=== PATIENT | female | born 1935 | race Caucasian/White ===

== ENCOUNTER → 2016-11-11 | Outpatient (CLI) | payer MEDICARE | LOC: OD 17:37 | PROVIDERS: ATTEND Physician Assistant Medical | DX: R06.02 Shortness of breath (principal) ==

== ENCOUNTER 2017-02-03 14:20 | Inpatient (IN) | payer MEDICARE, MEDICAID ==
[2017-02-03] MEDS ORDERED: IPRATROPIUM/ALBUTEROL 0.5-2.5 MG/3 ML AMPUL NEB PRN (22:23)
[2017-02-03] MEDS ORDERED: 1/2 NORMAL SALINE 1,000 ML IV PRN (22:23)
[2017-02-03] MEDS ORDERED: GLUCAGON,HUMAN RECOMB 1 MG INJ IM PRN (22:26)
[2017-02-03] MEDS ORDERED: DEXTROSE 40% GEL 15 GM TUBE PO PRN ×2 (22:26)
[2017-02-03] MEDS ORDERED: DEXTROSE 50%-WATER 25 GM/50 ML DISP.SYRIN IV PRN ×2 (22:26)
--- NOTE | 2017-02-03 22:54 | PDOC H&P ---
History of Present Illness Admission Date/PCP: Reportedly Dr. Suarez Patient complains of: Altered mental status History of Present Illness: DANIEL MCFARLAND is a 81 year old female female, reportedly fairly functional in terms of activities of daily living and interaction with others, and with underlying type 2 diabetes mellitus, hypertension and diastolic congestive heart failure, who presents to the emergency room for evaluation of above complaints. Patient has been discussed with emergency room physician who evaluated the patient. Patient is oriented to the fact that she is in [facility] and the fact that "they found me on the floor," but responses to many questions are somewhat confused and her history should be considered suspect. She is thus able to provide minimal information in terms of acute or chronic events, review of systems, personal habits, family history, etc. No friends or family are present. Old inpatient records are reviewed. Documentation from the emergency room physician is pending, with hospital computer system having been down most of the day, but now functioning. Was found by the local police department, covered in urine and feces. Quite confused, but according to staff, is becoming a bit more alert now with hydration. No further information available this point in time. Laboratory results are listed in [facility] and are reviewed. X-rays reviewed, and discussed with on-call radiologist Dr. Bass, with no acute abnormalities noted. EKG reviewed. Compared to prior tracing from September 30 of last year. Social history/personal habits: No information available this point in time. Allergies/adverse reactions are listed in [facility] and are reviewed. Home medications Home medications initially autopopulated into [facility] may not accurately reflect patient's true medications, dosages, and/or frequencies. fill technician to reconcile medications. Unfortunately, patient cannot provide any information related to medications/ dosages/frequencies. REVIEW OF SYSTEMS: See history and present illness. No further information available this point in time. PHYSICAL EXAMINATION: Neither height nor weight are recorded on the chart. Temperature not recorded on the chart; skin feels normothermic. Blood pressure 105/52. 95% saturation on room air. Respirations are 13 and unlabored. Pulse 85 and regular. Somewhat obese otherwise well-developed elderly female appearing approximately her stated age. Intermittently somewhat anxious, although no gene agitation. Appears not to feel very well. Somewhat disheveled appearance. Cooperative, however. Skin is warm and dry. Extensive red rash upper medial thighs and under her abdominal wall panniculus, with overall appearance consistent with Parris rash. No subcutaneous nodules palpated. ENT: Hearing grossly normal to normal conversation. Tongue midline on protrusion pink and slightly moist. No fuentes sign. Eyes: No scleral icterus. Pupils equal and reactive to light at 4 mm. [place] conjunctivae. No raccoon eyes. Neck is supple and nontender to gentle active range of motion and palpation. Midline trachea. No palpable thyroid nodule mass enlargement or tenderness. Lymphatic: No palpable cervical or clavicular nodes. Neck and lymphatic exams limited by patient body habitus. Psychiatric: Cannot be adequately evaluated due to her current status. See history and present illness. Lungs: Auscultation reveals clear and equal breath sounds bilaterally. No use of accessory respiratory muscles. Cardiovascular: Heart regular rate and rhythm, without gallop murmur or rub. No carotid or abdominal aortic bruits. No ankle or pedal edema. Faintly palpable dorsalis pedis pulses. Abdomen:soft, somewhat obese, nontender with positive bowel sounds. Unable to adequately evaluate abdomen for masses or organomegaly due to body habitus. Extremities: Feet are warm and dry. No calf tenderness to compression. No grossly obvious visual evidence of calf swelling. Gentle manipulation of lower extremities fails to reveal any obvious evidence of injury or instability to knees hips or ankles. Skin changes in the [place] of each lower extremity consistent with probable venous stasis disease. No evidence of ulceration. Slight pink discoloration. No increased warmth. Nontender. Neurologic: Moves upper extremities grossly normally. Patellar reflexes absent. Absent Babinski. Light touch is intact at feet. Dorsiflexion and plantarflexion of feet 5 / 5 and symmetric. Past Medical History Past Medical History: Patient unable to provide any information related to past medical history. See history and present illness. Cardiac Medical History: Reports: Myocardial Infarction - X2, Hyperlipidema, Hypertension Pulmonary Medical History: Denies: Tuberculosis Neurological Medical History: Denies: Seizures Endocrine Medical History: Reports: Diabetes Mellitus Type 2 Psychiatric Medical History: Denies: Depression Past Surgical History Past Surgical History: Reports: Cardiac Catheterization, Section, Hysterectomy Denies: Pacemaker Social History Information Source: Emergency Med Personnel, [facility] Records Lives with: Alone Smoking Status: Unknown if Ever Smoked Frequency of Alcohol Use: None Hx Recreational Drug Use: No Drugs: None Hx Prescription Drug Abuse: No - Advance Directive Resuscitation Status: Full Code Surrogate healthcare decision maker:: Uncertain at this point in time. Family History Parental Family History Reviewed: No - Patient cannot provide any information related to family history. Children Family History Reviewed: No - Patient cannot provide any information related to family history. Sibling(s) Family History Reviewed.: No - Patient cannot provide any information related to family history. Medication/Allergy Home Medications: Atenolol [Tenormin] 25 mg PO DAILY 02/04/17 Glipizide [Glucotrol 10 mg Tablet] 10 mg PO BID 02/04/17 Allergies/Adverse Reactions: Sulfa (Sulfonamide Antibiotics) Allergy (Verified 11/22/11 22:26) Assessment & Plan - Diagnosis (1) ARF (acute renal failure) Qualifiers: Acute renal failure type: unspecified Qualified Code(s): N17.9 - Acute kidney failure, unspecified Is this a current diagnosis for this admission?: YesPlan: Likely primarily due to dehydration. Serial chemistry. IV fluids. (2) Abnormal urinalysis Is this a current diagnosis for this admission?: YesPlan: Urine culture. We will forego antibiotics at this point in time. (3) Acute encephalopathy Is this a current diagnosis for this admission?: YesPlan: Likely secondary in large part to her acute renal failure and dehydration. Should clear with time and treatment. I have strongly encouraged patient not to get out of bed without notifying staff to avoid a fall with injury. Knee high SCDs for DVT prophylaxis, along with subcutaneous heparin. Impression and plans were discussed with patient, who concurs. Time spent in evaluation and management of patient: 62 minutes. (5) Diabetes type 2, uncontrolled Qualifiers: Diabetes mellitus complication status: without complication Diabetes mellitus long term care pharmacist insulin use: unspecified long term care pharmacist insulin use status Qualified Code(s): E11.65 - Type 2 diabetes mellitus with hyperglycemia Is this a current diagnosis for this admission?: YesPlan: Clear liquid diet at the present time. Accu-Cheks with appropriate sliding scale coverage. Resume home medications as appropriate once these have been determined and reviewed. (6) Hypernatremia Is this a current diagnosis for this admission?: YesPlan: Appropriate IV fluid. Serial chemistry. (7) Groin rash Is this a current diagnosis for this admission?: YesPlan: Nystatin cream and powder. (8) Diastolic CHF Qualifiers: Congestive heart failure chronicity: chronic Qualified Code(s): I50.32 - Chronic diastolic (congestive) heart failure Is this a current diagnosis for this admission?: YesPlan: No evidence of acute exacerbation of same. Resume home medications as appropriate once these have been determined and reviewed. - Inpatient Certification Based on my medical assessment, after consideration of the patient's comorbidities, presenting symptoms, or acuity I expect that the services needed warrant INPATIENT care.: Yes I certify that my determination is in accordance with my understanding of Medicare's requirements for reasonable and necessary INPATIENT services [42 CFR 412.3e].: Yes Medical Necessity: Need Close Monitoring Due to Risk of Patient Decompensation, Need For IV Fluids, Need For Continuous Telemetry Monitoring, Risk of Complication if Not Cared For in Hospital, Risk of Diagnosis Which Will Require Inpatient Eval/Care/Monitoring Post Hospital Care: D/C or Transfer Summary
[2017-02-03 23:06] LABS: ADD ON TESTING BLD IN LAB ACKNOWLEDGE
[2017-02-03 23:45] LABS: ANION GAP 15 (5-19); CALCIUM 9.6 mg/dL (8.4-10.2); CARBON DIOXIDE 24 mmol/L (22-30); CHLORIDE 111 mmol/L (98-107); CREATININE RESULT 2.09 mg/dL (0.52-1.25); POTASSIUM 3.8 mmol/L (3.6-5.0); SODIUM 150.1 mmol/L (137-145)
[2017-02-03 23:54] LABS: BLOOD UREA NITROGEN 135 mg/dL (7-20)
[2017-02-03 23:55] LABS: GLUCOSE 476 mg/dL (75-110)
[2017-02-03 23:59] LABS: CALCIUM 10.4 mg/dL (8.4-10.2); GLUCOSE 547 mg/dL (75-110)
[2017-02-04 00:03] LABS: ALBUMIN 3.1 g/dL (3.5-5.0); ANION GAP 17 (5-19); BLOOD UREA NITROGEN 134 mg/dL (7-20); CARBON DIOXIDE 27 mmol/L (22-30); CHLORIDE 111 mmol/L (98-107); CREATININE RESULT 2.18 mg/dL (0.52-1.25); POTASSIUM 4.3 mmol/L (3.6-5.0); SODIUM 154.8 mmol/L (137-145)
[2017-02-04 00:04] LABS: ALANINE AMINOTRANSFERASE 38 U/L (9-52); ALKALINE PHOSPHATASE 120 U/L (38-126); ASPARTATE AMINO TRANSFERASE 51 U/L (14-36); BILIRUBIN,DIRECT 0.7 mg/dL (0.0-0.4); BILIRUBIN,TOTAL 0.9 mg/dL (0.2-1.3); CREATINE KINASE 680 U/L (30-135); TOTAL PROTEIN 7.5 g/dL (6.3-8.2)
[2017-02-04 00:05] LABS: CREATINE KINASE MB 9.5 ng/mL (<4.55); TROPONIN I 0.132 ng/mL
[2017-02-04 00:07] LABS: HEMATOCRIT 49.2 % (36.0-47.0); HEMOGLOBIN 15.3 g/dL (12.0-15.5); HGB HCT DIFFERENCE -3.3; MEAN CORPUSCULAR HEMOGLOBIN 27.8 pg (27.0-33.4); MEAN CORPUSCULAR VOLUME 90 fl (80-97); RED BLOOD COUNT 5.48 10^6/uL (3.72-5.28); SEGMENTED NEUTROPHILS % (AUTO) 77.4 % (42-78); WHITE BLOOD COUNT 11.9 10^3/uL (4.0-10.5)
[2017-02-04 00:08] LABS: ABSOLUTE BASOPHILS # (AUTO) 0.1 10^3/uL (0.0-0.2); ABSOLUTE LYMPHOCYTES (AUTO) 1.5 10^3/uL (0.5-4.7); ABSOLUTE MONOCYTES (AUTO) 1.2 10^3/uL (0.1-1.4); ABSOLUTE NEUT (AUTO) 9.2 10^3/uL (1.7-8.2); BASOPHILS % (AUTO) 0.1 % (0-2); LYMPHOCYTES % (AUTO) 12.7 % (13-45); MONOCYTES % (AUTO) 9.8 % (3-13)
[2017-02-04 00:09] LABS: APPEARANCE,URINE SLIGHTLY-CLOUDY; BILIRUBIN,URINE NEGATIVE (NEGATIVE); GLUCOSE, URINE >=500 mg/dL (NEGATIVE); KETONES,URINE NEGATIVE (NEGATIVE); PROTEIN,URINE 100 mg/dL (NEGATIVE); URINE SPECIFIC GRAVITY 1.016
[2017-02-04 00:10] LABS: LEUKOCYTE ESTERASE,URINE TRACE (NEGATIVE); NITRITE,URINE NEGATIVE (NEGATIVE); UROBILINOGEN,URINE NEGATIVE mg/dL (<2.0)
[2017-02-04] MEDS: INSULIN LISPRO 100 UNIT/ML 3 ML VIAL SUBCUT PRN ×3 (00:30→18:27)
[2017-02-04] MEDS ORDERED: 1/2 NORMAL SALINE 1,000 ML IV PRN ×2 (01:45→14:11)
[2017-02-04 02:27] LABS: ANION GAP 11 (5-19); CALCIUM 9.6 mg/dL (8.4-10.2); CARBON DIOXIDE 26 mmol/L (22-30); CHLORIDE 114 mmol/L (98-107); CREATININE RESULT 2.09 mg/dL (0.52-1.25); POTASSIUM 3.5 mmol/L (3.6-5.0); SODIUM 150.9 mmol/L (137-145)
[2017-02-04 02:39] LABS: BLOOD UREA NITROGEN 131 mg/dL (7-20)
[2017-02-04 02:41] LABS: GLUCOSE 434 mg/dL (75-110)
[2017-02-04 06:38] LABS: ANION GAP 11 (5-19); CALCIUM 9.9 mg/dL (8.4-10.2); CARBON DIOXIDE 28 mmol/L (22-30); CHLORIDE 115 mmol/L (98-107); CREATININE RESULT 1.89 mg/dL (0.52-1.25); GLUCOSE 152 mg/dL (75-110); POTASSIUM 3.5 mmol/L (3.6-5.0); SODIUM 154.2 mmol/L (137-145)
[2017-02-04 06:49] LABS: BLOOD UREA NITROGEN 129 mg/dL (7-20)
[2017-02-04 08:03] LABS: HEMOGLOBIN 13.5 g/dL (12.0-15.5); HGB HCT DIFFERENCE -1.5; MEAN CORPUSCULAR HEMOGLOBIN 27.7 pg (27.0-33.4); MEAN CORPUSCULAR HGB CONC 32.1 g/dL (32.0-36.0); MEAN CORPUSCULAR VOLUME 87 fl (80-97); RED BLOOD COUNT 4.86 10^6/uL (3.72-5.28); WHITE BLOOD COUNT 10.7 10^3/uL (4.0-10.5)
[2017-02-04] MEDS ORDERED: NORMAL SALINE 1000 ML 1,000 ML IV PRN (08:28)
[2017-02-04 08:41] LABS: BAND NEUTROPHILS % (MANUAL) 1 % (3-5); BASOPHILS % (MANUAL) 0 % (0-2); EOSINOPHILS % (MANUAL) 1 % (0-6); LYMPHOCYTES % (MANUAL) 26 % (13-45); TOTAL CELLS COUNTED 100
[2017-02-04 08:42] LABS: ANISOCYTOSIS 1+; POLYCHROMASIA SLIGHT
[2017-02-04] MEDS ORDERED: NYSTATIN CREAM 15 GM TP SCH (10:00)
--- NOTE | 2017-02-04 10:36 | EKG REPORT ---
SEVERITY:- ABNORMAL ECG - ATRIAL FLUTTER/FIBRILLATION, A-RATE 254 VENTRICULAR PREMATURE COMPLEX LVH WITH IVCD, LAD AND SECONDARY REPOL ABNRM INFERIOR INFARCT, AGE INDETERMINATE LATERAL Q WAVES, PROBABLY DUE TO LVH : Confirmed by: Shaylee Turner MD 04-Feb-2017 10:35:22
--- NOTE | 2017-02-04 10:36 | EKG REPORT ---
SEVERITY:- ABNORMAL ECG - SINUS RHYTHM NONSPECIFIC IVCD WITH LAD LVH WITH SECONDARY REPOLARIZATION ABNORMALITY PROBABLE INFERIOR INFARCT, AGE INDETERMINATE ANTEROLATERAL INFARCT, AGE INDETERMINATE : Confirmed by: Shaylee Turner MD 04-Feb-2017 10:35:29
--- NOTE | 2017-02-04 10:36 | EKG REPORT ---
SEVERITY:- ABNORMAL ECG - SINUS RHYTHM VENTRICULAR PREMATURE COMPLEX PROBABLE LEFT ATRIAL ABNORMALITY LVH WITH IVCD, LAD AND SECONDARY REPOL ABNRM INFERIOR INFARCT, AGE INDETERMINATE ANTEROLATERAL INFARCT, AGE INDETERMINATE : Confirmed by: Shaylee Turner MD 04-Feb-2017 10:35:35
[2017-02-04 10:57] LABS: ANION GAP 10 (5-19); BLOOD UREA NITROGEN 117 mg/dL (7-20); CALCIUM 9.7 mg/dL (8.4-10.2); CARBON DIOXIDE 28 mmol/L (22-30); CHLORIDE 115 mmol/L (98-107); CREATININE RESULT 1.77 mg/dL (0.52-1.25); GLUCOSE 276 mg/dL (75-110); POTASSIUM 3.5 mmol/L (3.6-5.0); SODIUM 152.6 mmol/L (137-145)
[2017-02-04] MEDS: HEPARIN SOD (PORCINE) 5,000 UNIT/ML 1 ML SYRINGE SUBCUT SCH (11:51)
[2017-02-04] MEDS: NYSTATIN TOPICAL POWDER 15 GM TP SCH ×2 (11:58→18:29)
[2017-02-04] MEDS: DOCUSATE SODIUM 100 MG CAPSULE PO SCH ×2 (11:58→18:34)
[2017-02-04] MEDS ORDERED: POTASSIUM CHLORIDE 10 MEQ TABLET.SA PO ONE ×2 (14:45→18:23)
[2017-02-04 16:20] LABS: ANION GAP 11 (5-19); BLOOD UREA NITROGEN 111 mg/dL (7-20); CALCIUM 9.2 mg/dL (8.4-10.2); CARBON DIOXIDE 26 mmol/L (22-30); CHLORIDE 111 mmol/L (98-107); CREATININE RESULT 1.79 mg/dL (0.52-1.25); POTASSIUM 3.3 mmol/L (3.6-5.0)
[2017-02-04 16:30] LABS: GLUCOSE 435 mg/dL (75-110); TROPONIN I 0.188 ng/mL
[2017-02-04] MEDS ORDERED: POTASSI CL 20 MEQ/1/2NS 1L 1,000 ML IV PRN (16:51)
--- NOTE | 2017-02-04 21:02 | PROGRESS NOTE E ---
Progress Note NAME: DANIEL MCFARLAND : 1935 AGE: 81Y DATE: 02/04/2017 ROOM: 321 SUBJECTIVE: The patient has been seen twice today on rounds. The patient is much more alert and awake at this time in comparison to earlier. The patient is unable to recall the exact events that brought her to the hospital, although she is aware that Dr. Dupont is her new patient escort. At this time, the patient denies any nausea, vomiting. No diarrhea, shortness of breath, dizziness, chest pain. No fevers, chills. The patient admits to excessive thirst as well as hunger at this time, and the patient does not voice any other concerns at this time. REVIEW OF SYSTEMS: Negative. MEDICATIONS: Reviewed. OBJECTIVE: GENERAL: The patient is an 81-year-old female who is awake and alert, not fully oriented. Does not appear to be in any acute distress. VITAL SIGNS: Temperature 97.7, pulse 93, respirations 16, blood pressure 110/77, oxygen saturation 95%. SKIN: Warm, very dry. She is not diaphoretic. HEENT: Pupils equal, round and reactive to light and accommodation. Conjunctivae pale. There is no JVD. CVS: Heart is regular. There is no murmur or rub. CHEST: Clear, symmetrical. Faint bilateral basal crackles. ABDOMEN: Soft, nontender, nondistended. BACK: No CVA tenderness. EXTREMITIES: No clubbing, cyanosis, or edema. PSYCHIATRIC: Much more awake and alert, pleasant mood. DIAGNOSTICS: Lab values are as follows. Hematology obtained on 02/04/2017: WBC 10.7, hemoglobin 13.5, hematocrit 42.0, platelet count 211,000. Chemistry panel on 02/04/2017: Sodium 152, potassium 4.5, chloride 115, carbon dioxide 28, BUN 117, creatinine 1.77, glucose 276, calcium 9.7. TSH is 0.11. Troponin 0.210. ASSESSMENT AND PLAN: 1. HYPEROSMOLAR NONKETOTIC HYPERGLYCEMIC STATE. The patient's blood glucose is much improved. Will continue to hydrate at this time, and follow. 2. ACUTE RENAL FAILURE. The patient's creatinine has improved with hydration. Will continue to monitor this. 3. LOW TSH. Will obtain T4. 4. ELEVATED TROPONIN. Given findings on the patient's echocardiogram, I do have a high suspicion for non-STEMI. I have consulted Dr. Dupont, who is the patient's new patient escort. The patient is unable to give a full cardiology history at this time. For now, will medically manage with aspirin and statin therapy, and follow. Given that the patient was found on the floor, will also monitor CK to ensure no development of rhabdo with statin. 5. DIABETES MELLITUS TYPE 2. Typically, this is well controlled. This is an acute event for the patient. However, will hold oral hypoglycemics for now and continue sliding scale coverage. Will advance diet to a diabetic diet, given that the patient is quite hungry. 6. DEEP VENOUS THROMBOSIS PROPHYLAXIS. Will continue subcu heparin. DISPOSITION: The patient is a full code. Depending on the patient's symptomatology and diagnostic findings, will reevaluate in the a.m. Time spent on this followup including assessment, plan, physical examination, patient education, collaboration, as well as attempt to discuss with family, is 40 minutes. DICTATING PHYSICIAN: ZEHRA CASSIDY NP [id number] PHY#: [id number] ID: [id number] JOB#: [id number] ACCT: [id number] cc: >
--- NOTE | 2017-02-04 21:19 | PDOC CONSULTATION ---
Consultation Consult Date: 02/04/17 Attending physician:: ZEHRA CASSIDY Consult reason:: abn troponin and ekg History of Present Illness Admission Date/PCP: 02/03/17 22:23 ALONSO SANZ PA-C Patient complains of: Weakness and fatigue and being found on the floor unconscious History of Present Illness: DANIEL MCFARLAND is a 81 year old female female, reportedly fairly functional in terms of activities of daily living and interaction with others, and with underlying type 2 diabetes mellitus, hypertension and diastolic congestive heart failure, who admitted through the emergency room for evaluation of above complaints. Patient was noted to be found on the floor. She was noted to have severe hyperglycemia and initially was confused. She was hydrated and treated. This morning she was much more alert and was able to answer direct questions. Patient however denied any chest pain or shortness of breath. Patient just felt nonspecifically fatigued and tired. She was noted to have positive troponin I elevation and was noted to have nonspecific EKG changes. Patient and granddaughter at bedside. This history was confirmed. On questioning today patient denied any chest pain or significant shortness of breath but claims to be feeling very fatigued and tired. This has been a symptom for last several days prior to admission and on the day of admission was noted to be found in floor with altered mental status. Past Medical History Cardiac Medical History: Reports: Myocardial Infarction - X2, Hyperlipidema, Hypertension Pulmonary Medical History: Denies: Tuberculosis Neurological Medical History: Denies: Seizures Endocrine Medical History: Reports: Diabetes Mellitus Type 2 Psychiatric Medical History: Denies: Depression Past Surgical History Past Surgical History: Reports: Cardiac Catheterization, Section, Hysterectomy Denies: Pacemaker Social History Information Source: Relative Lives with: Alone Smoking Status: Unknown if Ever Smoked Frequency of Alcohol Use: None Hx Recreational Drug Use: No Drugs: None Hx Prescription Drug Abuse: No - Advance Directive Resuscitation Status: Full Code Family History Family History: Reviewed & Not Pertinent Parental Family History Reviewed: Yes Children Family History Reviewed: Yes Sibling(s) Family History Reviewed.: Yes Medication/Allergy Home Medications: Atenolol [Tenormin] 25 mg PO DAILY 02/04/17 Glipizide [Glucotrol 10 mg Tablet] 10 mg PO BID 02/04/17 Allergies/Adverse Reactions: Sulfa (Sulfonamide Antibiotics) Allergy (Verified 11/22/11 22:26) Review of Systems Review of Systems: Please see history of present illness and past medical history as well. This was obtained by direct questioning. Constitutional: No fever or chills reported. Head : No recent chronic headaches, recent head injury. Eyes: No recent eye pain, diplopia, redness, discharge, acute visual changes. Ears: No recent chronic ear pain, acute hearing loss, ear discharge. Oral cavity: No recent ulcerations, bleeding, oral cavity discomfort. Neck: No recent acute neck pain reported. Hematologic: No recent easy bruising or bleeding or hematologic malignancy reported. Lymphatic: No recent lymphatic malignancy, chronic lymphadenopathy reported yet Cardiovascular system review: See history of present illness. Respiratory system review: No recent chronic cough, hemoptysis, blood clots in the lungs reported. Mild Shortness of breath on exertion Gastrointestinal system review: Negative for any recent acute or chronic abdominal pain, hematemesis, melena, recent change in bowel habits. Genitourinary system review: No recent acute or chronic hematuria, flank pain, UTI etc. reported. Skin system review: Negative for any recent abnormal bruising, no rash, no pruritus reported. Neurologic: No prior history of strokes, mini strokes, seizure disorder. Psychologic: No history of major psychosis or major depression reported. Musculoskeletal: Minor aches and pains reported. No acute joint swelling reported. Endocrine: No recent polyuria, polydipsia, recent heat or cold intolerance. Physical Exam Vital Signs: Temp Pulse Resp BP Pulse Ox 98.4 F 85 16 119/65 94 02/04/17 20:25 02/04/17 20:25 02/04/17 20:25 02/04/17 20:25 02/04/17 20:25 Intake & Output 02/03/17 02/04/17 02/05/17 06:59 06:59 06:59 Intake Total 1600 Balance 1600 Weight 93.6 kg Exam: GENERAL: well-nourished and in no acute distress. Alert and oriented x3. Patient noted to be intermittently confused by the nurses. HEAD: Atraumatic, normocephalic. EYES: Pupils equal round and reactive to light, extraocular movements intact, sclera anicteric, conjunctiva are normal. ENT: TMs normal, nares patent, oropharynx clear without exudates. Moist mucous membranes. No oral ulcerations or bleeding gums noted NECK: supple without lymphadenopathy. Trachea is central. No cervical or axillary lymphadenopathy noted. Carotids are 2+, JVD WNL LUNGS: Respiration seems nonlabored, no significant accessory muscle action noted. Breath sounds clear to auscultation bilaterally and equal noted. No wheezes rales or rhonchi noted. No significant dullness noted on percussion. CHEST: Palpation of the chest wall shows no significant chest wall tenderness. No other significant abnormalities noted. HEART: [place] [employer], No PSH, 1/6 DEBBIE aortic area, 1/6 schulz systolic murmur mitral area, no rubs, no gallops. ABDOMEN: Soft, no significant tenderness appreciated, normoactive bowel sounds. No guarding, no rebound. No rigidity noted . No masses appreciated. EXTREMITIES: Pedal pulses are 1-2+, no calf tenderness noted. No clubbing or cyanosis. 1+ pedal edema noted NEUROLOGICAL: Focused neurological exam showed no significant neurologic deficit. Normal speech, no focal weakness appreciated. PSYCH: Normal mood, normal affect. Judgment and insight within normal limits. SKIN: No significant ecchymosis, rash, ulcerations or signs of pruritus noted. MUSCULOSKELETAL EXAM: No significant joint swelling noted. Results Laboratory Results: 02/04/17 07:14 02/04/17 15:29 02/03/17 02/04/17 02/04/17 23:20 02:03 06:10 WBC RBC Hgb Hct MCV MCH MCHC RDW Plt Count Seg Neutrophils % Lymphocytes % Monocytes % Eosinophils % Basophils % Absolute Neutrophils Absolute Lymphocytes Absolute Monocytes Absolute Eosinophils Absolute Basophils Sodium 150.1 H 150.9 H 154.2 H Potassium 3.8 3.5 L 3.5 L Chloride 111 H 114 H 115 H Carbon Dioxide 24 26 28 Anion Gap 15 11 11 BUN 135 H 131 H 129 H Creatinine 2.09 H 2.09 H 1.89 H Est GFR ( Amer) 27 L 27 L 31 L Est GFR (Non-Af Amer) 23 L 23 L 25 L Glucose 476 H* 434 H* 152 H Calcium 9.6 9.6 9.9 TSH Free T4 02/04/17 02/04/17 02/04/17 07:14 10:22 10:22 WBC 10.7 H RBC 4.86 Hgb 13.5 Hct 42.0 MCV 87 MCH 27.7 MCHC 32.1 RDW 16.0 H Plt Count 211 Seg Neutrophils % Not Reportable Lymphocytes % Not Reportable Monocytes % Not Reportable Eosinophils % Not Reportable Basophils % Not Reportable Absolute Neutrophils Not Reportable Absolute Lymphocytes Not Reportable Absolute Monocytes Not Reportable Absolute Eosinophils Not Reportable Absolute Basophils Not Reportable Sodium 152.6 H Potassium 3.5 L Chloride 115 H Carbon Dioxide 28 Anion Gap 10 BUN 117 H Creatinine 1.77 H Est GFR ( Amer) 33 L Est GFR (Non-Af Amer) 27 L Glucose 276 H Calcium 9.7 TSH 0.11 L Free T4 02/04/17 02/04/17 15:29 15:29 WBC RBC Hgb Hct MCV MCH MCHC RDW Plt Count Seg Neutrophils % Lymphocytes % Monocytes % Eosinophils % Basophils % Absolute Neutrophils Absolute Lymphocytes Absolute Monocytes Absolute Eosinophils Absolute Basophils Sodium 148.0 H Potassium 3.3 L Chloride 111 H Carbon Dioxide 26 Anion Gap 11 BUN 111 H Creatinine 1.79 H Est GFR ( Amer) 33 L Est GFR (Non-Af Amer) 27 L Glucose 435 H* Calcium 9.2 TSH Free T4 1.39 02/04/17 02/04/17 02/04/17 06:10 15:29 15:29 Creatine Kinase 244 H Troponin I 0.210 0.188 NT-Pro-B Natriuret Pep 747 H EKG Comments: Showed sinus rhythm, minor nonspecific T-wave changes noted. Impressions: Head CT 02/03/17 00:00 IMPRESSION: No acute findings. Chest X-Ray 02/04/17 00:00 IMPRESSION: Pulmonary vascular congestion. Assessment & Plan - Diagnosis (1) Elevated troponin I level Is this a current diagnosis for this admission?: Yes (2) Abnormal electrocardiogram Is this a current diagnosis for this admission?: Yes (3) Acute encephalopathy Is this a current diagnosis for this admission?: Yes (6) Diabetes type 2, uncontrolled Qualifiers: Diabetes mellitus complication status: without complication Diabetes mellitus alf insulin use: unspecified alf insulin use status Qualified Code(s): E11.65 - Type 2 diabetes mellitus with hyperglycemia Is this a current diagnosis for this admission?: Yes (7) Hypernatremia Is this a current diagnosis for this admission?: Yes - Notes Notes: Elevated troponin I: Most likely related to metabolic problems with hyperglycemia, hyponatremia, severe dehydration. Do not feel it indicates acute coronary syndrome. At this point treat primary abnormalities of metabolic condition. Abnormal electrocardiogram: Patient has nonspecific T-wave inversion but no ST segment changes therefore not sales representative leather goods of ischemia. Acute encephalopathy: Most likely related to diabetic hyperosmolar state and hyponatremia. Chronic kidney disease: Agree with hydration. Dehydration: Continue hydration. Diabetes type 2 uncontrolled: Currently being expectantly managed. Hypernatremia: I believe it is severe than what is being shown as hyperglycemia can usually cause hyponatremia. Agree with cautious hydration. - Time Time Spent: 30 to 50 Minutes - CODE STATUS was discussed, patient remains full code. Surrogate decision-maker patient son and daughter. Multiple medical problems were addressed. More than 50% of the time spent coordinating care, discussing management plans with involved caregivers. Management plans discussed with involved personnels. Medical decision making was of moderate to high complexity, patient's has multiple severe comorbidities. Medications reviewed and adjusted accordingly: Yes
[2017-02-05] MEDS: ATORVASTATIN CALCIUM 40 MG TABLET PO SCH ×2 (01:00→22:04)
[2017-02-05] MEDS: HEPARIN SOD (PORCINE) 5,000 UNIT/ML 1 ML SYRINGE SUBCUT SCH ×3 (01:01→22:04)
[2017-02-05 06:58] LABS: HEMATOCRIT 39.4 % (36.0-47.0); HEMOGLOBIN 12.4 g/dL (12.0-15.5); HGB HCT DIFFERENCE -2.2; MEAN CORPUSCULAR HEMOGLOBIN 27.7 pg (27.0-33.4); MEAN CORPUSCULAR HGB CONC 31.4 g/dL (32.0-36.0); MEAN CORPUSCULAR VOLUME 88 fl (80-97); RED BLOOD COUNT 4.47 10^6/uL (3.72-5.28); RED CELL DISTRIBUTION WIDTH 16.4 % (11.5-14.0); WHITE BLOOD COUNT 11.5 10^3/uL (4.0-10.5)
[2017-02-05 07:15] LABS: ANION GAP 7 (5-19); CALCIUM 9.4 mg/dL (8.4-10.2); CARBON DIOXIDE 26 mmol/L (22-30); CHLORIDE 113 mmol/L (98-107); CREATININE RESULT 1.44 mg/dL (0.52-1.25); GLUCOSE 183 mg/dL (75-110); MAGNESIUM 2.2 mg/dL (1.6-2.3); POTASSIUM 3.9 mmol/L (3.6-5.0); SODIUM 145.7 mmol/L (137-145)
[2017-02-05 07:22] LABS: BLOOD UREA NITROGEN 80 mg/dL (7-20)
[2017-02-05] MEDS ORDERED: CEFTRIAXONE 1 GM/D5W RTU 50 ML IV SCH (10:00)
[2017-02-05] MEDS: DOCUSATE SODIUM 100 MG CAPSULE PO SCH ×2 (10:53→16:58)
[2017-02-05] MEDS: ASPIRIN 81 MG TABLET, CHEWABLE PO SCH (10:53)
[2017-02-05] MEDS: NYSTATIN TOPICAL POWDER 15 GM TP SCH ×2 (10:54→16:59)
--- NOTE | 2017-02-05 11:07 | PROGRESS NOTE E ---
Progress Note NAME: DANIEL ROYAL : 1935 AGE: 81Y DATE: 02/05/2017 ROOM: 321 SUBJECTIVE: Ms. Royal is sitting up in bed. She is much more alert than she was yesterday although she will fall asleep during conversation. The patient is oriented to place but not fully oriented to situation. She has no memory of what brought her to the hospital. The patient's granddaughter who is from [place] is present at the bedside and active in the patient's care. The patient has had no reported episodes of vomiting nor diarrhea. The patient has been afebrile. Her blood pressure has been in a good range. Overall the patient has improved substantially in comparison to presentation. The patient denies chest pain. No other concerns are voiced at this time. REVIEW OF SYSTEMS: Rest of the review of systems negative. MEDICATIONS: Have been reviewed. PHYSICAL EXAMINATION: GENERAL: The patient is an 81-year-old female who is awake, alert. She is not oriented to time and situation but is oriented to person and place. She does not appear to be in any acute distress. VITAL SIGNS: Temperature is 100.2, pulse 99, respirations 16, blood pressure is 118/54, oxygen saturation is 95% on 2 L nasal cannula. SKIN: Warm and dry. No rash. Not diaphoretic. HEENT: Pupils are equal, round, reactive to light and accommodation. The patient has right conjunctival irritation. There is no JVP. Palpable lump noted adjacent to thyroid. CARDIOVASCULAR: Heart is regular with no murmur or rub. CHEST: Clear, symmetrical, unlabored. ABDOMEN: Soft, nontender, nondistended. BACK: No CVA tenderness or sacral edema. EXTREMITIES: No clubbing, cyanosis, or edema. PSYCHIATRIC: Appropriate affect, pleasant mood. DIAGNOSTICS: Lab values are follows: Hematology obtained on 02/05/2017: WBCs are 11.5, hemoglobin is 12.4, hematocrit is 39.4, platelet count is 180,000. Chemistry obtained on 02/05/2017: Sodium is 145, potassium 3.9, chloride is 113, carbon dioxide 26, BUN 80, creatinine is 1.4, glucose 183, calcium is 9.4, magnesium is 2.2, troponin is 0.193. Urine culture is pending. IMPRESSION AND PLAN: 1. HYPEROSMOLAR NONKETOTIC HYPERGLYCEMIC STATE. The patient's blood glucose overall is much improved with only hydration. Will continue sliding scale coverage. 2. ACUTE RENAL FAILURE. The patient's creatinine is much improved with hydration. Will continue to monitor this. Will hold hydration today. 3. ELEVATED TROPONIN. Do have a high suspicion for non-STEMI secondary to the hyperglycemia and the patient's acute issue. Do appreciate Dr. Dupont's input with this who feels that medical management is appropriate. Will continue with aspirin and statin therapy. The patient's CK is improved. 4. URINARY TRACT INFECTION. Currently awaiting urine culture. Will give Rocephin. 5. SIRS SECONDARY TO THE ABOVE. Will continue to monitor. 6. NECK MASS. Uncertain if this is goiter versus thyromegaly. T4 was normal. Will obtain neck ultrasound now that the patient is more stable. 7. DIABETES MELLITUS TYPE 2. Will hold oral hypoglycemics for now and continue sliding scale coverage. 8. GENERAL DEBILITY. Will have PT to evaluate. Discussed rehab with the granddaughter who is on board with this. 9. DVT PROPHYLAXIS. Will continue subcu heparin. DISPOSITION: The patient is a DO NOT RESUSCITATE/DO NOT INTUBATE. Pending patient's symptomatology and diagnostic findings, will reevaluate in the a.m. Time spent on this followup including assessment, plan, physical examination, patient education, family meeting, and specialty collaboration is 40 minutes. DICTATING PHYSICIAN: ZEHRA CASSIDY NP [id number] PHY#: [id number] ID: [id number] JOB#: [id number] ACCT: [id number] cc: >
[2017-02-05] MEDS: ACETAMINOPHEN 325 MG TABLET PO PRN ×2 (12:05→20:15)
[2017-02-05] MEDS: POLYMYXIN B SULFATE/TMP OPH SOLN 10 ML OD SCH ×4 (12:05→20:16)
[2017-02-05] MEDS: INSULIN LISPRO 100 UNIT/ML 3 ML VIAL SUBCUT PRN ×2 (12:05→22:04)
--- NOTE | 2017-02-05 18:02 | XCELERA REPORT ---
[address] [address] Transthoracic Echocardiogram Report Name: DANIEL MCFARLAND Age: 81 yrs Gender: Female : 1935 Patient Status: Inpatient Patient Location: 3W\S\321\S\A Study Date: 02/05/2017 10:18 AM Height: 63 in Weight: 200 lb BSA: 1.9 m2 Procedure: A complete two-dimensional transthoracic echocardiogram was performed (2D, M-mode, spectral and color flow Doppler). The study was technically adequate with some images being suboptimal in quality. Reason For Study: Elevated trop Ordering Physician: ZEHRA CASSIDY Performed By: Nicolas Hardy Interpretation Summary The left ventricular ejection fraction is normal. There is mild concentric left ventricular hypertrophy. Wall motion cannot be accurately commented on, but no definite regional wall motion abnormalities noted. The left ventricle is grossly normal size. The right ventricle is mild to moderately dilated. The right ventricular systolic function is normal. The right atrium is moderately dilated. Interarterial septum not well visualized and not well dopplered. Cannot comment on ASD/PFO presence. The left atrium is mildly dilated. There is a mild amount of mitral regurgitation There is no mitral valve stenosis. No aortic regurgitation is present. There is no aortic valve stenosis There is a mild to moderate amount of tricuspid regurgitation There is moderate pulmonary hypertension by echo Best estimated right ventricular systolic pressure is elevated at 50- 60mmHg. The aortic root is not well visualized but is probably normal size. The inferior vena cava appeared dilated and decreased < 50% with respiration (RAP 15-20 mmHg) There is no pericardial effusion. MMode/2D Measurements \T\ Calculations RVDd: 2.6 cm LVIDd: 4.9 cm FS: 40.7 % Ao root diam: 3.2 cm IVSd: 1.3 cm LVIDs: 2.9 cm EDV(Teich): 110.3 ml LVPWd: 1.2 cm ESV(Teich): 31.6 ml Ao root area: 8.0 cm2 EF(Teich): 71.4 % LA dimension: 3.9 cm Doppler Measurements \T\ Calculations MV E max katelynn: MV P1/2t max katelynn: Ao V2 max: LV V1 max P.6 cm/sec 98.1 cm/sec 177.0 cm/sec 7.4 mmHg MV A max katelynn: MV P1/2t: 48.0 msec Ao max PG: LV V1 max: 137.0 cm/sec 12.5 mmHg 135.7 cm/sec MV E/A: 0.70 MVA(P1/2t): 4.6 cm2 MV dec slope: 598.1 cm/sec2 PA V2 max: PI end-d katelynn: TR max katelynn: RAP systole: 113.5 cm/sec 138.5 cm/sec 335.2 cm/sec 10.0 mmHg PA max PG: TR max P.2 mmHg 44.9 mmHg RVSP(TR): 54.9 mmHg Left Ventricle The left ventricle is grossly normal size. There is mild concentric left ventricular hypertrophy. The left ventricular ejection fraction is normal. Doppler measurements suggest pseudonormalized left ventricular relaxation, which is associated with grade II/IV or mild to moderate diastolic dysfunction. Wall motion cannot be accurately commented on, but no definite regional wall motion abnormalities noted. Right Ventricle The right ventricle is mild to moderately dilated. There is normal right ventricular wall thickness. The right ventricular systolic function is normal. Atria The right atrium is moderately dilated. The left atrium is mildly dilated. Interarterial septum not well visualized and not well dopplered. Cannot comment on ASD/PFO presence. Mitral Valve The mitral valve leaflets are sclerotic, but show no functional abnormalities. There is no mitral valve stenosis. There is a mild amount of mitral regurgitation. Aortic Valve The aortic valve is sclerotic, but shows no functional abnormality. There is no aortic valve stenosis. No aortic regurgitation is present. Tricuspid Valve The tricuspid valve is not well visualized secondary to technical limitations. There is no tricuspid stenosis. There is a mild to moderate amount of tricuspid regurgitation. There is moderate pulmonary hypertension by echo. Best estimated right ventricular systolic pressure is elevated at 50-60mmHg. Pulmonic Valve The pulmonic valve is not well visualized. Great Vessels The aortic root is not well visualized but is probably normal size. The inferior vena cava appeared dilated and decreased < 50% with respiration (RAP 15-20 mmHg). Effusions There is no pericardial effusion. : ZEHRA CASSIDY > Asa Dupont
[2017-02-06] MEDS: POLYMYXIN B SULFATE/TMP OPH SOLN 10 ML OD SCH ×3 (00:20→05:01)
[2017-02-06 04:49] LABS: HEMATOCRIT 41.1 % (36.0-47.0); HEMOGLOBIN 12.8 g/dL (12.0-15.5); HGB HCT DIFFERENCE -2.7; MEAN CORPUSCULAR HGB CONC 31.2 g/dL (32.0-36.0); MEAN CORPUSCULAR VOLUME 87 fl (80-97); RED BLOOD COUNT 4.74 10^6/uL (3.72-5.28); RED CELL DISTRIBUTION WIDTH 16.1 % (11.5-14.0); WHITE BLOOD COUNT 14.8 10^3/uL (4.0-10.5)
[2017-02-06] MEDS: ACETAMINOPHEN 325 MG TABLET PO PRN ×2 (05:01→18:44)
[2017-02-06] MEDS ORDERED: IMIPENEM/CILASTATIN SODIUM 1,000 MG in NORMAL SALINE 250 ML IV SCH (08:00)
[2017-02-06] MEDS: INSULIN LISPRO 100 UNIT/ML 3 ML VIAL SUBCUT PRN ×4 (08:04→22:13)
[2017-02-06 09:39] LABS: ANION GAP 9 (5-19); BLOOD UREA NITROGEN 49 mg/dL (7-20); CARBON DIOXIDE 29 mmol/L (22-30); CHLORIDE 106 mmol/L (98-107); CREATININE RESULT 1.29 mg/dL (0.52-1.25); GLUCOSE 317 mg/dL (75-110); POTASSIUM 3.8 mmol/L (3.6-5.0); SODIUM 143.5 mmol/L (137-145)
[2017-02-06] MEDS ORDERED: IMIPENEM/CILASTATIN SODIUM 500 MG in NORMAL SALINE 100 ML IV SCH (10:00)
[2017-02-06] MEDS: HEPARIN SOD (PORCINE) 5,000 UNIT/ML 1 ML SYRINGE SUBCUT SCH ×2 (10:17→22:09)
[2017-02-06] MEDS: POLYMYXIN B SULFATE/TMP OPH SOLN 10 ML OU SCH ×6 (10:17→23:16)
[2017-02-06] MEDS: IMIPENEM/CILASTATIN SODIUM 500 MG in NORMAL SALINE 100 ML IV SCH ×2 (10:17→22:21)
[2017-02-06] MEDS: GUAIFENESIN 600 MG TABLET.SA PO SCH ×2 (10:18→22:20)
[2017-02-06] MEDS: NYSTATIN TOPICAL POWDER 15 GM TP SCH ×2 (10:18→18:04)
[2017-02-06] MEDS: ASPIRIN 81 MG TABLET, CHEWABLE PO SCH (10:18)
[2017-02-06] MEDS: DOCUSATE SODIUM 100 MG CAPSULE PO SCH ×2 (10:19→18:06)
--- NOTE | 2017-02-06 13:20 | PROGRESS NOTE E ---
Progress Note NAME: DANIEL MCFARLAND : 1935 AGE: 81Y DATE: 02/06/2017 ROOM: 321 SUBJECTIVE: The patient is lying in bed. She is awake and alert. She is more oriented than yesterday and the day before but still a little confused to details. The patient denies any nausea, vomiting or diarrhea, any shortness of breath, dizziness or chest pain. No fevers or chills. The patient still continues to have fevers. Blood pressures have been in a good range. The patient does not voice any other concerns at this time. In discussion with nursing staff, it appears that the patient can possibly have symptoms of aspiration; therefore, will continue with strict aspiration precautions for now. REVIEW OF SYSTEMS: The rest of the review of systems is negative. MEDICATIONS: Medications have been reviewed. OBJECTIVE: GENERAL: The patient is an 81-year-old female who is awake and alert. She is oriented to person and place but not fully oriented to situation. She does not appear to be in any acute distress. VITAL SIGNS: Temperature is 98.7, pulse 80, respirations 16, blood pressure 127/55, and oxygen saturation is 93% on 3 L nasal cannula. SKIN: Warm and dry. There is no rash and not diaphoretic. HEENT: Pupils are equal, round and reactive to light and accommodation. The patient does have bilateral conjunctivitis now. The patient does have a palpable goiter and nodular palpation to the left of the thyroid. CARDIOVASCULAR: Heart is regular, is no murmur or rub. CHEST: The patient has rhonchorous breath sounds in upper lung minor, symmetrical, unlabored. ABDOMEN: Soft, nontender, nondistended. BACK: No CVA tenderness or sacral edema. EXTREMITIES: No clubbing, cyanosis, edema. PSYCHIATRIC: Appropriate affect. Pleasant mood. DIAGNOSTICS: Lab values are as follows. Hematology on 02/06/2017: WBCs are 14.8, hemoglobin 12.8, hematocrit 41.1, platelet count 137,000. Current chemistries are pending. Thyroid ultrasound obtained on 02/05/2017 reveals heterogeneous atrophic thyroid gland presumably related to chronic hypothyroidism. No dominant nodule identified. Sonographic finding concerning for cervical lymphadenopathy superior to the left lobe of the thyroid. Recommend a contrast-enhanced neck CT for further evaluation. IMPRESSION AND PLAN: 1. POSSIBLE ASPIRATION PNEUMONIA. Will obtain chest x-ray. Will change the patient's antibiotic coverage to a carbapenem and continue with strict aspiration precautions. If the patient shows any further evidence of distress will convert to n.p.o. status. 2. HYPEROSMOLAR, NONKETOTIC HYPERGLYCEMIC STATE. This has much improved with just hydration. Continue current measures. 3. ACUTE RENAL FAILURE. The patient's creatinine is much improved. Still awaiting today's chemistries. 4. ELEVATED TROPONIN. Do have a suspicion for non-STEMI secondary to the patient's hyperglycemia as well as underlying infectious process. Do appreciate Dr. Dupont's input with this. 5. SIRS SECONDARY TO #1. Will follow. 6. NECK MASS. Will await the patient's creatinine for today. The patient does need a contrasted study to further evaluate this. 7. DIABETES MELLITUS, TYPE 2. Currently holding oral hypoglycemics. Will continue sliding-scale coverage. 8. GENERAL DEBILITY. The patient can go to rehab Wednesday when a bed is available. 9. DVT PROPHYLAXIS. Will continue subcu heparin. DISPOSITION: THE PATIENT IS A DO NOT RESUSCITATE/DO NOT INTUBATE. Pending the patient's symptomatology and diagnostic findings, will re-evaluate in the a.m. Time spent on this followup, including assessment/plan, physical examination, and patient education, is 25 minutes. DICTATING PHYSICIAN: ZEHRA CASSIDY NP [id number] KIMBERLYY#: [id number] ID: [id number] JOB#: [id number] ACCT: [id number] cc: >
[2017-02-06] MEDS: IPRATROPIUM/ALBUTEROL 0.5-2.5 MG/3 ML AMPUL NEB SCH ×2 (13:57→20:50)
--- NOTE | 2017-02-06 17:29 | PDOC PROGRESS REPORT ---
Subjective Progress Note for:: 02/05/17 Subjective:: Patient seems to be doing better with significant improvement. Pt is denying any chest arm or neck discomfort. Patient denying any PND, orthopnea. Patient denied any sustained palpitations, dizziness, syncope, near syncope. Patient denying any fever chills. Patient denying any other significant discomfort. Patient is maintaining sinus rhythm. Review of systems: Rest review of systems negative. Medications: Medications have been reviewed.. Echo reviewed Physical Exam Vital Signs: Temp Pulse Resp BP Pulse Ox 101.4 F H 110 H 16 149/80 H 96 02/05/17 20:01 02/05/17 20:01 02/05/17 20:01 02/05/17 20:01 02/05/17 20:01 Intake & Output 02/04/17 02/05/17 02/06/17 06:59 06:59 06:59 Intake Total 3316 945 Balance 3316 945 Weight 93.6 kg 90.8 kg Exam: GENERAL: well-nourished and in no acute distress. Alert and oriented x3 HEAD: Atraumatic, normocephalic. EYES: Pupils equal round and reactive to light, extraocular movements intact, sclera anicteric, conjunctiva are normal. ENT: TMs normal, nares patent, oropharynx clear without exudates. Moist mucous membranes. No oral ulcerations or bleeding gums noted NECK: supple without lymphadenopathy. Trachea is central. No cervical or axillary lymphadenopathy noted. Carotids are 2+, JVD WNL LUNGS: Respiration seems nonlabored, no significant accessory muscle action noted. Mild bibasilar coarse crackles are noted. No wheezes rales or rhonchi noted. No significant dullness noted on percussion. CHEST: Palpation of the chest wall shows no significant chest wall tenderness. No other significant abnormalities noted. 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 ABDOMEN: Soft, no significant tenderness appreciated, normoactive bowel sounds. No guarding, no rebound. No rigidity noted . No masses appreciated. EXTREMITIES: Pedal pulses are 1-2+, no calf tenderness noted. No clubbing or cyanosis.trace to 1+ pedal edema noted NEUROLOGICAL: Focused neurological exam showed no significant neurologic deficit. Normal speech, no focal weakness appreciated. PSYCH: Normal mood, normal affect. Judgment and insight within normal limits. SKIN: No significant ecchymosis, rash, ulcerations or signs of pruritus noted. MUSCULOSKELETAL EXAM: No significant joint swelling noted. Results Laboratory Results: 02/05/17 06:30 02/05/17 06:30 02/05/17 02/05/17 06:30 06:30 WBC 11.5 H RBC 4.47 Hgb 12.4 Hct 39.4 MCV 88 MCH 27.7 MCHC 31.4 L RDW 16.4 H Plt Count 180 Sodium 145.7 H Potassium 3.9 Chloride 113 H Carbon Dioxide 26 Anion Gap 7 BUN 80 H D Creatinine 1.44 H Est GFR ( Amer) 42 L Est GFR (Non-Af Amer) 35 L Glucose 183 H Calcium 9.4 Magnesium 2.2 02/04/17 02/04/17 02/04/17 06:10 15:29 15:29 Creatine Kinase 244 H Troponin I 0.210 0.188 NT-Pro-B Natriuret Pep 747 H 02/05/17 06:30 Creatine Kinase Troponin I 0.193 NT-Pro-B Natriuret Pep Impressions: Head CT 02/03/17 00:00 IMPRESSION: No acute findings. Chest X-Ray 02/04/17 00:00 IMPRESSION: Pulmonary vascular congestion. Assessment & Plan - Diagnosis (1) Elevated troponin I level Is this a current diagnosis for this admission?: Yes (2) Abnormal electrocardiogram Is this a current diagnosis for this admission?: Yes (3) Acute encephalopathy Is this a current diagnosis for this admission?: Yes (6) Diabetes type 2, uncontrolled Qualifiers: Diabetes mellitus complication status: without complication Diabetes mellitus care home insulin use: unspecified care home insulin use status Qualified Code(s): E11.65 - Type 2 diabetes mellitus with hyperglycemia Is this a current diagnosis for this admission?: Yes (7) Hypernatremia Is this a current diagnosis for this admission?: Yes - Notes Notes: Elevated troponin I: Most likely related to metabolic problems with hyperglycemia, hyponatremia, severe dehydration. Do not feel it indicates acute coronary syndrome. At this point treat primary abnormalities of metabolic condition. This assessment remains same. Continue to follow troponin I to normalization. Abnormal electrocardiogram: This is stable. Patient without any chest pain. Acute encephalopathy: Significantly improved. Most likely related to diabetic hyperosmolar state and hypernatremia Chronic kidney disease: Renal function is improving.. Dehydration: Improved.. Diabetes type 2 uncontrolled: Currently being expectantly managed. Blood sugars are improving. Hypernatremia: These are improving. Agree with cautious hydration. Patient CODE STATUS now DNR. - Time Time with patient: 15-25 minutes - CODE STATUS : was discussed, patient remains DO NOT RESUSCITATE. Surrogate decision-maker unchanged. Multiple medical problems were addressed. More than 50% of the time spent coordinating care, discussing management plans with involved caregivers. Management plans discussed with involved personnels. Medical decision making was of moderate to high complexity, patient's has multiple comorbidities. Medications reviewed and adjusted accordingly: Yes
--- NOTE | 2017-02-06 17:32 | PDOC PROGRESS REPORT ---
Subjective Progress Note for:: 02/06/17 Subjective:: Patient seems to be doing better with significant improvement. Pt is denying any chest arm or neck discomfort. Patient denying any PND, orthopnea. Patient denied any sustained palpitations, dizziness, syncope, near syncope. Patient denying any fever chills. Patient denying any other significant discomfort. Patient is maintaining sinus rhythm. Review of systems: Rest review of systems negative. Medications: Medications have been reviewed. Physical Exam Vital Signs: Temp Pulse Resp BP Pulse Ox 100.1 F 91 16 112/44 L 90 L 02/06/17 16:06 02/06/17 16:06 02/06/17 16:06 02/06/17 16:06 02/06/17 16:06 Intake & Output 02/05/17 02/06/17 02/07/17 06:59 06:59 06:59 Intake Total 3316 2132 Balance 3316 2132 Weight 90.8 kg 90 kg Exam: GENERAL: well-nourished and in no acute distress. Alert and oriented x3 HEAD: Atraumatic, normocephalic. EYES: Pupils equal round and reactive to light, extraocular movements intact, sclera anicteric, conjunctiva are normal. ENT: TMs normal, nares patent, oropharynx clear without exudates. Moist mucous membranes. No oral ulcerations or bleeding gums noted NECK: supple without lymphadenopathy. Trachea is central. No cervical or axillary lymphadenopathy noted. Carotids are 2+, JVD WNL LUNGS: Respiration seems nonlabored, no significant accessory muscle action noted. Breath sounds clear to auscultation bilaterally and equal noted. No wheezes rales or rhonchi noted. No significant dullness noted on percussion. CHEST: Palpation of the chest wall shows no significant chest wall tenderness. No other significant abnormalities noted. HEART: [place] CONVEYOR MONITOR, No PSH, 1/6 DEBBIE aortic area, 1/6 schulz systolic murmur mitral area, no rubs, no gallops. ABDOMEN: Soft, no significant tenderness appreciated, normoactive bowel sounds. No guarding, no rebound. No rigidity noted . No masses appreciated. EXTREMITIES: Pedal pulses are 1-2+, no calf tenderness noted. No clubbing or cyanosis.trace to 1+ pedal edema noted NEUROLOGICAL: Focused neurological exam showed no significant neurologic deficit. Normal speech, no focal weakness appreciated. PSYCH: Normal mood, normal affect. Judgment and insight within normal limits. SKIN: No significant ecchymosis, rash, ulcerations or signs of pruritus noted. MUSCULOSKELETAL EXAM: No significant joint swelling noted. Results Laboratory Results: 02/06/17 04:04 02/06/17 09:07 02/06/17 02/06/17 02/06/17 04:04 04:04 09:07 WBC 14.8 H RBC 4.74 Hgb 12.8 Hct 41.1 MCV 87 MCH 27.0 MCHC 31.2 L RDW 16.1 H Plt Count 137 L Sodium 143.5 Potassium 3.8 Chloride 106 Carbon Dioxide 29 Anion Gap 9 BUN 49 H Creatinine 1.29 H Est GFR ( Amer) 48 L Est GFR (Non-Af Amer) 39 L Glucose 317 H Calcium 9.0 Magnesium 2.0 02/04/17 02/04/17 02/04/17 06:10 15:29 15:29 Creatine Kinase 244 H Troponin I 0.210 0.188 NT-Pro-B Natriuret Pep 747 H 02/05/17 06:30 Creatine Kinase Troponin I 0.193 NT-Pro-B Natriuret Pep Impressions: Head CT 02/03/17 00:00 IMPRESSION: No acute findings. Thyroid Ultrasound 02/05/17 00:00 IMPRESSION: HETEROGENEOUS ATROPHIC THYROID GLAND PRESUMABLY RELATED TO CHRONIC HYPOTHYROIDISM. NO DOMINANT NODULE IDENTIFIED. SONOGRAPHIC FINDINGS CONCERNING FOR CERVICAL LYMPHADENOPATHY SUPERIOR TO THE LEFT LOBE OF THE THYROID. RECOMMEND CONTRAST-ENHANCED CT NECK FOR FURTHER EVALUATION. Chest X-Ray 02/06/17 00:00 IMPRESSION: CARDIAC ENLARGEMENT. VASCULAR CONGESTION. Assessment & Plan - Diagnosis (1) Elevated troponin I level Is this a current diagnosis for this admission?: Yes (2) Abnormal electrocardiogram Is this a current diagnosis for this admission?: Yes (3) Acute encephalopathy Is this a current diagnosis for this admission?: Yes (6) Diabetes type 2, uncontrolled Qualifiers: Diabetes mellitus complication status: without complication Diabetes mellitus buttermaker helper insulin use: unspecified residential insulin use status Qualified Code(s): E11.65 - Type 2 diabetes mellitus with hyperglycemia Is this a current diagnosis for this admission?: Yes (7) Hypernatremia Is this a current diagnosis for this admission?: Yes - Notes Notes: 2D echo results reviewed. It showed normal LVEF, right ventricle seems enlarged. No significant stenotic or regurgitant lesions are noted. Elevated troponin I: Most likely related to metabolic problems with hyperglycemia, hyponatremia, severe dehydration. Will repeat a troponin I level for the morning. Abnormal electrocardiogram: Currently stable. No plans for ischemia evaluation. Acute encephalopathy: Much improved and patient mental status back to normal. Chronic kidney disease: Stable. Dehydration: Resolved. Diabetes type 2 uncontrolled: Currently being expectantly managed. Hypernatremia: This has resolved and serum sodium now within normal limits - Time Time with patient: 15-25 minutes - CODE STATUS : was discussed, patient remains DO NOT RESUSCITATE. Surrogate decision-maker unchanged. Multiple medical problems were addressed. Medications reviewed and adjusted accordingly: Yes
[2017-02-06] MEDS ORDERED: FUROSEMIDE INJ/PF 20 MG/2 ML SDV IV ONE (18:04)
[2017-02-06] MEDS: ATORVASTATIN CALCIUM 40 MG TABLET PO SCH (22:20)
[2017-02-07] MEDS: ACETAMINOPHEN 325 MG TABLET PO PRN ×2 (00:16→15:26)
[2017-02-07] MEDS: POLYMYXIN B SULFATE/TMP OPH SOLN 10 ML OU SCH ×8 (03:02→23:53)
[2017-02-07 06:26] LABS: HEMATOCRIT 36.7 % (36.0-47.0); HEMOGLOBIN 11.8 g/dL (12.0-15.5); HGB HCT DIFFERENCE -1.3; MEAN CORPUSCULAR HEMOGLOBIN 27.9 pg (27.0-33.4); MEAN CORPUSCULAR HGB CONC 32.2 g/dL (32.0-36.0); MEAN CORPUSCULAR VOLUME 87 fl (80-97); RED BLOOD COUNT 4.24 10^6/uL (3.72-5.28); WHITE BLOOD COUNT 17.6 10^3/uL (4.0-10.5)
[2017-02-07 06:59] LABS: ANION GAP 10 (5-19); BLOOD UREA NITROGEN 37 mg/dL (7-20); CALCIUM 9.1 mg/dL (8.4-10.2); CARBON DIOXIDE 28 mmol/L (22-30); CHLORIDE 104 mmol/L (98-107); CREATININE RESULT 1.26 mg/dL (0.52-1.25); GLUCOSE 208 mg/dL (75-110); MAGNESIUM 1.8 mg/dL (1.6-2.3); POTASSIUM 3.9 mmol/L (3.6-5.0); SODIUM 141.7 mmol/L (137-145)
[2017-02-07] MEDS: IPRATROPIUM/ALBUTEROL 0.5-2.5 MG/3 ML AMPUL NEB SCH ×3 (08:18→20:28)
[2017-02-07] MEDS: NYSTATIN TOPICAL POWDER 15 GM TP SCH ×2 (09:16→18:01)
[2017-02-07] MEDS: DOCUSATE SODIUM 100 MG CAPSULE PO SCH ×2 (09:16→18:00)
[2017-02-07] MEDS: IMIPENEM/CILASTATIN SODIUM 500 MG in NORMAL SALINE 100 ML IV SCH (09:16)
[2017-02-07] MEDS: GUAIFENESIN 600 MG TABLET.SA PO SCH ×2 (09:16→22:01)
[2017-02-07] MEDS: HEPARIN SOD (PORCINE) 5,000 UNIT/ML 1 ML SYRINGE SUBCUT SCH ×2 (09:16→22:08)
[2017-02-07] MEDS: INSULIN LISPRO 100 UNIT/ML 3 ML VIAL SUBCUT PRN ×4 (09:16→22:00)
[2017-02-07] MEDS: ASPIRIN 81 MG TABLET, CHEWABLE PO SCH (09:16)
[2017-02-07] MEDS ORDERED: VANCOMYCIN HCL 0 MG in DEXTROSE 5%-WATER 250 ML IV NR (09:30)
[2017-02-07] MEDS: VANCOMYCIN HCL 1,000 MG in DEXTROSE 5%-WATER 250 ML IV SCH (12:29)
[2017-02-07] MEDS: PIPERACILLIN SODIUM/TAZOBACTAM 3.375 GM in NORMAL SALINE 100 ML IV SCH ×3 (12:30→23:53)
--- NOTE | 2017-02-07 20:36 | PROGRESS NOTE E ---
Progress Note NAME: DANIEL MCFARLAND : 1935 AGE: 81Y DATE: 02/07/2017 ROOM: 321 SUBJECTIVE: The patient is lying in bed. She is much more awake and alert as the days progress. The patient denies any nausea or vomiting, no diarrhea, dizziness or chest pain. The patient does admit to a strong cough but has not been able to produce any sputum. I asked the patient if she was having any difficulty with swallowing, and she denied this. The patient has had some low-grade temperatures but blood pressures have been in a good range. She denies any chest pain, and the patient does not voice any other concerns at this time. REVIEW OF SYSTEMS: Rest of review of systems is negative. MEDICATIONS: Medications have been reviewed. OBJECTIVE: GENERAL: The patient is an 81-year-old female who is awake and alert to person, place, time and situation. She is verbal and conversational. She is a little delayed, not really oriented to situation. She does to appear to be in any acute distress. VITAL SIGNS: Temperature is 99.1, pulse 95, respirations 16, blood pressure 126/60, oxygen saturation is 97% on 2 L nasal cannula. SKIN: Warm and dry. No rash, not diaphoretic. HEENT: Pupils are equal, round, reactive to light and accommodation. Conjunctivae are still quite red, evidence of conjunctivitis; however, it does appear to have improved overnight. NECK: Mass still palpable in the patient's neck. CARDIOVASCULAR: Heart is regular. There is no murmur or rub. CHEST: The patient does have rhonchorous breath sounds in upper lung minor. ABDOMEN: Soft, nontender, nondistended. BACK: No CVA tenderness or sacral edema. EXTREMITIES: No clubbing, cyanosis or edema. PSYCHIATRIC: Appropriate affect, pleasant mood. DIAGNOSTIC DATA: Lab values are as follows: Hematology obtained on 02/07/2017: WBC is 17.6, hemoglobin 12.8, hematocrit 36.7, and platelet count is 161,000. Coagulation obtained on 02/04/2017: PTT is 25.1. Chemistries obtained on 02/07/2017: Sodium is 141, potassium 3.9, chloride 104, carbon dioxide 28, BUN 37, creatinine , glucose 208, calcium 9.1, magnesium is 1.8. IMPRESSION AND PLAN: 1. POSSIBLE ASPIRATION PNEUMONIA. Will repeat the patient's swallow screen to evaluate for possible aspiration. Will continue broad-spectrum coverage for now and follow. 2. HYPEROSMOLAR, NONKETOTIC HYPERGLYCEMIC STATE. This resolved with just hydration. Continue current medications. 3. ACUTE RENAL FAILURE. The patient's creatinine appears to be at its baseline. 4. SIRS SECONDARY TO THE ABOVE. The patient still is having intermittent temps. The patient's antibiotics have been maximized. 5. NECK MASS. The patient will need a contrasted image but defer it for now given her acute illness and her creatinine. 6. DIABETES MELLITUS TYPE 2. Continue sliding scale coverage. 7. GENERAL DEBILITY. The patient can go to rehab at discharge if she does have a bed offer. 8. DVT PROPHYLAXIS. Will continue subcutaneous heparin. 9. CONJUNCTIVITIS. Will continue antibiotic drops. 10. ELEVATED TROPONINS. I do have a suspicion for non-STEMI given the patient's hyperglycemia and underlying infectious process. Do appreciate Dr. Dupont's input with this. DISPOSITION: The patient is a DO NOT RESUSCITATE/DO NOT INTUBATE. Pending the patient's symptomatology and diagnostic findings, will re-evaluate in the a.m. TIME: Time spent on this followup including assessment, plan, physical examination, patient education, and specialty collaboration is 25 minutes. DICTATING PHYSICIAN: ZEHRA CASSIDY NP [id number] PHY#: [id number] ID: [id number] JOB#: [id number] ACCT: [id number] cc: > [facility]
[2017-02-07] MEDS: ATORVASTATIN CALCIUM 40 MG TABLET PO SCH (22:01)
[2017-02-08] MEDS: ACETAMINOPHEN 325 MG TABLET PO PRN ×3 (00:06→20:46)
[2017-02-08] MEDS: POLYMYXIN B SULFATE/TMP OPH SOLN 10 ML OU SCH ×7 (03:57→20:46)
[2017-02-08 05:40] LABS: HEMATOCRIT 35.6 % (36.0-47.0); HEMOGLOBIN 11.2 g/dL (12.0-15.5); MEAN CORPUSCULAR HEMOGLOBIN 27.2 pg (27.0-33.4); MEAN CORPUSCULAR HGB CONC 31.5 g/dL (32.0-36.0); MEAN CORPUSCULAR VOLUME 86 fl (80-97); RED BLOOD COUNT 4.13 10^6/uL (3.72-5.28); RED CELL DISTRIBUTION WIDTH 16.1 % (11.5-14.0); WHITE BLOOD COUNT 16.5 10^3/uL (4.0-10.5)
[2017-02-08] MEDS: PIPERACILLIN SODIUM/TAZOBACTAM 3.375 GM in NORMAL SALINE 100 ML IV SCH ×3 (05:51→17:06)
[2017-02-08 06:08] LABS: ANION GAP 9 (5-19); BLOOD UREA NITROGEN 28 mg/dL (7-20); CALCIUM 8.5 mg/dL (8.4-10.2); CARBON DIOXIDE 27 mmol/L (22-30); CHLORIDE 102 mmol/L (98-107); CREATININE RESULT 1.23 mg/dL (0.52-1.25); GLUCOSE 162 mg/dL (75-110); MAGNESIUM 1.8 mg/dL (1.6-2.3); POTASSIUM 3.6 mmol/L (3.6-5.0); SODIUM 137.7 mmol/L (137-145)
[2017-02-08] MEDS: INSULIN LISPRO 100 UNIT/ML 3 ML VIAL SUBCUT PRN ×4 (08:16→21:50)
[2017-02-08] MEDS: IPRATROPIUM/ALBUTEROL 0.5-2.5 MG/3 ML AMPUL NEB SCH ×3 (08:51→20:01)
[2017-02-08] MEDS: DOCUSATE SODIUM 100 MG CAPSULE PO SCH ×2 (09:19→17:05)
[2017-02-08] MEDS: NYSTATIN TOPICAL POWDER 15 GM TP SCH ×2 (09:19→17:05)
[2017-02-08] MEDS: ASPIRIN 81 MG TABLET, CHEWABLE PO SCH (09:19)
[2017-02-08] MEDS: HEPARIN SOD (PORCINE) 5,000 UNIT/ML 1 ML SYRINGE SUBCUT SCH ×2 (09:19→21:50)
[2017-02-08] MEDS: GUAIFENESIN 600 MG TABLET.SA PO SCH ×2 (09:19→21:50)
[2017-02-08] MEDS: VANCOMYCIN HCL 1,000 MG in DEXTROSE 5%-WATER 250 ML IV SCH (13:01)
--- NOTE | 2017-02-08 19:28 | PDOC PROGRESS REPORT ---
Subjective Progress Note for:: 02/07/17 Subjective:: Patient seems to be doing better with significant improvement. Pt is denying any chest arm or neck discomfort. Patient denying any PND, orthopnea. Patient denied any sustained palpitations, dizziness, syncope, near syncope. Patient denying any fever chills. Patient denying any other significant discomfort. Patient is maintaining sinus rhythm. Patient noted to be intermittently confused. Patient however can carry out a good conversation. Review of systems: Rest review of systems negative. Medications: Medications have been reviewed.. Echo reviewed with patient and granddaughter. Physical Exam Vital Signs: Temp Pulse Resp BP Pulse Ox 99.2 F 80 18 108/50 L 93 02/07/17 19:57 02/07/17 20:28 02/07/17 20:28 02/07/17 19:57 02/07/17 19:57 Intake & Output 02/06/17 02/07/17 02/08/17 06:59 06:59 06:59 Intake Total 2132 1746 1200 Balance 2132 1746 1200 Weight 90 kg 92.8 kg Exam: GENERAL: well-nourished and in no acute distress. Alert and oriented 2 HEAD: Atraumatic, normocephalic. EYES: Pupils equal round and reactive to light, extraocular movements intact, sclera anicteric, conjunctiva are normal. ENT: TMs normal, nares patent, oropharynx clear without exudates. Moist mucous membranes. No oral ulcerations or bleeding gums noted NECK: supple without lymphadenopathy. Trachea is central. No cervical or axillary lymphadenopathy noted. Carotids are 2+, JVD WNL LUNGS: Respiration seems nonlabored, no significant accessory muscle action noted. Breath sounds clear to auscultation bilaterally and equal noted. No wheezes rales or rhonchi noted. No significant dullness noted on percussion. CHEST: Palpation of the chest wall shows no significant chest wall tenderness. No other significant abnormalities noted. 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 ABDOMEN: Soft, no significant tenderness appreciated, normoactive bowel sounds. No guarding, no rebound. No rigidity noted . No masses appreciated. EXTREMITIES: Pedal pulses are 1-2+, no calf tenderness noted. No clubbing or cyanosis.trace to 1+ pedal edema noted NEUROLOGICAL: Focused neurological exam showed no significant neurologic deficit. Normal speech, no focal weakness appreciated. PSYCH: Normal mood, normal affect. Judgment and insight within normal limits. SKIN: No significant ecchymosis, rash, ulcerations or signs of pruritus noted. MUSCULOSKELETAL EXAM: No significant joint swelling noted. Results Laboratory Results: 02/07/17 05:46 02/07/17 05:46 02/07/17 02/07/17 05:46 05:46 WBC 17.6 H RBC 4.24 Hgb 11.8 L Hct 36.7 MCV 87 MCH 27.9 MCHC 32.2 RDW 16.0 H Plt Count 161 Sodium 141.7 Potassium 3.9 Chloride 104 Carbon Dioxide 28 Anion Gap 10 BUN 37 H Creatinine 1.26 H Est GFR ( Amer) 49 L Est GFR (Non-Af Amer) 41 L Glucose 208 H Calcium 9.1 Magnesium 1.8 02/04/17 02/04/17 02/04/17 06:10 15:29 15:29 Creatine Kinase 244 H Troponin I 0.210 0.188 NT-Pro-B Natriuret Pep 747 H 02/05/17 06:30 Creatine Kinase Troponin I 0.193 NT-Pro-B Natriuret Pep Impressions: Head CT 02/03/17 00:00 IMPRESSION: No acute findings. Thyroid Ultrasound 02/05/17 00:00 IMPRESSION: HETEROGENEOUS ATROPHIC THYROID GLAND PRESUMABLY RELATED TO CHRONIC HYPOTHYROIDISM. NO DOMINANT NODULE IDENTIFIED. SONOGRAPHIC FINDINGS CONCERNING FOR CERVICAL LYMPHADENOPATHY SUPERIOR TO THE LEFT LOBE OF THE THYROID. RECOMMEND CONTRAST-ENHANCED CT NECK FOR FURTHER EVALUATION. Chest X-Ray 02/06/17 00:00 IMPRESSION: CARDIAC ENLARGEMENT. VASCULAR CONGESTION. Assessment & Plan - Diagnosis (1) Non-STEMI (non-ST elevated myocardial infarction) Is this a current diagnosis for this admission?: Yes (2) Elevated troponin I level Is this a current diagnosis for this admission?: Yes (3) Abnormal electrocardiogram Is this a current diagnosis for this admission?: Yes (4) Acute encephalopathy Is this a current diagnosis for this admission?: Yes (7) Diabetes type 2, uncontrolled Qualifiers: Diabetes mellitus complication status: without complication Diabetes mellitus nutrition associate insulin use: unspecified nutrition associate insulin use status Qualified Code(s): E11.65 - Type 2 diabetes mellitus with hyperglycemia Is this a current diagnosis for this admission?: Yes (8) Hypernatremia Is this a current diagnosis for this admission?: Yes - Notes Notes: Non-STEMI: Patient EKGs reviewed, cardiac enzymes reviewed. Agree with hospitalist assessment that patient does qualify for diagnosis of non-STEMI in view of T-wave inversion and positive enzymes. This could have been brought on by severe hyperglycemia and also dehydration. Based on patient's other comorbid diagnosis, do not feel patient will be a candidate for heart catheterization but aggressive medical management. This was discussed with hospitalist and patient's relatives. They are agreeable for this approach. Recommend statin, beta-galindo, BETSY/ARB and antiplatelet therapy. Toprol-XL 0205 acute encephalopathy: This has improved but patient has underlying dementia. Chronic kidney disease: Currently stable. Dehydration: Improved Hyponatremia: Resolved.
--- NOTE | 2017-02-08 19:31 | PDOC PROGRESS REPORT ---
Subjective Progress Note for:: 02/08/17 Subjective:: Patient seems to be doing better. Patient has been moved to another room. Pt is denying any chest arm or neck discomfort. Patient denying any PND, orthopnea. Patient denied any sustained palpitations, dizziness, syncope, near syncope. Patient denying any fever chills. Patient denying any other significant discomfort. Patient is maintaining sinus rhythm. Review of systems: Rest review of systems negative. Medications: Medications have been reviewed. Physical Exam Vital Signs: Temp Pulse Resp BP Pulse Ox 98.5 F 91 18 125/58 L 97 02/08/17 15:28 02/08/17 15:28 02/08/17 15:28 02/08/17 15:28 02/08/17 15:28 Intake & Output 02/07/17 02/08/17 02/09/17 06:59 06:59 06:59 Intake Total 1746 2765 1420 Balance 1746 2765 1420 Weight 92.8 kg 89.1 kg Exam: GENERAL: well-nourished and in no acute distress. Alert and oriented x3 HEAD: Atraumatic, normocephalic. EYES: Pupils equal round and reactive to light, extraocular movements intact, sclera anicteric, conjunctiva are normal. ENT: TMs normal, nares patent, oropharynx clear without exudates. Moist mucous membranes. No oral ulcerations or bleeding gums noted NECK: supple without lymphadenopathy. Trachea is central. No cervical or axillary lymphadenopathy noted. Carotids are 2+, JVD WNL LUNGS: Respiration seems nonlabored, no significant accessory muscle action noted. Breath sounds clear to auscultation bilaterally and equal noted. No wheezes rales or rhonchi noted. No significant dullness noted on percussion. CHEST: Palpation of the chest wall shows no significant chest wall tenderness. No other significant abnormalities noted. 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 ABDOMEN: Soft, no significant tenderness appreciated, normoactive bowel sounds. No guarding, no rebound. No rigidity noted . No masses appreciated. EXTREMITIES: Pedal pulses are 1-2+, no calf tenderness noted. No clubbing or cyanosis.trace to 1+ pedal edema noted NEUROLOGICAL: Focused neurological exam showed no significant neurologic deficit. Normal speech, no focal weakness appreciated. PSYCH: Normal mood, normal affect. SKIN: No significant ecchymosis, rash, ulcerations or signs of pruritus noted. MUSCULOSKELETAL EXAM: No significant joint swelling noted. Results Laboratory Results: 02/08/17 04:35 02/08/17 04:35 02/08/17 02/08/17 04:35 04:35 WBC 16.5 H RBC 4.13 Hgb 11.2 L Hct 35.6 L MCV 86 MCH 27.2 MCHC 31.5 L RDW 16.1 H Plt Count 166 Sodium 137.7 Potassium 3.6 Chloride 102 Carbon Dioxide 27 Anion Gap 9 BUN 28 H Creatinine 1.23 Est GFR ( Amer) 50 L Est GFR (Non-Af Amer) 42 L Glucose 162 H Calcium 8.5 Magnesium 1.8 02/04/17 02/04/17 02/04/17 06:10 15:29 15:29 Creatine Kinase 244 H Troponin I 0.210 0.188 NT-Pro-B Natriuret Pep 747 H 02/05/17 06:30 Creatine Kinase Troponin I 0.193 NT-Pro-B Natriuret Pep Impressions: Head CT 02/03/17 00:00 IMPRESSION: No acute findings. Thyroid Ultrasound 02/05/17 00:00 IMPRESSION: HETEROGENEOUS ATROPHIC THYROID GLAND PRESUMABLY RELATED TO CHRONIC HYPOTHYROIDISM. NO DOMINANT NODULE IDENTIFIED. SONOGRAPHIC FINDINGS CONCERNING FOR CERVICAL LYMPHADENOPATHY SUPERIOR TO THE LEFT LOBE OF THE THYROID. RECOMMEND CONTRAST-ENHANCED CT NECK FOR FURTHER EVALUATION. Chest X-Ray 02/06/17 00:00 IMPRESSION: CARDIAC ENLARGEMENT. VASCULAR CONGESTION. 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 Agree with hospitalist assessment that patient does qualify for diagnosis of non-STEMI in view of T-wave inversion and positive enzymes. This could have been brought on by severe hyperglycemia and also dehydration. Based on patient's other comorbid diagnosis, do not feel patient will be a candidate for heart catheterization but aggressive medical management. This was discussed with hospitalist and patient's relatives. They are agreeable for this approach. Recommend statin, beta-galindo, BETSY/ARB and antiplatelet therapy. Patient medications was reviewed. Today I did order Toprol-XL 25 mg to be started from tomorrow. Acute encephalopathy: This has improved but patient has underlying dementia. Chronic kidney disease: Currently stable. Dehydration: Improved Hyponatremia: Resolved. Patient has been stable for last several days. Will therefore sign off. Discussed with patient's granddaughter, that medical management is being recommended. - Time Time with patient: 15-25 minutes - CODE STATUS : was discussed, patient remains DO NOT RESUSCITATE. Surrogate decision-maker unchanged. Multiple medical problems were addressed. More than 50% of the time spent coordinating care, discussing management plans with involved caregivers. Management plans discussed with involved personnels. Medical decision making was of moderate to high complexity, patient's has multiple comorbidities. Medications reviewed and adjusted accordingly: Yes
[2017-02-08] MEDS: ATORVASTATIN CALCIUM 40 MG TABLET PO SCH (21:50)
[2017-02-09] MEDS: PIPERACILLIN SODIUM/TAZOBACTAM 3.375 GM in NORMAL SALINE 100 ML IV SCH ×4 (00:17→17:03)
[2017-02-09] MEDS: POLYMYXIN B SULFATE/TMP OPH SOLN 10 ML OU SCH ×8 (00:20→22:13)
[2017-02-09] MEDS: ACETAMINOPHEN 325 MG TABLET PO PRN (01:10)
[2017-02-09 05:09] LABS: HEMATOCRIT 35.3 % (36.0-47.0); HEMOGLOBIN 11.2 g/dL (12.0-15.5); HGB HCT DIFFERENCE -1.7; MEAN CORPUSCULAR HEMOGLOBIN 27.5 pg (27.0-33.4); MEAN CORPUSCULAR HGB CONC 31.7 g/dL (32.0-36.0); MEAN CORPUSCULAR VOLUME 87 fl (80-97); RED BLOOD COUNT 4.07 10^6/uL (3.72-5.28); WHITE BLOOD COUNT 12.6 10^3/uL (4.0-10.5)
--- NOTE | 2017-02-09 07:24 | PROGRESS NOTE E ---
Progress Note NAME: DANIEL MCFARLAND : 1935 AGE: 81Y DATE: 02/08/2017 ROOM: 322 SUBJECTIVE: The patient is sitting up in bed. Her family is present at the bedside and active in the patient's care. The patient is more alert everyday, although the patient cannot recall multiple things from short term memory. She is much more alert. The patient states that she feels better. She denies any nausea or vomiting. No diarrhea. Denies any shortness of breath or dizziness. No chest pain. No fever or chills. The patient has been afebrile. Blood pressure has been in a good range. The patient does not voice any other concerns at this time. REVIEW OF SYSTEMS: Rest of the review of systems is negative. MEDICATIONS: Have been reviewed. OBJECTIVE: GENERAL: The patient is an 81-year-old female who is awake, alert. She is oriented to person, place, and time. Not fully oriented to situation. She does not appear to be in any acute distress. VITAL SIGNS: Temperature is 97.7, pulse 65, respirations 18, blood pressure 142/65, oxygen saturation is 95% on room air. SKIN: Warm and dry. No rash. She is not diaphoretic. HEENT: Pupils are equal, round, reactive to light and accommodation. Conjunctivae are much improved. No JVP. The patient's area of the neck that has been swollen, has much improved. Still with evidence of thyromegaly. CARDIOVASCULAR: Heart is regular. There is no murmur or rub. CHEST: Patient has rhonchus breath sounds in upper lung minor but symmetric and unlabored. ABDOMEN: Soft, nontender, nondistended. BACK: No CVA tenderness or sacral edema. EXTREMITIES: No clubbing, cyanosis, or edema. PSYCHIATRIC: Appropriate affect, pleasant mood. DIAGNOSTICS: Lab values are as follows: Hematology obtained on 02/08/2017: WBCs are 15.5, hemoglobin is 11.2, hematocrit is 35.6, platelet count is 162,000. Chemistry obtained on 02/08/2017: Sodium is 137, potassium 3.6, chloride is 102, carbon dioxide 27, BUN 28, creatinine is 1.23, glucose 162, calcium is 8.5, magnesium is 1.8. Blood cultures obtained on 02/07/2017 reveal no growth. Urine culture obtained on 02/03/2017 reveals no growth. IMPRESSION AND PLAN: 1. POSSIBLE ASPIRATION PNEUMONIA. The patient will be followed up yet again by speech therapy tomorrow. Recommendations have been diet for changes. Will continue current antibiotic coverage for now. The patient has been afebrile for 24 hours. Continue pulmonary toilet. 2. HYPEROSMOLAR, NONKETOTIC HYPERGLYCEMIC STATE. Resolved with only hydration. Continue to cover. 3. ACUTE RENAL FAILURE. The patient's creatinine has returned to baseline. 4. SIRS SECONDARY TO THE ABOVE. 5. CHRONIC KIDNEY DISEASE STAGE II-III. The patient is back at baseline. 6. NECK MASS. The patient had a very large edematous area in the neck that has appeared to resolve. The patient still has thyromegaly with palpable area to the left of the lobe of the thyroid. Ultrasound imaging does recommend contrasted study, however, given the patient's creatinine, will defer this for now. Discussed this with the family and will follow up ultrasound in a couple of weeks now that the larger area has decreased in size. 7. DIABETES MELLITUS TYPE 2. Continue sliding scale coverage. 8. GENERAL DEBILITY. The patient does have a rehab bed offer. 9. CONJUNCTIVITIS. This has improved with antibiotic drops. 10. DVT PROPHYLAXIS. Will continue subcutaneous heparin. 11. ELEVATED TROPONINS. Do have a suspicion for possible non-STEMI given the patient's hyperglycemia and underlying infectious process. Appreciated Dr. Dupont's input with this. This patient is not a candidate for further cardiac intervention at this time. DISPOSITION: The patient is a DO NOT RESUSCITATE/DO NOT INTUBATE. Pending patient's symptomatology and diagnostic findings, the patient will be reevaluated in the a.m. The patient most likely will go to rehab tomorrow after followup evaluation by speech therapy. Will follow. Time spent on this followup including assessment, plan, physical examination, patient education, specialty collaboration, and family meeting is 25 minutes. DICTATING PHYSICIAN: ZEHRA CASSIDY NP [id number] PHY#: [id number] ID: [id number] JOB#: [id number] ACCT: [id number] cc: >
[2017-02-09] MEDS: IPRATROPIUM/ALBUTEROL 0.5-2.5 MG/3 ML AMPUL NEB SCH ×3 (08:46→20:37)
[2017-02-09] MEDS: METOPROLOL SUCCINATE 25 MG TAB.SR.24H PO SCH (09:32)
[2017-02-09] MEDS: ASPIRIN 81 MG TABLET, CHEWABLE PO SCH (09:33)
[2017-02-09] MEDS: GUAIFENESIN 600 MG TABLET.SA PO SCH ×2 (09:33→22:13)
[2017-02-09] MEDS: DOCUSATE SODIUM 100 MG CAPSULE PO SCH ×2 (09:34→17:03)
[2017-02-09] MEDS: HEPARIN SOD (PORCINE) 5,000 UNIT/ML 1 ML SYRINGE SUBCUT SCH ×2 (09:34→22:13)
[2017-02-09] MEDS: NYSTATIN TOPICAL POWDER 15 GM TP SCH ×2 (09:40→17:03)
[2017-02-09] MEDS: INSULIN LISPRO 100 UNIT/ML 3 ML VIAL SUBCUT PRN ×2 (12:34→22:13)
--- NOTE | 2017-02-09 17:27 | PDOC PROGRESS REPORT ---
Subjective Progress Note for:: 02/09/17 Subjective:: Patient reports that she is breathing better. Patient denies chest pain, shortness of breath, nausea, vomiting, fever, chills , diarrhea, constipation, new onset weakness. Patient reports that she uses oxygen at home. Physical Exam Vital Signs: Temp Pulse Resp BP Pulse Ox 98.7 F 94 16 115/89 H 100 02/08/17 23:34 02/08/17 23:34 02/08/17 23:34 02/08/17 23:34 02/08/17 23:34 Intake & Output 02/08/17 02/09/17 02/10/17 06:59 06:59 06:59 Intake Total 2765 2340 Balance 2765 2340 Weight 89.1 kg 91.7 kg Exam: General: Awake alert and oriented x3, no acute respiratory distress HEENT: AT/NC, PERRL, EOMI, oropharynx is moist, pink, no scleral icterus, no conjunctival injection Neck: No JVD, trachea midline Chest: Bilateral scattered rhonchi CV: Regular rate and rhythm, normal S1 and S2, no rub, or gallop Abdomen: Soft, nontender to palpation, nondistended, active bowel sounds; no rebound, rigidity, or guarding Extremities: No cyanosis, clubbing or edema Neuro: Cranial nerves II through XII are grossly intact without focal deficits Psych: Normal mood and affect Results Laboratory Results: 02/09/17 04:55 02/08/17 04:35 02/09/17 04:55 WBC 12.6 H RBC 4.07 Hgb 11.2 L Hct 35.3 L MCV 87 MCH 27.5 MCHC 31.7 L RDW 16.0 H Plt Count 223 02/04/17 02/04/17 02/04/17 06:10 15:29 15:29 Creatine Kinase 244 H Troponin I 0.210 0.188 NT-Pro-B Natriuret Pep 747 H 02/05/17 06:30 Creatine Kinase Troponin I 0.193 NT-Pro-B Natriuret Pep Impressions: Head CT 02/03/17 00:00 IMPRESSION: No acute findings. Thyroid Ultrasound 02/05/17 00:00 IMPRESSION: HETEROGENEOUS ATROPHIC THYROID GLAND PRESUMABLY RELATED TO CHRONIC HYPOTHYROIDISM. NO DOMINANT NODULE IDENTIFIED. SONOGRAPHIC FINDINGS CONCERNING FOR CERVICAL LYMPHADENOPATHY SUPERIOR TO THE LEFT LOBE OF THE THYROID. RECOMMEND CONTRAST-ENHANCED CT NECK FOR FURTHER EVALUATION. Chest X-Ray 02/06/17 00:00 IMPRESSION: CARDIAC ENLARGEMENT. VASCULAR CONGESTION. Assessment & Plan - Diagnosis (1) Acute encephalopathy Is this a current diagnosis for this admission?: YesPlan: Improved. Likely secondary to infection and subsequent non-STEMI. (2) Acute worsening of stage 3 chronic kidney disease Is this a current diagnosis for this admission?: YesPlan: Improved. 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 Will check a hemoglobin A1c. Patient was only on glipizide as an outpatient. (4) Hypernatremia Is this a current diagnosis for this admission?: YesPlan: Improved secondary to intravascular volume depletion (5) Non-STEMI (non-ST elevated myocardial infarction) Is this a current diagnosis for this admission?: YesPlan: Appreciate cardiology input. Patient currently on metoprolol, aspirin, And statin. Add BETSY/ARB as tolerated. (6) COPD with exacerbation Is this a current diagnosis for this admission?: Yes (7) Parris infection of genital region Is this a current diagnosis for this admission?: YesPlan: On nystatin (8) Hyperthyroidism Is this a current diagnosis for this admission?: NoPlan: Patient appears to have sick euthyroid plus an atrophied thyroid current free T4 is within normal limits.. (9) Pulmonary hypertension Is this a current diagnosis for this admission?: YesPlan: Likely the reason for patient to home O2 need. Likely secondary to underlying lung disease. (10) Diastolic CHF Qualifiers: Congestive heart failure chronicity: chronic Qualified Code(s): I50.32 - Chronic diastolic (congestive) heart failure Is this a current diagnosis for this admission?: Yes - Time Time Spent with patient: 25-34 minutes Medications reviewed and adjusted accordingly: Yes Anticipated discharge: Acute Rehab Within: when bed available
[2017-02-09] MEDS: ATORVASTATIN CALCIUM 40 MG TABLET PO SCH (22:13)
[2017-02-10] MEDS: PIPERACILLIN SODIUM/TAZOBACTAM 3.375 GM in NORMAL SALINE 100 ML IV SCH ×3 (00:47→11:46)
[2017-02-10] MEDS: POLYMYXIN B SULFATE/TMP OPH SOLN 10 ML OU SCH ×6 (00:48→14:22)
[2017-02-10 08:51] LABS: ANION GAP 8 (5-19); BLOOD UREA NITROGEN 15 mg/dL (7-20); CALCIUM 8.8 mg/dL (8.4-10.2); CARBON DIOXIDE 30 mmol/L (22-30); CHLORIDE 102 mmol/L (98-107); GLUCOSE 147 mg/dL (75-110); SODIUM 140.3 mmol/L (137-145)
--- NOTE | 2017-02-10 08:56 | ST Inp Modified Barium Swallow ---
Medical Diagnosis - Medical Diagnoses Medical Diagnosis Description & ICD-10 Code(s): s/sx of aspiration at bedside - ICD-10 Tx Diagnosis Coding (1) Dysphagia, oropharyngeal phase ICD-10 Code(s): R13.12 - DYSPHAGIA, OROPHARYNGEAL PHASE [place] [facility] [place]: 02/10/17 Date of Onset: 02/03/17 - History History Obtained From: Patient - per emr -: Medical - per EMR; ARF, dehydration, uncontrolled diabetes, acute encephalopathy, hypernatremia. Chest xray shows cardiac enlargement and vascular congestion. Head CT shows no acute findings. PMHx: diabetes, HTN, CHF, [place], HLD. S/sx of aspiration at bedside across 2 days. Pt now reports cough has reduced. Medications: Medications Reviewed Allergies: Refer to medical record - Subjective Current Nutritional Means: PO Current PO Diet: Mechanical - cut Current Symptoms: Coughing Pain: 0/5 - Objective Assessment: Upright, Left Lateral - Food Trials Food Trials Used: Thin liquids, Pureed, Regular The Patient: Was Able to Self Feed - Assessment Labial Function: Within Normal Limits Lingual Function: Within Normal Limits Mandibular Function: Within Normal Limits - prolonged chew on regular solid, pt reports stays away from "hard" foods Dentition: Edentulous Velo-Pharyngeal Function: Unremarkable Laryngeal Function: Volitional Cough, Volitional Swallow - Pharyngeal Stage Initiation of Pharyngeal Stage: Normal Decreased Laryngeal Elevation: Yes - mild Reduced Velo-Pharyngeal Closure: no Reduced Pressure Generation: No Reduced Tongue Base Retraction: Yes - mild Pre-Swallowing Pooling in Valleculae: None Pre-Swallowing Pooling in Pyriforms: None Reduced Thyro-Hyiod Approximation: No Reduced Epiglottic Excursion: No Reduced Pharyngeal Peristalsis: No Post Swallow Residuals in Valleculae: Mild - on regular solids Post Swallow Residuals in Pyriforms: Mild - on regular solids - Impression/Summary Laryngeal Penetration: No Tracheal Aspiration: no Patient Presents With: Oral-Pharyngeal dysph. - mild Risk of Aspiration: Mild - Recommendations NPO: no Solid Diet Recommendations: Mechanical Soft, Chopped Meat Liquid Diet Recommendations: Thin Recommended Techniques: Fully Upright During Meal, Alternate Bites/Sips Supervision: Independent Other Recommendations: 1) DIET: Recommend continued mechanical soft cut meats and thin liquids. 2) STRATEGIES- alternating bites and sips. SUMMARY: Pt presents with a mild oropharyngeal dysphagia characterized by mildly reduced base of tongue, mildly reduced laryngeal elevation resulting in mild residuals of regular solids observed to clear with alternating bites and sips. Continue [facility] soft diet. ST to sign off at this time, please reconsult PRN. - Time Total Time: 25 Total Timed Minutes: 0 ST F.L. Impairment Category - Rationale Based On Rationale Based On: Clin Find., Obj Measures - Swallowing Current G8996: CI 1-19% Impaired Goal G8997: CI 1-19% Impaired Discharge G8998: CI 1-19% Impaired
[2017-02-10] MEDS: ASPIRIN 81 MG TABLET, CHEWABLE PO SCH (09:00)
[2017-02-10] MEDS: GUAIFENESIN 600 MG TABLET.SA PO SCH (09:00)
[2017-02-10] MEDS: DOCUSATE SODIUM 100 MG CAPSULE PO SCH (09:00)
[2017-02-10] MEDS: METOPROLOL SUCCINATE 25 MG TAB.SR.24H PO SCH (09:00)
[2017-02-10] MEDS: HEPARIN SOD (PORCINE) 5,000 UNIT/ML 1 ML SYRINGE SUBCUT SCH (09:01)
[2017-02-10] MEDS: NYSTATIN TOPICAL POWDER 15 GM TP SCH (09:01)
[2017-02-10] MEDS: IPRATROPIUM/ALBUTEROL 0.5-2.5 MG/3 ML AMPUL NEB SCH ×2 (09:25→14:23)
--- NOTE | 2017-02-10 09:44 | RADIOLOGY REPORT (SQ) ---
EXAM DESCRIPTION: BRIAN SWALLOW COMPLETED DATE/TIME: 02/10/2017 8:49 am REASON FOR STUDY: s/sx of aspiration at bedside COMPARISON: None. TECHNIQUE: Videofluoroscopic swallowing examination was performed in conjunction with speech patholo gy. Videofluoroscopic imaging was obtained and reviewed and these are the findings: RADIATION DOSE: Fluoro time 2.11 minutes 1 images saved to PACS. LIMITATIONS: None FINDINGS: The patient was brought into the fluoro room and placed upright on a modified barium swall ow chair. The patient was then given multiple consistencies mixed with barium to swallow under live fluoroscopic video guidance. According to the Speech Pathologist there was no penetration or aspirat ion. IMPRESSION: NO EVIDENCE OF PENETRATION OR ASPIRATION.PLEASE SEE SPEECH PATHOLOGIST REPORT FOR OTHER FINDINGS AND RECOMMENDATIONS. COMMENT: None Quality ID [id number]: Final reports for procedures using fluoroscopy that document radiation exposure geoff dana, or exposure time and number of fluorographic images (if radiation exposure indices are not avail able) TECHNICAL DOCUMENTATION: JOB ID: [id number] [employer]- All Rights Reserved
[2017-02-10] MEDS: INSULIN LISPRO 100 UNIT/ML 3 ML VIAL SUBCUT PRN (12:18)
[2017-02-10 12:21] VITALS: BP 148/67
[2017-02-10] MEDS ORDERED: LEVOFLOXACIN 750 MG TABLET PO ONE (13:15)
--- NOTE | 2017-02-10 13:47 | PDOC TRANSFER SUMMARY ---
General - Admit/Disc Date/PCP Admission Date/Primary Care Provider: 02/03/17 22:23 ALONSO SANZ PA-C Discharge Date: 02/10/17 - Discharge Diagnosis (1) Non-STEMI (non-ST elevated myocardial infarction) Is this a current diagnosis for this admission?: Yes (2) COPD with exacerbation Is this a current diagnosis for this admission?: Yes (3) Acute worsening of stage 3 chronic kidney disease Is this a current diagnosis for this admission?: Yes (4) Acute encephalopathy Is this a current diagnosis for this admission?: Yes (5) Diabetes type 2, uncontrolled Is this a current diagnosis for this admission?: Yes (6) Parris infection of genital region Is this a current diagnosis for this admission?: Yes (7) Pulmonary hypertension Is this a current diagnosis for this admission?: Yes (8) Diastolic CHF Is this a current diagnosis for this admission?: Yes (9) Hypernatremia Is this a current diagnosis for this admission?: Yes (10) Aspiration pneumonia Is this a current diagnosis for this admission?: Yes (11) Dysphagia, oropharyngeal phase Is this a current diagnosis for this admission?: Yes (12) Chronic respiratory failure with hypoxia Is this a current diagnosis for this admission?: Yes (13) Severe obesity (BMI 35.0-35.9 with comorbidity) Is this a current diagnosis for this admission?: Yes (14) Neck mass Is this a current diagnosis for this admission?: Yes (15) Conjunctivitis Is this a current diagnosis for this admission?: Yes (16) SIRS (systemic inflammatory response syndrome) Is this a current diagnosis for this admission?: Yes - Additional Information Resuscitation Status: Full Code Discharge Diet: Cardiac, Diabetic, Other (Comments) - mechanical soft, cut meats Discharge Activity: Activity As Tolerated, Supervised Activity, Walk Frequently Home Medications: Glipizide [Glucotrol 10 mg Tablet] 10 mg PO BID 02/04/17 Aspirin [Aspirin 81 mg Chewable Tablet] 81 mg PO DAILY tab.chew 02/10/17 Benzonatate [Tessalon Perle 100 mg Capsule] 100 mg PO Q8HP PRN #40 cap 02/10/17 Docusate Sodium [Colace 100 mg Capsule] 100 mg PO BID capsule 02/10/17 Ipratropium/Albuterol Sulfate [Duoneb 3 ml Ampul] 3 ml NEB [id number] vial.neb Levofloxacin [Levaquin 750 mg Tablet] 750 mg PO DAILY #3 tablet 02/10/17 Metoprolol Succinate [Toprol Xl 25 mg Tab.sr] 25 mg PO DAILY tab.sr.24h Nystatin [Mycostatin Topical Powder 15 gm] 1 applic TP BID bottle 02/10/17 Polymyxin B Sulfate/Tmp [Polytrim Oph Soln 10 ml] 2 drop OU Q3 bottle 02/10/17 History of Present Illness Admission Date/PCP: 02/03/17 22:23 ALONSO SANZ PA-C History of Present Illness: DANIEL MCFARLAND is a 81 year old female female, reportedly fairly functional in terms of activities of daily living and interaction with others, and with underlying type 2 diabetes mellitus, hypertension and diastolic congestive heart failure, who admitted through the emergency room for evaluation of above complaints. Patient was noted to be found on the floor. She was noted to have severe hyperglycemia and initially was confused. She was hydrated and treated. This morning she was much more alert and was able to answer direct questions. Patient however denied any chest pain or shortness of breath. Patient just felt nonspecifically fatigued and tired. She was noted to have positive troponin I elevation and was noted to have nonspecific EKG changes. Hospital Course Hospital Course: Upon presentation, patient was found to be profoundly hyperglycemic and treated for HHNS. After rehydration, patient was found to have a left lower lobe pneumonia, which was initially treated with Zosyn. Patient underwent swallow as there was some concern of a chronic cough which revealed mild oropharyngeal dysphasia with recommendations for mechanical soft and alternating bites and sips. Patient was transitioned to Levaquin for 3 additional days of therapy. Following improvement of HHNS, patient's mental status improved and she noted generalized fatigue. Patient was found to have an elevation of her troponin as well as some nonspecific ST segment changes. Cardiology was consulted and patient was diagnosed with a non-STEMI. Patient's sales analytics manager was consulted and he did not feel that patient was a good candidate for cardiac catheterization and recommended aggressive medical management. Patient was started on statin, metoprolol, Aspirin, and initially lisinopril was held until her renal function improved. Patient suffered from some hyponatremia as well as acute worsening of her chronic kidney disease due to dehydration which improved after rehydration. Incidentally, patient was found to have a neck mass which underwent ultrasound and revealed an enlarged lobe of the left thyroid. Contrasted study was recommended, but was deferred due to patient's kidney function. Patient's family has been advised that this will need to be followed as an outpatient. Patient is currently stable for transfer to nursing facility For rehabilitation. Physical Exam Vital Signs: Temp Pulse Resp BP Pulse Ox 97.3 F 71 16 148/67 H 100 02/10/17 12:00 02/10/17 12:00 02/10/17 12:00 02/10/17 12:00 02/10/17 12:00 Intake & Output 02/09/17 02/10/17 02/11/17 06:59 06:59 06:59 Intake Total 2340 1938 355 Output Total 1 Balance 2340 1938 354 Weight 91.7 kg 91.7 kg Exam: General: Awake alert and oriented x3, no acute respiratory distress HEENT: AT/NC, PERRL, EOMI, oropharynx is moist, pink, no scleral icterus, no conjunctival injection Neck: No JVD, trachea midline Chest: Occasional scattered rhonchi CV: Regular rate and rhythm, normal S1 and S2, no rub, or gallop Abdomen: Soft, nontender to palpation, nondistended, active bowel sounds; no rebound, rigidity, or guarding Extremities: No cyanosis, clubbing or edema Neuro: Cranial nerves II through XII are grossly intact without focal deficits Psych: Normal mood and affect Results Laboratory Results: 02/09/17 04:55 02/10/17 04:46 02/10/17 04:46 Sodium 140.3 Potassium 4.0 Chloride 102 Carbon Dioxide 30 Anion Gap 8 BUN 15 Creatinine 1.20 Est GFR ( Amer) 52 L Est GFR (Non-Af Amer) 43 L Glucose 147 H Calcium 8.8 02/04/17 02/04/17 02/04/17 06:10 15:29 15:29 Creatine Kinase 244 H Troponin I 0.210 0.188 NT-Pro-B Natriuret Pep 747 H 02/05/17 06:30 Creatine Kinase Troponin I 0.193 NT-Pro-B Natriuret Pep Impressions: Head CT 02/03/17 00:00 IMPRESSION: No acute findings. Thyroid Ultrasound 02/05/17 00:00 IMPRESSION: HETEROGENEOUS ATROPHIC THYROID GLAND PRESUMABLY RELATED TO CHRONIC HYPOTHYROIDISM. NO DOMINANT NODULE IDENTIFIED. SONOGRAPHIC FINDINGS CONCERNING FOR CERVICAL LYMPHADENOPATHY SUPERIOR TO THE LEFT LOBE OF THE THYROID. RECOMMEND CONTRAST-ENHANCED CT NECK FOR FURTHER EVALUATION. Chest X-Ray 02/06/17 00:00 IMPRESSION: CARDIAC ENLARGEMENT. VASCULAR CONGESTION. Modified Barium Swallow 02/10/17 00:00 IMPRESSION: NO EVIDENCE OF PENETRATION OR ASPIRATION.PLEASE SEE SPEECH PATHOLOGIST REPORT FOR OTHER FINDINGS AND RECOMMENDATIONS. Status: Imported from PACS Transfer Plan - Time Spent with Patient Time spent with patient: Greater than 30 Minutes Qualifiers PATEINT BEING DISCHARGED WITH ANY OF THE FOLLOWING DIAGNOSIS?: Heart Failure, OH OH Pt being discharged on Aspirin therapy?: Yes OH Pt being discharged on Statins?: Yes OH Pt discharged ACEI/ARBS?: Yes Plan Time Spent: Greater than 30 Minutes
[2017-02-11] MEDS ORDERED: LISINOPRIL 5 MG TABLET PO SCH (10:00)
[2017-02-12] MEDS ORDERED: LEVOFLOXACIN 750 MG TABLET PO SCH (10:00)
== END 2017-02-10 16:43 | DRG 280 ==
LOC: ER 14:20 → UNDOADMIN 22:09 → EH 22:09 → 3W 02-04 08:09
PROVIDERS: ADMIT Family Medicine; ATTEND Family Medicine
PROC: 3E0F73Z Introduction of Anti-inflammatory into Respiratory Tract, Via Natural or Artificial Opening (ICD-10-PCS; principal; 2017-02-06)
DX: I21.4 Non-ST elevation (NSTEMI) myocardial infarction (principal); J69.0 Pneumonitis due to inhalation of food and vomit; G93.41 Metabolic encephalopathy; E11.00 Type 2 diabetes mellitus with hyperosmolarity without nonketotic hyperglycemic-hyperosmolar coma (NKHHC); N17.9 Acute kidney failure, unspecified; I13.0 Hypertensive heart and chronic kidney disease with heart failure and stage 1 through stage 4 chronic kidney disease, or unspecified chronic kidney disease; N39.0 Urinary tract infection, site not specified; E87.1 Hypo-osmolality and hyponatremia; I50.32 Chronic diastolic (congestive) heart failure; J44.1 Chronic obstructive pulmonary disease with (acute) exacerbation; J96.11 Chronic respiratory failure with hypoxia; B37.49 Other urogenital candidiasis; Z66 Do not resuscitate; E86.0 Dehydration; E11.65 Type 2 diabetes mellitus with hyperglycemia; B37.2 Candidiasis of skin and nail; F03.90 Unspecified dementia, unspecified severity, without behavioral disturbance, psychotic disturbance, mood disturbance, and anxiety; N18.3 Chronic kidney disease, stage 3 (moderate); E11.22 Type 2 diabetes mellitus with diabetic chronic kidney disease; I27.2 Other secondary pulmonary hypertension; E05.90 Thyrotoxicosis, unspecified without thyrotoxic crisis or storm; R13.12 Dysphagia, oropharyngeal phase; E78.5 Hyperlipidemia, unspecified; E66.01 Morbid (severe) obesity due to excess calories; Z68.35 Body mass index [BMI] 35.0-35.9, adult; H10.9 Unspecified conjunctivitis; E04.9 Nontoxic goiter, unspecified; Z90.710 Acquired absence of both cervix and uterus; I25.2 Old myocardial infarction; Z79.4 Long term (current) use of insulin; Z88.2 Allergy status to sulfonamides
CPT/HCPCS: 36415; 70450; 71020; 74230; 76536; 80048; 80053; 81001; 82550; 82553; 82962; 83036; 83735; 83880; 84439; 84443; 84484; 85025; 85027; 85730; 87040; 87070; 87086; 87205; 93005; 93010; 93306; 94640; 94667; 94668; 94799; 96360; 96361; 99285; G8978-GP; G8979-GP; G8996-GN; G8997-GN; G8998-GN; J0696; J0743; J1644; J1815; J1940; J2543; J3370; J3480; J3490; J7030; J7060; J7620

== ENCOUNTER → 2017-02-18 | Outpatient (CLI) | payer MEDICARE ==
--- NOTE | 2017-02-18 15:17 | RADIOLOGY REPORT (SQ) ---
EXAM DESCRIPTION: CT CHEST WITHOUT COMPLETED DATE/TIME: 02/18/2017 1:43 pm REASON FOR STUDY: PNEUMONIA (J18.9), OTHER NONSPECIFIC ABNORMAL FINDING OF LUNG FIELD (R91.8) J18.9 PNEUMONIA, UNSPECIFIED ORGANISM R91.8 OTHER NONSPECIFIC ABNORMAL FINDING OF LUNG FIELD COMPARISON: Two-view chest 02/06/2017, 02/03/2017 CT angio chest 11/23/2011 TECHNIQUE: CT scan performed of the chest without intravenous contrast. Images reviewed with lung, soft tissue and bone windows. Reconstructed coronal and sagittal MPR images reviewed. All images st ored on PACS. All CT scanners at this facility use dose modulation, iterative reconstruction, and/or weight based d osing when appropriate to reduce radiation dose to as low as reasonably achievable (ALARA). [facility]: Dose Right [facility]: CareDose [facility]: Dose Right [facility]: Teradose 4D [facility]: GlassUp RADIATION DOSE: 13.83 mGy. LIMITATIONS: No technical limitations. FINDINGS: LUNGS AND PLEURA: There is dense right lower lobe volume loss and consolidation worrisome for pneumonia. There is opacification of the bronchus intermedius on axial images 51-59 from debris or fluid, mucous plugging or soft tissue. There is patchy consolidation in the left lower lobe. Left lower lobe airways are opacified with amandeep ris or fluid, mucous plugging or soft tissue on axial images 49-65. No pleural effusions. No pneumothorax. There is benign nodular pleural thickening along the right minor fissure on axial image 62/coronal im age 36 with a 10 mm pleural nodule. A 2nd, smaller benign pleural nodule is seen more anteriorly mahogany ng the minor fissure, 4 mm in size on axial image 68 and coronal image 29. HILAR AND MEDIASTINAL STRUCTURES: There is mediastinal adenopathy, index lesions are as follows: 1.5 x 1.4 cm pretracheal lymph node axial image 18 1.6 x 2.2 cm precarinal lymph node axial image 21 1.7 x 0.7 cm lymph node aortopulmonary window axial image 19 Subcarinal 2.9 x 1.8 cm lymph node axial image 29 Multiple 5 mm short axis prevascular lymph nodes. HEART AND VASCULAR STRUCTURES: No aneurysm. No pericardial effusion. Borderline cardiomegaly. Heav y coronary artery calcification. UPPER ABDOMEN: No significant findings. Limited exam. THYROID AND OTHER SOFT TISSUES: No masses. No adenopathy. BONES: No significant finding. HARDWARE: None in the chest. OTHER: No other significant findings. IMPRESSION: Bilateral lower lobe airspace disease right greater than left with debris in the lower l obe airways Mediastinal adenopathy TECHNICAL DOCUMENTATION: JOB ID: [id number] Quality ID # [id number]: Final reports with documentation of one or more dose reduction techniques (e.g., Au tomated exposure control, adjustment of the mA and/or kV according to patient size, use of iterative reconstruction technique) 2010 [employer]- All Rights Reserved
== END ==
LOC: RAD 13:13
PROVIDERS: ATTEND Family Medicine Geriatric Medicine
DX: J18.9 Pneumonia, unspecified organism (principal); R91.8 Other nonspecific abnormal finding of lung field
CPT/HCPCS: 71250

== ENCOUNTER 2017-10-18 08:55 | Emergency (ER) | payer MEDICARE, MEDICAID ==
[2017-10-18] MEDS ORDERED: IPRATROPIUM/ALBUTEROL 0.5-2.5 MG/3 ML AMPUL NEB ONE (09:11)
--- NOTE | 2017-10-18 09:23 | ER Document Report ---
ED General - General Stated Complaint: BLOODY STOOL Time Seen by Provider: 10/18/17 09:05 Notes: 82-year-old female resents with bloody stool 3 times in the last 12 hours associated with soft stool but not dark stool or diarrhea. No vomiting or abdominal pain. She has had a wet cough for the past few days and has a long history of COPD. Denies fever or body aches. She denies being on anticoagulation or history of GI bleeds. TRAVEL OUTSIDE OF THE [place] IN LAST 30 DAYS: No - Related Data Allergies/Adverse Reactions: Sulfa (Sulfonamide Antibiotics) Allergy (Verified 11/22/11 22:26) Past Medical History - Social History Smoking Status: Former Smoker Family History: Reviewed & Not Pertinent - Past Medical History Cardiac Medical History: Reports: Hx Heart Attack - X2, Hx Hypercholesterolemia , Hx Hypertension Pulmonary Medical History: Denies: Hx Tuberculosis Neurological Medical History: Reports: Hx Cerebrovascular Accident. Denies: Hx Seizures Endocrine Medical History: Reports: Hx Diabetes Mellitus Type 2 Psychiatric Medical History: Denies: Hx Depression Past Surgical History: Reports: Hx Cardiac Catheterization, Hx Section , Hx Hysterectomy. Denies: Hx Pacemaker - Immunizations Hx Diphtheria, Pertussis, Tetanus Vaccination: - unknown Review of Systems - Review of Systems Notes: REVIEW OF SYSTEMS GEN: Denies fever, chills, weight loss ENT: Denies sore throat, nasal discharge, ear pain EYES: Denies blurry vision, eye pain, discharge CV: Denies chest pain, palpitations, edema RESP: Cough, denies shortness of breath, wheezing GI: A stool MSK: Denies joint pain/swelling, edema, SKIN: Denies rash, skin lesions LYMPH: Denies swollen glands/lymph nodes NEURO: Denies headache, focal weakness or numbness, dizziness PSYCH: Denies depression, suicidal or homicidal ideation PHYSICAL EXAMINATION General: No acute distress, well-nourished Head: Atraumatic, normocephalic ENT: Mouth normal, oropharynx moist, no exudates or tonsillar enlargement Eyes: Conjunctiva normal, pupils equal, lids normal Neck: No JVD, supple, no guarding CVS: Normal rate, regular rhythm, no murmurs Resp: Equal breath sounds with scant right-sided expiratory wheezes no respiratory distress. GI: Nondistended, soft, no tenderness to palpation, no rebound or guarding. Rectal exam: Clotted maroon blood mixed with stool, copious, emanating from anal area. Ext: No deformities, no edema, normal range of motion in upper and lower ext Back: No CVA or midline TTP Skin: No rash, warm Lymphatic: No lymphadeopathy noted Neuro: Awake, alert. Face symmetric. GCS 15. Physical Exam - Vital signs Vitals: Resp 15 10/18/17 09:03 Course - Re-evaluation Re-evalutation: 10/18/17 09:22 This is an 82-year-old lady with an obvious GI bleed. Her vital signs are compensated for now. I will ask for 2 large-bore IVs, type and screen and check CBC and labs. No evidence of ongoing anti-correlation. Just was wet cough so rule out pneumonia in addition to COPD exacerbation. 10/18/17 10:08 Delay in labs. They are not pending. Patient's heart rate remains in 80s but her pressure is 109 systolic. Records show that she is normally on the hypertensive side. I will give her 1 L of fluid. Concern for ongoing GI bleed. Pending results will transfer to [facility] there is no gastrointestinal available here today. 10/18/17 14:46 Repeat hemoglobin normal. Spoke with Dr. Diaz and patient is accepted for transfer. - Vital Signs Vital signs: Temp Pulse Resp BP Pulse Ox 98.7 F 12 131/65 H 99 10/18/17 09:49 10/18/17 13:01 10/18/17 13:00 10/18/17 13:01 - Laboratory Result Diagrams: 10/18/17 13:21 10/18/17 09:38 Laboratory results interpreted by me: 10/18/17 10/18/17 10/18/17 09:38 09:38 13:21 WBC 12.1 H 12.5 H Hgb 11.6 L 11.9 L MCH 26.8 L 26.4 L MCHC 31.6 L RDW 14.8 H 14.7 H Abs Lymphs (Manual) 5.4 H Est GFR ( Amer) 51 L Est GFR (Non-Af Amer) 42 L Glucose 183 H Critical Care Note - Critical Care Note Total time excluding time spent on procedures (mins): 35 Comments: The above patient is critically ill. Not including procedures, but including direct re-evaluations, speaking with patient and/or consultants, interpreting results, and documenting, I spent the total amount of minute listed listed above on critical care time Discharge - Discharge Clinical Impression: Lower GI bleed Condition: Fair Disposition: [facility] Referrals: ANALI STREET MD [Primary Care Provider] - Follow up as needed
--- NOTE | 2017-10-18 09:40 | RADIOLOGY REPORT (SQ) ---
EXAM DESCRIPTION: CHEST SINGLE VIEW COMPLETED DATE/TIME: 10/18/2017 9:27 am REASON FOR STUDY: SOB COMPARISON: 02/18/2017 CT, 02/06/2017 chest radiograph EXAM PARAMETERS: NUMBER OF VIEWS: One view. TECHNIQUE: Single frontal radiographic view of the chest acquired. RADIATION DOSE: NA LIMITATIONS: None. FINDINGS: LUNGS AND PLEURA: No opacities, masses or pneumothorax. No pleural effusion. MEDIASTINUM AND HILAR STRUCTURES: Increasing hilar mediastinal adenopathy. HEART AND VASCULAR STRUCTURES: Heart normal in size. Normal vasculature. BONES: No acute findings. HARDWARE: None in the chest. OTHER: No other significant finding. IMPRESSION: No acute parenchymal disease. Increasing hilar mediastinal adenopathy. COMMENT: Consider chest CT with contrast. TECHNICAL DOCUMENTATION: JOB ID: [id number] [employer]- All Rights Reserved
[2017-10-18 10:04] LABS: HEMATOCRIT 36.1 % (36.0-47.0); HEMOGLOBIN 11.6 g/dL (12.0-15.5); MEAN CORPUSCULAR HEMOGLOBIN 26.8 pg (27.0-33.4); MEAN CORPUSCULAR HGB CONC 32.2 g/dL (32.0-36.0); MEAN CORPUSCULAR VOLUME 83 fl (80-97); PLATELET COUNT 309 10^3/uL (150-450); RED BLOOD COUNT 4.34 10^6/uL (3.72-5.28); RED CELL DISTRIBUTION WIDTH 14.8 % (11.5-14.0); WHITE BLOOD COUNT 12.1 10^3/uL (4.0-10.5)
[2017-10-18] MEDS ORDERED: NORMAL SALINE 500 ML IV ONE (10:07)
[2017-10-18 10:15] LABS: ANION GAP 7 (5-19); BLOOD UREA NITROGEN 19 mg/dL (7-20); CALCIUM 9.6 mg/dL (8.4-10.2); CARBON DIOXIDE 30 mmol/L (22-30); CHLORIDE 105 mmol/L (98-107); GLUCOSE 183 mg/dL (75-110); POTASSIUM 4.3 mmol/L (3.6-5.0); SODIUM 141.6 mmol/L (137-145)
[2017-10-18 10:24] LABS: ABSOLUTE LYMPHOCYTES# (MANUAL) 3.9 10^3/uL (0.5-4.7); ABSOLUTE MONOCYTES # (MANUAL) 1.3 10^3/uL (0.1-1.4); ABSOLUTE NEUTROPHILS# (MANUAL) 6.3 10^3/uL (1.7-8.2); BASOPHILS % (MANUAL) 0 % (0-2); EOSINOPHILS % (MANUAL) 5 % (0-6); LYMPHOCYTES % (MANUAL) 26 % (13-45); MONOCYTES % (MANUAL) 11 % (3-13); SEGMENTED NEUTROPHILS % (MAN) 52 % (42-78); TOTAL CELLS COUNTED 100
[2017-10-18 10:25] LABS: ANISOCYTOSIS SLIGHT; PLATELET COMMENT ADEQUATE; TOXIC GRANULATION SLIGHT
--- NOTE | 2017-10-18 12:52 | EKG REPORT ---
SEVERITY:- ABNORMAL ECG - SINUS RHYTHM NONSPECIFIC IVCD WITH LAD LEFT VENTRICULAR HYPERTROPHY INFERIOR INFARCT, AGE INDETERMINATE CONSIDER ANTERIOR INFARCT : Confirmed by: Link Garcia MD 18-Oct-2017 12:51:02
[2017-10-18 13:48] LABS: HEMATOCRIT 37.5 % (36.0-47.0); HEMOGLOBIN 11.9 g/dL (12.0-15.5); MEAN CORPUSCULAR HEMOGLOBIN 26.4 pg (27.0-33.4); MEAN CORPUSCULAR HGB CONC 31.6 g/dL (32.0-36.0); MEAN CORPUSCULAR VOLUME 84 fl (80-97); PLATELET COUNT 314 10^3/uL (150-450); RED BLOOD COUNT 4.49 10^6/uL (3.72-5.28); RED CELL DISTRIBUTION WIDTH 14.7 % (11.5-14.0); WHITE BLOOD COUNT 12.5 10^3/uL (4.0-10.5)
[2017-10-18 14:18] LABS: ABSOLUTE LYMPHOCYTES# (MANUAL) 5.4 10^3/uL (0.5-4.7); ABSOLUTE MONOCYTES # (MANUAL) 0.9 10^3/uL (0.1-1.4); ABSOLUTE NEUTROPHILS# (MANUAL) 6.3 10^3/uL (1.7-8.2); BASOPHILS % (MANUAL) 0 % (0-2); EOSINOPHILS % (MANUAL) 0 % (0-6); LYMPHOCYTES % (MANUAL) 25 % (13-45); MONOCYTES % (MANUAL) 7 % (3-13); SEGMENTED NEUTROPHILS % (MAN) 50 % (42-78); TOTAL CELLS COUNTED 100
[2017-10-18 14:19] LABS: ANISOCYTOSIS SLIGHT; PLATELET COMMENT ADEQUATE; TOXIC GRANULATION SLIGHT
[2017-10-18 16:53] VITALS: BP 118/59
== END 2017-10-18 18:11 | disposition short-term general hospital (02) ==
LOC: ER 08:55
DX: K92.2 Gastrointestinal hemorrhage, unspecified (principal); J44.9 Chronic obstructive pulmonary disease, unspecified; R05 Cough; I10 Essential (primary) hypertension; I25.2 Old myocardial infarction; E11.9 Type 2 diabetes mellitus without complications; Z88.2 Allergy status to sulfonamides; Z87.891 Personal history of nicotine dependence
CPT/HCPCS: 93005; 94640; 99291; 96360; 96361; 86900; 86901; 36415; 87040; 86850; 82962; 85025; 80048; 83605; 71045; 93010; J7040; A9270; J7620

== ENCOUNTER 2017-10-28 17:51 | Inpatient (IN) | payer MEDICARE, MEDICAID ==
[2017-10-28] MEDS ORDERED: ACETAMINOPHEN 325 MG TABLET PO ONE (18:52)
--- NOTE | 2017-10-28 19:36 | RADIOLOGY REPORT (SQ) ---
EXAM DESCRIPTION: CT HEAD WITHOUT COMPLETED DATE/TIME: 10/28/2017 7:27 pm REASON FOR STUDY: fall COMPARISON: 2017 TECHNIQUE: Axial images acquired through the brain without intravenous contrast. Images reviewed wi th bone, brain and subdural windows. Images stored on PACS. All CT scanners at this facility use dose modulation, iterative reconstruction, and/or weight based d osing when appropriate to reduce radiation dose to as low as reasonably achievable (ALARA). [facility]: Dose Right [facility]: CareDose [facility]: Dose Right [facility]: Teradose 4D [facility]: [employer] RADIATION DOSE: CT Rad equipment meets quality standard of care and radiation dose reduction techniq ues were employed. CTDIvol: 67.0 mGy. DLP: 1316 mGy-cm. mGy. LIMITATIONS: None. FINDINGS: VENTRICLES: Normal size and contour. CEREBRUM: No masses. No hemorrhage. No midline shift. No evidence for acute infarction. Normal gra y/white matter differentiation. No areas of low density in the white matter. Old lacunar infarcts. CEREBELLUM: No masses. No hemorrhage. No alteration of density. No evidence for acute infarction. EXTRAAXIAL SPACES: No fluid collections. No masses. ORBITS AND GLOBE: No intra- or extraconal masses. Normal contour of globe without masses. CALVARIUM: No fracture. PARANASAL SINUSES: Ethmoid and sphenoid sinus disease. SOFT TISSUES: No mass or hematoma. OTHER: No other significant finding. IMPRESSION: NO ACUTE INTRACRANIAL IMAGING FINDINGS. EVIDENCE OF ACUTE STROKE: NO. COMMENT: Quality ID # [id number]: Final reports with documentation of one or more dose reduction techniques (e.g., Automated exposure control, adjustment of the mA and/or kV according to patient size, use of iterative reconstruction technique) TECHNICAL DOCUMENTATION: JOB ID: [id number] [employer]- All Rights Reserved
--- NOTE | 2017-10-28 19:37 | RADIOLOGY REPORT (SQ) ---
EXAM DESCRIPTION: CT CERVICAL SPINE WITHOUT COMPLETED DATE/TIME: 10/28/2017 7:27 pm REASON FOR STUDY: fall COMPARISON: None. TECHNIQUE: Axial images acquired through the cervical spine without intravenous contrast. Images re viewed with lung, soft tissue and bone windows. Reconstructed coronal and sagittal MPR images review ed. Images stored on PACS. All CT scanners at this facility use dose modulation, iterative reconstruction, and/or weight based d osing when appropriate to reduce radiation dose to as low as reasonably achievable (ALARA). [facility]: Dose Right [facility]: CareDose [facility]: Dose Right [facility]: Teradose 4D [facility]: [employer] RADIATION DOSE: CT Rad equipment meets quality standard of care and radiation dose reduction techniq ues were employed. CTDIvol: 13.5 mGy. DLP: 272 mGy-cm. mGy. LIMITATIONS: None. FINDINGS: ALIGNMENT: Reversal normal cervical lordotic curve. MINERALIZATION: Normal. VERTEBRAL BODIES: No fractures or dislocation. DISCS: Multilevel disc space narrowing with osteophytes. FACETS, LATERAL MASSES, POSTERIOR ELEMENTS: Facet arthropathy. No fractures. No dislocation. No ac king salmon findings. HARDWARE: None in the spine. VISUALIZED RIBS: No fractures. LUNG APICES AND SOFT TISSUES: Right thyroid cysts. OTHER: No other significant finding. IMPRESSION: CHRONIC DEGENERATIVE CHANGES. NO ACUTE FINDINGS. TECHNICAL DOCUMENTATION: JOB ID: [id number] Quality ID # [id number]: Final reports with documentation of one or more dose reduction techniques (e.g., Au tomated exposure control, adjustment of the mA and/or kV according to patient size, use of iterative reconstruction technique) 2010 [employer]- All Rights Reserved
[2017-10-28] MEDS ORDERED: DIPH/PERTUSS(ACELL)/TETANUS VAC/PF 0.5 ML SYR (>=10YO) IM ONE (19:57)
--- NOTE | 2017-10-28 19:58 | ER Document Report ---
ED General - General Chief Complaint: Fall Stated Complaint: FALL NECK PAIN Notes: Patient is an 82-year-old female with a past medical history of dementia, congestive heart failure, hypertension, recently discharged from an inpatient stay at [facility] for an acute diverticular bleed who presents after a fall. Patient apparently stated that she tried to stand up from her bed, became lightheaded and fell striking her head on a dresser drawer. At time of presentation she notes a dull, constant throbbing pain to her left forehead as well as her neck. Nothing improves or worsens that pain. She denies any use of anticoagulation. In route to the hospital patient was noted to be hypoxic and required nasal cannula during transport. She states when she was discharged from [facility] she did not need oxygen or at least was not informed of the requirement of oxygen. She states she was discharged home on antibiotics but is uncertain of what the diagnosis was requiring antibiotics. TRAVEL OUTSIDE OF THE [place] IN LAST 30 DAYS: No - Related Data Allergies/Adverse Reactions: Sulfa (Sulfonamide Antibiotics) Allergy (Verified 10/29/17 03:44) Past Medical History - General Information source: Patient, Relative - Social History Smoking Status: Former Smoker Frequency of alcohol use: None Drug Abuse: None Lives with: [facility] Family History: Reviewed & Not Pertinent - Past Medical History Cardiac Medical History: Reports: Hx Heart Attack - X2, Hx Hypercholesterolemia , Hx Hypertension Pulmonary Medical History: Reports: Hx COPD Denies: Hx Tuberculosis Neurological Medical History: Reports: Hx Cerebrovascular Accident. Denies: Hx Seizures Endocrine Medical History: Reports: Hx Diabetes Mellitus Type 2 Renal/ Medical History: Denies: Hx Peritoneal Dialysis Psychiatric Medical History: Denies: Hx Depression Past Surgical History: Reports: Hx Cardiac Catheterization, Hx Section , Hx Cholecystectomy, Hx Hysterectomy. Denies: Hx Pacemaker - Immunizations Hx Diphtheria, Pertussis, Tetanus Vaccination: - unknown Review of Systems - Review of Systems Notes: Constitutional: Negative for fever. HENT: Negative for sore throat. Eyes: Negative for visual changes. Cardiovascular: Negative for chest pain. Respiratory: Positive for shortness of breath. Gastrointestinal: Negative for abdominal pain, vomiting or diarrhea. Genitourinary: Negative for dysuria. Musculoskeletal: Negative for back pain. Skin: Negative for rash. Neurological: Positive for headache 10 point ROS negative except as marked above and in HPI. Physical Exam - Vital signs Vitals: Temp Pulse Resp BP Pulse Ox 98.6 F 100 20 107/50 L 86 L 10/28/17 18:57 10/28/17 18:57 10/28/17 18:57 10/28/17 18:57 10/28/17 18:57 Interpretation: Hypoxic Notes: PHYSICAL EXAMINATION: GENERAL: Appears elderly but in no acute distress HEAD: There is a hematoma to left forehead, no other areas of trauma EYES: Pupils equal round and reactive to light, extraocular movements intact, sclera anicteric, conjunctiva are normal. ENT: nares patent, oropharynx clear without exudates. Moderately dry mucous membranes. There is a superficial laceration to the external left ear NECK: Normal range of motion, supple without lymphadenopathy LUNGS: Coarse breath sounds in all lung minor with scattered rhonchi HEART: Regular rate and rhythm without murmurs ABDOMEN: Soft, nontender, normoactive bowel sounds. No guarding, no rebound. No masses appreciated. EXTREMITIES: Normal range of motion, 2+ pitting edema in the bilateral lower extremities that is equal and symmetric. no cyanosis. NEUROLOGICAL: No focal neurological deficits. Moves all extremities spontaneously and on command. PSYCH: Normal mood, normal affect. SKIN: Warm, Dry, normal turgor, no rashes or lesions noted. Course - Re-evaluation Re-evalutation: 10/28/17 19:55 Presentation of a well appearing elderly patient in no acute distress, vitals within normal limits after a mechanical fall. Patient denies a syncopal episode as the cause for today's fall. No focal neurologic deficits on exam, no evidence of basilar skull fracture on exam without evidence of hemotympanum, raccoon eyes, or periauricular hematoma. No papilledema. Patient is not on anticoagulation. GCS is 15. No loss of consciousness. No episodes of vomiting. However, based on patient's age a CT of the head has been obtained which is negative for any acute intracranial bleed. Likewise, patient was unable to be clinically cleared due to age by Erwin cervical spine criteria. A CT of the cervical spine was also obtained and likewise is negative for any acute fracture. No indication for further imaging of the cervical spine. Patient has no focal deformities or limited range of motion in any joint space. Chest and abdominal exam are benign without any focal tenderness, shortness of breath, or bruising over the chest or abdominal wall. Patient has no flank tenderness. Patient has a small conjunctival hemorrhage on the left eye which is not circumferential. She does have bruising over the left forehead which is overall mild in nature. Patient does have a rattling, vigorous coughing was just discharged from [facility] today with a diagnosis of influenza. She is currently on antibiotics and is using 2 L of supplemental nasal cannula oxygen to maintain saturations at 92% was apparently consistent with what her vitals were at time of discharge from the hospital. However, per the patient's report she does not normally use of mental oxygen and does not have this available to her at the nursing facility. Will therefore obtain a chest x-ray, labs, provide nebulizer treatments, and reassess 10/28/17 23:44 Chest x-ray shows cardiomegaly, pulmonary edema and vascular congestion, proBNP is markedly elevated and labs also does demonstrate a mild acute kidney injury likely in setting of volume overload. Patient has received 40 mg of IV furosemide. She maintains saturations in the 90s on 4 L by nasal cannula without any evidence of respiratory distress. This is been discussed with the inpatient physician who has accepted the patient for admission at this time. - Vital Signs Vital signs: Temp Pulse Resp BP Pulse Ox 98.7 F 100 12 122/58 L 96 10/29/17 00:00 10/28/17 18:57 10/29/17 03:00 10/29/17 03:01 10/29/17 03:01 - Laboratory Result Diagrams: 10/28/17 21:50 10/28/17 21:50 Laboratory results interpreted by me: 10/28/17 10/28/17 10/28/17 21:50 21:50 21:50 WBC 15.2 H Hgb 10.8 L Hct 34.0 L MCH 26.7 L MCHC 31.8 L RDW 15.2 H Abs Lymphs (Manual) 7.3 H Sodium 135.4 L Potassium 5.5 H Chloride 96 L Carbon Dioxide 33 H BUN 27 H Creatinine 1.55 H Est GFR ( Amer) 39 L Est GFR (Non-Af Amer) 32 L Glucose 203 H NT-Pro-B Natriuret Pep 6340 H - Diagnostic Test Radiology reviewed: Image reviewed, Reports reviewed Radiology results interpreted by me: 10/28/17 19:57 CT head: No acute intracranial bleed 10/28/17 23:48 Chest x-ray: Vascular congestion, cardiomegaly and trace pulmonary edema Discharge - Discharge Clinical Impression: Hypoxia Fall Qualifiers: Encounter type: initial encounter Qualified Code(s): W19.XXXA - Unspecified fall, initial encounter Head trauma Qualifiers: Encounter type: initial encounter Qualified Code(s): S09.90XA - Unspecified injury of head, initial encounter CHF exacerbation Qualifiers: Qualified Code(s): I50.9 - Heart failure, unspecified Acute renal failure Qualifiers: Acute renal failure type: unspecified Qualified Code(s): N17.9 - Acute kidney failure, unspecified Condition: Fair Disposition: ADMITTED INPATIENT Admitting Provider: Hospitalist - [facility] Admitted: Telemetry
[2017-10-28] MEDS ORDERED: IPRATROPIUM/ALBUTEROL 0.5-2.5 MG/3 ML AMPUL NEB ONE (20:09)
[2017-10-28] MEDS ORDERED: PREDNISONE 20 MG TABLET PO ONE (20:10)
--- NOTE | 2017-10-28 21:02 | RADIOLOGY REPORT (SQ) ---
EXAM DESCRIPTION: CHEST SINGLE VIEW COMPLETED DATE/TIME: 10/28/2017 8:52 pm REASON FOR STUDY: sob COMPARISON: 02/06/2017 NUMBER OF VIEWS: One view. TECHNIQUE: Single frontal radiographic view of the chest acquired. LIMITATIONS: None. FINDINGS: LUNGS AND PLEURA: No opacities, masses or pneumothorax. No pleural effusion. MEDIASTINUM AND HILAR STRUCTURES: No masses or contour abnormality. HEART AND VASCULATURE: Cardiac enlargement. Vascular congestion. BONES: No acute findings. HARDWARE: None in the chest. OTHER: No other significant finding. IMPRESSION: CARDIAC ENLARGEMENT. VASCULAR CONGESTION. TECHNICAL DOCUMENTATION: JOB ID: [id number] [employer]- All Rights Reserved
[2017-10-28 22:12] LABS: ANION GAP 6 (5-19); BLOOD UREA NITROGEN 27 mg/dL (7-20); CALCIUM 9.7 mg/dL (8.4-10.2); CARBON DIOXIDE 33 mmol/L (22-30); CHLORIDE 96 mmol/L (98-107); GLUCOSE 203 mg/dL (75-110); POTASSIUM 5.5 mmol/L (3.6-5.0); SODIUM 135.4 mmol/L (137-145)
[2017-10-28] MEDS ORDERED: FUROSEMIDE INJ/PF 40 MG/4 ML SDV IV ONE (22:14)
[2017-10-28 22:19] LABS: HEMOGLOBIN 10.8 g/dL (12.0-15.5); MEAN CORPUSCULAR HEMOGLOBIN 26.7 pg (27.0-33.4); MEAN CORPUSCULAR HGB CONC 31.8 g/dL (32.0-36.0); MEAN CORPUSCULAR VOLUME 84 fl (80-97); PLATELET COUNT 386 10^3/uL (150-450); RED BLOOD COUNT 4.05 10^6/uL (3.72-5.28); RED CELL DISTRIBUTION WIDTH 15.2 % (11.5-14.0); WHITE BLOOD COUNT 15.2 10^3/uL (4.0-10.5)
[2017-10-28 22:34] LABS: TROPONIN I 0.11 ng/mL
[2017-10-28 22:41] LABS: ABSOLUTE LYMPHOCYTES# (MANUAL) 7.3 10^3/uL (0.5-4.7); ABSOLUTE MONOCYTES # (MANUAL) 1.2 10^3/uL (0.1-1.4); ABSOLUTE NEUTROPHILS# (MANUAL) 6.7 10^3/uL (1.7-8.2); BASOPHILS % (MANUAL) 0 % (0-2); EOSINOPHILS % (MANUAL) 0 % (0-6); LYMPHOCYTES % (MANUAL) 33 % (13-45); MONOCYTES % (MANUAL) 8 % (3-13); SEGMENTED NEUTROPHILS % (MAN) 44 % (42-78); TOTAL CELLS COUNTED 100
[2017-10-28 22:42] LABS: ANISOCYTOSIS SLIGHT; PLATELET COMMENT ADEQUATE; POIKILOCYTOSIS SLIGHT; TOXIC GRANULATION SLIGHT
[2017-10-29] MEDS ORDERED: BENZONATATE 100 MG CAPSULE PO PRN (00:17)
[2017-10-29] MEDS ORDERED: METOLAZONE 2.5 MG TABLET PO ONE (00:28)
[2017-10-29] MEDS ORDERED: DEXTROSE 50%-WATER 25 GM/50 ML DISP.SYRIN IV PRN ×2 (00:40)
[2017-10-29] MEDS ORDERED: GLUCAGON,HUMAN RECOMB 1 MG INJ IM PRN (00:40)
[2017-10-29] MEDS ORDERED: DEXTROSE 40% GEL 15 GM TUBE PO PRN ×2 (00:40)
[2017-10-29] MEDS: ACETAMINOPHEN 325 MG TABLET PO PRN ×2 (01:16→23:26)
[2017-10-29] MEDS ORDERED: ACETYLCYSTEINE 20% SOLN 800 MG/4 ML VIAL.NEB NEB SCH (05:45)
[2017-10-29] MEDS: LANSOPRAZOLE 30 MG TAB.RAP.DR PO SCH (06:00)
[2017-10-29] MEDS: FUROSEMIDE INJ/PF 20 MG/2 ML SDV IV SCH ×3 (06:02→22:42)
[2017-10-29 07:28] LABS: ANION GAP 11 (5-19); BLOOD UREA NITROGEN 30 mg/dL (7-20); CALCIUM 9.7 mg/dL (8.4-10.2); CARBON DIOXIDE 31 mmol/L (22-30); CHLORIDE 95 mmol/L (98-107); GLUCOSE 317 mg/dL (75-110); HEMATOCRIT 33.2 % (36.0-47.0); HEMOGLOBIN 10.5 g/dL (12.0-15.5); MEAN CORPUSCULAR HEMOGLOBIN 26.6 pg (27.0-33.4); MEAN CORPUSCULAR HGB CONC 31.5 g/dL (32.0-36.0); MEAN CORPUSCULAR VOLUME 84 fl (80-97); PLATELET COUNT 372 10^3/uL (150-450); POTASSIUM 5.2 mmol/L (3.6-5.0); RED BLOOD COUNT 3.93 10^6/uL (3.72-5.28); RED CELL DISTRIBUTION WIDTH 15.4 % (11.5-14.0); SODIUM 137.1 mmol/L (137-145); WHITE BLOOD COUNT 12.1 10^3/uL (4.0-10.5)
[2017-10-29] MEDS: LEVALBUTEROL HCL NEB 1.25 MG/3 ML AMPUL NEB SCH ×3 (08:22→20:59)
[2017-10-29 08:23] LABS: ABSOLUTE LYMPHOCYTES# (MANUAL) 1.3 10^3/uL (0.5-4.7); ABSOLUTE MONOCYTES # (MANUAL) 0.5 10^3/uL (0.1-1.4); ABSOLUTE NEUTROPHILS# (MANUAL) 10.3 10^3/uL (1.7-8.2); ANISOCYTOSIS SLIGHT; BASOPHILS % (MANUAL) 0 % (0-2); EOSINOPHILS % (MANUAL) 0 % (0-6); HYPOCHROMASIA SLIGHT; LYMPHOCYTES % (MANUAL) 8 % (13-45); METAMYELOCYTES % (MANUAL) 2 % (0); MONOCYTES % (MANUAL) 4 % (3-13); PLATELET COMMENT ADEQUATE; POLYCHROMASIA SLIGHT; ROULEAUX SLIGHT; SEGMENTED NEUTROPHILS % (MAN) 83 % (42-78); TOTAL CELLS COUNTED 100
[2017-10-29] MEDS ORDERED: ACETYLCYSTEINE 20% SOLN 800 MG/4 ML VIAL.NEB NEB ONE (09:00)
[2017-10-29] MEDS: DOCUSATE SODIUM 100 MG CAPSULE PO SCH (09:34)
[2017-10-29] MEDS: METOPROLOL SUCCINATE 25 MG TAB.SR.24H PO SCH (09:34)
[2017-10-29] MEDS: GUAIFENESIN 600 MG TABLET.SA PO SCH ×2 (09:36→22:42)
[2017-10-29] MEDS: ASPIRIN 81 MG TABLET, CHEWABLE PO SCH (09:36)
[2017-10-29] MEDS: METOLAZONE 2.5 MG TABLET PO SCH (09:37)
[2017-10-29] MEDS: NYSTATIN TOPICAL POWDER 15 GM TP SCH ×2 (09:38→19:02)
[2017-10-29] MEDS ORDERED: SODIUM POLYSTYRENE SULFONATE 15 GM/60 ML PO ONE ×2 (09:42→18:30)
[2017-10-29] MEDS ORDERED: POTASSIUM CHLORIDE 10 MEQ TABLET.SA PO SCH (10:00)
--- NOTE | 2017-10-29 10:13 | PDOC H&P ---
History of Present Illness Patient complains of: Fall History of Present Illness: DANIEL MCFARLAND is a 82 year old female who resides at [facility]. Patient has a history of type 2 diabetes, grade 2 diastolic heart failure, hypertension and cognitive impairment. Patient was apparently just discharged from [facility] where she was being evaluated for lower GI bleed. Patient went home to [facility] and while in her bedroom she fell hitting the left side of her face. Patient was brought to the ED for evaluation. CT head was negative except. Patient however was found to be hypoxic satting in the 80s. Patient is normally not on oxygen at home. Patient also noted to be congested. Patient chest x-ray shows vascular congestion. She states she started having cough about 2 days ago. Patient denies any shortness of breath. Patient denies any chest pain. Patient was found to have a BNP of 6340. Patient's previous BMP was 747. Hospitalist called to admit patient for acute hypoxic respiratory failure and CHF exacerbation. Past Medical History Cardiac Medical History: Reports: Myocardial Infarction - X2, Hyperlipidema, Hypertension Pulmonary Medical History: Reports: Chronic Obstructive Pulmonary Disease (COPD) Denies: Tuberculosis Neurological Medical History: Denies: Seizures Endocrine Medical History: Reports: Diabetes Mellitus Type 2 Psychiatric Medical History: Denies: Depression Past Surgical History Past Surgical History: Reports: Cardiac Catheterization, Section, Cholecystectomy, Hysterectomy Denies: Pacemaker Social History Smoking Status: Unknown if Ever Smoked Frequency of Alcohol Use: None Hx Recreational Drug Use: No Drugs: None Hx Prescription Drug Abuse: No - Advance Directive Resuscitation Status: Full Code Family History Family History: Other - Patient unable to provide family history Parental Family History Reviewed: No Children Family History Reviewed: No Sibling(s) Family History Reviewed.: No Medication/Allergy Home Medications: Acetaminophen [Tylenol 325 mg Tablet] 650 mg PO Q6HP PRN 10/29/17 Aspirin [Aspirin EC] 81 mg PO DAILY 10/29/17 Atorvastatin Calcium [Lipitor 10 mg Tablet] 10 mg PO QHS 10/29/17 Docusate Sodium [Colace 100 mg Capsule] 100 mg PO BID 10/29/17 Glipizide [Glucotrol 5 mg Tablet] 5 mg PO BID 10/29/17 Ipratropium/Albuterol Sulfate [Duoneb 3 ml Ampul] 1 vial NEB TID 10/29/17 Metoprolol Succinate [Toprol Xl 25 mg Tab.sr] 25 mg PO DAILY 10/29/17 Polyethylene Glycol 3350 [Miralax Powder 17 gm/Packet] 1 packet PO BID 10/29/17 Prednisone [Sterapred] 5 mg PO DAILY 10/29/17 Allergies/Adverse Reactions: Sulfa (Sulfonamide Antibiotics) Allergy (Verified 10/29/17 03:44) Review of Systems Constitutional: ABSENT: chills, fever(s), headache(s), weight gain, weight loss Eyes: ABSENT: visual disturbances Ears: ABSENT: hearing changes Cardiovascular: ABSENT: chest pain, dyspnea on exertion, edema, orthropnea, palpitations Respiratory: PRESENT: cough. ABSENT: hemoptysis Gastrointestinal: ABSENT: abdominal pain, constipation, diarrhea, hematemesis, hematochezia, nausea, vomiting Genitourinary: ABSENT: dysuria, hematuria Musculoskeletal: ABSENT: joint swelling Integumentary: ABSENT: rash, wounds Neurological: PRESENT: other - fall. ABSENT: abnormal gait, abnormal speech, confusion, dizziness, focal weakness, syncope Psychiatric: ABSENT: anxiety, depression, homidical ideation, suicidal ideation Endocrine: ABSENT: cold intolerance, heat intolerance, polydipsia, polyuria Hematologic/Lymphatic: ABSENT: easy bleeding, easy bruising Physical Exam Vital Signs: Temp Pulse Resp BP Pulse Ox 98.6 F 100 20 107/50 L 86 L 10/28/17 18:57 10/28/17 18:57 10/28/17 18:57 10/28/17 18:57 10/28/17 18:57 General appearance: PRESENT: no acute distress, obese Head exam: PRESENT: normocephalic Eye exam: PRESENT: conjunctiva pink, EOMI, PERRLA, other - Conjunctival hemorrhage. ABSENT: scleral icterus Ear exam: PRESENT: normal external ear exam, other - Left ear laceration with dry blood Mouth exam: PRESENT: moist, tongue midline Neck exam: ABSENT: carotid bruit, JVD, lymphadenopathy, thyromegaly Respiratory exam: PRESENT: rhonchi, unlabored. ABSENT: rales, wheezes Cardiovascular exam: PRESENT: RRR. ABSENT: diastolic murmur, rubs, systolic murmur Pulses: PRESENT: normal dorsalis pedis pul Vascular exam: PRESENT: normal capillary refill GI/Abdominal exam: PRESENT: normal bowel sounds, soft. ABSENT: distended, guarding, mass, organolmegaly, rebound, tenderness Rectal exam: PRESENT: deferred Extremities exam: PRESENT: full ROM. ABSENT: calf tenderness, clubbing, pedal edema Neurological exam: PRESENT: alert, awake, oriented to person, oriented to place , oriented to time, CN II-XII grossly intact. ABSENT: motor sensory deficit Psychiatric exam: PRESENT: appropriate affect, normal mood. ABSENT: homicidal ideation, suicidal ideation Skin exam: PRESENT: dry, intact, warm. ABSENT: cyanosis, rash Results Laboratory Results: 10/28/17 21:50 10/28/17 21:50 10/28/17 10/28/17 21:50 21:50 WBC 15.2 H RBC 4.05 Hgb 10.8 L Hct 34.0 L MCV 84 MCH 26.7 L MCHC 31.8 L RDW 15.2 H Plt Count 386 Seg Neutrophils % Not Reportable Lymphocytes % Not Reportable Monocytes % Not Reportable Eosinophils % Not Reportable Basophils % Not Reportable Absolute Neutrophils Not Reportable Absolute Lymphocytes Not Reportable Absolute Monocytes Not Reportable Absolute Eosinophils Not Reportable Absolute Basophils Not Reportable Sodium 135.4 L Potassium 5.5 H Chloride 96 L Carbon Dioxide 33 H Anion Gap 6 BUN 27 H Creatinine 1.55 H Est GFR ( Amer) 39 L Est GFR (Non-Af Amer) 32 L Glucose 203 H Calcium 9.7 10/28/17 21:50 Troponin I 0.110 NT-Pro-B Natriuret Pep 6340 H Impressions: Cervical Spine CT 10/28/17 18:52 IMPRESSION: CHRONIC DEGENERATIVE CHANGES. NO ACUTE FINDINGS. Head CT 10/28/17 18:52 IMPRESSION: NO ACUTE INTRACRANIAL IMAGING FINDINGS. EVIDENCE OF ACUTE STROKE: NO. Chest X-Ray 10/28/17 20:10 IMPRESSION: CARDIAC ENLARGEMENT. VASCULAR CONGESTION. Assessment & Plan - Diagnosis (1) Acute respiratory failure with hypoxia Is this a current diagnosis for this admission?: Yes Plan: Patient with acute hypoxic respiratory failure due to vascular congestion. Patient currently on supplemental oxygen and satting well. Patient was satting 86%. Apparently patient does not use home oxygen. Patient may need oxygen on discharge. (2) Acute bronchitis Is this a current diagnosis for this admission?: Yes Plan: Patient with acute bronchitis. Patient is extremely congested. Will order nebs , Mucomyst, CPT and a course of antibiotics. Will hold off on systemic steroids but will use inhaled steroids. Patient is not wheezing only congested. (3) CKD (chronic kidney disease) stage 3, GFR 30-59 ml/min Is this a current diagnosis for this admission?: Yes Plan: Patient with acute on chronic CKD stage III. Patient creatinine was 1.22 on . Now creatinine is 1.55. Unfortunately patient may be intravascularly depleted however is congested on imaging and on examination. Patient is currently being diuresed however monitor for worsening renal function. (4) CHF exacerbation Qualifiers: Qualified Code(s): I50.9 - Heart failure, unspecified Plan: Patient with a history of grade 2 diastolic heart failure. Patient last echo was 02/05/2017. Patient BNP is elevated. Patient with vascular congestion on chest x-ray. Patient on gentle diuresis that patient already has acute on chronic renal failure. She has negative a [address] patient on a fluid restriction. Monitor strict ins and outs. Weigh patient daily. (5) Fall Qualifiers: Encounter type: initial encounter Qualified Code(s): W19.XXXA - Unspecified fall, initial encounter Is this a current diagnosis for this admission?: Yes Plan: Patient has a fall and hit her head. CT head was negative. Will have patient work with PT and OT. Subconjunctival hemorrhage will clear on its own. (6) Head trauma Qualifiers: Encounter type: initial encounter Qualified Code(s): S09.90XA - Unspecified injury of head, initial encounter (7) Elevated troponin I level Is this a current diagnosis for this admission?: Yes Plan: Patient with elevated troponin however patient does not have any chest pain. This troponin leak may be due to her CHF exacerbation along with her acute on chronic renal failure. Will monitor closely for any change in patient's condition. Will order repeat echo. (8) Hyperkalemia Is this a current diagnosis for this admission?: Yes Plan: Due to acute on chronic renal failure stage 3. Will give a dose of kayexelate. Follow up. - Time Time Spent: 30 to 50 Minutes Anticipated discharge: SNF - Inpatient Certification Medical Necessity: Significant Comorbidiites Make Outpatient Treatment Too Risky , Need Close Monitoring Due to Risk of Patient Decompensation, Need For Continuous Telemetry Monitoring, Need for Nebulizer Therapy and Monitoring of Response
[2017-10-29] MEDS: INSULIN LISPRO 100 UNIT/ML 3 ML VIAL SUBCUT PRN (17:51)
[2017-10-29] MEDS: AZITHROMYCIN 250 MG TABLET PO SCH (17:55)
[2017-10-29] MEDS: BUDESONIDE NEB 0.5 MG/2 ML AMPUL NEB SCH (20:59)
[2017-10-29] MEDS: ACETYLCYSTEINE 20% SOLN 800 MG/4 ML VIAL.NEB NEB SCH (21:00)
--- NOTE | 2017-10-29 22:04 | PDOC PROGRESS REPORT ---
Subjective Progress Note for:: 10/29/17 Subjective:: Pt states that her breathing has improved. Reason For Visit: HEART FAILURE, ACUTE HYPOXIC RESPIRATORY FAILURE Physical Exam Vital Signs: Temp Pulse Resp BP Pulse Ox 98.6 F 93 18 114/57 L 94 10/29/17 16:28 10/29/17 16:28 10/29/17 16:28 10/29/17 16:28 10/29/17 16:28 Intake & Output 10/28/17 10/29/17 10/30/17 06:59 06:59 06:59 Intake Total 266 Output Total 850 700 Balance -850 -434 Weight 95.7 kg General appearance: PRESENT: no acute distress, morbidly obese, well-developed, well-nourished Head exam: PRESENT: atraumatic, normocephalic Eye exam: PRESENT: conjunctiva pink, EOMI. ABSENT: scleral icterus Ear exam: PRESENT: normal external ear exam Mouth exam: PRESENT: dry mucosa Neck exam: ABSENT: carotid bruit, JVD, lymphadenopathy, thyromegaly Respiratory exam: PRESENT: crackles, other Cardiovascular exam: PRESENT: RRR. ABSENT: diastolic murmur, rubs, systolic murmur Pulses: PRESENT: normal dorsalis pedis pul Vascular exam: PRESENT: normal capillary refill GI/Abdominal exam: PRESENT: normal bowel sounds, soft. ABSENT: distended, guarding, mass, organolmegaly, rebound, tenderness Rectal exam: PRESENT: deferred Extremities exam: PRESENT: full ROM. ABSENT: calf tenderness, clubbing, pedal edema Neurological exam: PRESENT: alert, awake, oriented to person, oriented to place , oriented to time, oriented to situation, CN II-XII grossly intact. ABSENT: motor sensory deficit Psychiatric exam: PRESENT: appropriate affect, normal mood. ABSENT: homicidal ideation, suicidal ideation Skin exam: PRESENT: dry, intact, warm. ABSENT: cyanosis, rash Results Laboratory Results: 10/29/17 06:52 10/29/17 06:52 10/29/17 10/29/17 06:52 06:52 WBC 12.1 H RBC 3.93 Hgb 10.5 L Hct 33.2 L MCV 84 MCH 26.6 L MCHC 31.5 L RDW 15.4 H Plt Count 372 Seg Neutrophils % Not Reportable Lymphocytes % Not Reportable Monocytes % Not Reportable Eosinophils % Not Reportable Basophils % Not Reportable Absolute Neutrophils Not Reportable Absolute Lymphocytes Not Reportable Absolute Monocytes Not Reportable Absolute Eosinophils Not Reportable Absolute Basophils Not Reportable Sodium 137.1 Potassium 5.2 H Chloride 95 L Carbon Dioxide 31 H Anion Gap 11 BUN 30 H Creatinine 1.56 H Est GFR ( Amer) 38 L Est GFR (Non-Af Amer) 32 L Glucose 317 H Calcium 9.7 Magnesium 2.1 10/29/17 06:52 Troponin I 0.230 Impressions: Cervical Spine CT 10/28/17 18:52 IMPRESSION: CHRONIC DEGENERATIVE CHANGES. NO ACUTE FINDINGS. Head CT 10/28/17 18:52 IMPRESSION: NO ACUTE INTRACRANIAL IMAGING FINDINGS. EVIDENCE OF ACUTE STROKE: NO. Chest X-Ray 10/28/17 20:10 IMPRESSION: CARDIAC ENLARGEMENT. VASCULAR CONGESTION. Assessment & Plan - Diagnosis (1) Acute bronchitis Is this a current diagnosis for this admission?: Yes Plan: Will continue current treatment. (2) Acute respiratory failure with hypoxia Is this a current diagnosis for this admission?: Yes Plan: Secondary to congestive heart failure exacerbation and acute bronchitis: We will continue diuresing patient and will continue treating patient's acute bronchitis. (3) CHF exacerbation Qualifiers: Qualified Code(s): I50.9 - Heart failure, unspecified Is this a current diagnosis for this admission?: Yes Plan: Acute on chronic diastolic congestive heart failure: We will continue diuretics (4) CKD (chronic kidney disease) stage 3, GFR 30-59 ml/min Is this a current diagnosis for this admission?: Yes Plan: Continue to monitor patient's renal function. (5) Fall Qualifiers: Encounter type: initial encounter Qualified Code(s): W19.XXXA - Unspecified fall, initial encounter Is this a current diagnosis for this admission?: Yes Plan: PT OT work with patient. (6) Head trauma Qualifiers: Encounter type: initial encounter Qualified Code(s): S09.90XA - Unspecified injury of head, initial encounter Plan: CT of head negative for intracranial process. (7) Elevated troponin I level Is this a current diagnosis for this admission?: Yes Plan: Setting of chronic kidney disease supportive care. Echo pending (8) Hyperkalemia Is this a current diagnosis for this admission?: Yes Plan: We will continue to monitor patient's potassium. Patient is just now receiving Kayexalate that was ordered last night. - Time Time Spent with patient: 15-24 minutes
[2017-10-30] MEDS: ACETAMINOPHEN 325 MG TABLET PO PRN ×4 (03:47→23:37)
[2017-10-30] MEDS: LANSOPRAZOLE 30 MG TAB.RAP.DR PO SCH (05:44)
[2017-10-30] MEDS: FUROSEMIDE INJ/PF 20 MG/2 ML SDV IV SCH ×2 (05:44→13:45)
[2017-10-30] MEDS: INSULIN LISPRO 100 UNIT/ML 3 ML VIAL SUBCUT PRN ×4 (07:35→23:38)
[2017-10-30] MEDS: LEVALBUTEROL HCL NEB 1.25 MG/3 ML AMPUL NEB SCH (07:49)
[2017-10-30] MEDS: ACETYLCYSTEINE 20% SOLN 800 MG/4 ML VIAL.NEB NEB SCH ×2 (07:50→21:19)
[2017-10-30] MEDS: BUDESONIDE NEB 0.5 MG/2 ML AMPUL NEB SCH ×2 (07:50→21:19)
[2017-10-30] MEDS: AZITHROMYCIN 250 MG TABLET PO SCH (09:18)
[2017-10-30] MEDS: DOCUSATE SODIUM 100 MG CAPSULE PO SCH (09:18)
[2017-10-30] MEDS: ASPIRIN 81 MG TABLET, CHEWABLE PO SCH (09:18)
[2017-10-30] MEDS: NYSTATIN TOPICAL POWDER 15 GM TP SCH ×2 (09:19→16:54)
[2017-10-30] MEDS: METOLAZONE 2.5 MG TABLET PO SCH (09:19)
[2017-10-30] MEDS: GUAIFENESIN 600 MG TABLET.SA PO SCH ×2 (09:19→23:37)
[2017-10-30] MEDS: METOPROLOL SUCCINATE 25 MG TAB.SR.24H PO SCH (09:19)
[2017-10-30 09:40] LABS: EOSINOPHILS % (AUTO) 0.1 % (0-6); HEMATOCRIT 32.4 % (36.0-47.0); HEMOGLOBIN 10.3 g/dL (12.0-15.5); TOTAL CELLS COUNTED % (AUTO) 100 %
[2017-10-30 09:41] LABS: ANION GAP 7 (5-19); BLOOD UREA NITROGEN 40 mg/dL (7-20); CALCIUM 9.6 mg/dL (8.4-10.2); CARBON DIOXIDE 36 mmol/L (22-30); CHLORIDE 94 mmol/L (98-107); GLUCOSE 238 mg/dL (75-110); POTASSIUM 4.2 mmol/L (3.6-5.0); SODIUM 137.1 mmol/L (137-145)
[2017-10-30 09:52] LABS: ABSOLUTE BASOPHILS # (AUTO) 0.1 10^3/uL (0.0-0.2); ABSOLUTE LYMPHOCYTES (AUTO) 5.3 10^3/uL (0.5-4.7); ABSOLUTE MONOCYTES (AUTO) 1.6 10^3/uL (0.1-1.4); BASOPHILS % (AUTO) 0.4 % (0-2); MEAN CORPUSCULAR HEMOGLOBIN 26.7 pg (27.0-33.4); MEAN CORPUSCULAR HGB CONC 31.7 g/dL (32.0-36.0); MEAN CORPUSCULAR VOLUME 84 fl (80-97); MONOCYTES % (AUTO) 9.4 % (3-13); PLATELET COUNT 363 10^3/uL (150-450); RED BLOOD COUNT 3.84 10^6/uL (3.72-5.28); RED CELL DISTRIBUTION WIDTH 15.3 % (11.5-14.0); SEGMENTED NEUTROPHILS % (AUTO) 59.1 % (42-78); WHITE BLOOD COUNT 16.9 10^3/uL (4.0-10.5)
[2017-10-30] MEDS: IPRATROPIUM/ALBUTEROL 0.5-2.5 MG/3 ML AMPUL NEB SCH ×2 (14:11→21:19)
--- NOTE | 2017-10-30 17:36 | PDOC PROGRESS REPORT ---
Subjective Progress Note for:: 10/30/17 Subjective:: Patient states that her breathing has improved. Nurse states that patient has had good urine output. Reason For Visit: HEART FAILURE, ACUTE HYPOXIC RESPIRATORY FAILURE Physical Exam Vital Signs: Temp Pulse Resp BP Pulse Ox 98.7 F 89 18 96/46 L 92 10/30/17 16:20 10/30/17 16:20 10/30/17 16:20 10/30/17 16:20 10/30/17 16:20 Intake & Output 10/29/17 10/30/17 10/31/17 06:59 06:59 06:59 Intake Total 912 840 Output Total 850 1650 700 Balance -850 -738 140 Weight 99.1 kg General appearance: PRESENT: no acute distress, well-developed, well-nourished Head exam: PRESENT: atraumatic, normocephalic Eye exam: PRESENT: conjunctiva pink, EOMI. ABSENT: scleral icterus Ear exam: PRESENT: normal external ear exam Mouth exam: PRESENT: moist, tongue midline Neck exam: ABSENT: carotid bruit, JVD, lymphadenopathy, thyromegaly Respiratory exam: PRESENT: decreased breath sounds - at bases/. ABSENT: rales, rhonchi, wheezes Cardiovascular exam: PRESENT: RRR. ABSENT: diastolic murmur, rubs, systolic murmur Pulses: PRESENT: normal dorsalis pedis pul Vascular exam: PRESENT: normal capillary refill GI/Abdominal exam: PRESENT: normal bowel sounds, soft. ABSENT: distended, guarding, mass, organolmegaly, rebound, tenderness Rectal exam: PRESENT: deferred Extremities exam: ABSENT: calf tenderness, clubbing, pedal edema Neurological exam: PRESENT: alert, awake, oriented to person, oriented to place , oriented to time, oriented to situation, CN II-XII grossly intact. ABSENT: motor sensory deficit Psychiatric exam: PRESENT: appropriate affect, normal mood. ABSENT: homicidal ideation, suicidal ideation Skin exam: PRESENT: dry, intact, warm. ABSENT: cyanosis, rash Results Laboratory Results: 10/30/17 09:12 10/30/17 09:12 10/30/17 10/30/17 09:12 09:12 WBC 16.9 H RBC 3.84 Hgb 10.3 L Hct 32.4 L MCV 84 MCH 26.7 L MCHC 31.7 L RDW 15.3 H Plt Count 363 Seg Neutrophils % 59.1 Lymphocytes % 31.0 Monocytes % 9.4 Eosinophils % 0.1 Basophils % 0.4 Absolute Neutrophils 10.0 H Absolute Lymphocytes 5.3 H Absolute Monocytes 1.6 H Absolute Eosinophils 0.0 Absolute Basophils 0.1 Sodium 137.1 Potassium 4.2 Chloride 94 L Carbon Dioxide 36 H Anion Gap 7 BUN 40 H Creatinine 1.53 H Est GFR ( Amer) 39 L Est GFR (Non-Af Amer) 32 L Glucose 238 H Calcium 9.6 10/29/17 06:52 Troponin I 0.230 Impressions: Cervical Spine CT 10/28/17 18:52 IMPRESSION: CHRONIC DEGENERATIVE CHANGES. NO ACUTE FINDINGS. Head CT 10/28/17 18:52 IMPRESSION: NO ACUTE INTRACRANIAL IMAGING FINDINGS. EVIDENCE OF ACUTE STROKE: NO. Chest X-Ray 10/28/17 20:10 IMPRESSION: CARDIAC ENLARGEMENT. VASCULAR CONGESTION. Assessment & Plan - Diagnosis (1) Acute bronchitis Is this a current diagnosis for this admission?: Yes Plan: Will continue current treatment. (2) Acute respiratory failure with hypoxia Is this a current diagnosis for this admission?: Yes Plan: Secondary to congestive heart failure exacerbation and acute bronchitis: discontinue Lasix. Will continue with breathing treatments and antibiotics. (3) CHF exacerbation Qualifiers: Qualified Code(s): I50.9 - Heart failure, unspecified Is this a current diagnosis for this admission?: Yes Plan: Acute on chronic diastolic congestive heart failure: Resolving. (4) CKD (chronic kidney disease) stage 3, GFR 30-59 ml/min Is this a current diagnosis for this admission?: Yes Plan: Continue to monitor patient's renal function. (5) Fall Qualifiers: Encounter type: initial encounter Qualified Code(s): W19.XXXA - Unspecified fall, initial encounter Is this a current diagnosis for this admission?: Yes Plan: PT OT work with patient. (6) Head trauma Qualifiers: Encounter type: initial encounter Qualified Code(s): S09.90XA - Unspecified injury of head, initial encounter Plan: CT of head negative for intracranial process. (7) Elevated troponin I level Is this a current diagnosis for this admission?: Yes Plan: Setting of chronic kidney disease supportive care. Echo pending (8) Hyperkalemia Is this a current diagnosis for this admission?: Yes Plan: Resolved. (9) Intravascular volume depletion Is this a current diagnosis for this admission?: Yes Plan: We will discontinue Lasix for now. Patient's BUN is increasing indicating that patients become intravascularly dry. Will monitor pt closely. Want to make sure renal function dose not worsen. (10) Hyperglycemia due to type 2 diabetes mellitus Is this a current diagnosis for this admission?: Yes Plan: Will place on SSI and Lantus 30 units SQ QHS. - Time Time Spent with patient: 15-24 minutes
[2017-10-30] MEDS ORDERED: INSULIN GLARGINE,HUM.REC.ANLOG 1,000 UNIT/10 ML UNIT SUBCUT SCH (22:00)
[2017-10-31] MEDS: ACETAMINOPHEN 325 MG TABLET PO PRN ×4 (02:35→22:41)
[2017-10-31] MEDS: LANSOPRAZOLE 30 MG TAB.RAP.DR PO SCH (06:54)
[2017-10-31 07:32] LABS: ALANINE AMINOTRANSFERASE 16 U/L (9-52); ALBUMIN 3.1 g/dL (3.5-5.0); ALKALINE PHOSPHATASE 93 U/L (38-126); ANION GAP 9 (5-19); ASPARTATE AMINO TRANSFERASE 14 U/L (14-36); BILIRUBIN,DIRECT 0.4 mg/dL (0.0-0.4); BILIRUBIN,TOTAL 0.5 mg/dL (0.2-1.3); BLOOD UREA NITROGEN 48 mg/dL (7-20); CALCIUM 9.4 mg/dL (8.4-10.2); CARBON DIOXIDE 34 mmol/L (22-30); CHLORIDE 90 mmol/L (98-107); GLUCOSE 118 mg/dL (75-110); POTASSIUM 3.8 mmol/L (3.6-5.0); TOTAL PROTEIN 6.7 g/dL (6.3-8.2)
[2017-10-31 07:36] LABS: HEMATOCRIT 32.4 % (36.0-47.0); HEMOGLOBIN 10.5 g/dL (12.0-15.5); MEAN CORPUSCULAR HGB CONC 32.4 g/dL (32.0-36.0); MEAN CORPUSCULAR VOLUME 83 fl (80-97); PLATELET COUNT 355 10^3/uL (150-450); RED BLOOD COUNT 3.89 10^6/uL (3.72-5.28); RED CELL DISTRIBUTION WIDTH 15.3 % (11.5-14.0); WHITE BLOOD COUNT 19.3 10^3/uL (4.0-10.5)
[2017-10-31 07:48] LABS: ABSOLUTE LYMPHOCYTES# (MANUAL) 6.4 10^3/uL (0.5-4.7); ABSOLUTE MONOCYTES # (MANUAL) 2.1 10^3/uL (0.1-1.4); ABSOLUTE NEUTROPHILS# (MANUAL) 10.4 10^3/uL (1.7-8.2); BASOPHILS % (MANUAL) 0 % (0-2); EOSINOPHILS % (MANUAL) 2 % (0-6); LYMPHOCYTES % (MANUAL) 31 % (13-45); MONOCYTES % (MANUAL) 11 % (3-13); SEGMENTED NEUTROPHILS % (MAN) 54 % (42-78); TOTAL CELLS COUNTED 100
[2017-10-31 07:49] LABS: ANISOCYTOSIS 1+; HYPOCHROMASIA SLIGHT; PLATELET COMMENT ADEQUATE; POLYCHROMASIA SLIGHT
[2017-10-31] MEDS: BUDESONIDE NEB 0.5 MG/2 ML AMPUL NEB SCH ×2 (08:06→20:42)
[2017-10-31] MEDS: ACETYLCYSTEINE 20% SOLN 800 MG/4 ML VIAL.NEB NEB SCH ×2 (08:06→20:41)
[2017-10-31] MEDS: IPRATROPIUM/ALBUTEROL 0.5-2.5 MG/3 ML AMPUL NEB SCH ×3 (08:06→20:41)
[2017-10-31] MEDS: AZITHROMYCIN 250 MG TABLET PO SCH (09:53)
[2017-10-31] MEDS: DOCUSATE SODIUM 100 MG CAPSULE PO SCH (09:53)
[2017-10-31] MEDS: ASPIRIN 81 MG TABLET, CHEWABLE PO SCH (09:53)
[2017-10-31] MEDS: GUAIFENESIN 600 MG TABLET.SA PO SCH ×2 (09:53→22:41)
[2017-10-31] MEDS: METOPROLOL SUCCINATE 25 MG TAB.SR.24H PO SCH (09:53)
[2017-10-31] MEDS: METOLAZONE 2.5 MG TABLET PO SCH (09:53)
[2017-10-31] MEDS: NYSTATIN TOPICAL POWDER 15 GM TP SCH ×2 (09:53→16:55)
[2017-10-31] MEDS: INSULIN LISPRO 100 UNIT/ML 3 ML VIAL SUBCUT PRN ×2 (11:54→16:55)
--- NOTE | 2017-10-31 12:36 | RADIOLOGY REPORT (SQ) ---
EXAM DESCRIPTION: CHEST SINGLE VIEW COMPLETED DATE/TIME: 10/31/2017 12:23 pm REASON FOR STUDY: CHF COMPARISON: Chest x-ray dated 10/28/2017. Chest CT dated 02/18/2017. EXAM PARAMETERS: NUMBER OF VIEWS: One view. TECHNIQUE: Single frontal radiographic view of the chest acquired. RADIATION DOSE: NA LIMITATIONS: None. FINDINGS: LUNGS AND PLEURA: Improved aeration. No opacities, masses or pneumothorax. No pleural eff usion. MEDIASTINUM AND HILAR STRUCTURES: Hilar adenopathy unchanged. HEART AND VASCULAR STRUCTURES: Heart normal in size. Normal vasculature. BONES: No acute findings. HARDWARE: None in the chest. OTHER: No other significant finding. IMPRESSION: IMPROVED AERATION. NO ACUTE FINDINGS. HILAR ADENOPATHY UNCHANGED. TECHNICAL DOCUMENTATION: JOB ID: [id number] [employer]- All Rights Reserved
--- NOTE | 2017-10-31 15:06 | PDOC PROGRESS REPORT ---
Subjective Progress Note for:: 10/31/17 Subjective:: Pt states that her breathing is better. Nursing states that pt is not as congested. Reason For Visit: HEART FAILURE, ACUTE HYPOXIC RESPIRATORY FAILURE Physical Exam Vital Signs: Temp Pulse Resp BP Pulse Ox 98.9 F 61 18 108/51 L 97 10/31/17 11:43 10/31/17 11:43 10/31/17 11:43 10/31/17 11:43 10/31/17 11:43 Intake & Output 10/30/17 10/31/17 11/01/17 06:59 06:59 06:59 Intake Total 912 855 860 Output Total 1650 700 600 Balance -738 155 260 Weight 99.1 kg 99.1 kg General appearance: PRESENT: no acute distress, morbidly obese, well-developed, well-nourished Head exam: PRESENT: atraumatic, normocephalic Eye exam: PRESENT: conjunctiva pink, EOMI. ABSENT: scleral icterus Ear exam: PRESENT: normal external ear exam Mouth exam: PRESENT: moist, tongue midline Neck exam: ABSENT: carotid bruit, JVD, lymphadenopathy, thyromegaly Respiratory exam: PRESENT: rhonchi - coarse breath sounds, +fair air movement, diminished at bases. Cardiovascular exam: PRESENT: RRR. ABSENT: diastolic murmur, rubs, systolic murmur Pulses: PRESENT: normal dorsalis pedis pul Vascular exam: PRESENT: normal capillary refill GI/Abdominal exam: PRESENT: normal bowel sounds, soft. ABSENT: distended, guarding, mass, organolmegaly, rebound, tenderness Rectal exam: PRESENT: deferred Extremities exam: PRESENT: full ROM. ABSENT: calf tenderness, clubbing, pedal edema Neurological exam: PRESENT: alert, awake, oriented to person, oriented to place , oriented to time, oriented to situation, CN II-XII grossly intact. ABSENT: motor sensory deficit Psychiatric exam: PRESENT: appropriate affect, normal mood. ABSENT: homicidal ideation, suicidal ideation Skin exam: PRESENT: dry, intact, warm. ABSENT: cyanosis, rash Results Laboratory Results: 10/31/17 06:41 10/31/17 06:41 10/31/17 10/31/17 06:41 06:41 WBC 19.3 H RBC 3.89 Hgb 10.5 L Hct 32.4 L MCV 83 MCH 27.0 MCHC 32.4 RDW 15.3 H Plt Count 355 Seg Neutrophils % Not Reportable Lymphocytes % Not Reportable Monocytes % Not Reportable Eosinophils % Not Reportable Basophils % Not Reportable Absolute Neutrophils Not Reportable Absolute Lymphocytes Not Reportable Absolute Monocytes Not Reportable Absolute Eosinophils Not Reportable Absolute Basophils Not Reportable Sodium 133.0 L Potassium 3.8 Chloride 90 L Carbon Dioxide 34 H Anion Gap 9 BUN 48 H Creatinine 1.36 H Est GFR ( Amer) 45 L Est GFR (Non-Af Amer) 37 L Glucose 118 H Calcium 9.4 Magnesium 1.7 Total Bilirubin 0.5 AST 14 ALT 16 Alkaline Phosphatase 93 Total Protein 6.7 Albumin 3.1 L 10/29/17 06:52 Troponin I 0.230 Impressions: Cervical Spine CT 10/28/17 18:52 IMPRESSION: CHRONIC DEGENERATIVE CHANGES. NO ACUTE FINDINGS. Head CT 10/28/17 18:52 IMPRESSION: NO ACUTE INTRACRANIAL IMAGING FINDINGS. EVIDENCE OF ACUTE STROKE: NO. Chest X-Ray 10/31/17 00:00 IMPRESSION: IMPROVED AERATION. NO ACUTE FINDINGS. HILAR ADENOPATHY UNCHANGED. Assessment & Plan - Diagnosis (1) Acute bronchitis Is this a current diagnosis for this admission?: Yes Plan: Will discontinue Azithromycin. Pt with coarse breath sounds on the left side which is different from right side. Will check CT of chest. (2) Acute respiratory failure with hypoxia Is this a current diagnosis for this admission?: Yes (3) CHF exacerbation Qualifiers: Qualified Code(s): I50.9 - Heart failure, unspecified Is this a current diagnosis for this admission?: Yes (4) Leukocytosis Is this a current diagnosis for this admission?: Yes Plan: Pt received steroids in the ER. This could be contributing to elevated WBC. Will check Blood culture, Urine Culture, and CT of chest. (5) CKD (chronic kidney disease) stage 3, GFR 30-59 ml/min Is this a current diagnosis for this admission?: Yes Plan: Continue to monitor patient's renal function. (6) Fall Qualifiers: Encounter type: initial encounter Qualified Code(s): W19.XXXA - Unspecified fall, initial encounter Is this a current diagnosis for this admission?: Yes Plan: PT OT work with patient. (7) Head trauma Qualifiers: Encounter type: initial encounter Qualified Code(s): S09.90XA - Unspecified injury of head, initial encounter Plan: CT of head negative for intracranial process. (8) Elevated troponin I level Is this a current diagnosis for this admission?: Yes Plan: Setting of chronic kidney disease supportive care. Echo pending (9) Hyperkalemia Is this a current diagnosis for this admission?: Yes Plan: Resolved. (10) Intravascular volume depletion Is this a current diagnosis for this admission?: Yes Plan: Will place on PO Lasix. (11) Hyperglycemia due to type 2 diabetes mellitus Is this a current diagnosis for this admission?: Yes Plan: Will continue SSI and Lantus 30 units SQ QHS. (12) Hyponatremia Is this a current diagnosis for this admission?: Yes Plan: Will continue to monitor. (13) DVT prophylaxis Is this a current diagnosis for this admission?: Yes Plan: SCDs - Time Time Spent with patient: 25-34 minutes
--- NOTE | 2017-10-31 15:50 | RADIOLOGY REPORT (SQ) ---
EXAM DESCRIPTION: CT CHEST WITHOUT COMPLETED DATE/TIME: 10/31/2017 3:36 pm REASON FOR STUDY: Concern for Pneumonia COMPARISON: 02/18/2017 in 11/23/2011. TECHNIQUE: CT scan performed of the chest without intravenous contrast. Images reviewed with lung, soft tissue and bone windows. Reconstructed coronal and sagittal MPR images reviewed. All images st ored on PACS. All CT scanners at this facility use dose modulation, iterative reconstruction, and/or weight based d osing when appropriate to reduce radiation dose to as low as reasonably achievable (ALARA). [facility]: Dose Right [facility]: CareDose [facility]: Dose Right [facility]: Teradose 4D [facility]: Smart [facility] RADIATION DOSE: CT Rad equipment meets quality standard of care and radiation dose reduction techniq ues were employed. CTDIvol: 10.5 mGy. DLP: 371 mGy-cm. mGy. LIMITATIONS: No technical limitations. FINDINGS: LUNGS AND PLEURA: There is bilateral lower lobe airspace disease which is left severe comp ared to prior CT from 02/18/2017 however with new airspace opacities in the superior segments presumabl y representing recurrent disease. There is new nodular airspace opacities within the right upper lob e. Stable nodules noted within the lingula, right middle lobe, and right upper lobe compatible with scarring. No new or enlarging pulmonary nodules. HILAR AND MEDIASTINAL STRUCTURES: Stable to slightly increased mediastinal and hilar lymphadenopathy with lymph nodes measuring up to 2 cm in short access. HEART AND VASCULAR STRUCTURES: Heart stable in size. No aneurysm. No pericardial effusion. UPPER ABDOMEN: No significant findings. Limited exam. THYROID AND OTHER SOFT TISSUES: No masses. No adenopathy. BONES: No significant finding. HARDWARE: None in the chest. OTHER: No other significant findings. IMPRESSION: MULTIFOCAL AIRSPACE DISEASE DETAILED ABOVE. CONSOLIDATION IN THE LOWER LOBES THROMBU S SEVERE COMPARED THE PRIOR STUDY HOWEVER THERE ARE NEW OPACITIES WITHIN THE SUPERIOR SEGMENTS OF THE LOWER LOBES AND WITHIN THE RIGHT UPPER LOBE PRESUMABLY REPRESENTING RECURRENT MULTIFOCAL PNEUMONIA. CONSIDER FOLLOW-UP CT IN 3 MONTHS TO ENSURE RESOLUTION. STABLE TO SLIGHTLY INCREASED MEDIASTINAL AND HILAR LYMPHADENOPATHY PRESUMABLY REACTIVE PNEUMONIA NICE NAY MALIGNANCY IS NOT EXCLUDED. RECOMMEND ATTENTION ON FOLLOW-UP STUDIES. TECHNICAL DOCUMENTATION: JOB ID: [id number] Quality ID # [id number]: Final reports with documentation of one or more dose reduction techniques (e.g., Au tomated exposure control, adjustment of the mA and/or kV according to patient size, use of iterative reconstruction technique) 2010 [employer]- All Rights Reserved
--- NOTE | 2017-10-31 19:46 | XCELERA REPORT ---
[address] [address] Transthoracic Echocardiogram Report Name: DANIEL MCFARLAND Age: 82 yrs Gender: Female : 1935 Patient Status: Inpatient Patient Location: [address] [place] [address] Study Date: 10/31/2017 06:33 PM Height: 63 in Weight: 218 lb BSA: 2.0 m2 Procedure: A complete two-dimensional transthoracic echocardiogram was performed (2D, M-mode, spectral and color flow Doppler). The study was technically difficult with many images being suboptimal in quality. Reason For Study: CHF Ordering Physician: BOSTON MONIQUE Interpretation Summary The left ventricular ejection fraction is normal. There is mild to moderate concentric left ventricular hypertrophy. The left ventricle is grossly normal size. Doppler measurements suggest pseudonormalized left ventricular relaxation, which is associated with grade II/IV or mild to moderate diastolic dysfunction Wall motion cannot be accurately commented on, but no definite regional wall motion abnormalities noted. Right ventricular function cannot be assessed due to poor image quality. The right ventricle is mildly dilated. Right atrium not well visualized secondary to technical limitations The left atrial size is normal. There is no mitral valve stenosis. There is a trace amount of mitral regurgitation No aortic regurgitation is present. There is no aortic valve stenosis There is a mild amount of tricuspid regurgitation There is moderate pulmonary hypertension by echo Best estimated right ventricular systolic pressure is elevated at 50- 60mmHg. The aortic root is not well visualized. The inferior vena cava appeared normal and decreased < 50% with respiration (RAP 10-15 mmHg) There is no pericardial effusion. MMode/2D Measurements & Calculations RVDd: 3.1 cm LVIDd: 3.5 cm FS: 33.3 % Ao root diam: 3.2 cm IVSd: 1.3 cm LVIDs: 2.3 cm EDV(Teich): 49.8 ml LVPWd: 1.3 cm ESV(Teich): 18.4 ml Ao root area: 8.1 cm2 EF(Teich): 63.0 % LA dimension: 3.5 cm LVOT diam: 1.9 cm LVOT area: 2.7 cm2 Doppler Measurements & Calculations MV E max katelynn: MV P1/2t max katelynn: Ao V2 max: LV V1 max P.7 cm/sec 59.7 cm/sec 147.4 cm/sec 6.8 mmHg MV A max katelynn: MV P1/2t: 60.8 msec Ao max PG: LV V1 max: 104.1 cm/sec MVA(P1/2t): 3.6 cm2 8.7 mmHg 130.3 cm/sec MV E/A: 0.57 MV dec slope: CHIDI(V,D): 2.4 cm2 287.5 cm/sec2 PA V2 max: TR max katelynn: 96.3 cm/sec 361.1 cm/sec PA max P.7 mmHgTR max P.1 mmHg Left Ventricle The left ventricle is grossly normal size. There is mild to moderate concentric left ventricular hypertrophy. The left ventricular ejection fraction is normal. Doppler measurements suggest pseudonormalized left ventricular relaxation, which is associated with grade II/IV or mild to moderate diastolic dysfunction. Wall motion cannot be accurately commented on, but no definite regional wall motion abnormalities noted. Right Ventricle The right ventricle is mildly dilated. There is normal right ventricular wall thickness. Right ventricular function cannot be assessed due to poor image quality. Atria Right atrium not well visualized secondary to technical limitations. The left atrial size is normal. Interarterial septum not well visualized and not well dopplered. Cannot comment on ASD/PFO presence. Mitral Valve The mitral valve is grossly normal. There is no mitral valve stenosis. There is a trace amount of mitral regurgitation. Aortic Valve The aortic valve is not well visualized secondary to technical limitations. There is no aortic valve stenosis. No aortic regurgitation is present. Tricuspid Valve The tricuspid valve is not well visualized secondary to technical limitations. There is no tricuspid stenosis. There is a mild amount of tricuspid regurgitation. There is moderate pulmonary hypertension by echo. Best estimated right ventricular systolic pressure is elevated at 50- 60mmHg. Pulmonic Valve The pulmonic valve is not well visualized. Great Vessels The aortic root is not well visualized. The inferior vena cava appeared normal and decreased < 50% with respiration (RAP 10-15 mmHg). Effusions There is no pericardial effusion. : BOSTON MONIQUE Shyamal
[2017-10-31] MEDS: INSULIN GLARGINE,HUM.REC.ANLOG 300 UNIT/3 ML INSULN.PEN SUBCUT SCH (22:41)
[2017-11-01 04:51] LABS: ABSOLUTE BASOPHILS # (AUTO) 0.2 10^3/uL (0.0-0.2); ABSOLUTE EOSINOPHILS # (AUTO) 0.1 10^3/uL (0.0-0.6); ABSOLUTE LYMPHOCYTES (AUTO) 6.4 10^3/uL (0.5-4.7); ABSOLUTE MONOCYTES (AUTO) 1.7 10^3/uL (0.1-1.4); ABSOLUTE NEUT (AUTO) 9.2 10^3/uL (1.7-8.2); BASOPHILS % (AUTO) 1.3 % (0-2); EOSINOPHILS % (AUTO) 0.6 % (0-6); HEMATOCRIT 33.4 % (36.0-47.0); HEMOGLOBIN 10.7 g/dL (12.0-15.5); LYMPHOCYTES % (AUTO) 36.2 % (13-45); MEAN CORPUSCULAR HGB CONC 32.1 g/dL (32.0-36.0); MEAN CORPUSCULAR VOLUME 84 fl (80-97); MONOCYTES % (AUTO) 9.5 % (3-13); PLATELET COUNT 368 10^3/uL (150-450); RED BLOOD COUNT 3.96 10^6/uL (3.72-5.28); RED CELL DISTRIBUTION WIDTH 15.1 % (11.5-14.0); SEGMENTED NEUTROPHILS % (AUTO) 52.4 % (42-78); TOTAL CELLS COUNTED % (AUTO) 100 %; WHITE BLOOD COUNT 17.6 10^3/uL (4.0-10.5)
[2017-11-01 05:21] LABS: ALANINE AMINOTRANSFERASE 17 U/L (9-52); ALBUMIN 3.3 g/dL (3.5-5.0); ALKALINE PHOSPHATASE 102 U/L (38-126); ANION GAP 11 (5-19); ASPARTATE AMINO TRANSFERASE 12 U/L (14-36); BILIRUBIN,DIRECT 0.2 mg/dL (0.0-0.4); BILIRUBIN,TOTAL 0.5 mg/dL (0.2-1.3); BLOOD UREA NITROGEN 48 mg/dL (7-20); CALCIUM 9.3 mg/dL (8.4-10.2); CARBON DIOXIDE 38 mmol/L (22-30); CHLORIDE 89 mmol/L (98-107); GLUCOSE 146 mg/dL (75-110); POTASSIUM 4.2 mmol/L (3.6-5.0); SODIUM 137.6 mmol/L (137-145); TOTAL PROTEIN 6.5 g/dL (6.3-8.2)
[2017-11-01] MEDS: LANSOPRAZOLE 30 MG TAB.RAP.DR PO SCH (06:05)
[2017-11-01] MEDS: ACETAMINOPHEN 325 MG TABLET PO PRN ×3 (06:05→23:36)
[2017-11-01] MEDS: IPRATROPIUM/ALBUTEROL 0.5-2.5 MG/3 ML AMPUL NEB SCH ×3 (07:44→20:23)
[2017-11-01] MEDS: BUDESONIDE NEB 0.5 MG/2 ML AMPUL NEB SCH ×2 (07:44→20:22)
[2017-11-01] MEDS: ACETYLCYSTEINE 20% SOLN 800 MG/4 ML VIAL.NEB NEB SCH ×2 (07:44→20:23)
[2017-11-01] MEDS: NYSTATIN TOPICAL POWDER 15 GM TP SCH ×2 (10:14→17:30)
[2017-11-01] MEDS: FUROSEMIDE 40 MG TABLET PO SCH (10:14)
[2017-11-01] MEDS: ASPIRIN 81 MG TABLET, CHEWABLE PO SCH (10:14)
[2017-11-01] MEDS: METOLAZONE 2.5 MG TABLET PO SCH (10:14)
[2017-11-01] MEDS: METOPROLOL SUCCINATE 25 MG TAB.SR.24H PO SCH (10:14)
[2017-11-01] MEDS: GUAIFENESIN 600 MG TABLET.SA PO SCH ×2 (10:14→21:50)
[2017-11-01] MEDS: DOCUSATE SODIUM 100 MG CAPSULE PO SCH (10:14)
--- NOTE | 2017-11-01 10:51 | PDOC PROGRESS REPORT ---
Subjective Reason For Visit: HEART FAILURE, ACUTE HYPOXIC RESPIRATORY FAILURE Physical Exam Vital Signs: Temp Pulse Resp BP Pulse Ox 98.8 F 89 21 H 97/44 L 94 10/31/17 20:04 11/01/17 07:44 11/01/17 07:44 10/31/17 20:04 11/01/17 07:44 Intake & Output 10/31/17 11/01/17 11/02/17 06:59 06:59 06:59 Intake Total 855 925 Output Total 700 1500 Balance 155 -575 Weight 99.1 kg 99.1 kg Results Laboratory Results: 11/01/17 04:38 11/01/17 04:38 11/01/17 11/01/17 04:38 04:38 WBC 17.6 H RBC 3.96 Hgb 10.7 L Hct 33.4 L MCV 84 MCH 27.0 MCHC 32.1 RDW 15.1 H Plt Count 368 Seg Neutrophils % 52.4 Lymphocytes % 36.2 Monocytes % 9.5 Eosinophils % 0.6 Basophils % 1.3 Absolute Neutrophils 9.2 H Absolute Lymphocytes 6.4 H Absolute Monocytes 1.7 H Absolute Eosinophils 0.1 Absolute Basophils 0.2 Sodium 137.6 Potassium 4.2 Chloride 89 L Carbon Dioxide 38 H Anion Gap 11 BUN 48 H Creatinine 1.51 H Est GFR ( Amer) 40 L Est GFR (Non-Af Amer) 33 L Glucose 146 H Calcium 9.3 Magnesium 1.9 Total Bilirubin 0.5 AST 12 L ALT 17 Alkaline Phosphatase 102 Total Protein 6.5 Albumin 3.3 L 10/29/17 06:52 Troponin I 0.230 Impressions: Cervical Spine CT 10/28/17 18:52 IMPRESSION: CHRONIC DEGENERATIVE CHANGES. NO ACUTE FINDINGS. Head CT 10/28/17 18:52 IMPRESSION: NO ACUTE INTRACRANIAL IMAGING FINDINGS. EVIDENCE OF ACUTE STROKE: NO. Chest CT 10/31/17 00:00 IMPRESSION: MULTIFOCAL AIRSPACE DISEASE DETAILED ABOVE. CONSOLIDATION IN THE LOWER LOBES THROMBUS SEVERE COMPARED THE PRIOR STUDY HOWEVER THERE ARE NEW OPACITIES WITHIN THE SUPERIOR SEGMENTS OF THE LOWER LOBES AND WITHIN THE RIGHT UPPER LOBE PRESUMABLY REPRESENTING RECURRENT MULTIFOCAL PNEUMONIA. CONSIDER FOLLOW-UP CT IN 3 MONTHS TO ENSURE RESOLUTION. STABLE TO SLIGHTLY INCREASED MEDIASTINAL AND HILAR LYMPHADENOPATHY PRESUMABLY REACTIVE PNEUMONIA HOWEVER MALIGNANCY IS NOT EXCLUDED. RECOMMEND ATTENTION ON FOLLOW-UP STUDIES. Chest X-Ray 10/31/17 00:00 IMPRESSION: IMPROVED AERATION. NO ACUTE FINDINGS. HILAR ADENOPATHY UNCHANGED. Assessment & Plan - Diagnosis (1) Acute cystitis Is this a current diagnosis for this admission?: Yes Plan: Gram Negative Organism: Will place on Zosyn. (2) Pneumonia Is this a current diagnosis for this admission?: Yes Plan: Multilobar Pneumonia: Concern that pt may be aspirating. Will place on Zosyn. Will order modified barium study. CT of chest demonstrated multiple lobe involvement. (3) Acute respiratory failure with hypoxia Is this a current diagnosis for this admission?: Yes Plan: Secondary to congestive heart failure exacerbation and Multilobar Pneumonia: Will continue with breathing treatments and antibiotics. (4) Acute bronchitis Is this a current diagnosis for this admission?: Yes Plan: Ruled Out. (5) CHF exacerbation Qualifiers: Qualified Code(s): I50.9 - Heart failure, unspecified Is this a current diagnosis for this admission?: Yes Plan: Acute on chronic diastolic congestive heart failure: Resolving. Will continue Lasix. (6) Leukocytosis Is this a current diagnosis for this admission?: Yes Plan: Pt received steroids in the ER. Pt found to have UTI and Multilobar Pneumonia. Will continue to monitor. (7) CKD (chronic kidney disease) stage 3, GFR 30-59 ml/min Is this a current diagnosis for this admission?: Yes Plan: Continue to monitor patient's renal function. (8) Fall Qualifiers: Encounter type: initial encounter Qualified Code(s): W19.XXXA - Unspecified fall, initial encounter Is this a current diagnosis for this admission?: Yes Plan: PT OT work with patient. (9) Head trauma Qualifiers: Encounter type: initial encounter Qualified Code(s): S09.90XA - Unspecified injury of head, initial encounter Plan: CT of head negative for intracranial process. (10) Elevated troponin I level Is this a current diagnosis for this admission?: Yes Plan: Setting of chronic kidney disease supportive care: Pt found to have moderate Diastolic CHF. (11) Hyperkalemia Is this a current diagnosis for this admission?: Yes Plan: Resolved. (12) Intravascular volume depletion Is this a current diagnosis for this admission?: Yes Plan: Resolved. (13) Hyperglycemia due to type 2 diabetes mellitus Is this a current diagnosis for this admission?: Yes Plan: Will continue SSI and Lantus 30 units SQ QHS. (14) Hyponatremia Is this a current diagnosis for this admission?: Yes Plan: Will continue to monitor. (15) DVT prophylaxis Is this a current diagnosis for this admission?: Yes Plan: SCDs
[2017-11-01] MEDS ORDERED: PIPERACILLIN SODIUM/TAZOBACTAM 3.375 GM in NORMAL SALINE 100 ML IV SCH (12:00)
[2017-11-01] MEDS: PIPERACILLIN SODIUM/TAZOBACTAM 2.25 GM in NORMAL SALINE 100 ML IV SCH ×3 (13:43→23:36)
[2017-11-01] MEDS: INSULIN LISPRO 100 UNIT/ML 3 ML VIAL SUBCUT PRN ×2 (17:30→21:50)
[2017-11-01] MEDS: INSULIN GLARGINE,HUM.REC.ANLOG 300 UNIT/3 ML INSULN.PEN SUBCUT SCH (21:50)
[2017-11-02] MEDS: LANSOPRAZOLE 30 MG TAB.RAP.DR PO SCH (05:14)
[2017-11-02] MEDS: PIPERACILLIN SODIUM/TAZOBACTAM 2.25 GM in NORMAL SALINE 100 ML IV SCH ×3 (05:14→17:17)
[2017-11-02] MEDS: ACETAMINOPHEN 325 MG TABLET PO PRN (05:14)
[2017-11-02] MEDS: IPRATROPIUM/ALBUTEROL 0.5-2.5 MG/3 ML AMPUL NEB SCH ×3 (08:11→20:56)
[2017-11-02] MEDS: BUDESONIDE NEB 0.5 MG/2 ML AMPUL NEB SCH ×2 (08:11→20:56)
[2017-11-02] MEDS: ACETYLCYSTEINE 20% SOLN 800 MG/4 ML VIAL.NEB NEB SCH ×2 (08:12→20:56)
[2017-11-02] MEDS: FUROSEMIDE 40 MG TABLET PO SCH (09:32)
[2017-11-02] MEDS: ASPIRIN 81 MG TABLET, CHEWABLE PO SCH (09:32)
[2017-11-02] MEDS: GUAIFENESIN 600 MG TABLET.SA PO SCH ×2 (09:32→22:08)
[2017-11-02] MEDS: METOPROLOL SUCCINATE 25 MG TAB.SR.24H PO SCH (09:32)
[2017-11-02] MEDS: INSULIN LISPRO 100 UNIT/ML 3 ML VIAL SUBCUT PRN ×3 (09:32→17:17)
[2017-11-02] MEDS: DOCUSATE SODIUM 100 MG CAPSULE PO SCH (09:32)
[2017-11-02] MEDS: METOLAZONE 2.5 MG TABLET PO SCH (09:33)
[2017-11-02] MEDS: NYSTATIN TOPICAL POWDER 15 GM TP SCH ×2 (09:33→17:17)
--- NOTE | 2017-11-02 12:28 | ST Inp Modified Barium Swallow ---
Medical Diagnosis - Medical Diagnoses Medical Diagnosis Description & ICD-10 Code(s): heart failure, acute hypoxic respiratory failure [place] [facility] [place] Date: 11/02/17 - History History Obtained From: Other - EMR -: Medical - per EMR: type 2 diabetes, grade 2 2 diastolic heart failure, HTN, cognitive impairment Patient is a resident at [facility], reportedly fell and hit her head recently. Medications: Medications Reviewed Allergies: Refer to medical record - Subjective Current Nutritional Means: PO Current PO Diet: Regular Pain: Patient reports, 0/5 - Objective Assessment: Upright, Left Lateral - Food Trials Food Trials Used: Thin liquids, Pureed, Regular The Patient: Was Able to Self Feed - Assessment Labial Function: Within Normal Limits Lingual Function: Within Normal Limits Mandibular Function: Within Normal Limits Dentition: Edentulous Laryngeal Function: Volitional Cough - wfl, Volitional Swallow - wfl - Pharyngeal Stage Initiation of Pharyngeal Stage: Normal Decreased Laryngeal Elevation: No Reduced Velo-Pharyngeal Closure: no Reduced Pressure Generation: No Reduced Tongue Base Retraction: No Pre-Swallowing Pooling in Valleculae: None Pre-Swallowing Pooling in Pyriforms: None Reduced Thyro-Hyiod Approximation: No Reduced Epiglottic Excursion: No Reduced Pharyngeal Peristalsis: No Multiple Swallows With: Cleared w/ Dry Swallow Post Swallow Residuals in Valleculae: Mild - Esophageal Stage Cricophageal Function: Normal - Impression/Summary Tracheal Aspiration: no Compensatory Strategies: reduced rate for liquids Risk of Aspiration: Minimal - Recommendations NPO: no Solid Diet Recommendations: Regular - diet may be limited based on dentition Liquid Diet Recommendations: Thin Dysphagia Therapy with CLINICAL INFORMATICS DIRECTOR: No Recommended Techniques: Fully Upright During Meal, Small Bites and Sips - Time Total Time: 20 Total Timed Minutes: 20
--- NOTE | 2017-11-02 14:43 | PDOC PROGRESS REPORT ---
Subjective Progress Note for:: 11/02/17 Subjective:: The patient is resting in her bed. She walked 25 feet with physical therapy and did fairly well. She has been weaned off of her oxygen. She denies fever chills. No chest pain, shortness of breath or cough. No nausea, vomiting or diarrhea. No dysuria, frequency or hematuria Reason For Visit: HEART FAILURE, ACUTE HYPOXIC RESPIRATORY FAILURE Physical Exam Vital Signs: Temp Pulse Resp BP Pulse Ox 98.7 F 85 18 116/55 L 93 11/02/17 11:13 11/02/17 11:13 11/02/17 11:13 11/02/17 11:13 11/02/17 11:13 Intake & Output 11/01/17 11/02/17 11/03/17 06:59 06:59 06:59 Intake Total 925 1044 Output Total 1500 3000 Balance -575 -4356 Weight 99.1 kg 99.9 kg General appearance: PRESENT: no acute distress, well-developed, well-nourished, other - Quite elderly Head exam: PRESENT: atraumatic, normocephalic Mouth exam: PRESENT: moist, tongue midline Respiratory exam: PRESENT: clear to auscultation gee. ABSENT: rales, rhonchi, wheezes Cardiovascular exam: PRESENT: RRR. ABSENT: diastolic murmur, rubs, systolic murmur GI/Abdominal exam: PRESENT: normal bowel sounds, soft. ABSENT: distended, guarding, mass, organolmegaly, rebound, tenderness Rectal exam: PRESENT: deferred Extremities exam: PRESENT: full ROM. ABSENT: calf tenderness, clubbing, pedal edema Neurological exam: PRESENT: alert, awake, oriented to person, oriented to place , oriented to time, oriented to situation, CN II-XII grossly intact. ABSENT: motor sensory deficit Psychiatric exam: PRESENT: appropriate affect, normal mood. ABSENT: homicidal ideation, suicidal ideation Skin exam: PRESENT: dry, intact, warm. ABSENT: cyanosis, rash Results Laboratory Results: 11/01/17 04:38 11/01/17 04:38 10/31/17 15:55 Catheterized Urine Urine Culture - Final Klebsiella Pneumoniae 10/29/17 06:52 Troponin I 0.230 Impressions: Cervical Spine CT 10/28/17 18:52 IMPRESSION: CHRONIC DEGENERATIVE CHANGES. NO ACUTE FINDINGS. Head CT 10/28/17 18:52 IMPRESSION: NO ACUTE INTRACRANIAL IMAGING FINDINGS. EVIDENCE OF ACUTE STROKE: NO. Chest CT 10/31/17 00:00 IMPRESSION: MULTIFOCAL AIRSPACE DISEASE DETAILED ABOVE. CONSOLIDATION IN THE LOWER LOBES THROMBUS SEVERE COMPARED THE PRIOR STUDY HOWEVER THERE ARE NEW OPACITIES WITHIN THE SUPERIOR SEGMENTS OF THE LOWER LOBES AND WITHIN THE RIGHT UPPER LOBE PRESUMABLY REPRESENTING RECURRENT MULTIFOCAL PNEUMONIA. CONSIDER FOLLOW-UP CT IN 3 MONTHS TO ENSURE RESOLUTION. STABLE TO SLIGHTLY INCREASED MEDIASTINAL AND HILAR LYMPHADENOPATHY PRESUMABLY REACTIVE PNEUMONIA HOWEVER MALIGNANCY IS NOT EXCLUDED. RECOMMEND ATTENTION ON FOLLOW-UP STUDIES. Chest X-Ray 10/31/17 00:00 IMPRESSION: IMPROVED AERATION. NO ACUTE FINDINGS. HILAR ADENOPATHY UNCHANGED. Assessment & Plan - Diagnosis (1) Hypertensive emergency Is this a current diagnosis for this admission?: Yes Plan: Likely due to congestive heart failure exacerbation and renal failure. Resolved (2) Acute on chronic diastolic (congestive) heart failure Is this a current diagnosis for this admission?: Yes Plan: Much improved. Continue current regimen. (3) Acute respiratory failure with hypoxia Is this a current diagnosis for this admission?: Yes Plan: The patient has been weaned off of her oxygen. Her respiratory failure is due to congestive heart failure exacerbation as well as a COPD exacerbation. (4) COPD exacerbation Is this a current diagnosis for this admission?: Yes Plan: Resolved (5) Acute bronchitis Is this a current diagnosis for this admission?: Yes Plan: She has improved after starting IV Zosyn. We will continue this today and likely change her to p.o. Augmentin tomorrow. She was evaluated by speech therapy. She may have had a little bit of aspiration. They did not recommend any changes to her diet at this point. (6) Chronic kidney disease, stage IV (severe) Is this a current diagnosis for this admission?: Yes Plan: She is being followed closely by nephrology. We certainly appreciate their input. (7) Hypokalemia Is this a current diagnosis for this admission?: Yes Plan: Repleted (8) Anemia Is this a current diagnosis for this admission?: Yes Plan: Stable. This is likely related to her underlying renal failure. (9) Abdominal pain Is this a current diagnosis for this admission?: Yes Plan: Yesterday there were some concerns for urinary retention. At this point she has not had any further issues and is voiding without difficulty. She has no complaints of abdominal pain today. - Time Time Spent with patient: 25-34 minutes - Inpatient Certification Medical Necessity: Significant Comorbidiites Make Outpatient Treatment Too Risky , Need Close Monitoring Due to Risk of Patient Decompensation - Inpatient hospitalization remains necessary. Overall the patient is still requiring parenteral antibiotics. She is being followed closely by the nephrology service. She has been weaned off of her oxygen today. If she remains stable I anticipate she possibly could be discharged home in the next 24-48 hours. I did discuss with the patient possible subacute rehabilitation and her and her family are declining., Need for IV Antibiotics, Other
--- NOTE | 2017-11-02 14:53 | RADIOLOGY REPORT (SQ) ---
EXAM DESCRIPTION: COOKIE SWALLOW COMPLETED DATE/TIME: 11/02/2017 9:15 am REASON FOR STUDY: Concern for aspiration COMPARISON: Modified barium swallow 02/10/2017 TECHNIQUE: Videofluoroscopic swallowing examination was performed in conjunction with speech patholo gy. Videofluoroscopic imaging was obtained and reviewed and these are the findings: RADIATION DOSE: 1 minutes 10 seconds of fluoroscopy was used. 1 images saved to PACS. LIMITATIONS: None FINDINGS: The patient was brought into the fluoro room and placed upright on a modified barium swall ow chair. The patient was then given multiple consistencies mixed with barium to swallow under live fluoroscopic video guidance. According to the Speech Pathologist there was trace laryngeal penetrati on without aspiration with thin liquids. IMPRESSION: TRACE LARYNGEAL PENETRATION WITH THIN LIQUIDS. NO ASPIRATION SEEN.PLEASE SEE SPEECH PAT HOLOGIST REPORT FOR OTHER FINDINGS AND RECOMMENDATIONS. COMMENT: Quality ID [id number]: Final reports for procedures using fluoroscopy that document radiation exp osure indices, or exposure time and number of fluorographic images (if radiation exposure indices are not available) TECHNICAL DOCUMENTATION: JOB ID: [id number] [employer]- All Rights Reserved
[2017-11-02] MEDS: INSULIN GLARGINE,HUM.REC.ANLOG 300 UNIT/3 ML INSULN.PEN SUBCUT SCH (22:08)
[2017-11-03] MEDS: PIPERACILLIN SODIUM/TAZOBACTAM 2.25 GM in NORMAL SALINE 100 ML IV SCH ×5 (00:45→23:07)
[2017-11-03] MEDS: LANSOPRAZOLE 30 MG TAB.RAP.DR PO SCH (06:20)
[2017-11-03] MEDS: BUDESONIDE NEB 0.5 MG/2 ML AMPUL NEB SCH ×2 (09:14→20:23)
[2017-11-03] MEDS: ACETYLCYSTEINE 20% SOLN 800 MG/4 ML VIAL.NEB NEB SCH ×2 (09:14→20:23)
[2017-11-03] MEDS: IPRATROPIUM/ALBUTEROL 0.5-2.5 MG/3 ML AMPUL NEB SCH ×3 (09:14→20:23)
[2017-11-03] MEDS: NYSTATIN TOPICAL POWDER 15 GM TP SCH ×2 (09:46→17:19)
[2017-11-03] MEDS: METOPROLOL SUCCINATE 25 MG TAB.SR.24H PO SCH (09:46)
[2017-11-03] MEDS: FUROSEMIDE 40 MG TABLET PO SCH (09:46)
[2017-11-03] MEDS: METOLAZONE 2.5 MG TABLET PO SCH (09:46)
[2017-11-03] MEDS: ACETAMINOPHEN 325 MG TABLET PO PRN ×2 (09:46→14:49)
[2017-11-03] MEDS: ASPIRIN 81 MG TABLET, CHEWABLE PO SCH (09:46)
[2017-11-03] MEDS: GUAIFENESIN 600 MG TABLET.SA PO SCH ×2 (09:46→23:05)
[2017-11-03] MEDS: DOCUSATE SODIUM 100 MG CAPSULE PO SCH (09:46)
[2017-11-03] MEDS: INSULIN LISPRO 100 UNIT/ML 3 ML VIAL SUBCUT PRN ×2 (12:37→23:10)
--- NOTE | 2017-11-03 15:32 | PDOC PROGRESS REPORT ---
Subjective Progress Note for:: 11/03/17 Subjective:: Patient seen on rounds. She is resting in bed. Son is at the bedside. She continues to have a congested, and loose cough. She is unable to get secretions up at the present time. She denies shortness of breath, dyspnea or chest pain. She is requiring oxygen at 2 L/min. She denies any fever chills overnight. Denies any nausea, vomiting or abdominal pain. She denies diarrhea. She denies any significant arthralgias or myalgias. She has resolving ecchymosis around the left eye. She has a small left eye subconjunctival hemorrhage is resolving. Remaining review of systems are negative. Reason For Visit: HEART FAILURE, ACUTE HYPOXIC RESPIRATORY FAILURE Physical Exam Vital Signs: Temp Pulse Resp BP Pulse Ox 97.9 F 75 20 104/47 L 94 11/03/17 11:43 11/03/17 14:45 11/03/17 14:45 11/03/17 11:43 11/03/17 14:45 Intake & Output 11/02/17 11/03/17 11/04/17 06:59 06:59 06:59 Intake Total 1044 965 Output Total 3000 1350 Balance -1956 -385 Weight 99.9 kg 99.9 kg General appearance: PRESENT: no acute distress, obese, well-developed, well- nourished Head exam: PRESENT: atraumatic, normocephalic Eye exam: PRESENT: conjunctiva pink, EOMI, PERRLA. ABSENT: scleral icterus Ear exam: PRESENT: normal external ear exam Mouth exam: PRESENT: moist, tongue midline Neck exam: ABSENT: carotid bruit, JVD, lymphadenopathy, thyromegaly Respiratory exam: PRESENT: rhonchi - Bilaterally upper lobes, symmetrical, unlabored Cardiovascular exam: PRESENT: RRR. ABSENT: diastolic murmur, rubs, systolic murmur Pulses: PRESENT: normal dorsalis pedis pul Vascular exam: PRESENT: normal capillary refill GI/Abdominal exam: PRESENT: normal bowel sounds, soft. ABSENT: distended, guarding, mass, organolmegaly, rebound, tenderness Rectal exam: PRESENT: deferred Extremities exam: PRESENT: full ROM, +1 edema - Bilateral pedal Musculoskeletal exam: PRESENT: ambulatory, full ROM, normal inspection Neurological exam: PRESENT: alert, awake, oriented to person, oriented to place , oriented to time, oriented to situation, CN II-XII grossly intact. ABSENT: motor sensory deficit Skin exam: PRESENT: dry, intact, warm. ABSENT: cyanosis, rash Results Laboratory Results: 11/01/17 04:38 11/01/17 04:38 10/29/17 06:52 Troponin I 0.230 Impressions: Cervical Spine CT 10/28/17 18:52 IMPRESSION: CHRONIC DEGENERATIVE CHANGES. NO ACUTE FINDINGS. Head CT 10/28/17 18:52 IMPRESSION: NO ACUTE INTRACRANIAL IMAGING FINDINGS. EVIDENCE OF ACUTE STROKE: NO. Chest CT 10/31/17 00:00 IMPRESSION: MULTIFOCAL AIRSPACE DISEASE DETAILED ABOVE. CONSOLIDATION IN THE LOWER LOBES THROMBUS SEVERE COMPARED THE PRIOR STUDY HOWEVER THERE ARE NEW OPACITIES WITHIN THE SUPERIOR SEGMENTS OF THE LOWER LOBES AND WITHIN THE RIGHT UPPER LOBE PRESUMABLY REPRESENTING RECURRENT MULTIFOCAL PNEUMONIA. CONSIDER FOLLOW-UP CT IN 3 MONTHS TO ENSURE RESOLUTION. STABLE TO SLIGHTLY INCREASED MEDIASTINAL AND HILAR LYMPHADENOPATHY PRESUMABLY REACTIVE PNEUMONIA HOWEVER MALIGNANCY IS NOT EXCLUDED. RECOMMEND ATTENTION ON FOLLOW-UP STUDIES. Chest X-Ray 10/31/17 00:00 IMPRESSION: IMPROVED AERATION. NO ACUTE FINDINGS. HILAR ADENOPATHY UNCHANGED. Modified Barium Swallow 11/02/17 00:00 IMPRESSION: TRACE LARYNGEAL PENETRATION WITH THIN LIQUIDS. NO ASPIRATION SEEN.PLEASE SEE SPEECH PATHOLOGIST REPORT FOR OTHER FINDINGS AND RECOMMENDATIONS. Assessment & Plan - Diagnosis (1) Acute on chronic diastolic (congestive) heart failure Is this a current diagnosis for this admission?: Yes Plan: She appears euvolemic (2) Acute respiratory failure with hypoxia Is this a current diagnosis for this admission?: Yes Plan: She continues to have congested cough. Continue Mucinex and nebulizer treatments. (3) COPD exacerbation Is this a current diagnosis for this admission?: Yes Plan: As above (4) Head trauma Qualifiers: Encounter type: initial encounter Qualified Code(s): S09.90XA - Unspecified injury of head, initial encounter Plan: Left eye ecchymosis is resolving. (5) Hyperglycemia due to type 2 diabetes mellitus Is this a current diagnosis for this admission?: Yes Plan: Continue home medications and sliding scale coverage (6) Hypertensive emergency Is this a current diagnosis for this admission?: Yes (7) Hypokalemia Is this a current diagnosis for this admission?: Yes (8) Hyponatremia Is this a current diagnosis for this admission?: Yes Plan: REsolved (9) Intravascular volume depletion Is this a current diagnosis for this admission?: Yes Plan: Appears to be resolved (10) Pneumonia Is this a current diagnosis for this admission?: Yes Plan: Continue Levaquin - Time Time Spent with patient: 25-34 minutes Medications reviewed and adjusted accordingly: Yes Anticipated discharge: SNF
[2017-11-03] MEDS ORDERED: ONDANSETRON HCL INJ/PF 4 MG/2 ML SDV IV PRN (18:01)
[2017-11-03] MEDS: INSULIN GLARGINE,HUM.REC.ANLOG 300 UNIT/3 ML INSULN.PEN SUBCUT SCH (23:05)
[2017-11-04 05:29] LABS: ABSOLUTE BASOPHILS # (AUTO) 0.1 10^3/uL (0.0-0.2); ABSOLUTE EOSINOPHILS # (AUTO) 0.2 10^3/uL (0.0-0.6); ABSOLUTE LYMPHOCYTES (AUTO) 4.1 10^3/uL (0.5-4.7); ABSOLUTE MONOCYTES (AUTO) 1.9 10^3/uL (0.1-1.4); ABSOLUTE NEUT (AUTO) 9.4 10^3/uL (1.7-8.2); BASOPHILS % (AUTO) 0.3 % (0-2); EOSINOPHILS % (AUTO) 1.1 % (0-6); HEMATOCRIT 33.7 % (36.0-47.0); HEMOGLOBIN 10.9 g/dL (12.0-15.5); LYMPHOCYTES % (AUTO) 26.5 % (13-45); MEAN CORPUSCULAR HEMOGLOBIN 27.1 pg (27.0-33.4); MEAN CORPUSCULAR HGB CONC 32.4 g/dL (32.0-36.0); MEAN CORPUSCULAR VOLUME 84 fl (80-97); MONOCYTES % (AUTO) 11.9 % (3-13); PLATELET COUNT 402 10^3/uL (150-450); RED BLOOD COUNT 4.02 10^6/uL (3.72-5.28); SEGMENTED NEUTROPHILS % (AUTO) 60.2 % (42-78); TOTAL CELLS COUNTED % (AUTO) 100 %; WHITE BLOOD COUNT 15.6 10^3/uL (4.0-10.5)
[2017-11-04 05:44] LABS: ANION GAP 12 (5-19); BLOOD UREA NITROGEN 38 mg/dL (7-20); CALCIUM 9.7 mg/dL (8.4-10.2); CARBON DIOXIDE 39 mmol/L (22-30); CHLORIDE 86 mmol/L (98-107); GLUCOSE 42 mg/dL (75-110); POTASSIUM 3.5 mmol/L (3.6-5.0); SODIUM 136.5 mmol/L (137-145)
[2017-11-04] MEDS: LANSOPRAZOLE 30 MG TAB.RAP.DR PO SCH (06:01)
[2017-11-04] MEDS: PIPERACILLIN SODIUM/TAZOBACTAM 2.25 GM in NORMAL SALINE 100 ML IV SCH ×4 (06:01→23:22)
[2017-11-04] MEDS: BUDESONIDE NEB 0.5 MG/2 ML AMPUL NEB SCH ×2 (08:44→20:16)
[2017-11-04] MEDS: IPRATROPIUM/ALBUTEROL 0.5-2.5 MG/3 ML AMPUL NEB SCH ×3 (08:45→20:16)
[2017-11-04] MEDS: ACETYLCYSTEINE 20% SOLN 800 MG/4 ML VIAL.NEB NEB SCH ×2 (08:45→20:16)
[2017-11-04] MEDS: FUROSEMIDE 40 MG TABLET PO SCH (09:58)
[2017-11-04] MEDS: ASPIRIN 81 MG TABLET, CHEWABLE PO SCH (09:58)
[2017-11-04] MEDS: DOCUSATE SODIUM 100 MG CAPSULE PO SCH (09:58)
[2017-11-04] MEDS: GUAIFENESIN 600 MG TABLET.SA PO SCH ×2 (10:00→22:09)
[2017-11-04] MEDS: METOPROLOL SUCCINATE 25 MG TAB.SR.24H PO SCH (10:01)
[2017-11-04] MEDS: NYSTATIN TOPICAL POWDER 15 GM TP SCH ×2 (10:01→17:42)
[2017-11-04] MEDS: METOLAZONE 2.5 MG TABLET PO SCH (10:01)
[2017-11-04] MEDS: INSULIN LISPRO 100 UNIT/ML 3 ML VIAL SUBCUT PRN ×2 (16:18→22:09)
[2017-11-04] MEDS: ACETAMINOPHEN 325 MG TABLET PO PRN (16:37)
[2017-11-04] MEDS ORDERED: FUROSEMIDE INJ/PF 20 MG/2 ML SDV IV ONE (18:00)
[2017-11-04] MEDS ORDERED: POTASSIUM CHLORIDE 10 MEQ TABLET.SA PO ONE (18:02)
--- NOTE | 2017-11-04 18:03 | PDOC PROGRESS REPORT ---
Subjective Progress Note for:: 11/04/17 Subjective:: The patient is lying on her bed. She actually is back on her oxygen today. She was sleeping but arousable. She did not want to answer questions when she woke up. She states she is feeling fine. A review of systems could not be obtained Reason For Visit: HEART FAILURE, ACUTE HYPOXIC RESPIRATORY FAILURE Physical Exam Vital Signs: Temp Pulse Resp BP Pulse Ox 98.8 F 86 18 94/53 L 94 11/04/17 16:02 11/04/17 16:02 11/04/17 16:02 11/04/17 16:02 11/04/17 16:02 Intake & Output 11/03/17 11/04/17 11/05/17 06:59 06:59 06:59 Intake Total 965 960 556 Output Total 1350 1100 300 Balance -385 -140 256 Weight 99.9 kg 99.9 kg General appearance: PRESENT: no acute distress, obese, well-nourished Head exam: PRESENT: atraumatic, normocephalic Mouth exam: PRESENT: moist, tongue midline Respiratory exam: PRESENT: decreased breath sounds, rhonchi. ABSENT: rales, wheezes Cardiovascular exam: PRESENT: RRR. ABSENT: diastolic murmur, rubs, systolic murmur GI/Abdominal exam: PRESENT: normal bowel sounds, soft. ABSENT: distended, guarding, mass, organolmegaly, rebound, tenderness Rectal exam: PRESENT: deferred Extremities exam: PRESENT: full ROM. ABSENT: calf tenderness, clubbing, pedal edema Neurological exam: PRESENT: alert, awake, oriented to person, oriented to place , oriented to time, oriented to situation, CN II-XII grossly intact. ABSENT: motor sensory deficit Psychiatric exam: PRESENT: appropriate affect, normal mood. ABSENT: homicidal ideation, suicidal ideation Skin exam: PRESENT: dry, intact, warm. ABSENT: cyanosis, rash Results Laboratory Results: 11/04/17 04:25 11/04/17 04:25 11/04/17 11/04/17 04:25 04:25 WBC 15.6 H RBC 4.02 Hgb 10.9 L Hct 33.7 L MCV 84 MCH 27.1 MCHC 32.4 RDW 15.0 H Plt Count 402 Seg Neutrophils % 60.2 Lymphocytes % 26.5 Monocytes % 11.9 Eosinophils % 1.1 Basophils % 0.3 Absolute Neutrophils 9.4 H Absolute Lymphocytes 4.1 Absolute Monocytes 1.9 H Absolute Eosinophils 0.2 Absolute Basophils 0.1 Sodium 136.5 L Potassium 3.5 L Chloride 86 L Carbon Dioxide 39 H Anion Gap 12 BUN 38 H Creatinine 1.21 Est GFR ( Amer) 51 L Est GFR (Non-Af Amer) 42 L Glucose 42 L Calcium 9.7 10/29/17 06:52 Troponin I 0.230 Impressions: Cervical Spine CT 10/28/17 18:52 IMPRESSION: CHRONIC DEGENERATIVE CHANGES. NO ACUTE FINDINGS. Head CT 10/28/17 18:52 IMPRESSION: NO ACUTE INTRACRANIAL IMAGING FINDINGS. EVIDENCE OF ACUTE STROKE: NO. Chest CT 10/31/17 00:00 IMPRESSION: MULTIFOCAL AIRSPACE DISEASE DETAILED ABOVE. CONSOLIDATION IN THE LOWER LOBES THROMBUS SEVERE COMPARED THE PRIOR STUDY HOWEVER THERE ARE NEW OPACITIES WITHIN THE SUPERIOR SEGMENTS OF THE LOWER LOBES AND WITHIN THE RIGHT UPPER LOBE PRESUMABLY REPRESENTING RECURRENT MULTIFOCAL PNEUMONIA. CONSIDER FOLLOW-UP CT IN 3 MONTHS TO ENSURE RESOLUTION. STABLE TO SLIGHTLY INCREASED MEDIASTINAL AND HILAR LYMPHADENOPATHY PRESUMABLY REACTIVE PNEUMONIA HOWEVER MALIGNANCY IS NOT EXCLUDED. RECOMMEND ATTENTION ON FOLLOW-UP STUDIES. Chest X-Ray 10/31/17 00:00 IMPRESSION: IMPROVED AERATION. NO ACUTE FINDINGS. HILAR ADENOPATHY UNCHANGED. Modified Barium Swallow 11/02/17 00:00 IMPRESSION: TRACE LARYNGEAL PENETRATION WITH THIN LIQUIDS. NO ASPIRATION SEEN.PLEASE SEE SPEECH PATHOLOGIST REPORT FOR OTHER FINDINGS AND RECOMMENDATIONS. Assessment & Plan - Diagnosis (1) Hypertensive emergency Is this a current diagnosis for this admission?: Yes Plan: Likely due to congestive heart failure exacerbation and renal failure. Resolved (2) Acute on chronic diastolic (congestive) heart failure Is this a current diagnosis for this admission?: Yes Plan: When I saw her 2 days ago she had been weaned off of oxygen. Currently requiring oxygen again. I am going to get a chest x-ray and we will add a BNP onto today's labs. We will follow-up with those results. Currently she is on 40 mg of p.o. Lasix daily.. (3) Acute respiratory failure with hypoxia Is this a current diagnosis for this admission?: Yes Plan: She is back on oxygen. Again we will repeat a chest x-ray and add a BNP onto this morning's blood work. (4) COPD exacerbation Is this a current diagnosis for this admission?: Yes Plan: Resolved. She does not appear to be wheezing (5) Acute bronchitis Is this a current diagnosis for this admission?: Yes Plan: She will continue IV Zosyn. (6) Chronic kidney disease, stage IV (severe) Is this a current diagnosis for this admission?: Yes Plan: She is being followed closely by nephrology. We certainly appreciate their input. Her kidney function is greatly improved. (7) Hypokalemia Is this a current diagnosis for this admission?: Yes Plan: Repleted (8) Anemia Is this a current diagnosis for this admission?: Yes Plan: Stable. This is likely related to her underlying renal failure. (9) Abdominal pain Is this a current diagnosis for this admission?: Yes Plan: Initially there were some concerns for urinary retention. This did not insole and outsole preparer to be the case. She is not complaining of abdominal pain today. - Time Time Spent with patient: 25-34 minutes - Inpatient Certification Medical Necessity: Other - Inpatient hospitalization remains necessary. The patient is back on oxygen and I would like to wean her off. She needs a chest x -ray and may require further parenteral diuresis.
--- NOTE | 2017-11-04 18:35 | RADIOLOGY REPORT (SQ) ---
EXAM DESCRIPTION: CHEST SINGLE VIEW COMPLETED DATE/TIME: 11/04/2017 6:24 pm REASON FOR STUDY: hypoxia, chf COMPARISON: 10/31/2017 EXAM PARAMETERS: NUMBER OF VIEWS: One view. TECHNIQUE: Single frontal radiographic view of the chest acquired. RADIATION DOSE: NA LIMITATIONS: None. FINDINGS: LUNGS AND PLEURA: No opacities, masses or pneumothorax. No pleural effusion. MEDIASTINUM AND HILAR STRUCTURES: The previously described hilar adenopathy is again identified. HEART AND VASCULAR STRUCTURES: The configuration of the heart and mediastinal structures is unchanged . BONES: No acute findings. HARDWARE: None in the chest. OTHER: No other significant finding. IMPRESSION: No significant interval change. No acute findings. Other findings as noted above TECHNICAL DOCUMENTATION: JOB ID: [id number] [employer]- All Rights Reserved
[2017-11-04] MEDS ORDERED: FUROSEMIDE INJ/PF 40 MG/4 ML SDV IV ONE (18:45)
[2017-11-04] MEDS ORDERED: FUROSEMIDE 40 MG TABLET PO ONE (19:00)
[2017-11-04] MEDS: INSULIN GLARGINE,HUM.REC.ANLOG 300 UNIT/3 ML INSULN.PEN SUBCUT SCH (22:09)
[2017-11-05] MEDS: ACETAMINOPHEN 325 MG TABLET PO PRN ×2 (01:01→11:29)
[2017-11-05] MEDS: LANSOPRAZOLE 30 MG TAB.RAP.DR PO SCH (05:49)
[2017-11-05] MEDS: PIPERACILLIN SODIUM/TAZOBACTAM 2.25 GM in NORMAL SALINE 100 ML IV SCH ×2 (05:49→13:19)
[2017-11-05 07:51] LABS: ABSOLUTE EOSINOPHILS # (AUTO) 0.2 10^3/uL (0.0-0.6); ABSOLUTE LYMPHOCYTES (AUTO) 7.5 10^3/uL (0.5-4.7); ABSOLUTE MONOCYTES (AUTO) 1.5 10^3/uL (0.1-1.4); ABSOLUTE NEUT (AUTO) 7.1 10^3/uL (1.7-8.2); BASOPHILS % (AUTO) 0.2 % (0-2); EOSINOPHILS % (AUTO) 1.3 % (0-6); HEMATOCRIT 29.5 % (36.0-47.0); HEMOGLOBIN 9.5 g/dL (12.0-15.5); LYMPHOCYTES % (AUTO) 46.2 % (13-45); MEAN CORPUSCULAR HEMOGLOBIN 27.1 pg (27.0-33.4); MEAN CORPUSCULAR HGB CONC 32.3 g/dL (32.0-36.0); MEAN CORPUSCULAR VOLUME 84 fl (80-97); PLATELET COUNT 389 10^3/uL (150-450); RED BLOOD COUNT 3.51 10^6/uL (3.72-5.28); RED CELL DISTRIBUTION WIDTH 14.8 % (11.5-14.0); SEGMENTED NEUTROPHILS % (AUTO) 43.3 % (42-78); TOTAL CELLS COUNTED % (AUTO) 100 %; WHITE BLOOD COUNT 16.3 10^3/uL (4.0-10.5)
[2017-11-05 08:10] LABS: ANION GAP 10 (5-19); BLOOD UREA NITROGEN 41 mg/dL (7-20); CALCIUM 9.2 mg/dL (8.4-10.2); CARBON DIOXIDE 39 mmol/L (22-30); CHLORIDE 87 mmol/L (98-107); GLUCOSE 73 mg/dL (75-110); POTASSIUM 3.6 mmol/L (3.6-5.0); SODIUM 135.5 mmol/L (137-145)
[2017-11-05] MEDS: ACETYLCYSTEINE 20% SOLN 800 MG/4 ML VIAL.NEB NEB SCH ×2 (08:50→19:57)
[2017-11-05] MEDS: IPRATROPIUM/ALBUTEROL 0.5-2.5 MG/3 ML AMPUL NEB SCH ×3 (08:50→19:58)
[2017-11-05] MEDS: BUDESONIDE NEB 0.5 MG/2 ML AMPUL NEB SCH ×2 (08:50→19:58)
[2017-11-05] MEDS: FUROSEMIDE 40 MG TABLET PO SCH ×2 (11:01→17:40)
[2017-11-05] MEDS: ASPIRIN 81 MG TABLET, CHEWABLE PO SCH (11:01)
[2017-11-05] MEDS: DOCUSATE SODIUM 100 MG CAPSULE PO SCH (11:01)
[2017-11-05] MEDS: METOPROLOL SUCCINATE 25 MG TAB.SR.24H PO SCH (11:02)
[2017-11-05] MEDS: GUAIFENESIN 600 MG TABLET.SA PO SCH ×2 (11:02→23:21)
[2017-11-05] MEDS: METOLAZONE 2.5 MG TABLET PO SCH (11:03)
[2017-11-05] MEDS: INSULIN LISPRO 100 UNIT/ML 3 ML VIAL SUBCUT PRN ×2 (11:53→23:21)
--- NOTE | 2017-11-05 15:44 | PDOC PROGRESS REPORT ---
Subjective Progress Note for:: 11/05/17 Subjective:: The patient is resting in her bed. She is sleeping but arousable. She states she still feels quite short of breath. She denies fever chills. She states she still has a little bit of a cough. No nausea vomiting or diarrhea. No abdominal pain. No urinary complaints. Reason For Visit: HEART FAILURE, ACUTE HYPOXIC RESPIRATORY FAILURE Physical Exam Vital Signs: Temp Pulse Resp BP Pulse Ox 98.9 F 79 18 103/57 L 96 11/05/17 11:37 11/05/17 14:09 11/05/17 14:09 11/05/17 11:37 11/05/17 14:09 Intake & Output 11/04/17 11/05/17 11/06/17 06:59 06:59 06:59 Intake Total 960 996 340 Output Total 1100 700 400 Balance -140 296 -60 Weight 99.9 kg 99.9 kg General appearance: PRESENT: no acute distress, obese, other - She appears quite depressed Head exam: PRESENT: atraumatic, normocephalic Mouth exam: PRESENT: moist, tongue midline Respiratory exam: PRESENT: other - She has some coarse breath sounds anteriorly. ABSENT: accessory muscle use, tachypnea Cardiovascular exam: PRESENT: RRR. ABSENT: diastolic murmur, rubs, systolic murmur GI/Abdominal exam: PRESENT: normal bowel sounds, soft, other - Her abdomen is obese. ABSENT: distended, guarding, mass, organolmegaly, rebound, tenderness Rectal exam: PRESENT: deferred Extremities exam: ABSENT: calf tenderness, clubbing, pedal edema Neurological exam: PRESENT: alert, altered, awake, oriented to person, oriented to place, oriented to time Psychiatric exam: PRESENT: appropriate affect, normal mood. ABSENT: homicidal ideation, suicidal ideation Skin exam: PRESENT: dry, intact, warm. ABSENT: cyanosis, rash Results Laboratory Results: 11/05/17 06:27 11/05/17 06:27 11/05/17 11/05/17 06:27 06:27 WBC 16.3 H RBC 3.51 L Hgb 9.5 L Hct 29.5 L MCV 84 MCH 27.1 MCHC 32.3 RDW 14.8 H Plt Count 389 Seg Neutrophils % 43.3 Lymphocytes % 46.2 H Monocytes % 9.0 Eosinophils % 1.3 Basophils % 0.2 Absolute Neutrophils 7.1 Absolute Lymphocytes 7.5 H Absolute Monocytes 1.5 H Absolute Eosinophils 0.2 Absolute Basophils 0.0 Sodium 135.5 L Potassium 3.6 Chloride 87 L Carbon Dioxide 39 H Anion Gap 10 BUN 41 H Creatinine 1.46 H Est GFR ( Amer) 41 L Est GFR (Non-Af Amer) 34 L Glucose 73 L Calcium 9.2 Magnesium 2.2 10/29/17 11/05/17 06:52 06:27 Troponin I 0.230 NT-Pro-B Natriuret Pep 2280 H Impressions: Cervical Spine CT 10/28/17 18:52 IMPRESSION: CHRONIC DEGENERATIVE CHANGES. NO ACUTE FINDINGS. Head CT 10/28/17 18:52 IMPRESSION: NO ACUTE INTRACRANIAL IMAGING FINDINGS. EVIDENCE OF ACUTE STROKE: NO. Chest CT 10/31/17 00:00 IMPRESSION: MULTIFOCAL AIRSPACE DISEASE DETAILED ABOVE. CONSOLIDATION IN THE LOWER LOBES THROMBUS SEVERE COMPARED THE PRIOR STUDY HOWEVER THERE ARE NEW OPACITIES WITHIN THE SUPERIOR SEGMENTS OF THE LOWER LOBES AND WITHIN THE RIGHT UPPER LOBE PRESUMABLY REPRESENTING RECURRENT MULTIFOCAL PNEUMONIA. CONSIDER FOLLOW-UP CT IN 3 MONTHS TO ENSURE RESOLUTION. STABLE TO SLIGHTLY INCREASED MEDIASTINAL AND HILAR LYMPHADENOPATHY PRESUMABLY REACTIVE PNEUMONIA HOWEVER MALIGNANCY IS NOT EXCLUDED. RECOMMEND ATTENTION ON FOLLOW-UP STUDIES. Modified Barium Swallow 11/02/17 00:00 IMPRESSION: TRACE LARYNGEAL PENETRATION WITH THIN LIQUIDS. NO ASPIRATION SEEN.PLEASE SEE SPEECH PATHOLOGIST REPORT FOR OTHER FINDINGS AND RECOMMENDATIONS. Chest X-Ray 11/04/17 00:00 IMPRESSION: No significant interval change. No acute findings. Other findings as noted above Assessment & Plan - Diagnosis (1) Hypertensive emergency Is this a current diagnosis for this admission?: Yes Plan: Secondary to congestive heart failure exacerbation. Resolved (2) Acute on chronic diastolic (congestive) heart failure Is this a current diagnosis for this admission?: Yes Plan: She sounds a little wet. I am going to give her a one-time dose of 40 mg of IV Lasix. I am going to change her p.o. Lasix to twice daily. Hopefully we can get her weaned off the oxygen. (3) Acute respiratory failure with hypoxia Is this a current diagnosis for this admission?: Yes Plan: She is back on oxygen when she had initially been weaned off. Chest x-ray reveals vascular congestion and she had an elevated BNP. She received 40 mg of IV Lasix this morning with some improvement. I am going to increase her p.o. Lasix to twice daily. Hopefully we can get her weaned off of oxygen. She was not on oxygen prior to this hospitalization (4) COPD exacerbation Is this a current diagnosis for this admission?: Yes Plan: Resolved. She does not appear to be wheezing (5) Acute bronchitis Is this a current diagnosis for this admission?: Yes Plan: She has been receiving IV Zosyn. She is completed 5 days. I am going to transition her to p.o. Augmentin for 2 more days to complete a 7 day course of therapy. There are some concerns the patient may have some aspiration issues. (6) Chronic kidney disease, stage IV (severe) Is this a current diagnosis for this admission?: Yes Plan: She is being followed closely by nephrology. We certainly appreciate their input. Her kidney function is greatly improved. (7) Hypokalemia Is this a current diagnosis for this admission?: Yes Plan: Repleted (8) Anemia Is this a current diagnosis for this admission?: Yes Plan: Stable. This is likely related to her underlying renal failure. (9) Abdominal pain Is this a current diagnosis for this admission?: Yes Plan: Initially there were some concerns for urinary retention. This did not turnstile collector to be the case. She is not complaining of abdominal pain today. - Time Time Spent with patient: 15-24 minutes - Inpatient Certification Medical Necessity: Other - Inpatient hospitalization remains necessary. I would like to get the patient off of oxygen prior to discharge. She did require IV diuresis today. Hopefully she can be discharged back to her facility on Wednesday. She is a resident of [facility]
[2017-11-05] MEDS: AMOXICILLIN TR/POT CLAVULANATE 500-125 MG TAB PO SCH (23:20)
[2017-11-05] MEDS: INSULIN GLARGINE,HUM.REC.ANLOG 300 UNIT/3 ML INSULN.PEN SUBCUT SCH (23:21)
[2017-11-06] MEDS: ACETAMINOPHEN 325 MG TABLET PO PRN ×2 (01:35→05:58)
[2017-11-06] MEDS: LANSOPRAZOLE 30 MG TAB.RAP.DR PO SCH (05:57)
[2017-11-06] MEDS: AMOXICILLIN TR/POT CLAVULANATE 500-125 MG TAB PO SCH ×3 (05:57→22:49)
[2017-11-06 07:23] LABS: ALANINE AMINOTRANSFERASE 19 U/L (9-52); ALKALINE PHOSPHATASE 81 U/L (38-126); ASPARTATE AMINO TRANSFERASE 15 U/L (14-36); BILIRUBIN,DIRECT 0.4 mg/dL (0.0-0.4); BILIRUBIN,TOTAL 0.4 mg/dL (0.2-1.3); BLOOD UREA NITROGEN 43 mg/dL (7-20); CALCIUM 9.8 mg/dL (8.4-10.2); CHLORIDE 86 mmol/L (98-107); GLUCOSE 89 mg/dL (75-110); POTASSIUM 3.1 mmol/L (3.6-5.0); SODIUM 134.2 mmol/L (137-145); TOTAL PROTEIN 6.6 g/dL (6.3-8.2)
[2017-11-06 07:36] LABS: ANION GAP 10 (5-19)
[2017-11-06 07:37] LABS: CARBON DIOXIDE 38 mmol/L (22-30)
[2017-11-06] MEDS: IPRATROPIUM/ALBUTEROL 0.5-2.5 MG/3 ML AMPUL NEB SCH ×3 (09:36→19:39)
[2017-11-06] MEDS: BUDESONIDE NEB 0.5 MG/2 ML AMPUL NEB SCH ×2 (09:36→19:39)
[2017-11-06] MEDS: ACETYLCYSTEINE 20% SOLN 800 MG/4 ML VIAL.NEB NEB SCH ×2 (09:37→19:40)
[2017-11-06] MEDS: METOLAZONE 2.5 MG TABLET PO SCH (10:11)
[2017-11-06] MEDS: ASPIRIN 81 MG TABLET, CHEWABLE PO SCH (10:11)
[2017-11-06] MEDS: FUROSEMIDE 40 MG TABLET PO SCH (10:11)
[2017-11-06] MEDS: DOCUSATE SODIUM 100 MG CAPSULE PO SCH (10:11)
[2017-11-06] MEDS: GUAIFENESIN 600 MG TABLET.SA PO SCH ×2 (10:11→22:49)
[2017-11-06] MEDS: METOPROLOL SUCCINATE 25 MG TAB.SR.24H PO SCH (10:11)
[2017-11-06] MEDS ORDERED: POTASSIUM CHLORIDE 20 MEQ/15 ML UDCUP PO ONE (14:30)
--- NOTE | 2017-11-06 14:53 | PDOC PROGRESS REPORT ---
Subjective Progress Note for:: 11/06/17 Subjective:: Patient seen on rounds. She is resting in bed. Son is at the bedside. She continues to have a congested, and loose cough. She is unable to get secretions up at the present time. She denies shortness of breath, dyspnea or chest pain at rest.She continues to have a congested cough She is requiring oxygen at 2 L/min. She denies any fever chills overnight. Denies any nausea, vomiting or abdominal pain. She denies diarrhea. She denies any significant arthralgias or myalgias. She has resolving ecchymosis around the left eye. She has a small left eye subconjunctival hemorrhage is resolving. Remaining review of systems are negative. Reason For Visit: HEART FAILURE, ACUTE HYPOXIC RESPIRATORY FAILURE Physical Exam Vital Signs: Temp Pulse Resp BP Pulse Ox 98.5 F 83 16 111/52 L 93 11/06/17 10:50 11/06/17 10:50 11/06/17 10:50 11/06/17 10:50 11/06/17 10:50 Intake & Output 11/05/17 11/06/17 11/07/17 06:59 06:59 06:59 Intake Total 996 1690 Output Total 700 400 Balance 296 1290 Weight 99.9 kg 99.9 kg General appearance: PRESENT: no acute distress, obese, well-developed, well- nourished Head exam: PRESENT: atraumatic, normocephalic Eye exam: PRESENT: conjunctiva pink, EOMI, PERRLA. ABSENT: scleral icterus Ear exam: PRESENT: normal external ear exam Mouth exam: PRESENT: moist, tongue midline Neck exam: PRESENT: carotid bruit, full ROM Respiratory exam: PRESENT: rhonchi - Bilaterally, symmetrical, unlabored. ABSENT: rales, wheezes Cardiovascular exam: PRESENT: RRR. ABSENT: diastolic murmur, rubs, systolic murmur Pulses: PRESENT: normal dorsalis pedis pul Vascular exam: PRESENT: normal capillary refill GI/Abdominal exam: PRESENT: normal bowel sounds, soft. ABSENT: distended, guarding, mass, organolmegaly, rebound, tenderness Rectal exam: PRESENT: deferred Extremities exam: PRESENT: full ROM. ABSENT: calf tenderness, clubbing, pedal edema Neurological exam: PRESENT: alert, awake, oriented to person, oriented to place , CN II-XII grossly intact. ABSENT: motor sensory deficit Psychiatric exam: PRESENT: appropriate affect, normal mood. ABSENT: homicidal ideation, suicidal ideation Skin exam: PRESENT: dry, intact, warm. ABSENT: cyanosis, rash Results Laboratory Results: 11/05/17 06:27 11/06/17 06:56 11/06/17 06:56 Sodium 134.2 L Potassium 3.1 L Chloride 86 L Carbon Dioxide 38 H Anion Gap 10 BUN 43 H Creatinine 1.28 H Est GFR ( Amer) 48 L Est GFR (Non-Af Amer) 40 L Glucose 89 Calcium 9.8 Magnesium 2.1 Total Bilirubin 0.4 AST 15 ALT 19 Alkaline Phosphatase 81 Total Protein 6.6 Albumin 3.0 L 10/31/17 17:17 Blood Blood Culture - Final NO GROWTH IN 5 DAYS 10/31/17 16:35 Blood Blood Culture - Final NO GROWTH IN 5 DAYS 10/29/17 11/05/17 06:52 06:27 Troponin I 0.230 NT-Pro-B Natriuret Pep 2280 H Impressions: Cervical Spine CT 10/28/17 18:52 IMPRESSION: CHRONIC DEGENERATIVE CHANGES. NO ACUTE FINDINGS. Head CT 10/28/17 18:52 IMPRESSION: NO ACUTE INTRACRANIAL IMAGING FINDINGS. EVIDENCE OF ACUTE STROKE: NO. Chest CT 10/31/17 00:00 IMPRESSION: MULTIFOCAL AIRSPACE DISEASE DETAILED ABOVE. CONSOLIDATION IN THE LOWER LOBES THROMBUS SEVERE COMPARED THE PRIOR STUDY HOWEVER THERE ARE NEW OPACITIES WITHIN THE SUPERIOR SEGMENTS OF THE LOWER LOBES AND WITHIN THE RIGHT UPPER LOBE PRESUMABLY REPRESENTING RECURRENT MULTIFOCAL PNEUMONIA. CONSIDER FOLLOW-UP CT IN 3 MONTHS TO ENSURE RESOLUTION. STABLE TO SLIGHTLY INCREASED MEDIASTINAL AND HILAR LYMPHADENOPATHY PRESUMABLY REACTIVE PNEUMONIA HOWEVER MALIGNANCY IS NOT EXCLUDED. RECOMMEND ATTENTION ON FOLLOW-UP STUDIES. Modified Barium Swallow 11/02/17 00:00 IMPRESSION: TRACE LARYNGEAL PENETRATION WITH THIN LIQUIDS. NO ASPIRATION SEEN.PLEASE SEE SPEECH PATHOLOGIST REPORT FOR OTHER FINDINGS AND RECOMMENDATIONS. Chest X-Ray 11/04/17 00:00 IMPRESSION: No significant interval change. No acute findings. Other findings as noted above Assessment & Plan - Diagnosis (1) Acute on chronic diastolic (congestive) heart failure Is this a current diagnosis for this admission?: Yes Plan: She appears euvolemic (2) Acute respiratory failure with hypoxia Is this a current diagnosis for this admission?: Yes Plan: She continues to have congested cough. Continue Mucinex and nebulizer treatments. (3) COPD exacerbation Is this a current diagnosis for this admission?: Yes Plan: As above (4) Head trauma Qualifiers: Encounter type: initial encounter Qualified Code(s): S09.90XA - Unspecified injury of head, initial encounter Plan: Left eye ecchymosis is resolving. (5) Hyperglycemia due to type 2 diabetes mellitus Is this a current diagnosis for this admission?: Yes Plan: Continue home medications and sliding scale coverage (6) Hypertensive emergency Is this a current diagnosis for this admission?: Yes (7) Hypokalemia Is this a current diagnosis for this admission?: Yes Plan: Replete and monitor (8) Hyponatremia Is this a current diagnosis for this admission?: Yes Plan: REsolved (9) Intravascular volume depletion Is this a current diagnosis for this admission?: Yes Plan: Appears to be resolved (10) Pneumonia Is this a current diagnosis for this admission?: Yes Plan: Continue Levaquin - Time Time Spent with patient: 25-34 minutes Medications reviewed and adjusted accordingly: Yes Anticipated discharge: SNF
[2017-11-06] MEDS: INSULIN LISPRO 100 UNIT/ML 3 ML VIAL SUBCUT PRN (22:50)
[2017-11-06] MEDS: INSULIN GLARGINE,HUM.REC.ANLOG 300 UNIT/3 ML INSULN.PEN SUBCUT SCH (22:50)
[2017-11-07] MEDS: AMOXICILLIN TR/POT CLAVULANATE 500-125 MG TAB PO SCH ×3 (05:11→21:20)
[2017-11-07] MEDS: ONDANSETRON HCL INJ/PF 4 MG/2 ML SDV IV PRN (05:11)
[2017-11-07] MEDS: LANSOPRAZOLE 30 MG TAB.RAP.DR PO SCH (05:11)
[2017-11-07 07:22] LABS: BLOOD UREA NITROGEN 41 mg/dL (7-20); CALCIUM 9.6 mg/dL (8.4-10.2); CHLORIDE 83 mmol/L (98-107); GLUCOSE 108 mg/dL (75-110); POTASSIUM 3.3 mmol/L (3.6-5.0); SODIUM 134.4 mmol/L (137-145)
[2017-11-07 07:37] LABS: ANION GAP 13 (5-19)
[2017-11-07 07:41] LABS: CARBON DIOXIDE 38 mmol/L (22-30)
[2017-11-07] MEDS: IPRATROPIUM/ALBUTEROL 0.5-2.5 MG/3 ML AMPUL NEB SCH ×3 (08:13→21:02)
[2017-11-07] MEDS: ACETYLCYSTEINE 20% SOLN 800 MG/4 ML VIAL.NEB NEB SCH ×2 (08:13→21:02)
[2017-11-07] MEDS: BUDESONIDE NEB 0.5 MG/2 ML AMPUL NEB SCH ×2 (08:13→21:02)
[2017-11-07] MEDS: GUAIFENESIN 600 MG TABLET.SA PO SCH ×2 (10:31→21:29)
[2017-11-07] MEDS: FUROSEMIDE 40 MG TABLET PO SCH (10:31)
[2017-11-07] MEDS: METOLAZONE 2.5 MG TABLET PO SCH (10:32)
[2017-11-07] MEDS: ASPIRIN 81 MG TABLET, CHEWABLE PO SCH (10:32)
[2017-11-07] MEDS: METOPROLOL SUCCINATE 25 MG TAB.SR.24H PO SCH (10:32)
[2017-11-07] MEDS: DOCUSATE SODIUM 100 MG CAPSULE PO SCH (10:32)
--- NOTE | 2017-11-07 16:20 | PDOC PROGRESS REPORT ---
Subjective Progress Note for:: 11/07/17 Subjective:: Patient appears very comfortable she is laying flat in no respiratory distress alert and awake She has no chest pain no fever no chills Reason For Visit: HEART FAILURE, ACUTE HYPOXIC RESPIRATORY FAILURE Physical Exam Vital Signs: Temp Pulse Resp BP Pulse Ox 98.3 F 80 16 110/54 L 94 11/07/17 15:37 11/07/17 15:37 11/07/17 15:37 11/07/17 15:37 11/07/17 15:37 Intake & Output 11/06/17 11/07/17 11/08/17 00:59 00:59 00:59 Intake Total 640 1727 305 Output Total 400 600 900 Balance 240 1127 -595 Weight 99.9 kg 99.9 kg 100 kg General appearance: PRESENT: no acute distress, obese, well-developed, well- nourished Head exam: PRESENT: atraumatic, normocephalic Eye exam: PRESENT: conjunctiva pink, EOMI, PERRLA. ABSENT: scleral icterus Ear exam: PRESENT: normal external ear exam Mouth exam: PRESENT: moist, tongue midline Neck exam: PRESENT: carotid bruit, full ROM Respiratory exam: PRESENT: rhonchi - Bilaterally, symmetrical, unlabored. ABSENT: rales, wheezes Cardiovascular exam: PRESENT: RRR. ABSENT: diastolic murmur, rubs, systolic murmur Pulses: PRESENT: normal dorsalis pedis pul Vascular exam: PRESENT: normal capillary refill GI/Abdominal exam: PRESENT: normal bowel sounds, soft. ABSENT: distended, guarding, mass, organolmegaly, rebound, tenderness Rectal exam: PRESENT: deferred Extremities exam: PRESENT: full ROM. ABSENT: calf tenderness, clubbing, pedal edema Neurological exam: PRESENT: alert, awake, oriented to person, oriented to place , CN II-XII grossly intact. ABSENT: motor sensory deficit Psychiatric exam: PRESENT: appropriate affect, normal mood. ABSENT: homicidal ideation, suicidal ideation Skin exam: PRESENT: dry, intact, warm. ABSENT: cyanosis, rash Results Laboratory Results: 11/05/17 06:27 11/07/17 05:56 11/07/17 05:56 Sodium 134.4 L Potassium 3.3 L Chloride 83 L Carbon Dioxide 38 H Anion Gap 13 BUN 41 H Creatinine 1.20 Est GFR ( Amer) 52 L Est GFR (Non-Af Amer) 43 L Glucose 108 Calcium 9.6 Magnesium 2.2 10/29/1718 06:52 06:27 Troponin I 0.230 NT-Pro-B Natriuret Pep 2280 H Impressions: Cervical Spine CT 10/28/17 18:52 IMPRESSION: CHRONIC DEGENERATIVE CHANGES. NO ACUTE FINDINGS. Head CT 10/28/17 18:52 IMPRESSION: NO ACUTE INTRACRANIAL IMAGING FINDINGS. EVIDENCE OF ACUTE STROKE: NO. Chest CT 10/31/17 00:00 IMPRESSION: MULTIFOCAL AIRSPACE DISEASE DETAILED ABOVE. CONSOLIDATION IN THE LOWER LOBES THROMBUS SEVERE COMPARED THE PRIOR STUDY HOWEVER THERE ARE NEW OPACITIES WITHIN THE SUPERIOR SEGMENTS OF THE LOWER LOBES AND WITHIN THE RIGHT UPPER LOBE PRESUMABLY REPRESENTING RECURRENT MULTIFOCAL PNEUMONIA. CONSIDER FOLLOW-UP CT IN 3 MONTHS TO ENSURE RESOLUTION. STABLE TO SLIGHTLY INCREASED MEDIASTINAL AND HILAR LYMPHADENOPATHY PRESUMABLY REACTIVE PNEUMONIA HOWEVER MALIGNANCY IS NOT EXCLUDED. RECOMMEND ATTENTION ON FOLLOW-UP STUDIES. Modified Barium Swallow 11/02/17 00:00 IMPRESSION: TRACE LARYNGEAL PENETRATION WITH THIN LIQUIDS. NO ASPIRATION SEEN.PLEASE SEE SPEECH PATHOLOGIST REPORT FOR OTHER FINDINGS AND RECOMMENDATIONS. Chest X-Ray 11/04/17 00:00 IMPRESSION: No significant interval change. No acute findings. Other findings as noted above Assessment & Plan - Time Time Spent with patient: (1) Acute on chronic diastolic (congestive) heart failure Is this a current diagnosis for this admission?: Yes Plan: She appears euvolemic (2) Acute respiratory failure with hypoxia Is this a current diagnosis for this admission?: Yes Plan: Hypoxemia is improving ; he is continue O2 supplementation (3) COPD exacerbation Is this a current diagnosis for this admission?: Yes Plan: As above (4) Head trauma Qualifiers: Encounter type: initial encounter Qualified Code(s): S09.90XA - Unspecified injury of head, initial encounter Plan: Left eye ecchymosis is resolving. (5) Hyperglycemia due to type 2 diabetes mellitus Is this a current diagnosis for this admission?: Yes Plan: Continue home medications and sliding scale coverage (6) Hypertensive emergency Is this a current diagnosis for this admission?: Yes (7) Pneumonia Is this a current diagnosis for this admission?: Yes Plan: Continue Levaquin (8) Persistent Leukocytosis reevaluate antibiotic coverage - add Cefepime Time Spent with patient: 25-34 minutes
[2017-11-07] MEDS: INSULIN GLARGINE,HUM.REC.ANLOG 300 UNIT/3 ML INSULN.PEN SUBCUT SCH (21:23)
[2017-11-07] MEDS: INSULIN LISPRO 100 UNIT/ML 3 ML VIAL SUBCUT PRN (21:27)
[2017-11-08] MEDS: AMOXICILLIN TR/POT CLAVULANATE 500-125 MG TAB PO SCH ×3 (06:53→22:09)
[2017-11-08] MEDS: LANSOPRAZOLE 30 MG TAB.RAP.DR PO SCH (06:53)
[2017-11-08] MEDS: IPRATROPIUM/ALBUTEROL 0.5-2.5 MG/3 ML AMPUL NEB SCH ×3 (08:08→21:24)
[2017-11-08] MEDS: ACETYLCYSTEINE 20% SOLN 800 MG/4 ML VIAL.NEB NEB SCH ×2 (08:08→21:27)
[2017-11-08] MEDS: BUDESONIDE NEB 0.5 MG/2 ML AMPUL NEB SCH ×2 (08:08→21:24)
--- NOTE | 2017-11-08 08:51 | RADIOLOGY REPORT (SQ) ---
EXAM DESCRIPTION: CT CHEST WITHOUT COMPLETED DATE/TIME: 11/08/2017 7:56 am REASON FOR STUDY: SOB COMPARISON: 10/31/2017 TECHNIQUE: CT scan performed of the chest without intravenous contrast. Images reviewed with lung, soft tissue and bone windows. Reconstructed coronal and sagittal MPR images reviewed. All images st ored on PACS. All CT scanners at this facility use dose modulation, iterative reconstruction, and/or weight based d osing when appropriate to reduce radiation dose to as low as reasonably achievable (ALARA). [facility]: Dose Right [facility]: CareDose [facility]: Dose Right [facility]: Teradose 4D [facility]: Smart Prime Advantage RADIATION DOSE: CT Rad equipment meets quality standard of care and radiation dose reduction techniq ues were employed. CTDIvol: 6.8 mGy. DLP: 239 mGy-cm. mGy. LIMITATIONS: No technical limitations. FINDINGS: LUNGS AND PLEURA: Worsening abnormal air space density is present posteriorly and inferior ly consistent with pneumonia, most prominently involving the lower lobes although there is some invol vement of the middle lobe and upper lobes. There are 2 nodules along the minor fissure on the right which have enlarged since the prior study. These probably represent an large intrapulmonary lymph no cierra likely reactive. Largest measures 1.4 cm. Stable 6 mm nodule in the left upper lobe. Calcified granulomas are seen bilaterally. Active granulomatous disease cannot excluded. HILAR AND MEDIASTINAL STRUCTURES: Bilateral hilar and mediastinal adenopathy which appears to have wo rsened. HEART AND VASCULAR STRUCTURES: No aneurysm. No pericardial effusion. UPPER ABDOMEN: Small calcified granulomas in the spleen. THYROID AND OTHER SOFT TISSUES: No masses. No adenopathy. BONES: No significant finding. HARDWARE: None in the chest. OTHER: Mild bilateral axillary adenopathy. IMPRESSION: 1. Worsening bilateral pneumonia and worsening adenopathy. There is evidence of previo us granulomatous disease and the possibility of active granulomatous disease should be considered. TECHNICAL DOCUMENTATION: JOB ID: [id number] Quality ID # [id number]: Final reports with documentation of one or more dose reduction techniques (e.g., Au tomated exposure control, adjustment of the mA and/or kV according to patient size, use of iterative reconstruction technique) 2010 [employer]- All Rights Reserved
[2017-11-08] MEDS: ASPIRIN 81 MG TABLET, CHEWABLE PO SCH (10:02)
[2017-11-08] MEDS: FUROSEMIDE 40 MG TABLET PO SCH (10:03)
[2017-11-08] MEDS: GUAIFENESIN 600 MG TABLET.SA PO SCH ×2 (10:03→22:09)
[2017-11-08] MEDS: METOPROLOL SUCCINATE 25 MG TAB.SR.24H PO SCH (10:03)
[2017-11-08] MEDS: DOCUSATE SODIUM 100 MG CAPSULE PO SCH (10:03)
[2017-11-08] MEDS: METOLAZONE 2.5 MG TABLET PO SCH (10:04)
--- NOTE | 2017-11-08 18:45 | PDOC PROGRESS REPORT ---
Subjective Progress Note for:: 11/08/17 Subjective:: Patient seen on rounds. She is resting in bed. Son is at the bedside. Her cough sounds less congested today. She is unable to get secretions up at the present time. She denies shortness of breath, dyspnea or chest pain at rest.She continues to have a congested cough She is requiring oxygen at 2 L/ min. She denies any fever chills overnight. Denies any nausea, vomiting or abdominal pain. She denies diarrhea. She denies any significant arthralgias or myalgias. She has resolving ecchymosis around the left eye. She has a small left eye subconjunctival hemorrhage is resolving. Remaining review of systems are negative. Reason For Visit: HEART FAILURE, ACUTE HYPOXIC RESPIRATORY FAILURE Physical Exam Vital Signs: Temp Pulse Resp BP Pulse Ox 99.1 F 77 18 111/45 L 96 11/08/17 15:51 11/08/17 15:51 11/08/17 15:51 11/08/17 15:51 11/08/17 15:51 Intake & Output 11/07/17 11/08/17 11/09/17 06:59 06:59 06:59 Intake Total 782 484 923 Output Total 1500 1200 600 Balance -718 -716 323 Weight 100 kg 99.9 kg General appearance: PRESENT: no acute distress, obese, well-developed, well- nourished Head exam: PRESENT: atraumatic, normocephalic Eye exam: PRESENT: conjunctiva pink, EOMI, PERRLA, other - left eye subconjunctival hemmorhage resolving. ABSENT: scleral icterus Ear exam: PRESENT: normal external ear exam Mouth exam: PRESENT: moist, tongue midline Neck exam: ABSENT: carotid bruit, JVD, lymphadenopathy, thyromegaly Respiratory exam: PRESENT: rhonchi, symmetrical, unlabored Cardiovascular exam: PRESENT: RRR. ABSENT: diastolic murmur, rubs, systolic murmur Pulses: PRESENT: normal dorsalis pedis pul Vascular exam: PRESENT: normal capillary refill GI/Abdominal exam: PRESENT: normal bowel sounds, soft. ABSENT: distended, guarding, mass, organolmegaly, rebound, tenderness Rectal exam: PRESENT: deferred Extremities exam: PRESENT: full ROM. ABSENT: calf tenderness, clubbing, pedal edema Neurological exam: PRESENT: alert, awake, oriented to person, oriented to place , oriented to time, oriented to situation, CN II-XII grossly intact. ABSENT: motor sensory deficit Psychiatric exam: PRESENT: appropriate affect, normal mood. ABSENT: homicidal ideation, suicidal ideation Skin exam: PRESENT: dry, intact, warm. ABSENT: cyanosis, rash Results Laboratory Results: 11/05/17 06:27 11/07/17 05:56 10/29/17 11/05/17 06:52 06:27 Troponin I 0.230 NT-Pro-B Natriuret Pep 2280 H Impressions: Cervical Spine CT 10/28/17 18:52 IMPRESSION: CHRONIC DEGENERATIVE CHANGES. NO ACUTE FINDINGS. Head CT 10/28/17 18:52 IMPRESSION: NO ACUTE INTRACRANIAL IMAGING FINDINGS. EVIDENCE OF ACUTE STROKE: NO. Modified Barium Swallow 11/02/17 00:00 IMPRESSION: TRACE LARYNGEAL PENETRATION WITH THIN LIQUIDS. NO ASPIRATION SEEN.PLEASE SEE SPEECH PATHOLOGIST REPORT FOR OTHER FINDINGS AND RECOMMENDATIONS. Chest X-Ray 11/04/17 00:00 IMPRESSION: No significant interval change. No acute findings. Other findings as noted above Chest CT 11/08/17 08:00 IMPRESSION: 1. Worsening bilateral pneumonia and worsening adenopathy. There is evidence of previous granulomatous disease and the possibility of active granulomatous disease should be considered. Assessment & Plan - Diagnosis (1) Acute on chronic diastolic (congestive) heart failure Is this a current diagnosis for this admission?: Yes Plan: She appears euvolemic (2) Acute respiratory failure with hypoxia Is this a current diagnosis for this admission?: Yes Plan: She continues to have congested cough. Continue Mucinex and nebulizer treatments. (3) COPD exacerbation Is this a current diagnosis for this admission?: Yes Plan: As above (4) Head trauma Qualifiers: Encounter type: initial encounter Qualified Code(s): S09.90XA - Unspecified injury of head, initial encounter Plan: Left eye ecchymosis is resolving. (5) Hyperglycemia due to type 2 diabetes mellitus Is this a current diagnosis for this admission?: Yes Plan: Continue home medications and sliding scale coverage (6) Hypertensive emergency Is this a current diagnosis for this admission?: Yes Plan: Resolved (7) Hypokalemia Is this a current diagnosis for this admission?: Yes Plan: Replete and monitor (8) Hyponatremia Is this a current diagnosis for this admission?: Yes Plan: REsolved (9) Intravascular volume depletion Is this a current diagnosis for this admission?: Yes Plan: Appears to be resolved (10) Pneumonia Qualifiers: Laterality: bilateral Lung location: lower lobe of lung Is this a current diagnosis for this admission?: Yes Plan: Continue levaquin - Time Time Spent with patient: 25-34 minutes Total Critical Time (Minutes): 20 Medications reviewed and adjusted accordingly: Yes Anticipated discharge: SNF
[2017-11-08] MEDS: INSULIN LISPRO 100 UNIT/ML 3 ML VIAL SUBCUT PRN (22:09)
[2017-11-08] MEDS: INSULIN GLARGINE,HUM.REC.ANLOG 300 UNIT/3 ML INSULN.PEN SUBCUT SCH (22:09)
[2017-11-09] MEDS: ACETAMINOPHEN 325 MG TABLET PO PRN ×3 (02:30→18:18)
[2017-11-09] MEDS: AMOXICILLIN TR/POT CLAVULANATE 500-125 MG TAB PO SCH ×3 (05:24→23:51)
[2017-11-09] MEDS: LANSOPRAZOLE 30 MG TAB.RAP.DR PO SCH (05:24)
[2017-11-09 06:46] LABS: ABSOLUTE EOSINOPHILS # (AUTO) 0.3 10^3/uL (0.0-0.6); ABSOLUTE LYMPHOCYTES (AUTO) 2.5 10^3/uL (0.5-4.7); ABSOLUTE MONOCYTES (AUTO) 1.2 10^3/uL (0.1-1.4); ABSOLUTE NEUT (AUTO) 8.1 10^3/uL (1.7-8.2); BASOPHILS % (AUTO) 0.4 % (0-2); EOSINOPHILS % (AUTO) 2.2 % (0-6); HEMATOCRIT 30.4 % (36.0-47.0); LYMPHOCYTES % (AUTO) 20.8 % (13-45); MEAN CORPUSCULAR HEMOGLOBIN 27.2 pg (27.0-33.4); MEAN CORPUSCULAR HGB CONC 32.8 g/dL (32.0-36.0); MEAN CORPUSCULAR VOLUME 83 fl (80-97); MONOCYTES % (AUTO) 10.1 % (3-13); PLATELET COUNT 415 10^3/uL (150-450); RED BLOOD COUNT 3.66 10^6/uL (3.72-5.28); RED CELL DISTRIBUTION WIDTH 14.5 % (11.5-14.0); SEGMENTED NEUTROPHILS % (AUTO) 66.5 % (42-78); TOTAL CELLS COUNTED % (AUTO) 100 %; WHITE BLOOD COUNT 12.2 10^3/uL (4.0-10.5)
[2017-11-09 06:56] LABS: BLOOD UREA NITROGEN 43 mg/dL (7-20); CALCIUM 9.2 mg/dL (8.4-10.2); CHLORIDE 82 mmol/L (98-107); GLUCOSE 74 mg/dL (75-110); POTASSIUM 3.4 mmol/L (3.6-5.0); SODIUM 133.9 mmol/L (137-145)
[2017-11-09 07:03] LABS: ANION GAP 13 (5-19)
[2017-11-09 07:06] LABS: CARBON DIOXIDE 39 mmol/L (22-30)
[2017-11-09] MEDS: ACETYLCYSTEINE 20% SOLN 800 MG/4 ML VIAL.NEB NEB SCH (09:45)
[2017-11-09] MEDS: IPRATROPIUM/ALBUTEROL 0.5-2.5 MG/3 ML AMPUL NEB SCH ×3 (09:45→19:32)
[2017-11-09] MEDS: BUDESONIDE NEB 0.5 MG/2 ML AMPUL NEB SCH ×2 (09:46→19:32)
[2017-11-09] MEDS: METOPROLOL SUCCINATE 25 MG TAB.SR.24H PO SCH (10:35)
[2017-11-09] MEDS: DOCUSATE SODIUM 100 MG CAPSULE PO SCH (10:35)
[2017-11-09] MEDS: ASPIRIN 81 MG TABLET, CHEWABLE PO SCH (10:35)
[2017-11-09] MEDS: LEVOFLOXACIN 500 MG TABLET PO SCH (10:36)
[2017-11-09] MEDS: GUAIFENESIN 600 MG TABLET.SA PO SCH ×2 (10:37→23:51)
[2017-11-09] MEDS: FUROSEMIDE 40 MG TABLET PO SCH (10:37)
[2017-11-09] MEDS: METOLAZONE 2.5 MG TABLET PO SCH (10:37)
[2017-11-09] MEDS ORDERED: POTASSI CL 20 MEQ/NS 1L 1,000 ML IV PRN (15:22)
--- NOTE | 2017-11-09 15:43 | PDOC PROGRESS REPORT ---
Subjective Progress Note for:: 11/09/17 Subjective:: Patient states she is doing well. However patient has not been working with physical therapy. Patient does get up and go to the bedside. Patient is mildly congested however this clears up with coughing. Patient sound significantly better than she did on admission. Patient states she does not feel weak and is looking forward to going home if possible. Reason For Visit: HEART FAILURE, ACUTE HYPOXIC RESPIRATORY FAILURE Physical Exam Vital Signs: Temp Pulse Resp BP Pulse Ox 99.1 F 90 18 96/44 L 95 11/09/17 12:00 11/09/17 14:03 11/09/17 14:03 11/09/17 12:00 11/09/17 14:03 Intake & Output 11/08/17 11/09/17 11/10/17 06:59 06:59 06:59 Intake Total 484 1243 Output Total 1200 1000 Balance -716 243 Weight 99.9 kg 99.4 kg General appearance: PRESENT: no acute distress, obese Head exam: PRESENT: normocephalic Eye exam: PRESENT: EOMI. ABSENT: scleral icterus Ear exam: PRESENT: normal external ear exam Mouth exam: PRESENT: moist Neck exam: ABSENT: carotid bruit, JVD, lymphadenopathy, thyromegaly Respiratory exam: PRESENT: clear to auscultation gee. ABSENT: rales, rhonchi, wheezes Cardiovascular exam: PRESENT: RRR. ABSENT: diastolic murmur, rubs, systolic murmur Pulses: PRESENT: normal dorsalis pedis pul Vascular exam: PRESENT: normal capillary refill GI/Abdominal exam: PRESENT: normal bowel sounds, soft. ABSENT: distended, guarding, mass, organolmegaly, rebound, tenderness Rectal exam: PRESENT: deferred Extremities exam: PRESENT: full ROM. ABSENT: calf tenderness, clubbing, pedal edema Neurological exam: PRESENT: alert, awake, oriented to person, oriented to place , oriented to time, oriented to situation, CN II-XII grossly intact. ABSENT: motor sensory deficit Psychiatric exam: PRESENT: appropriate affect, normal mood. ABSENT: homicidal ideation, suicidal ideation Skin exam: PRESENT: dry, intact, warm. ABSENT: cyanosis, rash Results Laboratory Results: 11/09/17 05:50 11/09/17 05:50 11/09/17 11/09/17 05:50 05:50 WBC 12.2 H RBC 3.66 L Hgb 10.0 L Hct 30.4 L MCV 83 MCH 27.2 MCHC 32.8 RDW 14.5 H Plt Count 415 Seg Neutrophils % 66.5 Lymphocytes % 20.8 Monocytes % 10.1 Eosinophils % 2.2 Basophils % 0.4 Absolute Neutrophils 8.1 Absolute Lymphocytes 2.5 Absolute Monocytes 1.2 Absolute Eosinophils 0.3 Absolute Basophils 0.0 Sodium 133.9 L Potassium 3.4 L Chloride 82 L Carbon Dioxide 39 H Anion Gap 13 BUN 43 H Creatinine 1.32 H Est GFR ( Amer) 46 L Est GFR (Non-Af Amer) 38 L Glucose 74 L Calcium 9.2 10/29/17 11/05/17 06:52 06:27 Troponin I 0.230 NT-Pro-B Natriuret Pep 2280 H Impressions: Cervical Spine CT 10/28/17 18:52 IMPRESSION: CHRONIC DEGENERATIVE CHANGES. NO ACUTE FINDINGS. Head CT 10/28/17 18:52 IMPRESSION: NO ACUTE INTRACRANIAL IMAGING FINDINGS. EVIDENCE OF ACUTE STROKE: NO. Modified Barium Swallow 11/02/17 00:00 IMPRESSION: TRACE LARYNGEAL PENETRATION WITH THIN LIQUIDS. NO ASPIRATION SEEN.PLEASE SEE SPEECH PATHOLOGIST REPORT FOR OTHER FINDINGS AND RECOMMENDATIONS. Chest X-Ray 11/04/17 00:00 IMPRESSION: No significant interval change. No acute findings. Other findings as noted above Chest CT 11/08/17 08:00 IMPRESSION: 1. Worsening bilateral pneumonia and worsening adenopathy. There is evidence of previous granulomatous disease and the possibility of active granulomatous disease should be considered. Assessment & Plan - Diagnosis (1) Acute respiratory failure with hypoxia Is this a current diagnosis for this admission?: Yes Plan: Patient still wearing supplemental oxygen. It is 11 days into her admission. Will start to wean patient's oxygen to see if she can be placed on room air. If patient cannot be weaned patient may need to be discharged back to [facility] with supplemental oxygen. (2) CKD (chronic kidney disease) stage 3, GFR 30-59 ml/min Is this a current diagnosis for this admission?: Yes Plan: She with acute on chronic renal failure. Patient creatinine is trending upwards. Will DC patient's diuretics and give patient gentle hydration. We will follow-up creatinine in the morning. (3) CHF exacerbation Qualifiers: Qualified Code(s): I50.9 - Heart failure, unspecified Is this a current diagnosis for this admission?: Yes Plan: Patient appears euvolemic at this time. Patient actually may be over diuresed. Patient had a repeat cardiac echo completed on 10/31/2017 which showed grade 2 diastolic dysfunction. Continue patient on beta-galindo for now. No ACEI or ARB given given to patient labile renal function. (4) Fall Qualifiers: Encounter type: initial encounter Qualified Code(s): W19.XXXA - Unspecified fall, initial encounter Is this a current diagnosis for this admission?: Yes Plan: Patient has a fall and hit her head. CT head was negative. Subconjunctival hemorrhage will clear on its own. She does get up and to the bedside commode. Patient has been refusing to work with PT and OT. Will reconsult them. Plain to patient that is important that she works with them prior to being discharged back to [facility]. (5) Head trauma Qualifiers: Encounter type: initial encounter Qualified Code(s): S09.90XA - Unspecified injury of head, initial encounter Plan: Patient has CT scan done of the head which was negative. Patient did have a laceration of the left earlobe. Patient did have a sub-conjunctival hemorrhage which is improving. (6) Elevated troponin I level Is this a current diagnosis for this admission?: Yes Plan: Elevated troponin. This is most likely a end STEMI. Patient currently on aspirin and beta-galindo. (7) Hypokalemia Is this a current diagnosis for this admission?: Yes Plan: Most likely due to diuretics. Patient has mild hypokalemia. Will give patient replacement and monitor. (8) Hyponatremia Is this a current diagnosis for this admission?: Yes Plan: Most likely due to the use of diuretics. Will hold diuretics and give patient gentle hydration. - Time Time Spent with patient: Less than 15 minutes Anticipated discharge: SNF Within: within 24 hours - Inpatient Certification Medical Necessity: Need For IV Fluids - After being given gentle hydration and creatinine improvement of renal function in addition to other electrolyte abnormalities patient may be able to be discharged back to [facility].
[2017-11-09] MEDS: INSULIN LISPRO 100 UNIT/ML 3 ML VIAL SUBCUT PRN (18:28)
[2017-11-09] MEDS: INSULIN GLARGINE,HUM.REC.ANLOG 300 UNIT/3 ML INSULN.PEN SUBCUT SCH (23:51)
[2017-11-10] MEDS: ONDANSETRON HCL INJ/PF 4 MG/2 ML SDV IV PRN ×3 (02:15→23:21)
[2017-11-10] MEDS: AMOXICILLIN TR/POT CLAVULANATE 500-125 MG TAB PO SCH (05:40)
[2017-11-10] MEDS: LANSOPRAZOLE 30 MG TAB.RAP.DR PO SCH (05:40)
[2017-11-10 06:52] LABS: ANION GAP 9 (5-19); BLOOD UREA NITROGEN 41 mg/dL (7-20); CALCIUM 9.2 mg/dL (8.4-10.2); CARBON DIOXIDE 39 mmol/L (22-30); CHLORIDE 86 mmol/L (98-107); GLUCOSE 56 mg/dL (75-110); POTASSIUM 3.5 mmol/L (3.6-5.0); SODIUM 133.6 mmol/L (137-145)
[2017-11-10 07:20] LABS: ABSOLUTE BASOPHILS # (AUTO) 0.1 10^3/uL (0.0-0.2); ABSOLUTE EOSINOPHILS # (AUTO) 0.3 10^3/uL (0.0-0.6); ABSOLUTE LYMPHOCYTES (AUTO) 3.1 10^3/uL (0.5-4.7); ABSOLUTE MONOCYTES (AUTO) 0.8 10^3/uL (0.1-1.4); ABSOLUTE NEUT (AUTO) 7.1 10^3/uL (1.7-8.2); BASOPHILS % (AUTO) 0.5 % (0-2); HEMATOCRIT 30.5 % (36.0-47.0); HEMOGLOBIN 9.8 g/dL (12.0-15.5); MEAN CORPUSCULAR HEMOGLOBIN 26.8 pg (27.0-33.4); MEAN CORPUSCULAR HGB CONC 32.3 g/dL (32.0-36.0); MEAN CORPUSCULAR VOLUME 83 fl (80-97); MONOCYTES % (AUTO) 7.4 % (3-13); PLATELET COUNT 429 10^3/uL (150-450); RED BLOOD COUNT 3.67 10^6/uL (3.72-5.28); RED CELL DISTRIBUTION WIDTH 14.6 % (11.5-14.0); SEGMENTED NEUTROPHILS % (AUTO) 62.1 % (42-78); TOTAL CELLS COUNTED % (AUTO) 100 %; WHITE BLOOD COUNT 11.5 10^3/uL (4.0-10.5)
[2017-11-10] MEDS: BUDESONIDE NEB 0.5 MG/2 ML AMPUL NEB SCH ×2 (08:19→20:34)
[2017-11-10] MEDS: IPRATROPIUM/ALBUTEROL 0.5-2.5 MG/3 ML AMPUL NEB SCH ×3 (08:19→20:35)
[2017-11-10] MEDS: ASPIRIN 81 MG TABLET, CHEWABLE PO SCH (09:27)
[2017-11-10] MEDS: GUAIFENESIN 600 MG TABLET.SA PO SCH ×2 (09:27→21:28)
[2017-11-10] MEDS: DOCUSATE SODIUM 100 MG CAPSULE PO SCH (09:28)
[2017-11-10] MEDS: LEVOFLOXACIN 500 MG TABLET PO SCH (09:28)
[2017-11-10] MEDS ORDERED: POTASSIUM CHLORIDE 20 MEQ/15 ML UDCUP PO ONE (09:45)
[2017-11-10] MEDS: METOPROLOL SUCCINATE 25 MG TAB.SR.24H PO SCH (10:22)
[2017-11-10] MEDS ORDERED: NORMAL SALINE 1000 ML 1,000 ML IV PRN (11:17)
[2017-11-10] MEDS ORDERED: POTASSI CL 20 MEQ/NS 1L 1,000 ML IV PRN (11:19)
[2017-11-10] MEDS: INSULIN GLARGINE,HUM.REC.ANLOG 300 UNIT/3 ML INSULN.PEN SUBCUT SCH (21:25)
--- NOTE | 2017-11-10 23:12 | PDOC PROGRESS REPORT ---
Subjective Progress Note for:: 11/10/17 Subjective:: Patient states she is doing well. However patient has not been working with physical therapy. Patient does get up and go to the bedside. She congestion significantly improved. Patient sound significantly better than she did on admission. Patient became hypotensive and hypoglycemic this morning. Patient also vomited after receiving oral potassium. Patient was supposed be discharged back to [facility] however discharge was held. Reason For Visit: HEART FAILURE, ACUTE HYPOXIC RESPIRATORY FAILURE Physical Exam Vital Signs: Temp Pulse Resp BP Pulse Ox 99.9 F 77 19 99/45 L 93 11/10/17 21:38 11/10/17 21:38 11/10/17 21:38 11/10/17 21:38 11/10/17 21:38 Intake & Output 11/09/17 11/10/17 11/11/17 06:59 06:59 06:59 Intake Total 1243 1395 1400 Output Total 1000 1950 550 Balance 243 -555 850 Weight 99.4 kg 98.7 kg General appearance: PRESENT: no acute distress, obese Head exam: PRESENT: normocephalic Eye exam: PRESENT: EOMI. ABSENT: scleral icterus Ear exam: PRESENT: normal external ear exam Mouth exam: PRESENT: moist Neck exam: ABSENT: carotid bruit, JVD, lymphadenopathy, thyromegaly Respiratory exam: PRESENT: clear to auscultation gee. ABSENT: rales, rhonchi, wheezes Cardiovascular exam: PRESENT: RRR. ABSENT: diastolic murmur, rubs, systolic murmur Pulses: PRESENT: normal dorsalis pedis pul Vascular exam: PRESENT: normal capillary refill GI/Abdominal exam: PRESENT: normal bowel sounds, soft. ABSENT: distended, guarding, mass, organolmegaly, rebound, tenderness Rectal exam: PRESENT: deferred Extremities exam: PRESENT: full ROM. ABSENT: calf tenderness, clubbing, pedal edema Neurological exam: PRESENT: alert, awake, oriented to person, oriented to situation, CN II-XII grossly intact. ABSENT: motor sensory deficit Psychiatric exam: PRESENT: appropriate affect, normal mood. ABSENT: homicidal ideation, suicidal ideation Skin exam: PRESENT: dry, intact, warm. ABSENT: cyanosis, rash Results Laboratory Results: 11/10/17 05:38 11/10/17 05:38 11/10/17 11/10/17 05:38 05:38 WBC 11.5 H RBC 3.67 L Hgb 9.8 L Hct 30.5 L MCV 83 MCH 26.8 L MCHC 32.3 RDW 14.6 H Plt Count 429 Seg Neutrophils % 62.1 Lymphocytes % 27.0 Monocytes % 7.4 Eosinophils % 3.0 Basophils % 0.5 Absolute Neutrophils 7.1 Absolute Lymphocytes 3.1 Absolute Monocytes 0.8 Absolute Eosinophils 0.3 Absolute Basophils 0.1 Sodium 133.6 L Potassium 3.5 L Chloride 86 L Carbon Dioxide 39 H Anion Gap 9 BUN 41 H Creatinine 1.19 Est GFR ( Amer) 52 L Est GFR (Non-Af Amer) 43 L Glucose 56 L Calcium 9.2 Magnesium 2.4 H 10/29/17 11/05/17 06:52 06:27 Troponin I 0.230 NT-Pro-B Natriuret Pep 2280 H Impressions: Cervical Spine CT 10/28/17 18:52 IMPRESSION: CHRONIC DEGENERATIVE CHANGES. NO ACUTE FINDINGS. Head CT 10/28/17 18:52 IMPRESSION: NO ACUTE INTRACRANIAL IMAGING FINDINGS. EVIDENCE OF ACUTE STROKE: NO. Modified Barium Swallow 11/02/17 00:00 IMPRESSION: TRACE LARYNGEAL PENETRATION WITH THIN LIQUIDS. NO ASPIRATION SEEN.PLEASE SEE SPEECH PATHOLOGIST REPORT FOR OTHER FINDINGS AND RECOMMENDATIONS. Chest X-Ray 11/04/17 00:00 IMPRESSION: No significant interval change. No acute findings. Other findings as noted above Chest CT 11/08/17 08:00 IMPRESSION: 1. Worsening bilateral pneumonia and worsening adenopathy. There is evidence of previous granulomatous disease and the possibility of active granulomatous disease should be considered. Assessment & Plan - Diagnosis (1) Acute respiratory failure with hypoxia Is this a current diagnosis for this admission?: Yes Plan: Patient still wearing supplemental oxygen. It is 12 days into her admission. Will start to wean patient's oxygen to see if she can be placed on room air. If patient cannot be weaned patient may need to be discharged back to [facility] with supplemental oxygen. (2) CKD (chronic kidney disease) stage 3, GFR 30-59 ml/min Is this a current diagnosis for this admission?: Yes Plan: She with acute on chronic renal failure. Creatinine improved after receiving IV hydration. Patient creatinine is now 1.12 down from 1.32. Continue gentle hydration and monitor. (3) CHF exacerbation Qualifiers: Qualified Code(s): I50.9 - Heart failure, unspecified Is this a current diagnosis for this admission?: Yes Plan: Patient appears euvolemic at this time. Patient actually may be over diuresed. Patient had a repeat cardiac echo completed on 10/31/2017 which showed grade 2 diastolic dysfunction. Patient beta-galindo is being held due to hypotension. Consider restarting at a lower dose of blood pressure tolerates. No ACEI or ARB given given to patient labile renal function. (4) Fall Qualifiers: Encounter type: initial encounter Qualified Code(s): W19.XXXA - Unspecified fall, initial encounter Is this a current diagnosis for this admission?: Yes Plan: Patient has a fall and hit her head. CT head was negative. Subconjunctival hemorrhage will clear on its own. She does get up and to the bedside commode. Patient has been refusing to work with PT and OT. She will need rehab on discharge back to [facility]. (5) Head trauma Qualifiers: Encounter type: initial encounter Qualified Code(s): S09.90XA - Unspecified injury of head, initial encounter Plan: Patient has CT scan done of the head which was negative. Patient did have a laceration of the left earlobe. Patient did have a sub-conjunctival hemorrhage which resolved. Periorbital bruising also resolved. (6) Elevated troponin I level Is this a current diagnosis for this admission?: Yes Plan: Elevated troponin. This is most likely a end STEMI. Patient currently on aspirin. Beta galindo at a lower dose of blood pressure tolerates. Patient was hypotensive therefore this medication was held. (7) Hypokalemia Is this a current diagnosis for this admission?: Yes Plan: Most likely due to diuretics. Patient has mild hypokalemia. She vomited oral replacement. Will give IV replacement and monitor. (8) Hyponatremia Is this a current diagnosis for this admission?: Yes Plan: Most likely due to the use of diuretics. Continue gentle hydration. (9) Pneumonia Qualifiers: Laterality: bilateral Lung location: lower lobe of lung Is this a current diagnosis for this admission?: Yes Plan: Patient started on Augmentin initially then transition to Levaquin. Patient seems to be stable and improving after being started on Levaquin on 11/09/2017. Will continue Levaquin and discontinue Augmentin. - Time Time Spent with patient: Less than 15 minutes Anticipated discharge: SNF Within: within 24 hours - Inpatient Certification Medical Necessity: Need For IV Fluids
[2017-11-11] MEDS: ACETAMINOPHEN 325 MG TABLET PO PRN (01:48)
[2017-11-11] MEDS: LANSOPRAZOLE 30 MG TAB.RAP.DR PO SCH (05:25)
[2017-11-11 06:48] VITALS: BP 119/47
[2017-11-11] MEDS: BUDESONIDE NEB 0.5 MG/2 ML AMPUL NEB SCH (08:18)
[2017-11-11] MEDS: IPRATROPIUM/ALBUTEROL 0.5-2.5 MG/3 ML AMPUL NEB SCH ×2 (08:18→14:30)
[2017-11-11 08:45] LABS: HEMATOCRIT 29.1 % (36.0-47.0); HEMOGLOBIN 9.4 g/dL (12.0-15.5); MEAN CORPUSCULAR HEMOGLOBIN 26.7 pg (27.0-33.4); MEAN CORPUSCULAR HGB CONC 32.4 g/dL (32.0-36.0); MEAN CORPUSCULAR VOLUME 82 fl (80-97); PLATELET COUNT 457 10^3/uL (150-450); RED BLOOD COUNT 3.53 10^6/uL (3.72-5.28); RED CELL DISTRIBUTION WIDTH 14.9 % (11.5-14.0)
[2017-11-11] MEDS: GUAIFENESIN 600 MG TABLET.SA PO SCH (09:02)
[2017-11-11] MEDS: LEVOFLOXACIN 500 MG TABLET PO SCH (09:02)
[2017-11-11] MEDS: ASPIRIN 81 MG TABLET, CHEWABLE PO SCH (09:02)
[2017-11-11] MEDS: DOCUSATE SODIUM 100 MG CAPSULE PO SCH (09:02)
[2017-11-11 09:12] LABS: ANION GAP 10 (5-19); BLOOD UREA NITROGEN 37 mg/dL (7-20); CALCIUM 9.4 mg/dL (8.4-10.2); CARBON DIOXIDE 33 mmol/L (22-30); CHLORIDE 90 mmol/L (98-107); GLUCOSE 78 mg/dL (75-110); POTASSIUM 4.5 mmol/L (3.6-5.0); SODIUM 132.8 mmol/L (137-145)
[2017-11-11 09:16] LABS: ABSOLUTE LYMPHOCYTES# (MANUAL) 3.7 10^3/uL (0.5-4.7); ABSOLUTE MONOCYTES # (MANUAL) 1.4 10^3/uL (0.1-1.4); ABSOLUTE NEUTROPHILS# (MANUAL) 10.7 10^3/uL (1.7-8.2); BASOPHILS % (MANUAL) 0 % (0-2); EOSINOPHILS % (MANUAL) 1 % (0-6); LYMPHOCYTES % (MANUAL) 17 % (13-45); MONOCYTES % (MANUAL) 9 % (3-13); SEGMENTED NEUTROPHILS % (MAN) 67 % (42-78); TOTAL CELLS COUNTED 100
[2017-11-11 09:17] LABS: ANISOCYTOSIS SLIGHT; OVALOCYTES SLIGHT; PLATELET COMMENT INCREASED; POIKILOCYTOSIS SLIGHT; TARGET CELLS SLIGHT; TOXIC VACUOLATION PRESENT
--- NOTE | 2017-11-11 12:23 | TRANSFER SUMMARY E ---
Transfer Summary NAME: DANIEL MCFARLAND : 1935 AGE: 82Y ADMITTED: 10/29/2017 TRANSFERRED: 11/11/2017 CODE STATUS: Full code. PRIMARY CARE PROVIDER: Angel Neal MD FINAL DIAGNOSES: 1. Pneumonia. 2. Acute on chronic hypoxemic respiratory failure. 3. Chronic obstructive pulmonary disease. 4. Chronic kidney disease stage 3. 5. Acute on chronic diastolic congestive heart failure, now optivolemic. 6. Fall with subsequent subconjunctival hemorrhage. 7. Closed head injury. 8. Non-ST elevation myocardial infarction. 9. Hypokalemia, resolved. 10. Hyponatremia, resolved. 11. Klebsiella pneumoniae urinary tract infection. DISCHARGE MEDICATIONS: 1. Levaquin 500 mg p.o. daily, 5 tablets, 0 refill. 2. DuoNebs 1 neb every 6 hours p.r.n. 3. Mucinex 600 mg p.o. every 12 hours x14 doses. 4. Tylenol 650 mg p.o. every 4 hours p.r.n. 5. Prednisone taper 30 mg p.o. daily x3 days, then 20 mg p.o. daily x3 days, then 10 mg p.o. daily x3, then 5 mg p.o. daily x3 days. 6. MiraLax one packet p.o. b.i.d. 7. Toprol XL 25 mg p.o. daily. 8. Glucotrol 5 mg p.o. b.i.d. 9. Colace 100 mg p.o. b.i.d. 10. Lipitor 10 mg p.o. at bedtime. 11. Aspirin 81 mg p.o. daily. DIET: Low sodium, diabetic diet. CONDITION: Fair. DIAGNOTICS: Hematology obtained on 11/11/2017 demonstrates 11.5 hemoglobin,8.9, platelet count 457,000. Chemistry obtained on 11/11/2017: Sodium 132, potassium 4.5, chloride 90, carbon dioxide 33, BUN 37, creatinine 2.14, glucose 78. A1c is 7.3. Calcium 9.4, magnesium 2.5, bilirubin 0.4, AST 15, ALT 19, alk phos 81, total protein 6.6, albumin 3.0. Troponin 0.320. BNP obtained on 11/05/2017 is 2280. Microbiology urine culture obtained on 10/31/2017 reveals Klebsiella pneumoniae. Blood cultures obtained on 10/31/2017 reveal no growth. Echocardiogram obtained on 10/31/2017 revealed a normal EF with grade 2/4 mild to moderate diastolic dysfunction. Cervical spine CT obtained on 10/28/2017 reveals chronic degenerative changes without acute findings. Head CT obtained on 10/28/2017 reveals no acute intracranial imaging. Chest x-ray obtained 10/28/2017 reveals cardiac enlargement with vascular congestion. Chest CT obtained on 10/31/2017 reveals stable to slight increase mediastinal and hilar adenopathy. Chest x-ray obtained on 10/31/2017 reveals improved aeration, no acute findings, hilar adenopathy is unchanged. Modified barium obtained on 10/31/2017 reveals trace laryngeal penetration with thin liquids. No aspiration seen. Chest x-ray obtained on 11/04/2017 reveals no significant interval findings of the chest. PHYSICAL EXAMINATION: GENERAL: On examination, the patient is a frail, chronically ill-appearing 82-year-old female who is awake, alert and oriented to person, place, time, and situation. She is verbal, conversational. Does not appear to be in any acute distress. VITAL SIGNS: Temperature 98.4, pulse 82, respirations 18, blood pressure 119/47, oxygen saturation 94% on 3 L nasal cannula. SKIN: Pale, dry, no rashes. Not diaphoretic. HEENT: Pupils equal, round and reactive to light and accommodation. Conjunctivae pink. no evidence of JVP. CARDIOVASCULAR: Heart is regular. There is no murmur or rub. CHEST: The patient does have coarse lung sounds throughout, symmetrical and labored. ABDOMEN: Soft, nontender, nondistended. BACK: No CVA tenderness, sacral edema. EXTREMITIES: No clubbing, cyanosis, or edema. PSYCHIATRIC: Appropriate affect, pleasant mood. HISTORY OF PRESENT ILLNESS: The patient is an 82-year-old female with a past medical history of chronic debility and resides in a detention facility. The patient presented to the Emergency Department with the chief complaint of a fall. The patient had apparently just been discharged from [facility] where she was being evaluated for a lower GI bleed. The patient went back to [facility] and while in her bedroom, she fell hitting her head and face. The patient was brought into the ED for evaluation. CT of the head was negative except for soft tissue. The patient was found to be hypoxic, saturating the 80s. The patient is normally on oxygen at home. The patient was noted to be congested. Chest x-ray showed vascular congestion. The patient started having a cough about 48 hours prior to presentation. The patient denied any shortness of breath. The patient was found to have a BNP of 4000 and the patient was referred to the hospital for admission and management. HOSPITAL COURSE: The patient was admitted to the continuous telemetry unit. The patient was diuresed and symptoms of vascular congestion did improve. The patient was also started on broad-spectrum antibiotic coverage with significant improvement of her symptoms. It appears the patient does have significant pneumonia. The patient was treated aggressively for 10 days and then have been transitioned to oral Levaquin with continued improvement of her symptoms. The patient still is requiring O2 and is at this time been weaned down to 2 L. The patient does have a strong cough, but has been unable to produce any sputum. The patient at this time denies any nausea, vomiting, diarrhea. No shortness of breath, dizziness, or chest pain. The patient has had no evidence of bleeding and only continues to improve with symptoms. The patient is adamant that she be discharged back today which overall she appears quite stable. DISCHARGE PLAN: The patient is advised to follow up with the primary care provider within 1-2 weeks for hospital followup. Do recommend repeat imaging within 3 months to follow up findings on chest CT. Time spent on this discharge including assessment, plan, physical examination, patient education, review of records, and resource alignment is 35 minutes. DICTATING PHYSICIAN: ZEHRA CASSIDY NP [id number] Y#: [id number] ID: [id number] JOB#: [id number] ACCT: [id number] cc:ZEHRA CASSIDY NP > [facility]
== END 2017-11-11 18:55 | DRG 291 ==
LOC: ER 17:51 → EH 10-29 00:04 → 4N 10-29 13:03 → 4S 11-05 19:47
PROVIDERS: ADMIT Pediatrics; ATTEND Pediatrics
PROC: 3E0234Z Introduction of Serum, Toxoid and Vaccine into Muscle, Percutaneous Approach (ICD-10-PCS; 2017-10-28)
PROC: 3E0F73Z Introduction of Anti-inflammatory into Respiratory Tract, Via Natural or Artificial Opening (ICD-10-PCS; principal; 2017-10-29)
DX: I13.0 Hypertensive heart and chronic kidney disease with heart failure and stage 1 through stage 4 chronic kidney disease, or unspecified chronic kidney disease (principal); J96.01 Acute respiratory failure with hypoxia; J18.1 Lobar pneumonia, unspecified organism; I50.33 Acute on chronic diastolic (congestive) heart failure; N17.9 Acute kidney failure, unspecified; J44.0 Chronic obstructive pulmonary disease with (acute) lower respiratory infection; J44.1 Chronic obstructive pulmonary disease with (acute) exacerbation; E87.1 Hypo-osmolality and hyponatremia; N30.00 Acute cystitis without hematuria; I16.1 Hypertensive emergency; N18.4 Chronic kidney disease, stage 4 (severe); F03.90 Unspecified dementia, unspecified severity, without behavioral disturbance, psychotic disturbance, mood disturbance, and anxiety; W01.190A Fall on same level from slipping, tripping and stumbling with subsequent striking against furniture, initial encounter; Y92.122 Bedroom in nursing home as the place of occurrence of the external cause; E78.00 Pure hypercholesterolemia, unspecified; J44.9 Chronic obstructive pulmonary disease, unspecified; E11.22 Type 2 diabetes mellitus with diabetic chronic kidney disease; S00.83XA Contusion of other part of head, initial encounter; S01.312A Laceration without foreign body of left ear, initial encounter; H11.32 Conjunctival hemorrhage, left eye; J20.9 Acute bronchitis, unspecified; E87.5 Hyperkalemia; E11.65 Type 2 diabetes mellitus with hyperglycemia; B96.1 Klebsiella pneumoniae [K. pneumoniae] as the cause of diseases classified elsewhere; D63.1 Anemia in chronic kidney disease; I25.2 Old myocardial infarction; Z88.2 Allergy status to sulfonamides; Z87.891 Personal history of nicotine dependence; Z86.73 Personal history of transient ischemic attack (TIA), and cerebral infarction without residual deficits; Z90.49 Acquired absence of other specified parts of digestive tract; Z90.710 Acquired absence of both cervix and uterus; Z79.82 Long term (current) use of aspirin; Z79.899 Other long term (current) drug therapy; Z23 Encounter for immunization
CPT/HCPCS: 36415; 70450; 71045; 71250; 72125; 74230; 80048; 80053; 82962; 83036; 83735; 83880; 84484; 85025; 87040; 87086; 87088; 87186; 90471; 90715; 93306; 94640; 94667; 94668; 99285; G8978-GP; G8979-GP; G8987-GO; G8988-GO; J1815; J1940; J2405; J2543; J3480; J3490; J7512; J7620

== ENCOUNTER 2017-12-30 13:13 | Inpatient (IN) | payer MEDICARE, MEDICAID ==
[2017-12-30 13:50] LABS: VENOUS BLOOD BASE EXCESS 8.4 mmol/L; VENOUS BLOOD HCO3 36.3 mmol/L (20-32); VENOUS BLOOD PH 7.33 (7.30-7.42)
[2017-12-30 13:52] LABS: HEMATOCRIT 30.9 % (36.0-47.0); HEMOGLOBIN 9.7 g/dL (12.0-15.5); MEAN CORPUSCULAR HEMOGLOBIN 26.1 pg (27.0-33.4); MEAN CORPUSCULAR HGB CONC 31.3 g/dL (32.0-36.0); MEAN CORPUSCULAR VOLUME 84 fl (80-97); PLATELET COUNT 692 10^3/uL (150-450); RED CELL DISTRIBUTION WIDTH 16.5 % (11.5-14.0); WHITE BLOOD COUNT 16.6 10^3/uL (4.0-10.5)
[2017-12-30 14:00] LABS: INTERNATIONAL RATION (INR) 1.01; PROTHROMBIN TIME 13.8 SEC (11.4-15.4)
--- NOTE | 2017-12-30 14:02 | EKG REPORT ---
SEVERITY:- ABNORMAL ECG - SINUS RHYTHM LAD, CONSIDER LEFT ANTERIOR FASCICULAR BLOCK LEFT VENTRICULAR HYPERTROPHY : Confirmed by: Link Garcia MD 30-Dec-2017 14:02:04
[2017-12-30 14:07] LABS: VENOUS BLOOD PCO2 70.5 mmHg (35-63)
[2017-12-30 14:08] LABS: ABSOLUTE LYMPHOCYTES# (MANUAL) 6.3 10^3/uL (0.5-4.7); ABSOLUTE MONOCYTES # (MANUAL) 1.2 10^3/uL (0.1-1.4); ABSOLUTE NEUTROPHILS# (MANUAL) 9.1 10^3/uL (1.7-8.2); BASOPHILS % (MANUAL) 0 % (0-2); EOSINOPHILS % (MANUAL) 0 % (0-6); LYMPHOCYTES % (MANUAL) 38 % (13-45); MONOCYTES % (MANUAL) 7 % (3-13); SEGMENTED NEUTROPHILS % (MAN) 55 % (42-78); TOTAL CELLS COUNTED 100
[2017-12-30 14:10] LABS: ALANINE AMINOTRANSFERASE 18 U/L (9-52); ALBUMIN 3.2 g/dL (3.5-5.0); ALKALINE PHOSPHATASE 130 U/L (38-126); ANION GAP 5 (5-19); ANISOCYTOSIS 1+; ASPARTATE AMINO TRANSFERASE 29 U/L (14-36); BILIRUBIN,DIRECT 0.4 mg/dL (0.0-0.4); BILIRUBIN,TOTAL 0.4 mg/dL (0.2-1.3); BLOOD UREA NITROGEN 16 mg/dL (7-20); CALCIUM 9.4 mg/dL (8.4-10.2); CARBON DIOXIDE 37 mmol/L (22-30); CHLORIDE 96 mmol/L (98-107); GLUCOSE 115 mg/dL (75-110); PLATELET COMMENT INCREASED; POTASSIUM 4.7 mmol/L (3.6-5.0); SODIUM 137.6 mmol/L (137-145); TOTAL PROTEIN 8.2 g/dL (6.3-8.2); TOXIC GRANULATION SLIGHT
[2017-12-30 14:13] LABS: APPEARANCE,URINE SLIGHTLY-CLOUDY; BILIRUBIN,URINE NEGATIVE (NEGATIVE); COLOR,URINE STRAW; GLUCOSE, URINE NEGATIVE (NEGATIVE); KETONES,URINE NEGATIVE (NEGATIVE); LEUKOCYTE ESTERASE,URINE LARGE (NEGATIVE); NITRITE,URINE NEGATIVE (NEGATIVE); PROTEIN,URINE NEGATIVE (NEGATIVE); URINE SPECIFIC GRAVITY 1.002; UROBILINOGEN,URINE NEGATIVE mg/dL (<2.0)
--- NOTE | 2017-12-30 14:25 | RADIOLOGY REPORT (SQ) ---
EXAM DESCRIPTION: CHEST SINGLE VIEW COMPLETED DATE/TIME: 12/30/2017 1:59 pm REASON FOR STUDY: t2 sepsis protocol COMPARISON: 11/04/2017 EXAM PARAMETERS: NUMBER OF VIEWS: One view. TECHNIQUE: Single frontal radiographic view of the chest acquired. RADIATION DOSE: NA LIMITATIONS: Patient has made a shallow inspiration. FINDINGS: LUNGS AND PLEURA: Bibasilar air airspace densities are identified which are more pronounce d on the left as compared to the right. There is some blunting of the costophrenic angles and loss o f definition of the hemidiaphragms. The appearance would suggest small bilateral pleural effusions w ith associated atelectasis or infiltrate in the lung bases. Remaining lung minor are clear. MEDIASTINUM AND HILAR STRUCTURES: No masses. Contour normal. HEART AND VASCULAR STRUCTURES: Cardiac silhouette is partially obscured but appears unchanged. BONES: No acute findings. HARDWARE: None in the chest. OTHER: No other significant finding. IMPRESSION: Bibasilar densities as noted above TECHNICAL DOCUMENTATION: JOB ID: [id number] [employer]- All Rights Reserved Reading location - IP/workstation name: [email or web address]
[2017-12-30] MEDS ORDERED: CEFTRIAXONE INJ 1000 MG VIAL IV ONE (16:34)
--- NOTE | 2017-12-30 16:43 | ER Document Report ---
ED General - General Chief Complaint: Breathing Difficulty Stated Complaint: DIFFICULTY BREATHING Time Seen by Provider: 12/30/17 14:06 Notes: Patient was sent here from her residence at [facility] for cough for 4-5 days and congestion and possible pneumonia. Normally, the patient is strong enough to walk with a walker, but she is having to use a wheelchair for the last couple of days. She has had a loud cough. Patient says she started producing phlegm when she coughs yesterday. She has been feeling weak. Denies any chest pains. Denies any fever. Patient has a history of COPD. Patient's memory is poor and she does not recollect much of a history other than recent events. TRAVEL OUTSIDE OF THE [place] IN LAST 30 DAYS: No - Related Data Allergies/Adverse Reactions: Sulfa (Sulfonamide Antibiotics) Allergy (Verified 10/29/17 03:44) Past Medical History - Social History Smoking Status: Former Smoker - Stop smoking in 1972. Family History: Reviewed & Not Pertinent, Other - Patient unable to provide family history Patient has suicidal ideation: No Patient has homicidal ideation: No - Past Medical History Cardiac Medical History: Reports: Hx Congestive Heart Failure, Hx Heart Attack - X2, Hx Hypercholesterolemia, Hx Hypertension Pulmonary Medical History: Reports: Hx COPD Neurological Medical History: Reports: Hx Cerebrovascular Accident. Denies: Hx Seizures Endocrine Medical History: Reports: Hx Diabetes Mellitus Type 1, Hx Diabetes Mellitus Type 2 Past Surgical History: Reports: Hx Cardiac Catheterization, Hx Section , Hx Cholecystectomy, Hx Hysterectomy - Immunizations Hx Diphtheria, Pertussis, Tetanus Vaccination: - unknown Review of Systems - Review of Systems Notes: REVIEW OF SYSTEMS: CONSTITUTIONAL : Denies fever. EENT: Denies eye, ear, nose or mouth or throat pain or other symptoms. CARDIOVASCULAR: Denies chest pain. No peripheral edema. RESPIRATORY: See HPI. Very deep, productive sounding cough. GASTROINTESTINAL: Denies abdominal pain or nausea, vomiting, or diarrhea. GENITOURINARY: Denies difficulty or painful urinating, urinary frequency, blood in urine. MUSCULOSKELETAL: Denies back or neck pain. Denies joint pain or swelling. SKIN: Denies rash or skin lesions. NEUROLOGICAL: Denies LOC or altered mental status. Poor memory, probably dementia. Denies headache. Denies sensory loss or motor deficits. ALL OTHER SYSTEMS REVIEWED AND NEGATIVE. Physical Exam - Vital signs Vitals: Resp BP Pulse Ox 24 H 171/85 H 92 12/30/17 13:24 12/30/17 13:24 12/30/17 13:24 Interpretation: Hypertensive. No: Hypoxic - Notes Notes: PHYSICAL EXAMINATION: GENERAL: Well-appearing, in no acute distress. Has a deep sounding productive cough. HEAD: Atraumatic, normocephalic. EYES: Pupils equal round and reactive to light, extraocular movements intact. ENT: oropharynx clear without exudates. Moist mucous membranes. NECK: Normal range of motion, supple. LUNGS: Breath sounds with a few scattered rhonchi bilaterally and may be a wheeze or two. No significant impediment to respirations. O2 sats in the mid 90s HEART: Regular rate and rhythm without murmurs. ABDOMEN: Soft, nontender. No guarding or rebound. No masses. BACK: No tenderness throughout entire back. EXTREMITIES: Normal range of motion without pain. NEUROLOGICAL: Normal speech, normal gait. Normal sensory, motor, and reflex exams. Awake, alert, and oriented x3. Cranial nerves normal. PSYCH: Normal mood, normal affect. SKIN: Warm, dry, no rashes. Course - Re-evaluation Re-evalutation: 12/30/17 16:46 Patient was started on BiPAP. Hospitalist will be contacted to admit the patient. - Vital Signs Vital signs: Temp Pulse Resp BP Pulse Ox 99.3 F 22 H 124/59 L 94 12/30/17 18:26 12/30/17 18:18 12/30/17 18:18 12/30/17 18:18 - Laboratory Result Diagrams: 12/30/17 13:30 12/30/17 13:30 Laboratory results interpreted by me: 12/30/17 12/30/17 12/30/17 13:20 13:30 13:30 WBC 16.6 H RBC 3.70 L Hgb 9.7 L Hct 30.9 L MCH 26.1 L MCHC 31.3 L RDW 16.5 H Plt Count 692 H Abs Neuts (Manual) 9.1 H Abs Lymphs (Manual) 6.3 H VBG pCO2 VBG HCO3 Chloride 96 L Carbon Dioxide 37 H Glucose 115 H Iron Alkaline Phosphatase 130 H Albumin 3.2 L Urine Blood SMALL H Ur Leukocyte Esterase LARGE H 12/30/17 12/30/17 13:30 13:30 WBC RBC Hgb Hct MCH MCHC RDW Plt Count Abs Neuts (Manual) Abs Lymphs (Manual) VBG pCO2 70.5 H* VBG HCO3 36.3 H Chloride Carbon Dioxide Glucose Iron 34.8 L Alkaline Phosphatase Albumin Urine Blood Ur Leukocyte Esterase - Diagnostic Test Radiology results interpreted by me: 12/30/17 16:46 Chest x-ray read by radiology shows bibasilar opacities suggestive of perhaps small pleural effusion and/or infiltrates. - EKG Interpretation by Me EKG shows normal: Sinus rhythm Rate: Normal Rhythm: PVC's Discharge - Discharge Clinical Impression: Pneumonia, Hypercarbia Condition: Stable Disposition: ADMITTED INPATIENT Admitting Provider: Hospitalist Unit Admitted: Telemetry
[2017-12-30] MEDS ORDERED: CHLORPHENIRAMINE MALEATE 4 MG TABLET PO ONE (17:13)
[2017-12-30] MEDS ORDERED: HYDRALAZINE HCL INJ/PF 20 MG/1 ML SDV IV PRN (17:13)
[2017-12-30] MEDS ORDERED: LACTULOSE SYRUP 20 GM/30 ML UDCUP PO ONE (17:13)
[2017-12-30] MEDS ORDERED: GUAIFENESIN SYRP 200 MG/10 ML UDC PO PRN (17:14)
[2017-12-30] MEDS ORDERED: IPRATROPIUM/ALBUTEROL 0.5-2.5 MG/3 ML AMPUL NEB PRN (17:14)
[2017-12-30] MEDS ORDERED: DEXTROSE 40% GEL 15 GM TUBE PO PRN ×2 (17:14)
[2017-12-30] MEDS ORDERED: DEXTROSE 50%-WATER 25 GM/50 ML DISP.SYRIN IV PRN ×2 (17:14)
[2017-12-30] MEDS ORDERED: GLUCAGON,HUMAN RECOMB 1 MG INJ IM PRN (17:14)
[2017-12-30 17:34] LABS: ABSOLUTE RETICS # 0.098 10^6/uL (0.028-0.122); RETICULOCYTE COUNT (AUTO) 2.67 % (0.66-2.85)
[2017-12-30 17:52] LABS: IRON(TIBC) 34.8 ug/dL (37-170)
[2017-12-30] MEDS ORDERED: AZITHROMYCIN 500 MG in NORMAL SALINE 250 ML IV SCH (18:00)
[2017-12-30] MEDS: NORMAL SALINE 1000 ML 1,000 ML IV SCH (18:16)
[2017-12-30 18:58] LABS: FOLATE 4.79 ng/mL (>2.76)
[2017-12-30] MEDS: IPRATROPIUM/ALBUTEROL 0.5-2.5 MG/3 ML AMPUL NEB SCH (19:42)
[2017-12-30] MEDS: FLUTICASONE NASAL SPRAY 50 MCG/SPRY 120 SPRAY/16 GM NASL SCH (22:43)
[2017-12-30] MEDS: HEPARIN SOD (PORCINE) 5,000 UNIT/ML 1 ML SYRINGE SUBCUT SCH (22:43)
[2017-12-31] MEDS: IPRATROPIUM/ALBUTEROL 0.5-2.5 MG/3 ML AMPUL NEB SCH ×4 (02:08→20:22)
[2017-12-31 05:50] LABS: HEMATOCRIT 28.8 % (36.0-47.0); HEMOGLOBIN 9.1 g/dL (12.0-15.5); MEAN CORPUSCULAR HEMOGLOBIN 26.4 pg (27.0-33.4); MEAN CORPUSCULAR HGB CONC 31.7 g/dL (32.0-36.0); MEAN CORPUSCULAR VOLUME 83 fl (80-97); PLATELET COUNT 552 10^3/uL (150-450); RED BLOOD COUNT 3.46 10^6/uL (3.72-5.28); RED CELL DISTRIBUTION WIDTH 16.4 % (11.5-14.0)
[2017-12-31 06:01] LABS: BLOOD UREA NITROGEN 13 mg/dL (7-20); CALCIUM 8.8 mg/dL (8.4-10.2); CHLORIDE 102 mmol/L (98-107); GLUCOSE 158 mg/dL (75-110)
[2017-12-31 06:07] LABS: CARBON DIOXIDE 39 mmol/L (22-30)
[2017-12-31] MEDS: HEPARIN SOD (PORCINE) 5,000 UNIT/ML 1 ML SYRINGE SUBCUT SCH ×3 (06:09→21:11)
[2017-12-31 06:26] LABS: POTASSIUM 4.6 mmol/L (3.6-5.0)
[2017-12-31 06:27] LABS: ANION GAP 4 (5-19)
[2017-12-31 06:41] LABS: ABSOLUTE MONOCYTES # (MANUAL) 0.3 10^3/uL (0.1-1.4); ABSOLUTE NEUTROPHILS# (MANUAL) 7.6 10^3/uL (1.7-8.2); BASOPHILS % (MANUAL) 1 % (0-2); EOSINOPHILS % (MANUAL) 0 % (0-6); LYMPHOCYTES % (MANUAL) 40 % (13-45); MONOCYTES % (MANUAL) 2 % (3-13); SEGMENTED NEUTROPHILS % (MAN) 54 % (42-78); TOTAL CELLS COUNTED 100
[2017-12-31 06:57] LABS: ANISOCYTOSIS 1+; HYPOCHROMASIA SLIGHT; OVALOCYTES SLIGHT; PLATELET COMMENT INCREASED; POIKILOCYTOSIS SLIGHT; POLYCHROMASIA SLIGHT; TARGET CELLS SLIGHT
[2017-12-31] MEDS: NORMAL SALINE 1000 ML 1,000 ML IV SCH (08:22)
[2017-12-31] MEDS: FLUTICASONE NASAL SPRAY 50 MCG/SPRY 120 SPRAY/16 GM NASL SCH ×2 (09:26→21:12)
[2017-12-31] MEDS ORDERED: CEFTRIAXONE SODIUM 1,000 MG in NORMAL SALINE 100 ML IV SCH (10:00)
[2017-12-31] MEDS ORDERED: CEFTRIAXONE 1 GM/D5W RTU 1 GM/50 ML RTUPB IV SCH (10:00)
--- NOTE | 2017-12-31 15:56 | PDOC PROGRESS REPORT ---
Subjective Progress Note for:: 12/31/17 Subjective:: Patient relates that still feeling short of breath but better when compared to when she came in. Review of system All organ systems evaluated and negative except as in subjective All significant laboratories and diagnostics have been reviewed Reason For Visit: COPD EXACERBATION, ACUTE ON CHRONIC RESP FAILURE, Physical Exam Vital Signs: Temp Pulse Resp BP Pulse Ox 97.5 F 90 18 148/77 H 97 12/31/17 07:59 12/31/17 08:13 12/31/17 08:13 12/31/17 07:59 12/31/17 08:13 Intake & Output 12/30/17 12/31/17 01/01/18 06:59 06:59 06:59 Intake Total 1447 Balance 1447 Weight 87 kg General appearance: PRESENT: no acute distress, cooperative, obese Head exam: PRESENT: atraumatic, normocephalic Eye exam: PRESENT: conjunctiva pale, EOMI, PERRLA Ear exam: PRESENT: normal external ear exam Mouth exam: PRESENT: moist Neck exam: PRESENT: full ROM. ABSENT: JVD, lymphadenopathy, tenderness Respiratory exam: PRESENT: crackles, decreased breath sounds Cardiovascular exam: PRESENT: RRR. ABSENT: diastolic murmur, systolic murmur Vascular exam: PRESENT: normal capillary refill GI/Abdominal exam: PRESENT: normal bowel sounds, soft. ABSENT: tenderness Extremities exam: PRESENT: full ROM, +2 edema Musculoskeletal exam: PRESENT: ambulatory Neurological exam: PRESENT: alert, awake, oriented to person, oriented to place , oriented to time, oriented to situation, CN II-XII grossly intact Psychiatric exam: PRESENT: appropriate affect, normal mood Skin exam: PRESENT: intact, normal color Results Laboratory Results: 12/31/17 05:22 12/31/17 05:22 12/30/17 12/31/17 12/31/17 17:25 05:22 05:22 WBC 14.0 H RBC 3.46 L Hgb 9.1 L Hct 28.8 L MCV 83 MCH 26.4 L MCHC 31.7 L RDW 16.4 H Plt Count 552 H Seg Neutrophils % Not Reportable Lymphocytes % Not Reportable Monocytes % Not Reportable Eosinophils % Not Reportable Basophils % Not Reportable Absolute Neutrophils Not Reportable Absolute Lymphocytes Not Reportable Absolute Monocytes Not Reportable Absolute Eosinophils Not Reportable Absolute Basophils Not Reportable Sodium 145.0 Potassium 4.6 Chloride 102 Carbon Dioxide 39 H Anion Gap 4 L BUN 13 Creatinine 0.80 Est GFR ( Amer) > 60 Est GFR (Non-Af Amer) > 60 Glucose 158 H Lactic Acid 2.6 H Calcium 8.8 Impressions: Chest X-Ray 12/30/17 13:20 IMPRESSION: Bibasilar densities as noted above Assessment & Plan - Diagnosis (1) Acute on chronic diastolic CHF (congestive heart failure) Is this a current diagnosis for this admission?: Yes Plan: Patient will be placed on Lasix IV. Will monitor blood pressures since she does have a right-sided failure. May need to be placed on Midodrine treated if that is the case to further diuresis (2) Pulmonary hypertension Is this a current diagnosis for this admission?: Yes Plan: Likely due to diastolic congestive heart failure however I am also contemplating pulmonary issues aggravating the whole situation (3) COPD (chronic obstructive pulmonary disease) Qualifiers: Emphysema type: unspecified Is this a current diagnosis for this admission?: Yes Plan: Continue DuoNeb's, at Mucinex, Singulair, IV steroids and Daliresp. Change antibiotic to oral since good absorption orally (4) Acute and chronic respiratory failure Qualifiers: Respiratory failure complication: hypoxia and hypercapnia Qualified Code(s) : J96.21 - Acute and chronic respiratory failure with hypoxia; J96.22 - Acute and chronic respiratory failure with hypercapnia; J96.22 - Acute and chronic respiratory failure with hypercapnia; J96.22 - Acute and chronic respiratory failure with hypercapnia Is this a current diagnosis for this admission?: Yes Plan: Continue current management - Time Time Spent with patient: 15-24 minutes Medications reviewed and adjusted accordingly: Yes Anticipated discharge: SNF Within: within 72 hours - Inpatient Certification Based on my medical assessment, after consideration of the patient's comorbidities, presenting symptoms, or acuity I expect that the services needed warrant INPATIENT care.: Yes I certify that my determination is in accordance with my understanding of Medicare's requirements for reasonable and necessary INPATIENT services [42 CFR 412.3e].: Yes Medical Necessity: Need Close Monitoring Due to Risk of Patient Decompensation, Need for Nebulizer Therapy and Monitoring of Response
[2017-12-31] MEDS: FUROSEMIDE INJ/PF 20 MG/2 ML SDV IV SCH (17:00)
[2017-12-31] MEDS: AZITHROMYCIN 250 MG TABLET PO SCH (17:03)
[2017-12-31] MEDS: METHYLPREDNISOLONE INJ 40 MG/1 ML SDV IV SCH (21:11)
[2017-12-31] MEDS: MONTELUKAST SODIUM 10 MG TABLET PO SCH (21:11)
[2017-12-31] MEDS: GUAIFENESIN 600 MG TABLET.SA PO SCH (21:12)
[2018-01-01] MEDS: IPRATROPIUM/ALBUTEROL 0.5-2.5 MG/3 ML AMPUL NEB SCH ×4 (01:49→20:06)
[2018-01-01 05:56] LABS: ABSOLUTE BASOPHILS # (AUTO) 0.1 10^3/uL (0.0-0.2); ABSOLUTE LYMPHOCYTES (AUTO) 2.7 10^3/uL (0.5-4.7); ABSOLUTE MONOCYTES (AUTO) 0.1 10^3/uL (0.1-1.4); ABSOLUTE NEUT (AUTO) 9.6 10^3/uL (1.7-8.2); BASOPHILS % (AUTO) 0.8 % (0-2); EOSINOPHILS % (AUTO) 0.1 % (0-6); LYMPHOCYTES % (AUTO) 21.3 % (13-45); MEAN CORPUSCULAR HEMOGLOBIN 25.8 pg (27.0-33.4); MEAN CORPUSCULAR HGB CONC 30.9 g/dL (32.0-36.0); MEAN CORPUSCULAR VOLUME 84 fl (80-97); MONOCYTES % (AUTO) 0.5 % (3-13); PLATELET COUNT 553 10^3/uL (150-450); RED BLOOD COUNT 3.48 10^6/uL (3.72-5.28); RED CELL DISTRIBUTION WIDTH 16.5 % (11.5-14.0); SEGMENTED NEUTROPHILS % (AUTO) 77.3 % (42-78); TOTAL CELLS COUNTED % (AUTO) 100 %; WHITE BLOOD COUNT 12.4 10^3/uL (4.0-10.5)
[2018-01-01 06:18] LABS: ANION GAP 5 (5-19); BLOOD UREA NITROGEN 13 mg/dL (7-20); CALCIUM 8.9 mg/dL (8.4-10.2); CARBON DIOXIDE 39 mmol/L (22-30); CHLORIDE 97 mmol/L (98-107); GLUCOSE 231 mg/dL (75-110); POTASSIUM 5.3 mmol/L (3.6-5.0); SODIUM 141.2 mmol/L (137-145)
[2018-01-01] MEDS: METHYLPREDNISOLONE INJ 40 MG/1 ML SDV IV SCH ×3 (06:33→22:49)
[2018-01-01] MEDS: HEPARIN SOD (PORCINE) 5,000 UNIT/ML 1 ML SYRINGE SUBCUT SCH ×3 (06:33→22:50)
[2018-01-01] MEDS: FUROSEMIDE INJ/PF 20 MG/2 ML SDV IV SCH (06:33)
[2018-01-01] MEDS: GUAIFENESIN 600 MG TABLET.SA PO SCH ×2 (10:06→22:51)
[2018-01-01] MEDS: ROFLUMILAST 500 MCG TABLET PO SCH (10:06)
[2018-01-01] MEDS: FLUTICASONE NASAL SPRAY 50 MCG/SPRY 120 SPRAY/16 GM NASL SCH ×2 (10:07→22:52)
[2018-01-01] MEDS ORDERED: LEVALBUTEROL HCL NEB 0.63 MG/3 ML AMPUL NEB PRN (10:45)
[2018-01-01] MEDS ORDERED: FUROSEMIDE INJ/PF 20 MG/2 ML SDV IV ONE (12:08)
[2018-01-01] MEDS ORDERED: FUROSEMIDE INJ/PF 20 MG/2 ML SDV IV SCH (12:08)
--- NOTE | 2018-01-01 12:15 | PDOC PROGRESS REPORT ---
Subjective Progress Note for:: 01/01/18 Subjective:: 82-year-old female past medical history of Diastolic heart failure Non-ST elevation myocardial infarction COPD CKD stage III Chronic debility Lower GI bleed Hypertension Hyperlipidemia Diabetes She was recently admitted to this hospital in October with a fall and was found to have diastolic CHF exacerbation and pneumonia was treated with antibiotics and diuretics and discharged. The patient presented back to the hospital on December 30 [facility] for a 4-5 day history of cough congestion shortness of breath and weakness. Was diagnosed with acute on chronic diastolic CHF exacerbation and acute hypercapnic respiratory failure due to COPD exacerbation. Echocardiogram in October 2017 showed mild to moderate concentric left ventricular hypertrophy with grade 2/4 mild to moderate diastolic dysfunction. Normal left ventricular ejection fraction Moderate pulmonary hypertension RVSP elevated 50-60 mmHg. This morning the patient says that she has had greenish expectoration and cough or shortness of breath is a little improved. Her nurse reports that the patient desats with minimal exertion when the BiPAP is taken off with her sats dropping down to the 60s this morning. Reason For Visit: COPD EXACERBATION, ACUTE ON CHRONIC RESP FAILURE, Physical Exam Vital Signs: Temp Pulse Resp BP Pulse Ox 97.3 F 90 13 162/69 H 97 01/01/18 07:21 01/01/18 08:41 01/01/18 08:41 01/01/18 07:21 01/01/18 08:41 Intake & Output 12/31/17 01/01/18 01/02/18 06:59 06:59 06:59 Intake Total 1447 1250 Output Total 800 Balance 1447 450 Weight 87 kg 88 kg General appearance: PRESENT: well-nourished Head exam: PRESENT: atraumatic, normocephalic Eye exam: PRESENT: PERRLA. ABSENT: scleral icterus Ear exam: PRESENT: normal external ear exam Mouth exam: PRESENT: neck supple Neck exam: ABSENT: tracheal deviation Respiratory exam: PRESENT: accessory muscle use, crackles, rhonchi, symmetrical Cardiovascular exam: PRESENT: RRR Vascular exam: ABSENT: pallor GI/Abdominal exam: PRESENT: normal bowel sounds, soft. ABSENT: tenderness Rectal exam: PRESENT: deferred Extremities exam: ABSENT: calf tenderness, pedal edema Neurological exam: PRESENT: alert, awake, oriented to person, oriented to place , oriented to time Psychiatric exam: PRESENT: normal mood Skin exam: ABSENT: rash Results Laboratory Results: 01/01/18 05:24 01/01/18 05:24 01/01/18 01/01/18 05:24 05:24 WBC 12.4 H RBC 3.48 L Hgb 9.0 L Hct 29.0 L MCV 84 MCH 25.8 L MCHC 30.9 L RDW 16.5 H Plt Count 553 H Seg Neutrophils % 77.3 Lymphocytes % 21.3 Monocytes % 0.5 L Eosinophils % 0.1 Basophils % 0.8 Absolute Neutrophils 9.6 H Absolute Lymphocytes 2.7 Absolute Monocytes 0.1 Absolute Eosinophils 0.0 Absolute Basophils 0.1 Sodium 141.2 Potassium 5.3 H Chloride 97 L Carbon Dioxide 39 H Anion Gap 5 BUN 13 Creatinine 0.78 Est GFR ( Amer) > 60 Est GFR (Non-Af Amer) > 60 Glucose 231 H Calcium 8.9 Magnesium 2.1 01/01/18 05:24 NT-Pro-B Natriuret Pep 9160 H Impressions: Chest X-Ray 12/30/17 13:20 IMPRESSION: Bibasilar densities as noted above Assessment & Plan - Diagnosis (1) Acute on chronic diastolic CHF (congestive heart failure) Is this a current diagnosis for this admission?: Yes Plan: We will increase IV Lasix dose. Repeat stat chest x-ray, monitor intake and output (2) COPD with exacerbation Is this a current diagnosis for this admission?: Yes Plan: IV steroids, supplemental O2, Inhalers, nebs 2 new BiPAP support. (3) Diabetes 1.5, managed as type 2 Is this a current diagnosis for this admission?: Yes Plan: Insulin sliding scale, carbohydrate controlled diet, Glipizide on hold (5) Hyperlipidemia Is this a current diagnosis for this admission?: Yes Plan: Continue statin (6) CKD (chronic kidney disease) stage 3, GFR 30-59 ml/min Is this a current diagnosis for this admission?: Yes Plan: Stable, monitor kidney function (7) DVT prophylaxis Is this a current diagnosis for this admission?: Yes Plan: Heparin s/c (8) Hyperkalemia Is this a current diagnosis for this admission?: Yes Plan: Recheck Potassium level (9) Left lower lobe pneumonia Is this a current diagnosis for this admission?: Yes Plan: Continue azithromycin. We will add Zosyn to broaden antibiotic coverage. Pro calcitonin. Patient did have leukocytosis on admission and reports greenish phlegm. Check sputum culture. - Time Time Spent with patient: 35 or more minutes
[2018-01-01] MEDS ORDERED: FUROSEMIDE INJ/PF 100 MG/10 ML SDV IV ONE (13:00)
[2018-01-01] MEDS: ASPIRIN 81 MG TABLET, ENT COATED PO SCH (13:37)
[2018-01-01] MEDS: INSULIN LISPRO 100 UNIT/ML 3 ML VIAL SUBCUT PRN ×3 (13:37→22:53)
--- NOTE | 2018-01-01 13:42 | RADIOLOGY REPORT (SQ) ---
EXAM DESCRIPTION: CHEST SINGLE VIEW COMPLETED DATE/TIME: 01/01/2018 12:29 pm REASON FOR STUDY: Dyspnea COMPARISON: 12/30/2017 EXAM PARAMETERS: NUMBER OF VIEWS: One view. TECHNIQUE: Single frontal radiographic view of the chest acquired. RADIATION DOSE: NA LIMITATIONS: None. FINDINGS: LUNGS AND PLEURA: Interval improvement in the bibasilar opacities seen on prior examinatio n. Likely persistent bilateral small pleural effusions. MEDIASTINUM AND HILAR STRUCTURES: Unchanged HEART AND VASCULAR STRUCTURES: Unchanged BONES: No acute findings. HARDWARE: None in the chest. OTHER: No other significant finding. IMPRESSION: Interval improvement in the bibasilar airspace opacities seen on prior examination with likely persistent small bilateral pleural effusions. TECHNICAL DOCUMENTATION: JOB ID: [id number] [employer]- All Rights Reserved Reading location - IP/workstation name: [email or web address]
[2018-01-01 14:07] LABS: HEMATOCRIT 29.3 % (36.0-47.0); HEMOGLOBIN 9.4 g/dL (12.0-15.5); MEAN CORPUSCULAR HEMOGLOBIN 26.7 pg (27.0-33.4); MEAN CORPUSCULAR HGB CONC 32.1 g/dL (32.0-36.0); MEAN CORPUSCULAR VOLUME 83 fl (80-97); PLATELET COUNT 612 10^3/uL (150-450); RED BLOOD COUNT 3.51 10^6/uL (3.72-5.28); RED CELL DISTRIBUTION WIDTH 16.5 % (11.5-14.0)
[2018-01-01 14:20] LABS: INTERNATIONAL RATION (INR) 1.03; PARTIAL THROMBOPLASTIN TIME 30.3 SEC (23.5-35.8)
[2018-01-01] MEDS: PIPERACILLIN SODIUM/TAZOBACTAM 4.5 GM in NORMAL SALINE 100 ML IV SCH ×2 (17:53→22:49)
[2018-01-01] MEDS: FUROSEMIDE INJ/PF 100 MG/10 ML SDV IV SCH (17:54)
[2018-01-01] MEDS: AZITHROMYCIN 250 MG TABLET PO SCH (17:54)
[2018-01-01] MEDS: MONTELUKAST SODIUM 10 MG TABLET PO SCH (22:51)
[2018-01-01] MEDS: ATORVASTATIN CALCIUM 10 MG TABLET PO SCH (22:51)
[2018-01-02] MEDS: PIPERACILLIN SODIUM/TAZOBACTAM 4.5 GM in NORMAL SALINE 100 ML IV SCH ×4 (03:43→20:16)
[2018-01-02 05:38] LABS: PHOSPHORUS 4.4 mg/dL (2.5-4.5)
[2018-01-02] MEDS: METHYLPREDNISOLONE INJ 40 MG/1 ML SDV IV SCH ×3 (05:48→22:40)
[2018-01-02] MEDS: FUROSEMIDE INJ/PF 100 MG/10 ML SDV IV SCH (05:48)
[2018-01-02] MEDS: HEPARIN SOD (PORCINE) 5,000 UNIT/ML 1 ML SYRINGE SUBCUT SCH (05:48)
[2018-01-02 07:48] LABS: BLOOD UREA NITROGEN 25 mg/dL (7-20); CALCIUM 9.5 mg/dL (8.4-10.2); CHLORIDE 91 mmol/L (98-107); GLUCOSE 157 mg/dL (75-110); POTASSIUM 4.9 mmol/L (3.6-5.0); SODIUM 141.1 mmol/L (137-145)
[2018-01-02 07:55] LABS: ANION GAP 11 (5-19); CARBON DIOXIDE 39 mmol/L (22-30)
[2018-01-02] MEDS: IPRATROPIUM/ALBUTEROL 0.5-2.5 MG/3 ML AMPUL NEB SCH ×4 (08:30→19:48)
[2018-01-02] MEDS ORDERED: FUROSEMIDE INJ/PF 100 MG/10 ML SDV IV SCH (09:36)
[2018-01-02] MEDS: POLYETHYLENE GLYCOL 3350 POWDER 17 GM/1 PACKET PO SCH ×2 (09:44→22:40)
[2018-01-02] MEDS: ROFLUMILAST 500 MCG TABLET PO SCH (09:44)
[2018-01-02] MEDS: METOPROLOL SUCCINATE 25 MG TAB.SR.24H PO SCH (09:44)
[2018-01-02] MEDS: GUAIFENESIN 600 MG TABLET.SA PO SCH ×2 (09:45→22:40)
[2018-01-02] MEDS: FLUTICASONE NASAL SPRAY 50 MCG/SPRY 120 SPRAY/16 GM NASL SCH ×2 (09:46→22:41)
[2018-01-02] MEDS: DOCUSATE SODIUM 100 MG CAPSULE PO SCH ×2 (09:46→22:40)
[2018-01-02] MEDS: INSULIN LISPRO 100 UNIT/ML 3 ML VIAL SUBCUT PRN ×4 (09:51→22:42)
[2018-01-02] MEDS ORDERED: ENOXAPARIN SODIUM INJ 40 MG/0.4 ML DISP.SYRIN SUBCUT SCH (10:00)
[2018-01-02 10:18] LABS: HEMATOCRIT 27.6 % (36.0-47.0); HEMOGLOBIN 8.6 g/dL (12.0-15.5); MEAN CORPUSCULAR HEMOGLOBIN 25.9 pg (27.0-33.4); MEAN CORPUSCULAR HGB CONC 31.2 g/dL (32.0-36.0); MEAN CORPUSCULAR VOLUME 83 fl (80-97); PLATELET COUNT 559 10^3/uL (150-450); RED BLOOD COUNT 3.32 10^6/uL (3.72-5.28); RED CELL DISTRIBUTION WIDTH 16.6 % (11.5-14.0); WHITE BLOOD COUNT 12.6 10^3/uL (4.0-10.5)
[2018-01-02 10:29] LABS: INTERNATIONAL RATION (INR) 1.03; PARTIAL THROMBOPLASTIN TIME 30.3 SEC (23.5-35.8)
[2018-01-02] MEDS: ENOXAPARIN SODIUM INJ 40 MG/0.4 ML DISP.SYRIN SUBCUT SCH (10:40)
[2018-01-02] MEDS ORDERED: LACTOBACILLUS ACIDOPHILUS 250 MG TAB PO ONE (11:00)
[2018-01-02] MEDS: ASPIRIN 81 MG TABLET, ENT COATED PO SCH (11:59)
--- NOTE | 2018-01-02 14:18 | PDOC PROGRESS REPORT ---
Subjective Progress Note for:: 01/02/18 Subjective:: 82-year-old female past medical history of Diastolic heart failure Non-ST elevation myocardial infarction COPD CKD stage III Chronic debility Lower GI bleed Hypertension Hyperlipidemia Diabetes She was recently admitted to this hospital in October with a fall and was found to have diastolic CHF exacerbation and pneumonia was treated with antibiotics and diuretics and discharged. The patient presented back to the hospital on December 30 [facility] for a 4-5 day history of cough congestion shortness of breath and weakness. Was diagnosed with acute on chronic diastolic CHF exacerbation and acute hypercapnic respiratory failure due to COPD exacerbation. Echocardiogram in October 2017 showed mild to moderate concentric left ventricular hypertrophy with grade 2/4 mild to moderate diastolic dysfunction. Normal left ventricular ejection fraction Moderate pulmonary hypertension RVSP elevated 50-60 mmHg. Feels better today. Cough and dyspnea improving. Reason For Visit: COPD EXACERBATION, ACUTE ON CHRONIC RESP FAILURE, Physical Exam Vital Signs: Temp Pulse Resp BP Pulse Ox 98.0 F 104 H 18 105/61 92 01/02/18 12:06 01/02/18 12:06 01/02/18 12:06 01/02/18 12:06 01/02/18 12:06 Intake & Output 01/01/18 01/02/18 01/03/18 06:59 06:59 06:59 Intake Total 1250 835 237 Output Total 800 Balance 450 835 237 Weight 88 kg 85.6 kg General appearance: PRESENT: no acute distress Eye exam: ABSENT: scleral icterus Neck exam: ABSENT: tracheal deviation Respiratory exam: PRESENT: rhonchi, symmetrical, unlabored Cardiovascular exam: PRESENT: RRR GI/Abdominal exam: PRESENT: normal bowel sounds, soft. ABSENT: tenderness Rectal exam: PRESENT: deferred Extremities exam: PRESENT: pedal edema. ABSENT: calf tenderness Neurological exam: PRESENT: alert, awake, oriented to person, oriented to time, oriented to situation Psychiatric exam: PRESENT: normal mood Results Laboratory Results: 01/02/18 10:05 01/02/18 10:05 01/02/18 01/02/18 01/02/18 04:36 04:36 04:36 WBC RBC Hgb Hct MCV MCH MCHC RDW Plt Count Sodium 141.1 Potassium 4.9 Chloride 91 L Carbon Dioxide 39 H Anion Gap 11 BUN 25 H Creatinine 0.94 Est GFR ( Amer) > 60 Est GFR (Non-Af Amer) 57 L Glucose 157 H Calcium 9.5 Phosphorus 4.4 Magnesium 2.1 TSH 0.36 L 01/02/18 01/02/18 10:05 10:05 WBC 12.6 H RBC 3.32 L Hgb 8.6 L Hct 27.6 L MCV 83 MCH 25.9 L MCHC 31.2 L RDW 16.6 H Plt Count 559 H Sodium Potassium Chloride Carbon Dioxide Anion Gap BUN Creatinine 0.75 Est GFR ( Amer) > 60 Est GFR (Non-Af Amer) > 60 Glucose Calcium Phosphorus Magnesium TSH 01/01/18 01/02/18 05:24 04:36 NT-Pro-B Natriuret Pep 9160 H 50473 H Impressions: Chest X-Ray 01/01/18 00:00 IMPRESSION: Interval improvement in the bibasilar airspace opacities seen on prior examination with likely persistent small bilateral pleural effusions. Assessment & Plan - Diagnosis (1) Acute on chronic diastolic CHF (congestive heart failure) Is this a current diagnosis for this admission?: Yes Plan: ContinueIV Lasix. Monitor intake and output (2) COPD with exacerbation Is this a current diagnosis for this admission?: Yes Plan: IV steroids, supplemental O2, Inhalers, nebs Continue BiPAP prn. (3) Diabetes 1.5, managed as type 2 Is this a current diagnosis for this admission?: Yes Plan: Insulin sliding scale, carbohydrate controlled diet, Glipizide on hold (4) Hypertension Is this a current diagnosis for this admission?: Yes Plan: On Metoprolol (5) Hyperlipidemia Is this a current diagnosis for this admission?: Yes Plan: Continue statin (6) CKD (chronic kidney disease) stage 3, GFR 30-59 ml/min Is this a current diagnosis for this admission?: Yes Plan: Stable, monitor kidney function (7) DVT prophylaxis Is this a current diagnosis for this admission?: Yes Plan: Lovenox s/c (8) Hyperkalemia Is this a current diagnosis for this admission?: Yes Plan: Recheck Potassium level (9) Left lower lobe pneumonia Is this a current diagnosis for this admission?: Yes Plan: Continue azithromycin and Zosyn Pro calcitonin- pending Patient had leukocytosis on admission and reported greenish phlegm. Check sputum culture. - Time Time Spent with patient: 35 or more minutes
[2018-01-02] MEDS: FUROSEMIDE INJ/PF 40 MG/4 ML SDV IV SCH (18:06)
[2018-01-02] MEDS: AZITHROMYCIN 250 MG TABLET PO SCH (18:06)
[2018-01-02] MEDS: LACTOBACILLUS ACIDOPHILUS 250 MG TAB PO SCH (18:06)
[2018-01-02] MEDS: ATORVASTATIN CALCIUM 10 MG TABLET PO SCH (22:40)
[2018-01-02] MEDS: MONTELUKAST SODIUM 10 MG TABLET PO SCH (22:41)
[2018-01-02] MEDS ORDERED: TRAZODONE HCL 50 MG TABLET PO ONE (23:00)
[2018-01-03] MEDS: PIPERACILLIN SODIUM/TAZOBACTAM 4.5 GM in NORMAL SALINE 100 ML IV SCH ×4 (02:58→21:04)
[2018-01-03] MEDS: ACETAMINOPHEN 325 MG TABLET PO PRN ×2 (04:40→23:24)
[2018-01-03 05:51] LABS: ABSOLUTE LYMPHOCYTES (AUTO) 1.9 10^3/uL (0.5-4.7); ABSOLUTE MONOCYTES (AUTO) 0.5 10^3/uL (0.1-1.4); ABSOLUTE NEUT (AUTO) 11.3 10^3/uL (1.7-8.2); BASOPHILS % (AUTO) 0.3 % (0-2); HEMATOCRIT 31.5 % (36.0-47.0); HEMOGLOBIN 9.9 g/dL (12.0-15.5); LYMPHOCYTES % (AUTO) 14.1 % (13-45); MEAN CORPUSCULAR HEMOGLOBIN 26.2 pg (27.0-33.4); MEAN CORPUSCULAR HGB CONC 31.3 g/dL (32.0-36.0); MEAN CORPUSCULAR VOLUME 84 fl (80-97); MONOCYTES % (AUTO) 3.4 % (3-13); PLATELET COUNT 577 10^3/uL (150-450); RED BLOOD COUNT 3.77 10^6/uL (3.72-5.28); RED CELL DISTRIBUTION WIDTH 16.5 % (11.5-14.0); SEGMENTED NEUTROPHILS % (AUTO) 82.2 % (42-78); TOTAL CELLS COUNTED % (AUTO) 100 %; WHITE BLOOD COUNT 13.8 10^3/uL (4.0-10.5)
[2018-01-03] MEDS: METHYLPREDNISOLONE INJ 40 MG/1 ML SDV IV SCH ×2 (06:08→21:05)
[2018-01-03] MEDS: FUROSEMIDE INJ/PF 40 MG/4 ML SDV IV SCH ×2 (06:08→17:07)
[2018-01-03] MEDS: INSULIN LISPRO 100 UNIT/ML 3 ML VIAL SUBCUT PRN ×2 (06:08→11:50)
[2018-01-03 06:38] LABS: BLOOD UREA NITROGEN 34 mg/dL (7-20); CALCIUM 9.5 mg/dL (8.4-10.2); CHLORIDE 86 mmol/L (98-107); GLUCOSE 306 mg/dL (75-110); PHOSPHORUS 3.8 mg/dL (2.5-4.5); POTASSIUM 4.3 mmol/L (3.6-5.0); SODIUM 141.1 mmol/L (137-145)
[2018-01-03 06:51] LABS: ANION GAP 11 (5-19)
[2018-01-03 06:52] LABS: CARBON DIOXIDE 44 mmol/L (22-30)
[2018-01-03] MEDS: IPRATROPIUM/ALBUTEROL 0.5-2.5 MG/3 ML AMPUL NEB SCH ×4 (08:36→19:57)
[2018-01-03] MEDS ORDERED: LANSOPRAZOLE 15 MG TAB.RAP.DR PO ONE (09:30)
[2018-01-03] MEDS ORDERED: GLIPIZIDE 5 MG TABLET PO SCH (10:00)
[2018-01-03] MEDS: ENOXAPARIN SODIUM INJ 40 MG/0.4 ML DISP.SYRIN SUBCUT SCH (10:42)
[2018-01-03] MEDS: ROFLUMILAST 500 MCG TABLET PO SCH (10:43)
[2018-01-03] MEDS: LACTOBACILLUS ACIDOPHILUS 250 MG TAB PO SCH ×2 (10:43→17:08)
[2018-01-03] MEDS: METOPROLOL SUCCINATE 25 MG TAB.SR.24H PO SCH (10:43)
[2018-01-03] MEDS: GUAIFENESIN 600 MG TABLET.SA PO SCH ×2 (10:43→21:07)
[2018-01-03] MEDS: POLYETHYLENE GLYCOL 3350 POWDER 17 GM/1 PACKET PO SCH ×2 (10:45→21:05)
[2018-01-03] MEDS: FLUTICASONE NASAL SPRAY 50 MCG/SPRY 120 SPRAY/16 GM NASL SCH ×2 (10:45→21:16)
[2018-01-03] MEDS: DOCUSATE SODIUM 100 MG CAPSULE PO SCH ×2 (10:45→21:07)
--- NOTE | 2018-01-03 11:11 | PDOC PROGRESS REPORT ---
Subjective Progress Note for:: 01/03/18 Subjective:: 82-year-old female past medical history of Diastolic heart failure Non-ST elevation myocardial infarction COPD CKD stage III Chronic debility Lower GI bleed Hypertension Hyperlipidemia Diabetes She was recently admitted to this hospital in October with a fall and was found to have diastolic CHF exacerbation and pneumonia was treated with antibiotics and diuretics and discharged. The patient presented back to the hospital on December 30 [facility] for a 4-5 day history of cough congestion shortness of breath and weakness. Was diagnosed with acute on chronic diastolic CHF exacerbation and acute hypercapnic respiratory failure due to COPD exacerbation. Echocardiogram in October 2017 showed mild to moderate concentric left ventricular hypertrophy with grade 2/4 mild to moderate diastolic dysfunction. Normal left ventricular ejection fraction Moderate pulmonary hypertension RVSP elevated 50-60 mmHg. This morning she was asking me that she would like to be discharged from the hospital. Physical therapy attempted to work with her however her sats dropped down to the 70s with her 2 L nasal cannula and she was placed on BiPAP. We will check an ABG. Reason For Visit: COPD EXACERBATION, ACUTE ON CHRONIC RESP FAILURE, Physical Exam Vital Signs: Temp Pulse Resp BP Pulse Ox 98.1 F 98 20 136/77 H 93 01/03/18 07:29 01/03/18 07:29 01/03/18 07:29 01/03/18 07:29 01/03/18 07:29 Intake & Output 01/02/18 01/03/18 01/04/18 06:59 06:59 06:59 Intake Total 835 1361 Balance 835 1361 Weight 85.6 kg 84.2 kg General appearance: PRESENT: well-developed, well-nourished Head exam: PRESENT: normocephalic Eye exam: PRESENT: PERRLA. ABSENT: scleral icterus Ear exam: PRESENT: normal external ear exam Mouth exam: PRESENT: neck supple Neck exam: ABSENT: tracheal deviation Respiratory exam: PRESENT: accessory muscle use, crackles, symmetrical Cardiovascular exam: PRESENT: RRR GI/Abdominal exam: PRESENT: normal bowel sounds, soft. ABSENT: tenderness Rectal exam: PRESENT: deferred Extremities exam: PRESENT: pedal edema. ABSENT: calf tenderness Neurological exam: PRESENT: alert, awake, oriented to person, oriented to place , oriented to time Psychiatric exam: PRESENT: normal mood Skin exam: ABSENT: petechiae Results Laboratory Results: 01/03/18 05:12 01/03/18 05:12 01/03/18 01/03/18 05:12 05:12 WBC 13.8 H RBC 3.77 Hgb 9.9 L Hct 31.5 L MCV 84 MCH 26.2 L MCHC 31.3 L RDW 16.5 H Plt Count 577 H Seg Neutrophils % 82.2 H Lymphocytes % 14.1 Monocytes % 3.4 Eosinophils % 0.0 Basophils % 0.3 Absolute Neutrophils 11.3 H Absolute Lymphocytes 1.9 Absolute Monocytes 0.5 Absolute Eosinophils 0.0 Absolute Basophils 0.0 Sodium 141.1 Potassium 4.3 Chloride 86 L Carbon Dioxide 44 H* Anion Gap 11 BUN 34 H Creatinine 0.88 Est GFR ( Amer) > 60 Est GFR (Non-Af Amer) > 60 Glucose 306 H Calcium 9.5 Phosphorus 3.8 Magnesium 2.1 01/01/18 01/02/18 01/03/18 05:24 04:36 05:12 NT-Pro-B Natriuret Pep 9160 H 18440 H 5270 H Impressions: Chest X-Ray 01/01/18 00:00 IMPRESSION: Interval improvement in the bibasilar airspace opacities seen on prior examination with likely persistent small bilateral pleural effusions. Assessment & Plan - Diagnosis (1) Acute on chronic diastolic CHF (congestive heart failure) Is this a current diagnosis for this admission?: Yes Plan: ContinueIV Lasix. Monitor intake and output (2) COPD with exacerbation Is this a current diagnosis for this admission?: Yes Plan: IV steroids, supplemental O2, Inhalers, nebs Continue BiPAP prn. (3) Diabetes 1.5, managed as type 2 Is this a current diagnosis for this admission?: Yes Plan: Insulin sliding scale, carbohydrate controlled diet, Glipizide on hold (4) Hypertension Is this a current diagnosis for this admission?: Yes Plan: On Metoprolol (5) Hyperlipidemia Is this a current diagnosis for this admission?: Yes Plan: Continue statin (6) CKD (chronic kidney disease) stage 3, GFR 30-59 ml/min Is this a current diagnosis for this admission?: Yes Plan: Stable, monitor kidney function (7) DVT prophylaxis Is this a current diagnosis for this admission?: Yes Plan: Lovenox s/c (8) Hyperkalemia Is this a current diagnosis for this admission?: Yes Plan: Resolved (9) Left lower lobe pneumonia Is this a current diagnosis for this admission?: Yes Plan: Continue azithromycin and Zosyn Patient had leukocytosis on admission and reported greenish phlegm. Check sputum culture. - Time Time Spent with patient: 35 or more minutes - Inpatient Certification Medical Necessity: Need Close Monitoring Due to Risk of Patient Decompensation, Need for Nebulizer Therapy and Monitoring of Response, Need for IV Antibiotics
[2018-01-03] MEDS: ASPIRIN 81 MG TABLET, ENT COATED PO SCH (11:22)
[2018-01-03 12:10] LABS: ARTERIAL BLOOD BASE EXCESS 19.2 mmol/L; ARTERIAL BLOOD H2CO3 1.95 mmol/L (1.05-1.35); ARTERIAL BLOOD HCO3 45.9 mmol/L (20-26); ARTERIAL BLOOD O2 SATURATION 77.3 % (94-98); ARTERIAL BLOOD PCO2 64.7 mmHg (35-45); ARTERIAL BLOOD PH 7.47 (7.35-7.45); ARTERIAL BLOOD TOTAL CO2 47.9 mmol/L (21-25)
[2018-01-03 12:13] LABS: ARTERIAL BLOOD FIO2 4.5L
[2018-01-03 12:15] LABS: ARTERIAL BLOOD PO2 40.9 mmHg (80-100)
[2018-01-03] MEDS: LORAZEPAM INJ 2 MG/1 ML VIAL IV PRN (12:34)
[2018-01-03] MEDS ORDERED: METHYLPREDNISOLONE INJ 40 MG/1 ML SDV IV SCH (14:00)
[2018-01-03 16:20] LABS: ARTERIAL BLOOD PH 7.41 (7.35-7.45)
[2018-01-03 16:21] LABS: ARTERIAL BLOOD BASE EXCESS 19.1 mmol/L; ARTERIAL BLOOD FIO2 60%; ARTERIAL BLOOD H2CO3 2.32 mmol/L (1.05-1.35); ARTERIAL BLOOD HCO3 47.5 mmol/L (20-26); ARTERIAL BLOOD O2 SATURATION 91.3 % (94-98); ARTERIAL BLOOD PO2 63.8 mmHg (80-100); ARTERIAL BLOOD TOTAL CO2 49.9 mmol/L (21-25)
[2018-01-03 16:23] LABS: ARTERIAL BLOOD PCO2 77.2 mmHg (35-45)
[2018-01-03] MEDS: AZITHROMYCIN 250 MG TABLET PO SCH (17:08)
--- NOTE | 2018-01-03 17:14 | RADIOLOGY REPORT (SQ) ---
EXAM DESCRIPTION: CHEST SINGLE VIEW COMPLETED DATE/TIME: 01/03/2018 5:06 pm REASON FOR STUDY: dyspnea COMPARISON: Chest films 01/01/2018, 12/30/2017, CT chest 11/08/2017 EXAM PARAMETERS: NUMBER OF VIEWS: One view. TECHNIQUE: Single frontal radiographic view of the chest acquired. RADIATION DOSE: NA LIMITATIONS: None. FINDINGS: LUNGS AND PLEURA: Persistent bibasilar consolidation worrisome for pneumonia. No gross pl eural effusion or pneumothorax. MEDIASTINUM AND HILAR STRUCTURES: No masses. Contour normal. HEART AND VASCULAR STRUCTURES: Stable mild cardiomegaly BONES: No acute findings. HARDWARE: None in the chest. OTHER: No other significant finding. IMPRESSION: Persistent bibasilar consolidation worrisome for pneumonia. TECHNICAL DOCUMENTATION: JOB ID: [id number] [employer]- All Rights Reserved Reading location - IP/workstation name: [email or web address]
--- NOTE | 2018-01-03 17:44 | Progress Note ---
Provider Note Provider Note: The patient was hypoxic on 2L NC so was placed on BiPAP, oxygenation improved, but she was hypercapneic- BiPAP setting increased to higher pressures. pH is 7.4. She was agitated and attempted to remove BiPAP requiring Ativan and soft limb restraints. Slept for a few hours, is awake and alert now. Confirms that she is a full code. Will transfer to ICU for closer monitoring. Repeat ABG in 1 hour. Son Nima Ledesma, MALLORY- I called the number on the chart- was told it is the wrong number.
[2018-01-03] MEDS ORDERED: LEVOFLOXACIN 750 MG/D5W RTU 750 MG/150 ML RTUPB IV SCH (18:00)
[2018-01-03 19:16] LABS: ARTERIAL BLOOD BASE EXCESS 19.3 mmol/L; ARTERIAL BLOOD FIO2 60%; ARTERIAL BLOOD HCO3 46.2 mmol/L (20-26); ARTERIAL BLOOD O2 SATURATION 98.4 % (94-98); ARTERIAL BLOOD PCO2 66.3 mmHg (35-45); ARTERIAL BLOOD PH 7.46 (7.35-7.45); ARTERIAL BLOOD PO2 121.2 mmHg (80-100); ARTERIAL BLOOD TOTAL CO2 48.2 mmol/L (21-25)
[2018-01-03] MEDS ORDERED: NORMAL SALINE 1000 ML 1,000 ML IV ONE (20:35)
[2018-01-03] MEDS: ATORVASTATIN CALCIUM 10 MG TABLET PO SCH (21:07)
[2018-01-03] MEDS: MONTELUKAST SODIUM 10 MG TABLET PO SCH (21:08)
[2018-01-04] MEDS: LORAZEPAM INJ 2 MG/1 ML VIAL IV PRN (01:19)
[2018-01-04] MEDS: PIPERACILLIN SODIUM/TAZOBACTAM 4.5 GM in NORMAL SALINE 100 ML IV SCH ×3 (02:56→15:00)
[2018-01-04 04:20] LABS: BLOOD UREA NITROGEN 35 mg/dL (7-20); CALCIUM 8.8 mg/dL (8.4-10.2); CHLORIDE 89 mmol/L (98-107); GLUCOSE 258 mg/dL (75-110)
[2018-01-04 04:22] LABS: POTASSIUM 4.1 mmol/L (3.6-5.0)
[2018-01-04 04:32] LABS: ANION GAP 6 (5-19); CARBON DIOXIDE 46 mmol/L (22-30)
[2018-01-04] MEDS: PANTOPRAZOLE SODIUM 40 MG VIAL IV SCH (05:06)
[2018-01-04] MEDS: METHYLPREDNISOLONE INJ 40 MG/1 ML SDV IV SCH ×3 (05:06→21:19)
[2018-01-04] MEDS: INSULIN LISPRO 100 UNIT/ML 3 ML VIAL SUBCUT PRN (05:16)
[2018-01-04] MEDS ORDERED: LANSOPRAZOLE 15 MG TAB.RAP.DR PO SCH (06:00)
[2018-01-04] MEDS: IPRATROPIUM/ALBUTEROL 0.5-2.5 MG/3 ML AMPUL NEB SCH ×4 (08:29→19:49)
[2018-01-04] MEDS: METOPROLOL SUCCINATE 25 MG TAB.SR.24H PO SCH (11:32)
[2018-01-04] MEDS: GUAIFENESIN 600 MG TABLET.SA PO SCH (11:33)
[2018-01-04] MEDS: FLUTICASONE NASAL SPRAY 50 MCG/SPRY 120 SPRAY/16 GM NASL SCH ×2 (11:34→21:20)
[2018-01-04] MEDS: ROFLUMILAST 500 MCG TABLET PO SCH (11:34)
[2018-01-04] MEDS: LACTOBACILLUS ACIDOPHILUS 250 MG TAB PO SCH (11:34)
[2018-01-04] MEDS: ASPIRIN 81 MG TABLET, ENT COATED PO SCH (11:36)
[2018-01-04] MEDS: ENOXAPARIN SODIUM INJ 40 MG/0.4 ML DISP.SYRIN SUBCUT SCH (11:36)
[2018-01-04] MEDS: DOCUSATE SODIUM 100 MG CAPSULE PO SCH ×2 (11:46→21:23)
[2018-01-04] MEDS: POLYETHYLENE GLYCOL 3350 POWDER 17 GM/1 PACKET PO SCH (11:46)
[2018-01-04 11:50] LABS: ARTERIAL BLOOD BASE EXCESS 16.9 mmol/L; ARTERIAL BLOOD H2CO3 2.48 mmol/L (1.05-1.35); ARTERIAL BLOOD HCO3 45.7 mmol/L (20-26); ARTERIAL BLOOD O2 SATURATION 96.9 % (94-98); ARTERIAL BLOOD PH 7.36 (7.35-7.45); ARTERIAL BLOOD PO2 98.9 mmHg (80-100); ARTERIAL BLOOD TOTAL CO2 48.2 mmol/L (21-25)
[2018-01-04 11:51] LABS: ARTERIAL BLOOD FIO2 40%; ARTERIAL BLOOD PCO2 82.5 mmHg (35-45)
[2018-01-04] MEDS ORDERED: SUCCINYLCHOLINE CHLORIDE INJ 200 MG/10 ML VIAL ONE (12:50)
--- NOTE | 2018-01-04 14:00 | RADIOLOGY REPORT (SQ) ---
EXAM DESCRIPTION: CHEST SINGLE VIEW COMPLETED DATE/TIME: 01/04/2018 1:50 pm REASON FOR STUDY: resp failure COMPARISON: CT chest 11/08/2017, 10/31/2017 Chest films 10/28/2017, 11/04/2017, 01/01/2018, 01/03/2018 EXAM PARAMETERS: NUMBER OF VIEWS: One view. TECHNIQUE: Single frontal radiographic view of the chest acquired. RADIATION DOSE: NA LIMITATIONS: None. FINDINGS: LUNGS AND PLEURA: Persistent consolidation at both lung bases atelectasis versus pneumonia . This is similar compared to yesterday's films. MEDIASTINUM AND HILAR STRUCTURES: No masses. Contour normal. HEART AND VASCULAR STRUCTURES: Prominent central pulmonary arteries from pulmonary hypertension BONES: No acute findings. HARDWARE: None in the chest. OTHER: No other significant finding. IMPRESSION: Persistent bibasilar airspace disease pneumonia versus atelectasis TECHNICAL DOCUMENTATION: JOB ID: [id number] [employer]- All Rights Reserved Reading location - IP/workstation name: [email or web address]
[2018-01-04] MEDS ORDERED: PHARMACY COMMUNICATION ORDER MC NR (15:30)
[2018-01-04] MEDS ORDERED: ACETAMINOPHEN 325 MG TABLET NG PRN (15:34)
[2018-01-04 15:37] LABS: ARTERIAL BLOOD BASE EXCESS 18.7 mmol/L; ARTERIAL BLOOD H2CO3 2.04 mmol/L (1.05-1.35); ARTERIAL BLOOD HCO3 45.5 mmol/L (20-26); ARTERIAL BLOOD O2 SATURATION 92.8 % (94-98); ARTERIAL BLOOD PCO2 67.7 mmHg (35-45); ARTERIAL BLOOD PH 7.45 (7.35-7.45); ARTERIAL BLOOD PO2 65.5 mmHg (80-100); ARTERIAL BLOOD TOTAL CO2 47.5 mmol/L (21-25)
[2018-01-04 15:39] LABS: ARTERIAL BLOOD FIO2 30%
[2018-01-04] MEDS ORDERED: MIDAZOLAM HCL 50 MG/100 ML RTUINJ IV ONE (16:25)
[2018-01-04] MEDS ORDERED: PHENYLEPHRINE HCL INJ/PF 10 MG/1 ML SDV ONE (16:54)
[2018-01-04] MEDS ORDERED: PROPOFOL 100 ML IV ONE (17:02)
[2018-01-04] MEDS ORDERED: DEXTROSE 5%-WATER 250 ML with NOREPINEPHRINE BITARTRATE 4 MG IV PRN ×2 (17:07)
--- NOTE | 2018-01-04 17:18 | PDOC PROGRESS REPORT ---
Subjective Progress Note for:: 01/04/18 Subjective:: 82-year-old female past medical history of Diastolic heart failure Non-ST elevation myocardial infarction COPD CKD stage III Chronic debility Lower GI bleed Hypertension Hyperlipidemia Diabetes She was recently admitted to this hospital in October with a fall and was found to have diastolic CHF exacerbation and pneumonia was treated with antibiotics and diuretics and discharged. The patient presented back to the hospital on December 30 [facility] for a 4-5 day history of cough congestion shortness of breath and weakness. Was diagnosed with acute on chronic diastolic CHF exacerbation and acute hypercapnic respiratory failure due to COPD exacerbation. Echocardiogram in October 2017 showed mild to moderate concentric left ventricular hypertrophy with grade 2/4 mild to moderate diastolic dysfunction. Normal left ventricular ejection fraction Moderate pulmonary hypertension RVSP elevated 50-60 mmHg. She has continued to have episodes of severe hypoxia and persistent hypercapnea despite being on BiPAP. Her case was discussed with Dr. Spann and it was determined that she would benefit from intubation and mechanical ventilation. This had been discussed with the patient and also her son Mr. Nima Ledesma is by the bedside and was updated on the recommendations and is in agreemement. His number is [phone]. A stat CT angiogram of the chest will also be done to rule out PE Reason For Visit: COPD EXACERBATION, ACUTE ON CHRONIC RESP FAILURE, Physical Exam Vital Signs: Temp Pulse Resp BP Pulse Ox 97.7 F 81 11 L 115/44 L 95 01/04/18 14:00 01/04/18 11:35 01/04/18 15:45 01/04/18 15:40 01/04/18 15:45 Pulse Oximeter Continuous Start: 01/03/18 14: 49 Freq: Status: Active Document 01/03/18 16:05 [facility] (Rec: 01/03/18 17:52 [facility] [email or web address]) Pulse Oximetry Assessment Oxygen Saturation (92-100) 94 Fraction of Inspired Oxygen (FIO2) 60 Equipment Usage Equipment in Use Continuous SpO2 Machine # [id number] Intake & Output 01/03/18 01/04/18 01/05/18 06:59 06:59 06:59 Intake Total 1361 1962 Output Total 1100 Balance 1361 862 Weight 84.2 kg 76.2 kg 76.2 kg General appearance: PRESENT: morbidly obese, other - On BiPAP, appears fatigued Eye exam: ABSENT: scleral icterus Ear exam: PRESENT: normal external ear exam Mouth exam: PRESENT: neck supple Neck exam: ABSENT: tracheal deviation Respiratory exam: PRESENT: accessory muscle use, crackles, rhonchi, symmetrical Cardiovascular exam: PRESENT: RRR GI/Abdominal exam: PRESENT: normal bowel sounds, soft. ABSENT: tenderness Rectal exam: PRESENT: deferred Extremities exam: ABSENT: calf tenderness, pedal edema Neurological exam: PRESENT: other - somnolent Results Laboratory Results: 01/03/18 05:12 01/04/18 03:50 01/03/18 01/04/18 01/04/18 18:59 03:50 11:35 Carbonic Acid 2.00 H 2.48 H HCO3/H2CO3 Ratio 23:1 18:1 ABG pH 7.46 H 7.36 ABG pCO2 66.3 H 82.5 H* ABG pO2 121.2 H 98.9 ABG HCO3 46.2 H 45.7 H ABG O2 Saturation 98.4 H 96.9 ABG Base Excess 19.3 16.9 FiO2 60% 40% Sodium 141.0 Potassium 4.1 Chloride 89 L Carbon Dioxide 46 H* Anion Gap 6 BUN 35 H Creatinine 1.04 Est GFR ( Amer) > 60 Est GFR (Non-Af Amer) 50 L Glucose 258 H Calcium 8.8 01/04/18 15:05 Carbonic Acid 2.04 H HCO3/H2CO3 Ratio 22:1 ABG pH 7.45 ABG pCO2 67.7 H ABG pO2 65.5 L ABG HCO3 45.5 H ABG O2 Saturation 92.8 L ABG Base Excess 18.7 FiO2 30% Sodium Potassium Chloride Carbon Dioxide Anion Gap BUN Creatinine Est GFR ( Amer) Est GFR (Non-Af Amer) Glucose Calcium 01/01/18 01/02/18 01/03/18 05:24 04:36 05:12 NT-Pro-B Natriuret Pep 9160 H 99034 H 5270 H Assessment & Plan - Diagnosis (1) Acute on chronic diastolic CHF (congestive heart failure) Is this a current diagnosis for this admission?: Yes Plan: Continue to Monitor intake and output (2) COPD with exacerbation Is this a current diagnosis for this admission?: Yes Plan: IV steroids, supplemental O2, Inhalers, nebs Intubate. (3) Diabetes 1.5, managed as type 2 Is this a current diagnosis for this admission?: Yes Plan: Insulin sliding scale, carbohydrate controlled diet, Glipizide on hold (4) Hypertension Is this a current diagnosis for this admission?: Yes Plan: On Metoprolol (5) Hyperlipidemia Is this a current diagnosis for this admission?: Yes Plan: Continue statin (6) CKD (chronic kidney disease) stage 3, GFR 30-59 ml/min Is this a current diagnosis for this admission?: Yes Plan: Stable, monitor kidney function (7) DVT prophylaxis Is this a current diagnosis for this admission?: Yes Plan: Lovenox s/c (8) Hyperkalemia Is this a current diagnosis for this admission?: Yes Plan: Resolved (9) Left lower lobe pneumonia Is this a current diagnosis for this admission?: Yes Plan: Patient was on Azithromycina and Zosyn. Levaquin will be added and Azithromycin discontinued. - Time Time Spent with patient: 35 or more minutes
--- NOTE | 2018-01-04 17:49 | RADIOLOGY REPORT (SQ) ---
EXAM DESCRIPTION: CHEST SINGLE VIEW COMPLETED DATE/TIME: 01/04/2018 5:13 pm REASON FOR STUDY: intubation COMPARISON: AP chest 01/04/2018, 01/03/2018, 01/01/2018 EXAM PARAMETERS: NUMBER OF VIEWS: One view. TECHNIQUE: Single frontal radiographic view of the chest acquired. RADIATION DOSE: NA LIMITATIONS: None. FINDINGS: An endotracheal tube is present with the tip 6 to 7 cm above the romulo. A nasogastric tube is present with the tip and side port in the stomach. LUNGS AND PLEURA: Right lung well inflated. Minimal right basilar airspace disease, likely atelectas is. Pneumonia could not be excluded. Compared to film 01/04/2018 1337 hours, there is partial collapse of the left lung, with air bronchogr ams throughout the left perihilar lung and lower lobe. Small left pleural effusion could not be excl uded. Hypoinflation of the left upper lobe with diffuse ground-glass opacity. MEDIASTINUM AND HILAR STRUCTURES: Left lung volume loss from collapse. Shift of mediastinal structur es towards the left. HEART AND VASCULAR STRUCTURES: Stable cardiomegaly BONES: No acute findings. HARDWARE: None in the chest. OTHER: No other significant finding. IMPRESSION: Post intubation. Endotracheal tube tip 6 to 7 cm above the romulo. Nasogastric tube ti p and side port in the stomach. There is airspace disease with volume loss and collapse throughout the left lung with relative sparin g at the lung apex. This is new compared to 01/04/2018 at 1337 hours TECHNICAL DOCUMENTATION: JOB ID: [id number] [employer]- All Rights Reserved Reading location - IP/workstation name: [email or web address]
[2018-01-04] MEDS ORDERED: PROPOFOL INJ 200 MG/20 ML VIAL IV ONE (17:50)
[2018-01-04] MEDS ORDERED: LEVOFLOXACIN 750 MG TABLET PO SCH (18:00)
[2018-01-04] MEDS ORDERED: CEFTRIAXONE 1 GM/D5W RTU 1 GM/50 ML RTUPB IV SCH (18:00)
[2018-01-04] MEDS ORDERED: DEXTROSE 5%-WATER 250 ML with PHENYLEPHRINE HCL 40 MG IV PRN ×2 (18:23)
--- NOTE | 2018-01-04 18:31 | Operative Report ---
Bedside Procedure - History of Present Illness History of Present Illness: DANIEL MCFARLAND is a 82 year old female resp failure shock Indication for Procedure: poor maia access Date: 01/04/18 - Central Line Right Internal jugular Time completed: 18:30 Consent obtained: Yes Central line pre-insertion: Sterile PPE donned, Betadine prep applied, Chloraprep applied, Sterile drapes applied Central line lumen type: Triple Anesthetic type: 1% Lidocaine Ultrasound guided: Yes Line secured with sutures: Yes Central line post-insertion: Blood return from lumens, Biopatch applied, Sutured , Sterile dressing applied, Position confirmed w/ CXR Complications: No
--- NOTE | 2018-01-04 18:39 | RADIOLOGY REPORT (SQ) ---
EXAM DESCRIPTION: CHEST SINGLE VIEW COMPLETED DATE/TIME: 01/04/2018 6:25 pm REASON FOR STUDY: CENTRAL LINE PLACEMENT COMPARISON: 01/04/2018 at 1651 hours. EXAM PARAMETERS: NUMBER OF VIEWS: One view. TECHNIQUE: Single frontal radiographic view of the chest acquired. RADIATION DOSE: NA LIMITATIONS: None. FINDINGS: LUNGS AND PLEURA: No pneumothorax. Right lower lobe infiltrate, slightly more prominent. Left basilar density and pleural effusion unchanged. MEDIASTINUM AND HILAR STRUCTURES: No masses. Contour normal. HEART AND VASCULAR STRUCTURES: Heart normal in size. Normal vasculature. BONES: No acute findings. HARDWARE: Central line on the right side with the tip at the cavoatrial junction. Nasogastric tube w ith the tip in the stomach. Endotracheal tube with the tip located 4 cm proximal to the romulo. OTHER: No other significant finding. IMPRESSION: 1. LIFE LINES DESCRIBED IN SATISFACTORY POSITION. NO PNEUMOTHORAX FOLLOWING CENTRAL LINE PLACEMEN T. 2. RIGHT LOWER LOBE INFILTRATE WHICH APPEARS MORE PROMINENT COMPARED TO THE PRIOR STUDY. LEFT BASILA R DENSITY AND PLEURAL EFFUSION UNCHANGED. TECHNICAL DOCUMENTATION: JOB ID: [id number] [employer]- All Rights Reserved Reading location - IP/workstation name: [email or web address]
[2018-01-04] MEDS: PROPOFOL 100 ML IV PRN ×2 (18:56→20:24)
[2018-01-04 18:59] LABS: ARTERIAL BLOOD BASE EXCESS 13.4 mmol/L; ARTERIAL BLOOD H2CO3 1.38 mmol/L (1.05-1.35); ARTERIAL BLOOD HCO3 37.7 mmol/L (20-26); ARTERIAL BLOOD O2 SATURATION 99.2 % (94-98); ARTERIAL BLOOD PCO2 45.8 mmHg (35-45); ARTERIAL BLOOD PH 7.53 (7.35-7.45); ARTERIAL BLOOD PO2 161.1 mmHg (80-100); ARTERIAL BLOOD TOTAL CO2 39.1 mmol/L (21-25)
[2018-01-04] MEDS: MIDAZOLAM HCL 50 MG/100 ML RTUINJ IV PRN (18:59)
[2018-01-04 19:01] LABS: ARTERIAL BLOOD FIO2 100%
[2018-01-04] MEDS: LEVOFLOXACIN 750 MG TABLET NG SCH (19:01)
[2018-01-04] MEDS: LACTOBACILLUS ACIDOPHILUS 250 MG TAB NG SCH (19:02)
[2018-01-04 19:09] LABS: AMORPHOUS SEDIMENT,URINE TRACE /HPF; APPEARANCE,URINE CLOUDY; BILIRUBIN,URINE NEGATIVE (NEGATIVE); COLOR,URINE YELLOW; GLUCOSE, URINE 50 mg/dL (NEGATIVE); KETONES,URINE NEGATIVE (NEGATIVE); LEUKOCYTE ESTERASE,URINE LARGE (NEGATIVE); NITRITE,URINE NEGATIVE (NEGATIVE); PROTEIN,URINE NEGATIVE (NEGATIVE); URINE SPECIFIC GRAVITY 1.016; UROBILINOGEN,URINE NEGATIVE mg/dL (<2.0)
[2018-01-04 19:33] LABS: CREATINE KINASE MB 0.31 ng/mL (<4.55); TROPONIN I 0.032 ng/mL
--- NOTE | 2018-01-04 21:04 | EKG REPORT ---
SEVERITY:- ABNORMAL ECG - SINUS RHYTHM WITH APC NONSPECIFIC IVCD WITH LAD LEFT VENTRICULAR HYPERTROPHY PROBABLE INFERIOR INFARCT, AGE INDETERMINATE : Confirmed by: Asa Dupont 04-Jan-2018 21:03:50
[2018-01-04] MEDS: MONTELUKAST SODIUM 10 MG TABLET NG SCH (21:18)
[2018-01-04] MEDS: ATORVASTATIN CALCIUM 10 MG TABLET NG SCH (21:18)
[2018-01-04] MEDS: CEFTRIAXONE SODIUM 1,000 MG in NORMAL SALINE 100 ML IV SCH (21:22)
[2018-01-04] MEDS: POLYETHYLENE GLYCOL 3350 POWDER 17 GM/1 PACKET NG SCH (21:23)
[2018-01-05 01:35] LABS: CREATINE KINASE MB 0.26 ng/mL (<4.55); TROPONIN I 0.044 ng/mL
[2018-01-05] MEDS: PROPOFOL 100 ML IV PRN ×6 (03:11→23:42)
[2018-01-05 03:40] LABS: ARTERIAL BLOOD BASE EXCESS 9.7 mmol/L; ARTERIAL BLOOD H2CO3 1.16 mmol/L (1.05-1.35); ARTERIAL BLOOD HCO3 32.9 mmol/L (20-26); ARTERIAL BLOOD PCO2 38.6 mmHg (35-45); ARTERIAL BLOOD PH 7.55 (7.35-7.45); ARTERIAL BLOOD PO2 135.1 mmHg (80-100)
[2018-01-05 03:42] LABS: ARTERIAL BLOOD FIO2 60%
[2018-01-05] MEDS: 1/2 NORMAL SALINE 1,000 ML IV PRN ×2 (05:35→15:58)
[2018-01-05] MEDS: METHYLPREDNISOLONE INJ 40 MG/1 ML SDV IV SCH ×3 (06:17→21:21)
[2018-01-05] MEDS: PANTOPRAZOLE SODIUM 40 MG VIAL IV SCH (06:17)
[2018-01-05 06:40] LABS: ARTERIAL BLOOD BASE EXCESS 11.7 mmol/L; ARTERIAL BLOOD HCO3 34.3 mmol/L (20-26); ARTERIAL BLOOD O2 SATURATION 97.7 % (94-98); ARTERIAL BLOOD PCO2 36.7 mmHg (35-45); ARTERIAL BLOOD PH 7.59 (7.35-7.45); ARTERIAL BLOOD PO2 87.1 mmHg (80-100); ARTERIAL BLOOD TOTAL CO2 35.4 mmol/L (21-25)
[2018-01-05 06:41] LABS: ABSOLUTE LYMPHOCYTES (AUTO) 1.7 10^3/uL (0.5-4.7); ABSOLUTE MONOCYTES (AUTO) 0.8 10^3/uL (0.1-1.4); ABSOLUTE NEUT (AUTO) 5.9 10^3/uL (1.7-8.2); BASOPHILS % (AUTO) 0.2 % (0-2); HEMATOCRIT 27.2 % (36.0-47.0); HEMOGLOBIN 8.8 g/dL (12.0-15.5); LYMPHOCYTES % (AUTO) 20.6 % (13-45); MEAN CORPUSCULAR HEMOGLOBIN 26.8 pg (27.0-33.4); MEAN CORPUSCULAR HGB CONC 32.4 g/dL (32.0-36.0); MEAN CORPUSCULAR VOLUME 83 fl (80-97); MONOCYTES % (AUTO) 9.9 % (3-13); PLATELET COUNT 409 10^3/uL (150-450); RED BLOOD COUNT 3.28 10^6/uL (3.72-5.28); RED CELL DISTRIBUTION WIDTH 16.9 % (11.5-14.0); SEGMENTED NEUTROPHILS % (AUTO) 69.3 % (42-78); TOTAL CELLS COUNTED % (AUTO) 100 %; WHITE BLOOD COUNT 8.5 10^3/uL (4.0-10.5)
[2018-01-05 06:45] LABS: ARTERIAL BLOOD FIO2 50%
[2018-01-05 06:57] LABS: ANION GAP 7 (5-19); BLOOD UREA NITROGEN 31 mg/dL (7-20); CALCIUM 9.1 mg/dL (8.4-10.2); CARBON DIOXIDE 39 mmol/L (22-30); CHLORIDE 96 mmol/L (98-107); GLUCOSE 385 mg/dL (75-110); PHOSPHORUS 2.3 mg/dL (2.5-4.5); SODIUM 141.6 mmol/L (137-145)
[2018-01-05 07:00] LABS: CREATINE KINASE < 20 U/L (30-135)
[2018-01-05 07:10] LABS: CREATINE KINASE MB 0.24 ng/mL (<4.55); TROPONIN I 0.048 ng/mL
--- NOTE | 2018-01-05 07:22 | RADIOLOGY REPORT (SQ) ---
EXAM DESCRIPTION: CHEST SINGLE VIEW CLINICAL HISTORY: pna resp failure acute/chronic COMPARISON: 01/04/2018 FINDINGS: Single frontal view of the chest. Endotracheal tube with tip 6 cm above the romulo. NG tube with tip below the diaphragm. Right IJ central venous catheter tip in the high right atrium. Persistent bibasilar airspace opacities and likely small bilateral pleural effusions. Heart is not enlarged. Atherosclerotic calcification and tortuosity of the thoracic aorta. No pneumothorax. No new osseous abnormalities. Upper abdominal soft tissues are unremarkable. IMPRESSION: 1. Stable appearance of the chest.
[2018-01-05] MEDS: IPRATROPIUM/ALBUTEROL 0.5-2.5 MG/3 ML AMPUL NEB SCH ×4 (08:18→20:34)
[2018-01-05] MEDS ORDERED: POTASSIUM CHLORIDE 20 MEQ/15 ML UDCUP NG ONE (09:01)
--- NOTE | 2018-01-05 09:41 | RADIOLOGY REPORT (SQ) ---
EXAM DESCRIPTION: CTA CHEST COMPLETED DATE/TIME: 01/05/2018 9:17 am REASON FOR STUDY: sob COMPARISON: CT chest 11/08/2017, 10/31/2017, 02/18/2017, 11/23/2011 Chest films 01/05/2018, 01/04/2018, 01/03/2018, 01/01/2018, 12/30/2017, 11/04/2017 TECHNIQUE: CT scan of the chest performed using helical scanning technique with dynamic intravenous contrast injection. Images reviewed with lung, soft tissue and bone windows. Reconstructed coronal and sagittal MPR images reviewed. Additional 3 dimensional post-processing performed to develop Maximal Intensity Projection images (ND P). All images stored on PACS. All CT scanners at this facility use dose modulation, iterative reconstruction, and/or weight based d osing when appropriate to reduce radiation dose to as low as reasonably achievable (ALARA). [facility]: Dose Right [facility]: CareDose [facility]: Dose Right [facility]: Teradose 4D [facility]: Paybook CONTRAST TYPE AND DOSE: contrast/concentration: Isovue 370.00 mg/ml; Total Contrast Delivered: 65.0 ml; Total Saline Delivered: 110.0 ml Contrast bolus optimized for the pulmonary arteries. Not diagnostic for the aorta. RENAL FUNCTION: Creatinine 0.85 RADIATION DOSE: CT Rad equipment meets quality standard of care and radiation dose reduction techniq ues were employed. CTDIvol: 9.4 - 12.8 mGy. DLP: 460 mGy-cm. . LIMITATIONS: None. FINDINGS: LUNGS AND PLEURA: There is dense consolidation and volume loss in the left lower lobe, wor risome for pneumonia. This is similar compared to imaging from December 2017 and is increased compared to October 2017. Patchy airspace disease is present in the right lower lobe and lingula, improved compared to CT chest 11/08/2017. Small loculation of fluid in the right minor fissure 1 cm in size axial image 38 and coronal image 6, stable. No significant freely layering pleural effusions. No pneumothorax. AORTA AND GREAT VESSELS: No aneurysm. Contrast bolus not optimized for the aorta. HEART: No pericardial effusion. Moderate coronary artery calcifications. Calcified aortic valve. PULMONARY ARTERIES: No emboli visualized in the main pulmonary arteries or the segmental branches. HILAR AND MEDIASTINAL STRUCTURES: There are multiple enlarged prevascular, pretracheal, precarinal, A P window, subcarinal, and bilateral hilar lymph nodes. These are abnormal but nonspecific, and simil ar compared to 11/08/2017. HARDWARE: Nasogastric tube tip and side port in the stomach. Right jugular central line tip superior vena cava. Endotracheal tube tip midtrachea. UPPER ABDOMEN: No significant findings. Limited exam. THYROID AND OTHER SOFT TISSUES: No thyromegaly. BONES: No acute or significant finding. 3D MIPS: Confirm above findings. OTHER: No other significant finding. IMPRESSION: No CT angio evidence of acute pulmonary emboli. Near complete collapse left lower lobe, progressive compared to the prior studies. Findings worrisom e for pneumonia. COMMENT: Quality ID # [id number]: Final reports with documentation of one or more dose reduction techniques (e.g., Automated exposure control, adjustment of the mA and/or kV according to patient size, use of iterative reconstruction technique) TECHNICAL DOCUMENTATION: JOB ID: [id number] [employer]- All Rights Reserved Reading location - IP/workstation name: [facility]
[2018-01-05] MEDS ORDERED: INSULIN GLARGINE,HUM.REC.ANLOG 1,000 UNIT/10 ML UNIT SUBCUT SCH (10:00)
[2018-01-05] MEDS: ROFLUMILAST 500 MCG TABLET NG SCH (10:52)
[2018-01-05] MEDS: LACTOBACILLUS ACIDOPHILUS 250 MG TAB NG SCH ×2 (10:53→17:35)
[2018-01-05] MEDS: ENOXAPARIN SODIUM INJ 40 MG/0.4 ML DISP.SYRIN SUBCUT SCH (10:58)
[2018-01-05] MEDS: INSULIN GLARGINE,HUM.REC.ANLOG 300 UNIT/3 ML INSULN.PEN SUBCUT SCH (10:59)
[2018-01-05] MEDS: POLYETHYLENE GLYCOL 3350 POWDER 17 GM/1 PACKET NG SCH ×2 (11:04→21:24)
[2018-01-05] MEDS: METOPROLOL SUCCINATE 25 MG TAB.SR.24H PO SCH (11:04)
[2018-01-05] MEDS: DOCUSATE SODIUM 100 MG CAPSULE PO SCH ×2 (11:04→21:22)
[2018-01-05] MEDS: FLUTICASONE NASAL SPRAY 50 MCG/SPRY 120 SPRAY/16 GM NASL SCH ×2 (11:04→21:23)
--- NOTE | 2018-01-05 11:33 | PDOC PROGRESS REPORT ---
Subjective Progress Note for:: 01/05/18 Subjective:: 82-year-old female past medical history of Diastolic heart failure Non-ST elevation myocardial infarction COPD CKD stage III Chronic debility Lower GI bleed Hypertension Hyperlipidemia Diabetes She was recently admitted to this hospital in October with a fall and was found to have diastolic CHF exacerbation and pneumonia was treated with antibiotics and diuretics and discharged. The patient presented back to the hospital on December 30 [facility] for a 4-5 day history of cough congestion shortness of breath and weakness. Was diagnosed with acute on chronic diastolic CHF exacerbation and acute hypercapnic respiratory failure due to COPD exacerbation. Echocardiogram in October 2017 showed mild to moderate concentric left ventricular hypertrophy with grade 2/4 mild to moderate diastolic dysfunction. Normal left ventricular ejection fraction Moderate pulmonary hypertension RVSP elevated 50-60 mmHg. She continued to have episodes of severe hypoxia and persistent hypercapnea despite being on BiPAP and was therefore intubated on January 04. Her healthcare POA is her son Mr. Nima Ledesma, phone number [phone]. CT angiogram of the chest shows no PE but a significant left lower lobe infiltrate suggesting pneumonia. She had borderline hypotension overnight which resolved with gentlr IV fluids- off pressor support now Reason For Visit: COPD EXACERBATION, ACUTE ON CHRONIC RESP FAILURE, Physical Exam Vital Signs: Temp Pulse Resp BP Pulse Ox 97.5 F 75 16 109/60 97 01/05/18 10:00 01/05/18 10:00 01/05/18 10:00 01/05/18 10:00 01/05/18 10:00 Pulse Oximeter Continuous Start: 01/03/18 14: 49 Freq: Status: Complete Document 01/03/18 16:05 [facility] (Rec: 01/03/18 17:52 [facility] [email or web address]) Pulse Oximetry Assessment Oxygen Saturation (92-100) 94 Fraction of Inspired Oxygen (FIO2) 60 Equipment Usage Equipment in Use Continuous SpO2 Machine # N-7 Intake & Output 01/04/18 01/05/18 01/06/18 06:59 06:59 06:59 Intake Total 1962 961 Output Total 1100 1000 260 Balance 862 -39 -260 Weight 76.2 kg 77.9 kg General appearance: PRESENT: obese Head exam: PRESENT: normocephalic Eye exam: ABSENT: scleral icterus Ear exam: PRESENT: normal external ear exam Mouth exam: PRESENT: other - NG tube and ET tube Neck exam: PRESENT: other - R IJ central line Respiratory exam: PRESENT: rhonchi, symmetrical Cardiovascular exam: PRESENT: RRR GI/Abdominal exam: PRESENT: normal bowel sounds, soft. ABSENT: tenderness Rectal exam: PRESENT: deferred Extremities exam: ABSENT: calf tenderness, pedal edema Neurological exam: PRESENT: other - sedated on vent Focused psych exam: PRESENT: other - sedated on vent Results Laboratory Results: 01/05/18 06:30 01/05/18 06:30 01/04/18 01/04/18 01/04/18 11:35 15:05 18:45 WBC RBC Hgb Hct MCV MCH MCHC RDW Plt Count Seg Neutrophils % Lymphocytes % Monocytes % Eosinophils % Basophils % Absolute Neutrophils Absolute Lymphocytes Absolute Monocytes Absolute Eosinophils Absolute Basophils Carbonic Acid 2.48 H 2.04 H 1.38 H HCO3/H2CO3 Ratio 18:1 22:1 27:1 ABG pH 7.36 7.45 7.53 H ABG pCO2 82.5 H* 67.7 H 45.8 H ABG pO2 98.9 65.5 L 161.1 H ABG HCO3 45.7 H 45.5 H 37.7 H ABG O2 Saturation 96.9 92.8 L 99.2 H ABG Base Excess 16.9 18.7 13.4 FiO2 40% 30% 100% Sodium Potassium Chloride Carbon Dioxide Anion Gap BUN Creatinine Est GFR ( Amer) Est GFR (Non-Af Amer) Glucose Calcium Phosphorus Magnesium Urine Color Urine Appearance Urine pH Ur Specific [place] Urine Protein Urine Glucose (UA) Urine Ketones Urine Blood Urine Nitrite Ur Leukocyte Esterase Urine WBC (Auto) Urine RBC (Auto) 01/04/18 01/05/18 01/05/18 18:45 03:15 06:30 WBC RBC Hgb Hct MCV MCH MCHC RDW Plt Count Seg Neutrophils % Lymphocytes % Monocytes % Eosinophils % Basophils % Absolute Neutrophils Absolute Lymphocytes Absolute Monocytes Absolute Eosinophils Absolute Basophils Carbonic Acid 1.16 HCO3/H2CO3 Ratio 28:1 ABG pH 7.55 H ABG pCO2 38.6 ABG pO2 135.1 H ABG HCO3 32.9 H ABG O2 Saturation 99.0 H ABG Base Excess 9.7 FiO2 60% Sodium 141.6 Potassium 3.0 L* Chloride 96 L Carbon Dioxide 39 H Anion Gap 7 BUN 31 H Creatinine 0.85 Est GFR ( Amer) > 60 Est GFR (Non-Af Amer) > 60 Glucose 385 H Calcium 9.1 Phosphorus 2.3 L Magnesium 2.0 Urine Color YELLOW Urine Appearance CLOUDY Urine pH 8.0 Ur Specific [place] 1.016 Urine Protein NEGATIVE Urine Glucose (UA) 50 H Urine Ketones NEGATIVE Urine Blood NEGATIVE Urine Nitrite NEGATIVE Ur Leukocyte Esterase LARGE H Urine WBC (Auto) >182 Urine RBC (Auto) 28 01/05/18 01/05/18 06:30 06:30 WBC 8.5 RBC 3.28 L Hgb 8.8 L Hct 27.2 L MCV 83 MCH 26.8 L MCHC 32.4 RDW 16.9 H Plt Count 409 Seg Neutrophils % 69.3 Lymphocytes % 20.6 Monocytes % 9.9 Eosinophils % 0.0 Basophils % 0.2 Absolute Neutrophils 5.9 Absolute Lymphocytes 1.7 Absolute Monocytes 0.8 Absolute Eosinophils 0.0 Absolute Basophils 0.0 Carbonic Acid 1.10 HCO3/H2CO3 Ratio 31:1 ABG pH 7.59 H ABG pCO2 36.7 ABG pO2 87.1 ABG HCO3 34.3 H ABG O2 Saturation 97.7 ABG Base Excess 11.7 FiO2 50% Sodium Potassium Chloride Carbon Dioxide Anion Gap BUN Creatinine Est GFR ( Amer) Est GFR (Non-Af Amer) Glucose Calcium Phosphorus Magnesium Urine Color Urine Appearance Urine pH Ur Specific [place] Urine Protein Urine Glucose (UA) Urine Ketones Urine Blood Urine Nitrite Ur Leukocyte Esterase Urine WBC (Auto) Urine RBC (Auto) 01/01/18 01/02/18 01/03/18 05:24 04:36 05:12 Creatine Kinase CK-MB (CK-2) Troponin I NT-Pro-B Natriuret Pep 9160 H 95832 H 5270 H 01/04/18 01/04/18 01/05/18 18:38 18:38 00:40 Creatine Kinase < 20 L < 20 L CK-MB (CK-2) 0.31 Troponin I 0.032 NT-Pro-B Natriuret Pep 01/05/18 01/05/18 01/05/18 00:40 06:30 06:30 Creatine Kinase < 20 L CK-MB (CK-2) 0.26 0.24 Troponin I 0.044 0.048 NT-Pro-B Natriuret Pep 2590 H Impressions: Chest X-Ray 01/05/18 06:00 IMPRESSION: 1. Stable appearance of the chest. Chest/Abdomen CTA 01/05/18 08:00 IMPRESSION: No CT angio evidence of acute pulmonary emboli. Near complete collapse left lower lobe, progressive compared to the prior studies. Findings worrisome for pneumonia. Assessment & Plan - Diagnosis (1) Acute on chronic diastolic CHF (congestive heart failure) Is this a current diagnosis for this admission?: Yes Plan: Improved, lasix stopped, continue to monitor intake and output (2) COPD with exacerbation Is this a current diagnosis for this admission?: Yes Plan: taper IV steroids- minimal wheezing, continue nebs and vent support (3) Diabetes 1.5, managed as type 2 Is this a current diagnosis for this admission?: Yes Plan: Insulin sliding scale, Start Glucerna, lantus added, Glipizide on hold (4) Hypertension Is this a current diagnosis for this admission?: Yes Plan: On Metoprolol- hold parameters added for hypotension/bradycardia (5) Hyperlipidemia Is this a current diagnosis for this admission?: Yes Plan: Continue statin (6) CKD (chronic kidney disease) stage 3, GFR 30-59 ml/min Is this a current diagnosis for this admission?: Yes Plan: Stable, monitor kidney function (7) DVT prophylaxis Is this a current diagnosis for this admission?: Yes Plan: Lovenox s/c (8) Hyperkalemia Is this a current diagnosis for this admission?: Yes Plan: Resolved (9) Left lower lobe pneumonia Is this a current diagnosis for this admission?: Yes Plan: Continue Rocephin and Levaquin. Follow up on cultures - Time Time Spent with patient: 35 or more minutes
[2018-01-05] MEDS: ASPIRIN 81 MG TABLET, CHEWABLE NG SCH (11:57)
[2018-01-05] MEDS: INSULIN LISPRO 100 UNIT/ML 3 ML VIAL SUBCUT PRN ×3 (12:32→21:43)
[2018-01-05] MEDS ORDERED: ROCURONIUM BROMIDE INJ 50 MG/5 ML VIAL IV ONE (12:46)
--- NOTE | 2018-01-05 13:21 | PDOC CONSULTATION ---
Consultation Consult Date: 01/04/18 Attending physician:: AMNA MARTINEZ Consult reason:: chronic resp failure History of Present Illness Admission Date/PCP: 12/30/17 17:06 HANNAH MARX DO History of Present Illness: DANIELWALT MCFARLAND is a 82 year [facility]-5 days of increasing shortness of breath she was subsequently admitted to the floor however she progressive decline is currently intubated and sedated in the ICU she has had a history of COPD in the past a cough apparently was productive of yellow phlegm she was somewhat ambulatory prior to these events but by the time she reached the emergency room she was not ambulatory at all Past Medical History Cardiac Medical History: Reports: Congestive Heart Failure, Myocardial Infarction - X2, Hyperlipidema, Hypertension Pulmonary Medical History: Reports: Chronic Obstructive Pulmonary Disease (COPD) Denies: Tuberculosis Neurological Medical History: Denies: Seizures Endocrine Medical History: Reports: Diabetes Mellitus Type 1, Diabetes Mellitus Type 2 Psychiatric Medical History: Denies: Depression Past Surgical History Past Surgical History: Reports: Cardiac Catheterization, Section, Cholecystectomy, Hysterectomy Denies: Pacemaker Social History Information Source: [facility] Records Smoking Status: Former Smoker Frequency of Alcohol Use: None Hx Recreational Drug Use: No Drugs: None Hx Prescription Drug Abuse: No Family History Family History: Other - Patient unable to provide family history Parental Family History Reviewed: No Children Family History Reviewed: No Sibling(s) Family History Reviewed.: No Medication/Allergy Home Medications: Acetaminophen [Tylenol 325 mg Tablet] 650 mg PO Q4HP PRN 12/30/17 Aspirin [Aspirin EC] 81 mg PO DAILY 12/30/17 Atorvastatin Calcium [Lipitor 10 mg Tablet] 10 mg PO QHS 12/30/17 Docusate Sodium [Colace 100 mg Capsule] 100 mg PO Q12 12/30/17 Glipizide [Glucotrol 5 mg Tablet] 5 mg PO Q12 12/30/17 Metoprolol Succinate [Toprol Xl 25 mg Tab.sr] 25 mg PO DAILY 12/30/17 Polyethylene Glycol 3350 [Miralax Powder 17 gm/Packet] 1 packet PO Q12 12/30/17 Allergies/Adverse Reactions: Sulfa (Sulfonamide Antibiotics) Allergy (Verified 10/29/17 03:44) Review of Systems ROS unobtainable: Due to endotracheal tube, Due to mental status Physical Exam Vital Signs: Temp Pulse Resp BP Pulse Ox 98.4 F 81 8 L 133/67 H 100 01/04/18 06:00 01/04/18 11:35 01/04/18 11:35 01/04/18 06:00 01/04/18 11:35 Pulse Oximeter Continuous Start: 01/03/18 14: 49 Freq: Status: Active Document 01/03/18 16:05 [facility] (Rec: 01/03/18 17:52 [facility] [email or web address]) Pulse Oximetry Assessment Oxygen Saturation (92-100) 94 Fraction of Inspired Oxygen (FIO2) 60 Equipment Usage Equipment in Use Continuous SpO2 Machine # N-7 Intake & Output 01/03/18 01/04/18 01/05/18 06:59 06:59 06:59 Intake Total 1361 1962 Output Total 1100 1 Balance 1361 862 -1 Weight 84.2 kg 76.2 kg General appearance: PRESENT: no acute distress, disheveled. ABSENT: cooperative Eye exam: PRESENT: conjunctiva pale. ABSENT: EOMI, nystagmus, periorbital swelling, scleral icterus Mouth exam: PRESENT: dry mucosa, neck supple, tongue midline, other - ET tube in place Neck exam: ABSENT: carotid bruit, JVD, lymphadenopathy, thyromegaly, tracheal deviation, tracheostomy Respiratory exam: PRESENT: decreased breath sounds, prolonged expiratory phas, rales, rhonchi, symmetrical, unlabored, wheezes. ABSENT: retraction, stridor, tachypnea Cardiovascular exam: PRESENT: RRR, +S1, +S2, tachycardia Pulses: PRESENT: normal radial pulses GI/Abdominal exam: PRESENT: diminished bowel sounds, soft Extremities exam: ABSENT: clubbing, joint swelling Musculoskeletal exam: ABSENT: deformity, dislocation Neurological exam: ABSENT: awake, oriented to person Skin exam: PRESENT: dry, warm Results Laboratory Results: 01/03/18 05:12 01/04/18 03:50 01/03/18 01/03/18 01/04/18 15:57 18:59 03:50 Carbonic Acid 2.32 H 2.00 H HCO3/H2CO3 Ratio 20:1 23:1 ABG pH 7.41 7.46 H ABG pCO2 77.2 H* 66.3 H ABG pO2 63.8 L 121.2 H ABG HCO3 47.5 H 46.2 H ABG O2 Saturation 91.3 L 98.4 H ABG Base Excess 19.1 19.3 FiO2 60% 60% Sodium 141.0 Potassium 4.1 Chloride 89 L Carbon Dioxide 46 H* Anion Gap 6 BUN 35 H Creatinine 1.04 Est GFR ( Amer) > 60 Est GFR (Non-Af Amer) 50 L Glucose 258 H Calcium 8.8 01/04/18 11:35 Carbonic Acid 2.48 H HCO3/H2CO3 Ratio 18:1 ABG pH 7.36 ABG pCO2 82.5 H* ABG pO2 98.9 ABG HCO3 45.7 H ABG O2 Saturation 96.9 ABG Base Excess 16.9 FiO2 40% Sodium Potassium Chloride Carbon Dioxide Anion Gap BUN Creatinine Est GFR ( Amer) Est GFR (Non-Af Amer) Glucose Calcium 01/01/18 01/02/18 01/03/18 05:24 04:36 05:12 NT-Pro-B Natriuret Pep 9160 H 63074 H 5270 H Impressions: Chest X-Ray 01/03/18 00:00 IMPRESSION: Persistent bibasilar consolidation worrisome for pneumonia. Assessment & Plan - Diagnosis (1) Acute and chronic respiratory failure Qualifiers: Respiratory failure complication: hypoxia and hypercapnia Qualified Code(s) : J96.21 - Acute and chronic respiratory failure with hypoxia; J96.22 - Acute and chronic respiratory failure with hypercapnia; J96.22 - Acute and chronic respiratory failure with hypercapnia; J96.22 - Acute and chronic respiratory failure with hypercapnia Is this a current diagnosis for this admission?: Yes Plan: Stable persistent metabolic alkalosis (2) Acute on chronic diastolic CHF (congestive heart failure) Is this a current diagnosis for this admission?: Yes Plan: Stable (3) COPD (chronic obstructive pulmonary disease) Qualifiers: Emphysema type: unspecified Is this a current diagnosis for this admission?: Yes Plan: Generic Name Dose Route Start Last Admin Trade Name Freq PRN Reason Stop Dose Admin Levalbuterol HCl 0.63 mg 01/01/18 10:45 Xopenex Neb 0.63 Mg/3 Ml Ampul NEB 01/31/18 10:44 [id number] PRN SHORTNESS OF BREATH Albuterol/Ipratropium 3 ml 01/01/18 16:00 01/05/18 12:27 Duoneb 3 Ml Ampul NEB 01/31/18 15:59 3 ml [id number] ABDIEL (4) Hypertension Is this a current diagnosis for this admission?: Yes - Time Total Critical Time (Minutes): 55
[2018-01-05] MEDS: LEVOFLOXACIN 750 MG TABLET NG SCH (17:35)
[2018-01-05] MEDS: CEFTRIAXONE SODIUM 1,000 MG in NORMAL SALINE 100 ML IV SCH (21:20)
[2018-01-05] MEDS: MONTELUKAST SODIUM 10 MG TABLET NG SCH (21:22)
[2018-01-05] MEDS: ATORVASTATIN CALCIUM 10 MG TABLET NG SCH (21:22)
[2018-01-06] MEDS: PROPOFOL 100 ML IV PRN ×5 (02:48→23:45)
[2018-01-06] MEDS: MIDAZOLAM HCL 50 MG/100 ML RTUINJ IV PRN ×2 (04:12→17:26)
[2018-01-06 05:04] LABS: ARTERIAL BLOOD BASE EXCESS 8.5 mmol/L; ARTERIAL BLOOD H2CO3 1.28 mmol/L (1.05-1.35); ARTERIAL BLOOD HCO3 32.4 mmol/L (20-26); ARTERIAL BLOOD O2 SATURATION 97.6 % (94-98); ARTERIAL BLOOD PCO2 42.4 mmHg (35-45); ARTERIAL BLOOD PO2 92.4 mmHg (80-100); ARTERIAL BLOOD TOTAL CO2 33.7 mmol/L (21-25)
[2018-01-06 05:05] LABS: ARTERIAL BLOOD FIO2 40%
[2018-01-06] MEDS: PANTOPRAZOLE SODIUM 40 MG VIAL IV SCH (05:06)
[2018-01-06] MEDS: METHYLPREDNISOLONE INJ 40 MG/1 ML SDV IV SCH ×3 (05:06→21:30)
[2018-01-06 05:07] LABS: ABSOLUTE LYMPHOCYTES (AUTO) 1.7 10^3/uL (0.5-4.7); ABSOLUTE MONOCYTES (AUTO) 0.6 10^3/uL (0.1-1.4); ABSOLUTE NEUT (AUTO) 8.5 10^3/uL (1.7-8.2); BASOPHILS % (AUTO) 0.2 % (0-2); HEMOGLOBIN 8.6 g/dL (12.0-15.5); LYMPHOCYTES % (AUTO) 15.2 % (13-45); MEAN CORPUSCULAR HEMOGLOBIN 26.4 pg (27.0-33.4); MEAN CORPUSCULAR VOLUME 83 fl (80-97); PLATELET COUNT 362 10^3/uL (150-450); RED BLOOD COUNT 3.27 10^6/uL (3.72-5.28); RED CELL DISTRIBUTION WIDTH 17.1 % (11.5-14.0); SEGMENTED NEUTROPHILS % (AUTO) 78.6 % (42-78); TOTAL CELLS COUNTED % (AUTO) 100 %; WHITE BLOOD COUNT 10.8 10^3/uL (4.0-10.5)
[2018-01-06 05:27] LABS: ANION GAP 5 (5-19); BLOOD UREA NITROGEN 31 mg/dL (7-20); CALCIUM 9.5 mg/dL (8.4-10.2); CARBON DIOXIDE 37 mmol/L (22-30); CHLORIDE 99 mmol/L (98-107); GLUCOSE 248 mg/dL (75-110); SODIUM 140.9 mmol/L (137-145)
[2018-01-06 05:35] LABS: POTASSIUM 4.2 mmol/L (3.6-5.0)
[2018-01-06] MEDS: 1/2 NORMAL SALINE 1,000 ML IV PRN ×3 (05:48→23:46)
--- NOTE | 2018-01-06 06:33 | RADIOLOGY REPORT (SQ) ---
EXAM DESCRIPTION: CHEST SINGLE VIEW CLINICAL HISTORY: Respiratory failure. Intubated patient. COMPARISON: 01/05/2018 FINDINGS: Single frontal view of the chest. Endotracheal tube with tip 4.5 cm above the romulo. NG tube with tip below the diaphragm. Right IJ central venous catheter tip in the high right atrium. Persistent bibasilar airspace opacities and likely small bilateral pleural effusions. Heart is not enlarged. Atherosclerotic calcification and tortuosity of the thoracic aorta. No pneumothorax. No new osseous abnormalities. Upper abdominal soft tissues are unremarkable. IMPRESSION: 1. Stable appearance of the chest. Electronically signed by: Kwabena Wren 01/06/2018 5:32 AM
[2018-01-06] MEDS: IPRATROPIUM/ALBUTEROL 0.5-2.5 MG/3 ML AMPUL NEB SCH ×4 (07:49→20:10)
[2018-01-06] MEDS: INSULIN LISPRO 100 UNIT/ML 3 ML VIAL SUBCUT PRN ×3 (07:55→23:46)
[2018-01-06] MEDS: LACTOBACILLUS ACIDOPHILUS 250 MG TAB NG SCH ×2 (09:18→17:22)
[2018-01-06] MEDS: METOPROLOL SUCCINATE 25 MG TAB.SR.24H PO SCH (09:19)
[2018-01-06] MEDS: ROFLUMILAST 500 MCG TABLET NG SCH (09:20)
[2018-01-06] MEDS: FLUTICASONE NASAL SPRAY 50 MCG/SPRY 120 SPRAY/16 GM NASL SCH ×2 (09:21→21:31)
[2018-01-06] MEDS: INSULIN GLARGINE,HUM.REC.ANLOG 300 UNIT/3 ML INSULN.PEN SUBCUT SCH (09:22)
[2018-01-06] MEDS: ENOXAPARIN SODIUM INJ 40 MG/0.4 ML DISP.SYRIN SUBCUT SCH (09:24)
[2018-01-06] MEDS: POLYETHYLENE GLYCOL 3350 POWDER 17 GM/1 PACKET NG SCH ×2 (09:42→21:31)
[2018-01-06] MEDS: DOCUSATE SODIUM 100 MG CAPSULE PO SCH ×2 (09:42→21:31)
[2018-01-06 11:27] LABS: FLUID APPEARANCE TURBID; FLUID TYPE BRONCHIAL WASH; FLUID VISCOSITY HIGHLY VISCOUS
[2018-01-06] MEDS: ASPIRIN 81 MG TABLET, CHEWABLE NG SCH (11:47)
--- NOTE | 2018-01-06 11:48 | PDOC PROGRESS REPORT ---
Subjective Progress Note for:: 01/06/18 Subjective:: 82-year-old female past medical history of Diastolic heart failure Non-ST elevation myocardial infarction COPD CKD stage III Chronic debility Lower GI bleed Hypertension Hyperlipidemia Diabetes She was recently admitted to this hospital in October with a fall and was found to have diastolic CHF exacerbation and pneumonia was treated with antibiotics and diuretics and discharged. The patient presented back to the hospital on December 30 [facility] for a 4-5 day history of cough congestion shortness of breath and weakness. Was diagnosed with acute on chronic diastolic CHF exacerbation and acute hypercapnic respiratory failure due to COPD exacerbation. Echocardiogram in October 2017 showed mild to moderate concentric left ventricular hypertrophy with grade 2/4 mild to moderate diastolic dysfunction. Normal left ventricular ejection fraction Moderate pulmonary hypertension RVSP elevated 50-60 mmHg. She continued to have episodes of severe hypoxia and persistent hypercapnea despite being on BiPAP and was therefore intubated on January 04. Her healthcare POA is her son Mr. Nima Ledesma, phone number [phone]. I spoke to him this morning and gave an update and plan of care. CT angiogram of the chest showed no PE but a significant left lower lobe infiltrate suggesting pneumonia. Plan for bronchoscopy today. Reason For Visit: COPD EXACERBATION, ACUTE ON CHRONIC RESP FAILURE, Physical Exam Vital Signs: Temp Pulse Resp BP Pulse Ox 98.2 F 80 16 100/48 L 98 01/06/18 04:00 01/06/18 11:34 01/06/18 11:34 01/06/18 10:50 01/06/18 11:34 Pulse Oximeter Continuous Start: 01/03/18 14: 49 Freq: Status: Complete Document 01/03/18 16:05 [facility] (Rec: 01/03/18 17:52 [facility] [email or web address]) Pulse Oximetry Assessment Oxygen Saturation (92-100) 94 Fraction of Inspired Oxygen (FIO2) 60 Equipment Usage Equipment in Use Continuous SpO2 Machine # [id number] Intake & Output 01/05/18 01/06/18 01/07/18 06:59 06:59 06:59 Intake Total 961 2676 Output Total 1000 1050 225 Balance -39 1626 -225 Weight 77.9 kg 81.1 kg General appearance: PRESENT: no acute distress, well-developed, well-nourished Head exam: PRESENT: normocephalic Eye exam: ABSENT: scleral icterus Ear exam: PRESENT: normal external ear exam Throat exam: PRESENT: other - sedated on vent Respiratory exam: PRESENT: rhonchi, symmetrical Cardiovascular exam: PRESENT: RRR GI/Abdominal exam: PRESENT: normal bowel sounds, soft. ABSENT: tenderness Rectal exam: PRESENT: deferred Gentrourinary exam: PRESENT: indwelling catheter Extremities exam: ABSENT: pedal edema Neurological exam: PRESENT: other - sedated on vent Psychiatric exam: PRESENT: other - sedated on vent Results Laboratory Results: 01/06/18 04:45 01/06/18 04:45 01/06/18 01/06/18 01/06/18 04:45 04:45 04:45 WBC 10.8 H RBC 3.27 L Hgb 8.6 L Hct 27.0 L MCV 83 MCH 26.4 L MCHC 32.0 RDW 17.1 H Plt Count 362 Seg Neutrophils % 78.6 H Lymphocytes % 15.2 Monocytes % 6.0 Eosinophils % 0.0 Basophils % 0.2 Absolute Neutrophils 8.5 H Absolute Lymphocytes 1.7 Absolute Monocytes 0.6 Absolute Eosinophils 0.0 Absolute Basophils 0.0 Carbonic Acid 1.28 HCO3/H2CO3 Ratio 25:1 ABG pH 7.50 H ABG pCO2 42.4 ABG pO2 92.4 ABG HCO3 32.4 H ABG O2 Saturation 97.6 ABG Base Excess 8.5 FiO2 40% Sodium 140.9 Potassium 4.2 D Chloride 99 Carbon Dioxide 37 H Anion Gap 5 BUN 31 H Creatinine 0.91 Est GFR ( Amer) > 60 Est GFR (Non-Af Amer) 59 L Glucose 248 H Calcium 9.5 01/04/18 18:45 Sputum Gram Stain - Final 01/01/18 01/02/18 01/03/18 05:24 04:36 05:12 Creatine Kinase CK-MB (CK-2) Troponin I NT-Pro-B Natriuret Pep 9160 H 03210 H 5270 H 01/04/18 01/04/18 01/05/18 18:38 18:38 00:40 Creatine Kinase < 20 L < 20 L CK-MB (CK-2) 0.31 Troponin I 0.032 NT-Pro-B Natriuret Pep 01/05/18 01/05/18 01/05/18 00:40 06:30 06:30 Creatine Kinase < 20 L CK-MB (CK-2) 0.26 0.24 Troponin I 0.044 0.048 NT-Pro-B Natriuret Pep 2590 H Impressions: Chest/Abdomen CTA 01/05/18 08:00 IMPRESSION: No CT angio evidence of acute pulmonary emboli. Near complete collapse left lower lobe, progressive compared to the prior studies. Findings worrisome for pneumonia. Chest X-Ray 01/06/18 06:00 IMPRESSION: 1. Stable appearance of the chest. Assessment & Plan - Diagnosis (1) Acute on chronic diastolic CHF (congestive heart failure) Is this a current diagnosis for this admission?: Yes Plan: Improved, continue to monitor intake and output. lasix 20mg IV Q12hrs (2) COPD with exacerbation Is this a current diagnosis for this admission?: Yes Plan: taper IV steroids- minimal wheezing, continue nebs and vent support (3) Diabetes 1.5, managed as type 2 Is this a current diagnosis for this admission?: Yes Plan: Insulin sliding scale, continue Glucerna, adjust lantus, Glipizide on hold (4) Hypertension Is this a current diagnosis for this admission?: Yes Plan: On Metoprolol- hold parameters added for hypotension/bradycardia (5) Hyperlipidemia Is this a current diagnosis for this admission?: Yes Plan: Continue statin (6) CKD (chronic kidney disease) stage 3, GFR 30-59 ml/min Is this a current diagnosis for this admission?: Yes Plan: Stable, monitor kidney function (7) DVT prophylaxis Is this a current diagnosis for this admission?: Yes Plan: Lovenox s/c (8) Hyperkalemia Is this a current diagnosis for this admission?: Yes Plan: Resolved (9) Left lower lobe pneumonia Is this a current diagnosis for this admission?: Yes Plan: Continue Rocephin and Levaquin. Follow up on cultures - Time Time Spent with patient: 35 or more minutes
[2018-01-06] MEDS ORDERED: FUROSEMIDE INJ/PF 20 MG/2 ML SDV IV ONE (13:00)
[2018-01-06 15:15] LABS: APPEARANCE,URINE CLEAR; BILIRUBIN,URINE NEGATIVE (NEGATIVE); COLOR,URINE YELLOW; GLUCOSE, URINE 50 mg/dL (NEGATIVE); KETONES,URINE NEGATIVE (NEGATIVE); LEUKOCYTE ESTERASE,URINE NEGATIVE (NEGATIVE); NITRITE,URINE NEGATIVE (NEGATIVE); PROTEIN,URINE NEGATIVE (NEGATIVE); UROBILINOGEN,URINE NEGATIVE mg/dL (<2.0)
[2018-01-06] MEDS: LEVOFLOXACIN 750 MG TABLET NG SCH (17:22)
[2018-01-06] MEDS: FUROSEMIDE INJ/PF 20 MG/2 ML SDV IV SCH (21:28)
[2018-01-06] MEDS: ATORVASTATIN CALCIUM 10 MG TABLET NG SCH (21:29)
[2018-01-06] MEDS: MONTELUKAST SODIUM 10 MG TABLET NG SCH (21:29)
[2018-01-06] MEDS ORDERED: CEFTRIAXONE SODIUM 1,000 MG in DEXTROSE 5%-WATER 50 ML IV SCH (22:00)
--- NOTE | 2018-01-06 22:08 | PDOC PROGRESS REPORT ---
Subjective Progress Note for:: 01/05/18 Subjective:: intubated and sedated Reason For Visit: COPD EXACERBATION, ACUTE ON CHRONIC RESP FAILURE, Physical Exam Vital Signs: Temp Pulse Resp BP Pulse Ox 97.7 F 69 20 138/65 H 99 01/05/18 07:50 01/05/18 07:50 01/05/18 07:50 01/05/18 07:50 01/05/18 07:50 Pulse Oximeter Continuous Start: 01/03/18 14: 49 Freq: Status: Complete Document 01/03/18 16:05 [facility] (Rec: 01/03/18 17:52 [facility] [email or web address]) Pulse Oximetry Assessment Oxygen Saturation (92-100) 94 Fraction of Inspired Oxygen (FIO2) 60 Equipment Usage Equipment in Use Continuous SpO2 Machine # N-[id number] Intake & Output 01/04/18 01/05/18 01/06/18 06:59 06:59 06:59 Intake Total 1962 961 Output Total 1100 1000 60 Balance 862 -39 -60 Weight 76.2 kg 77.9 kg General appearance: PRESENT: no acute distress, disheveled, obese, well- developed, well-nourished. ABSENT: cooperative Head exam: PRESENT: atraumatic, normocephalic Eye exam: PRESENT: conjunctiva pale. ABSENT: EOMI, nystagmus, periorbital swelling, scleral icterus Mouth exam: PRESENT: dry mucosa, neck supple, tongue midline, other - ET tube Neck exam: ABSENT: carotid bruit, JVD, lymphadenopathy, thyromegaly, tracheal deviation, tracheostomy Respiratory exam: PRESENT: decreased breath sounds, prolonged expiratory phas, rales, rhonchi, symmetrical, unlabored. ABSENT: retraction, stridor, tachypnea Cardiovascular exam: PRESENT: RRR, +S1, +S2, systolic murmur, tachycardia Pulses: PRESENT: normal radial pulses GI/Abdominal exam: PRESENT: diminished bowel sounds, soft Extremities exam: ABSENT: clubbing, joint swelling Musculoskeletal exam: ABSENT: deformity, dislocation Neurological exam: ABSENT: awake, oriented to person Skin exam: PRESENT: dry, warm Results Laboratory Results: 01/05/18 06:30 01/05/18 06:30 01/04/18 01/04/18 01/04/18 11:35 15:05 18:45 WBC RBC Hgb Hct MCV MCH MCHC RDW Plt Count Seg Neutrophils % Lymphocytes % Monocytes % Eosinophils % Basophils % Absolute Neutrophils Absolute Lymphocytes Absolute Monocytes Absolute Eosinophils Absolute Basophils Carbonic Acid 2.48 H 2.04 H 1.38 H HCO3/H2CO3 Ratio 18:1 22:1 27:1 ABG pH 7.36 7.45 7.53 H ABG pCO2 82.5 H* 67.7 H 45.8 H ABG pO2 98.9 65.5 L 161.1 H ABG HCO3 45.7 H 45.5 H 37.7 H ABG O2 Saturation 96.9 92.8 L 99.2 H ABG Base Excess 16.9 18.7 13.4 FiO2 40% 30% 100% Sodium Potassium Chloride Carbon Dioxide Anion Gap BUN Creatinine Est GFR ( Amer) Est GFR (Non-Af Amer) Glucose Calcium Phosphorus Magnesium Urine Color Urine Appearance Urine pH Ur Specific [place] Urine Protein Urine Glucose (UA) Urine Ketones Urine Blood Urine Nitrite Ur Leukocyte Esterase Urine WBC (Auto) Urine RBC (Auto) 01/04/18 01/05/18 01/05/18 18:45 03:15 06:30 WBC RBC Hgb Hct MCV MCH MCHC RDW Plt Count Seg Neutrophils % Lymphocytes % Monocytes % Eosinophils % Basophils % Absolute Neutrophils Absolute Lymphocytes Absolute Monocytes Absolute Eosinophils Absolute Basophils Carbonic Acid 1.16 HCO3/H2CO3 Ratio 28:1 ABG pH 7.55 H ABG pCO2 38.6 ABG pO2 135.1 H ABG HCO3 32.9 H ABG O2 Saturation 99.0 H ABG Base Excess 9.7 FiO2 60% Sodium 141.6 Potassium 3.0 L* Chloride 96 L Carbon Dioxide 39 H Anion Gap 7 BUN 31 H Creatinine 0.85 Est GFR ( Amer) > 60 Est GFR (Non-Af Amer) > 60 Glucose 385 H Calcium 9.1 Phosphorus 2.3 L Magnesium 2.0 Urine Color YELLOW Urine Appearance CLOUDY Urine pH 8.0 Ur Specific [place] 1.016 Urine Protein NEGATIVE Urine Glucose (UA) 50 H Urine Ketones NEGATIVE Urine Blood NEGATIVE Urine Nitrite NEGATIVE Ur Leukocyte Esterase LARGE H Urine WBC (Auto) >182 Urine RBC (Auto) 28 01/05/18 01/05/18 06:30 06:30 WBC 8.5 RBC 3.28 L Hgb 8.8 L Hct 27.2 L MCV 83 MCH 26.8 L MCHC 32.4 RDW 16.9 H Plt Count 409 Seg Neutrophils % 69.3 Lymphocytes % 20.6 Monocytes % 9.9 Eosinophils % 0.0 Basophils % 0.2 Absolute Neutrophils 5.9 Absolute Lymphocytes 1.7 Absolute Monocytes 0.8 Absolute Eosinophils 0.0 Absolute Basophils 0.0 Carbonic Acid 1.10 HCO3/H2CO3 Ratio 31:1 ABG pH 7.59 H ABG pCO2 36.7 ABG pO2 87.1 ABG HCO3 34.3 H ABG O2 Saturation 97.7 ABG Base Excess 11.7 FiO2 50% Sodium Potassium Chloride Carbon Dioxide Anion Gap BUN Creatinine Est GFR ( Amer) Est GFR (Non-Af Amer) Glucose Calcium Phosphorus Magnesium Urine Color Urine Appearance Urine pH Ur Specific [place] Urine Protein Urine Glucose (UA) Urine Ketones Urine Blood Urine Nitrite Ur Leukocyte Esterase Urine WBC (Auto) Urine RBC (Auto) 01/01/18 01/02/18 01/03/18 05:24 04:36 05:12 Creatine Kinase CK-MB (CK-2) Troponin I NT-Pro-B Natriuret Pep 9160 H 45523 H 5270 H 01/04/18 01/04/18 01/05/18 18:38 18:38 00:40 Creatine Kinase < 20 L < 20 L CK-MB (CK-2) 0.31 Troponin I 0.032 NT-Pro-B Natriuret Pep 01/05/18 01/05/18 01/05/18 00:40 06:30 06:30 Creatine Kinase < 20 L CK-MB (CK-2) 0.26 0.24 Troponin I 0.044 0.048 NT-Pro-B Natriuret Pep 2590 H Impressions: Chest X-Ray 01/05/18 06:00 IMPRESSION: 1. Stable appearance of the chest. Chest/Abdomen CTA 01/05/18 08:00 IMPRESSION: No CT angio evidence of acute pulmonary emboli. Near complete collapse left lower lobe, progressive compared to the prior studies. Findings worrisome for pneumonia. Assessment & Plan - Diagnosis (1) Acute and chronic respiratory failure Qualifiers: Respiratory failure complication: hypoxia and hypercapnia Qualified Code(s) : J96.21 - Acute and chronic respiratory failure with hypoxia; J96.22 - Acute and chronic respiratory failure with hypercapnia; J96.22 - Acute and chronic respiratory failure with hypercapnia; J96.22 - Acute and chronic respiratory failure with hypercapnia Is this a current diagnosis for this admission?: Yes Plan: Stable persistent metabolic alkalosis (2) COPD (chronic obstructive pulmonary disease) Qualifiers: Emphysema type: unspecified Is this a current diagnosis for this admission?: Yes Plan: Generic Name Dose Route Start Last Admin Trade Name Freq PRN Reason Stop Dose Admin Levalbuterol HCl 0.63 mg 01/01/18 10:45 Xopenex Neb 0.63 Mg/3 Ml Ampul NEB 01/31/18 10:44 [id number] PRN SHORTNESS OF BREATH Albuterol/Ipratropium 3 ml 01/01/18 16:00 01/05/18 12:27 Duoneb 3 Ml Ampul NEB 01/31/18 15:59 3 ml [id number] ABDIEL (3) Hypertension Is this a current diagnosis for this admission?: Yes (4) Left lower lobe pneumonia Is this a current diagnosis for this admission?: Yes - Time Total Critical Time (Minutes): 45
--- NOTE | 2018-01-06 22:10 | PDOC PROGRESS REPORT ---
Subjective Progress Note for:: 01/06/18 Subjective:: intubated and sedated Reason For Visit: COPD EXACERBATION, ACUTE ON CHRONIC RESP FAILURE, Physical Exam Vital Signs: Temp Pulse Resp BP Pulse Ox 98.2 F 93 16 109/51 L 98 01/06/18 04:00 01/06/18 09:53 01/06/18 09:53 01/06/18 09:53 01/06/18 09:53 Pulse Oximeter Continuous Start: 01/03/18 14: 49 Freq: Status: Complete Document 01/03/18 16:05 [facility] (Rec: 01/03/18 17:52 [facility] [email or web address]) Pulse Oximetry Assessment Oxygen Saturation (92-100) 94 Fraction of Inspired Oxygen (FIO2) 60 Equipment Usage Equipment in Use Continuous SpO2 Machine # [id number] Intake & Output 01/05/18 01/06/18 01/07/18 06:59 06:59 06:59 Intake Total 961 2676 Output Total 1000 1050 100 Balance -39 1626 -100 Weight 77.9 kg 81.1 kg General appearance: PRESENT: no acute distress, disheveled, obese, well- developed, well-nourished. ABSENT: cooperative Head exam: PRESENT: atraumatic, normocephalic Eye exam: PRESENT: conjunctiva pale. ABSENT: EOMI, nystagmus, periorbital swelling, scleral icterus Mouth exam: PRESENT: dry mucosa, neck supple, tongue midline, other - ET tube Neck exam: ABSENT: carotid bruit, JVD, lymphadenopathy, thyromegaly, tracheal deviation, tracheostomy Respiratory exam: PRESENT: decreased breath sounds, prolonged expiratory phas, rales, rhonchi, symmetrical, unlabored. ABSENT: retraction, stridor, tachypnea Cardiovascular exam: PRESENT: RRR, +S1, +S2, systolic murmur, tachycardia Pulses: PRESENT: normal radial pulses GI/Abdominal exam: PRESENT: diminished bowel sounds, soft Extremities exam: ABSENT: clubbing, joint swelling, pedal edema Musculoskeletal exam: ABSENT: deformity, dislocation Neurological exam: ABSENT: awake, oriented to person Skin exam: PRESENT: dry, warm Results Laboratory Results: 01/06/18 04:45 01/06/18 04:45 01/06/18 01/06/18 01/06/18 04:45 04:45 04:45 WBC 10.8 H RBC 3.27 L Hgb 8.6 L Hct 27.0 L MCV 83 MCH 26.4 L MCHC 32.0 RDW 17.1 H Plt Count 362 Seg Neutrophils % 78.6 H Lymphocytes % 15.2 Monocytes % 6.0 Eosinophils % 0.0 Basophils % 0.2 Absolute Neutrophils 8.5 H Absolute Lymphocytes 1.7 Absolute Monocytes 0.6 Absolute Eosinophils 0.0 Absolute Basophils 0.0 Carbonic Acid 1.28 HCO3/H2CO3 Ratio 25:1 ABG pH 7.50 H ABG pCO2 42.4 ABG pO2 92.4 ABG HCO3 32.4 H ABG O2 Saturation 97.6 ABG Base Excess 8.5 FiO2 40% Sodium 140.9 Potassium 4.2 D Chloride 99 Carbon Dioxide 37 H Anion Gap 5 BUN 31 H Creatinine 0.91 Est GFR ( Amer) > 60 Est GFR (Non-Af Amer) 59 L Glucose 248 H Calcium 9.5 01/01/18 01/02/18 01/03/18 05:24 04:36 05:12 Creatine Kinase CK-MB (CK-2) Troponin I NT-Pro-B Natriuret Pep 9160 H 12071 H 5270 H 01/04/18 01/04/18 01/05/18 18:38 18:38 00:40 Creatine Kinase < 20 L < 20 L CK-MB (CK-2) 0.31 Troponin I 0.032 NT-Pro-B Natriuret Pep 01/05/18 01/05/18 01/05/18 00:40 06:30 06:30 Creatine Kinase < 20 L CK-MB (CK-2) 0.26 0.24 Troponin I 0.044 0.048 NT-Pro-B Natriuret Pep 2590 H Impressions: Chest/Abdomen CTA 01/05/18 08:00 IMPRESSION: No CT angio evidence of acute pulmonary emboli. Near complete collapse left lower lobe, progressive compared to the prior studies. Findings worrisome for pneumonia. Chest X-Ray 01/06/18 06:00 IMPRESSION: 1. Stable appearance of the chest. Assessment & Plan - Diagnosis (1) Acute and chronic respiratory failure Qualifiers: Respiratory failure complication: hypoxia and hypercapnia Qualified Code(s) : J96.21 - Acute and chronic respiratory failure with hypoxia; J96.22 - Acute and chronic respiratory failure with hypercapnia; J96.22 - Acute and chronic respiratory failure with hypercapnia; J96.22 - Acute and chronic respiratory failure with hypercapnia Is this a current diagnosis for this admission?: Yes Plan: Stable persistent metabolic alkalosis (2) COPD (chronic obstructive pulmonary disease) Qualifiers: Emphysema type: unspecified Is this a current diagnosis for this admission?: Yes Plan: Generic Name Dose Route Start Last Admin Trade Name Freq PRN Reason Stop Dose Admin Levalbuterol HCl 0.63 mg 01/01/18 10:45 Xopenex Neb 0.63 Mg/3 Ml Ampul NEB 01/31/18 10:44 [id number] PRN SHORTNESS OF BREATH Albuterol/Ipratropium 3 ml 01/01/18 16:00 01/05/18 12:27 Duoneb 3 Ml Ampul NEB 01/31/18 15:59 3 ml [id number] ABDIEL (3) Hypertension Is this a current diagnosis for this admission?: Yes (4) Left lower lobe pneumonia Is this a current diagnosis for this admission?: Yes - Time Total Critical Time (Minutes): 40
--- NOTE | 2018-01-06 22:16 | Operative Report ---
Operative Report DATE OF SURGERY: 01/06/18 Operative Report: patient intubated under propofol and versed bronchoscope into ET tube no abnormality distal trachea no splaying romulo, R mainstem,R upper lobe,r bronchus intermedius were normal;copious secretion in r middle lobe,rlower lobe.L main ,L upper lobe,lingula were normal,thick blood tinged secretions L lower lobe area lavege and fluid sent to lab for culture and analysis PREOPERATIVE DIAGNOSIS: LL lobe pneumonia/atelectasis POSTOPERATIVE DIAGNOSIS: same OPERATION: fiberoptic bronchoscopy with bronchoalveolar lavage SURGEON: JORDYN KAUR ANESTHESIA: GA TISSUE REMOVED OR ALTERED: bal COMPLICATIONS: na ESTIMATED BLOOD LOSS: na
[2018-01-07] MEDS: PROPOFOL 100 ML IV PRN ×4 (05:02→21:44)
[2018-01-07] MEDS: METHYLPREDNISOLONE INJ 40 MG/1 ML SDV IV SCH ×3 (05:03→21:44)
[2018-01-07] MEDS: INSULIN LISPRO 100 UNIT/ML 3 ML VIAL SUBCUT PRN ×2 (05:03→23:48)
[2018-01-07 05:06] LABS: HEMATOCRIT 26.5 % (36.0-47.0); HEMOGLOBIN 8.3 g/dL (12.0-15.5); MEAN CORPUSCULAR HEMOGLOBIN 25.9 pg (27.0-33.4); MEAN CORPUSCULAR HGB CONC 31.3 g/dL (32.0-36.0); MEAN CORPUSCULAR VOLUME 83 fl (80-97); PLATELET COUNT 327 10^3/uL (150-450); RED BLOOD COUNT 3.21 10^6/uL (3.72-5.28); RED CELL DISTRIBUTION WIDTH 17.3 % (11.5-14.0); WHITE BLOOD COUNT 17.8 10^3/uL (4.0-10.5)
[2018-01-07 05:08] LABS: ARTERIAL BLOOD BASE EXCESS 10.2 mmol/L; ARTERIAL BLOOD FIO2 40%; ARTERIAL BLOOD H2CO3 1.41 mmol/L (1.05-1.35); ARTERIAL BLOOD HCO3 34.6 mmol/L (20-26); ARTERIAL BLOOD O2 SATURATION 97.9 % (94-98); ARTERIAL BLOOD PCO2 46.8 mmHg (35-45); ARTERIAL BLOOD PH 7.49 (7.35-7.45); ARTERIAL BLOOD PO2 101.2 mmHg (80-100); ARTERIAL BLOOD TOTAL CO2 36.1 mmol/L (21-25)
[2018-01-07 05:31] LABS: ALANINE AMINOTRANSFERASE 20 U/L (9-52); ALBUMIN 2.4 g/dL (3.5-5.0); ALKALINE PHOSPHATASE 58 U/L (38-126); ANION GAP 7 (5-19); ASPARTATE AMINO TRANSFERASE 9 U/L (14-36); BLOOD UREA NITROGEN 32 mg/dL (7-20); CALCIUM 9.4 mg/dL (8.4-10.2); CARBON DIOXIDE 35 mmol/L (22-30); CHLORIDE 99 mmol/L (98-107); GLUCOSE 227 mg/dL (75-110); PHOSPHORUS 3.8 mg/dL (2.5-4.5); POTASSIUM 4.1 mmol/L (3.6-5.0); SODIUM 140.7 mmol/L (137-145); TOTAL PROTEIN 5.4 g/dL (6.3-8.2)
[2018-01-07 05:35] LABS: BILIRUBIN,TOTAL < 0.1 mg/dL (0.2-1.3)
--- NOTE | 2018-01-07 07:26 | RADIOLOGY REPORT (SQ) ---
EXAM DESCRIPTION: CHEST SINGLE VIEW CLINICAL HISTORY: pna COMPARISON: 01/06/2018 FINDINGS: Single frontal view of the chest. Endotracheal tube with tip 5 cm above the romulo. NG tube with tip below the diaphragm. Right IJ central venous catheter tip in the high right atrium. Approved aeration of the lung bases with persistent bibasilar airspace opacities and likely small bilateral pleural effusions. Heart is not enlarged. Atherosclerotic calcification and tortuosity of the thoracic aorta. No pneumothorax. No new osseous abnormalities. Upper abdominal soft tissues are unremarkable. IMPRESSION: 1. Improved aeration the lung bases bilaterally with persistent bibasilar opacities and likely small bilateral pleural effusions. Electronically signed by: Kwabena Wren 01/07/2018 6:25 AM CDT
[2018-01-07] MEDS ORDERED: VANCOMYCIN HCL 0 MG in DEXTROSE 5%-WATER 250 ML IV NR (08:15)
[2018-01-07] MEDS ORDERED: CEFEPIME 2 GM/D5W RTU 2 GM/50 ML RTUPB IV SCH (08:15)
[2018-01-07] MEDS: IPRATROPIUM/ALBUTEROL 0.5-2.5 MG/3 ML AMPUL NEB SCH ×4 (08:22→20:23)
[2018-01-07] MEDS: POLYETHYLENE GLYCOL 3350 POWDER 17 GM/1 PACKET NG SCH ×2 (09:00→21:43)
[2018-01-07] MEDS: FUROSEMIDE INJ/PF 20 MG/2 ML SDV IV SCH (09:00)
[2018-01-07] MEDS: LACTOBACILLUS ACIDOPHILUS 250 MG TAB NG SCH ×2 (09:00→17:36)
[2018-01-07] MEDS: METOPROLOL SUCCINATE 25 MG TAB.SR.24H PO SCH (09:01)
[2018-01-07] MEDS: ROFLUMILAST 500 MCG TABLET NG SCH (09:01)
[2018-01-07] MEDS: ENOXAPARIN SODIUM INJ 40 MG/0.4 ML DISP.SYRIN SUBCUT SCH (09:02)
[2018-01-07] MEDS: INSULIN GLARGINE,HUM.REC.ANLOG 300 UNIT/3 ML INSULN.PEN SUBCUT SCH (09:05)
[2018-01-07] MEDS: FLUTICASONE NASAL SPRAY 50 MCG/SPRY 120 SPRAY/16 GM NASL SCH ×2 (09:06→21:43)
[2018-01-07] MEDS: DOCUSATE SODIUM 100 MG CAPSULE PO SCH ×2 (09:06→21:43)
--- NOTE | 2018-01-07 09:33 | RADIOLOGY REPORT (SQ) ---
EXAM DESCRIPTION: CHEST SINGLE VIEW COMPLETED DATE/TIME: 01/07/2018 9:18 am REASON FOR STUDY: pna COMPARISON: 01/07/2018 at 0641 hours. EXAM PARAMETERS: NUMBER OF VIEWS: One view. TECHNIQUE: Single frontal radiographic view of the chest acquired. RADIATION DOSE: NA LIMITATIONS: None. FINDINGS: LUNGS AND PLEURA: Faint basilar densities and small pleural effusions unchanged. MEDIASTINUM AND HILAR STRUCTURES: No masses. Contour normal. HEART AND VASCULAR STRUCTURES: Heart upper limits of normal in size. Normal vasculature. BONES: No acute findings. HARDWARE: Stable endotracheal tube, nasogastric tube, and central line. OTHER: No other significant finding. IMPRESSION: NO INTERVAL CHANGE IN APPEARANCE OF THE CHEST. TECHNICAL DOCUMENTATION: JOB ID: [id number] [employer]- All Rights Reserved Reading location - IP/workstation name: [email or web address]
[2018-01-07] MEDS: CEFEPIME HCL 2 GM in DEXTROSE 5%-WATER 50 ML IV SCH ×2 (11:00→21:46)
[2018-01-07] MEDS: ASPIRIN 81 MG TABLET, CHEWABLE NG SCH (11:03)
--- NOTE | 2018-01-07 13:24 | PDOC PROGRESS REPORT ---
Subjective Progress Note for:: 01/07/18 Subjective:: Patient has been admitted for shortness of breath and acute on chronic respiratory failure which she failed to respond to BiPAP and later patient intubated. Her CT scan of the chest revealed significant left lower lobe infiltrate with she has been on ceftriaxone and vancomycin but I switched to ceftriaxone to cefepime because patient might have healthcare associated pneumonia since she has risk factor for that namely being a [facility] resident recent admission to hospital and antibiotics during the last 3 months. Reason For Visit: COPD EXACERBATION, ACUTE ON CHRONIC RESP FAILURE, Physical Exam Vital Signs: Temp Pulse Resp BP Pulse Ox 98.4 F 77 21 H 123/55 L 99 01/07/18 12:00 01/07/18 12:00 01/07/18 12:00 01/07/18 12:00 01/07/18 12:00 Pulse Oximeter Continuous Start: 01/03/18 14: 49 Freq: Status: Complete Document 01/03/18 16:05 [facility] (Rec: 01/03/18 17:52 [facility] [email or web address]) Pulse Oximetry Assessment Oxygen Saturation (92-100) 94 Fraction of Inspired Oxygen (FIO2) 60 Equipment Usage Equipment in Use Continuous SpO2 Machine # N-[id number] Intake & Output 01/06/18 01/07/18 01/08/18 06:59 06:59 06:59 Intake Total 2676 3669 Output Total 1050 3010 1340 Balance 1626 659 -1340 Weight 81.1 kg General appearance: PRESENT: mild distress Head exam: PRESENT: atraumatic, normocephalic Respiratory exam: PRESENT: decreased breath sounds - The lung bases, rhonchi Cardiovascular exam: PRESENT: RRR. ABSENT: diastolic murmur, rubs, systolic murmur Results Laboratory Results: 01/07/18 04:52 01/07/18 04:52 01/06/18 01/06/18 01/07/18 14:40 16:10 04:52 WBC RBC Hgb Hct MCV MCH MCHC RDW Plt Count Carbonic Acid 1.41 H HCO3/H2CO3 Ratio 24:1 ABG pH 7.49 H ABG pCO2 46.8 H ABG pO2 101.2 H ABG HCO3 34.6 H ABG O2 Saturation 97.9 ABG Base Excess 10.2 FiO2 40% Sodium Potassium Chloride Carbon Dioxide Anion Gap BUN Creatinine Est GFR ( Amer) Est GFR (Non-Af Amer) Glucose Calcium Phosphorus Magnesium Total Bilirubin AST ALT Alkaline Phosphatase Total Protein Albumin Urine Color YELLOW Urine Appearance CLEAR Urine pH 5.0 Ur Specific [place] 1.020 Urine Protein NEGATIVE Urine Glucose (UA) 50 H Urine Ketones NEGATIVE Urine Blood NEGATIVE Urine Nitrite NEGATIVE Ur Leukocyte Esterase NEGATIVE Urine WBC (Auto) 7 Urine RBC (Auto) 5 Stool Occult Blood POSITIVE 01/07/18 01/07/18 04:52 04:52 WBC 17.8 H RBC 3.21 L Hgb 8.3 L Hct 26.5 L MCV 83 MCH 25.9 L MCHC 31.3 L RDW 17.3 H Plt Count 327 Carbonic Acid HCO3/H2CO3 Ratio ABG pH ABG pCO2 ABG pO2 ABG HCO3 ABG O2 Saturation ABG Base Excess FiO2 Sodium 140.7 Potassium 4.1 Chloride 99 Carbon Dioxide 35 H Anion Gap 7 BUN 32 H Creatinine 0.88 Est GFR ( Amer) > 60 Est GFR (Non-Af Amer) > 60 Glucose 227 H Calcium 9.4 Phosphorus 3.8 Magnesium 2.3 Total Bilirubin < 0.1 L AST 9 L ALT 20 Alkaline Phosphatase 58 Total Protein 5.4 L Albumin 2.4 L Urine Color Urine Appearance Urine pH Ur Specific [place] Urine Protein Urine Glucose (UA) Urine Ketones Urine Blood Urine Nitrite Ur Leukocyte Esterase Urine WBC (Auto) Urine RBC (Auto) Stool Occult Blood 01/04/18 18:45 Sputum Gram Stain - Final 01/04/18 18:45 Sputum Sputum Culture - Final C.albicans/C.dubliniensis Normal Raven 01/04/18 18:45 Catheterized Urine Urine Culture - Final C.albicans/C.dubliniensis 01/01/18 01/02/18 01/03/18 05:24 04:36 05:12 Creatine Kinase CK-MB (CK-2) Troponin I NT-Pro-B Natriuret Pep 9160 H 88592 H 5270 H 01/04/18 01/04/18 01/05/18 18:38 18:38 00:40 Creatine Kinase < 20 L < 20 L CK-MB (CK-2) 0.31 Troponin I 0.032 NT-Pro-B Natriuret Pep 01/05/18 01/05/18 01/05/18 00:40 06:30 06:30 Creatine Kinase < 20 L CK-MB (CK-2) 0.26 0.24 Troponin I 0.044 0.048 NT-Pro-B Natriuret Pep 2590 H Impressions: Chest/Abdomen CTA 01/05/18 08:00 IMPRESSION: No CT angio evidence of acute pulmonary emboli. Near complete collapse left lower lobe, progressive compared to the prior studies. Findings worrisome for pneumonia. Chest X-Ray 01/07/18 06:00 IMPRESSION: 1. Improved aeration the lung bases bilaterally with persistent bibasilar opacities and likely small bilateral pleural effusions. Assessment & Plan - Diagnosis (1) Acute and chronic respiratory failure Qualifiers: Respiratory failure complication: hypoxia and hypercapnia Qualified Code(s) : J96.21 - Acute and chronic respiratory failure with hypoxia; J96.22 - Acute and chronic respiratory failure with hypercapnia; J96.22 - Acute and chronic respiratory failure with hypercapnia; J96.22 - Acute and chronic respiratory failure with hypercapnia Is this a current diagnosis for this admission?: Yes Plan: Patient is on mechanical ventilation. (2) Left lower lobe pneumonia Is this a current diagnosis for this admission?: Yes Plan: Patient is being treated as a case of healthcare associated pneumonia with vancomycin and cefepime. (3) COPD with exacerbation Is this a current diagnosis for this admission?: Yes Plan: Patient is on mechanical ventilation and scheduled DuoNeb. (4) Diabetes 1.5, managed as type 2 Is this a current diagnosis for this admission?: Yes Plan: On long insulin and sliding scale. (5) Hyperlipidemia Is this a current diagnosis for this admission?: Yes Plan: Continue her home medication (6) Hypertension Qualifiers: Hypertension type: essential hypertension Qualified Code(s): I10 - Essential (primary) hypertension Is this a current diagnosis for this admission?: Yes Plan: Continue home medication (7) Acute on chronic diastolic CHF (congestive heart failure) Is this a current diagnosis for this admission?: Yes Plan: We will diurese her cautiously.
[2018-01-07] MEDS: VANCOMYCIN HCL 1,500 MG in DEXTROSE 5%-WATER 250 ML IV SCH (14:48)
[2018-01-07] MEDS: LEVOFLOXACIN 750 MG TABLET NG SCH (17:37)
[2018-01-07] MEDS ORDERED: NOREPINEPHRINE BITARTRATE INJ/PF 4 MG/4 ML SDV IV ONE (20:44)
[2018-01-07] MEDS: MONTELUKAST SODIUM 10 MG TABLET NG SCH (21:45)
[2018-01-07] MEDS: ATORVASTATIN CALCIUM 10 MG TABLET NG SCH (21:45)
[2018-01-08] MEDS: 1/2 NORMAL SALINE 1,000 ML IV PRN (02:29)
[2018-01-08] MEDS: PROPOFOL 100 ML IV PRN ×3 (02:32→20:54)
[2018-01-08] MEDS: METHYLPREDNISOLONE INJ 40 MG/1 ML SDV IV SCH ×3 (05:00→21:36)
[2018-01-08 05:17] LABS: ARTERIAL BLOOD BASE EXCESS 8.4 mmol/L; ARTERIAL BLOOD H2CO3 1.33 mmol/L (1.05-1.35); ARTERIAL BLOOD HCO3 32.6 mmol/L (20-26); ARTERIAL BLOOD O2 SATURATION 97.1 % (94-98); ARTERIAL BLOOD PCO2 44.3 mmHg (35-45); ARTERIAL BLOOD PH 7.49 (7.35-7.45); ARTERIAL BLOOD PO2 86.2 mmHg (80-100)
[2018-01-08 05:18] LABS: ARTERIAL BLOOD FIO2 40%
[2018-01-08 05:23] LABS: HEMATOCRIT 27.3 % (36.0-47.0); HEMOGLOBIN 8.5 g/dL (12.0-15.5); MEAN CORPUSCULAR HGB CONC 31.3 g/dL (32.0-36.0); MEAN CORPUSCULAR VOLUME 83 fl (80-97); RED BLOOD COUNT 3.28 10^6/uL (3.72-5.28); RED CELL DISTRIBUTION WIDTH 17.4 % (11.5-14.0); WHITE BLOOD COUNT 20.4 10^3/uL (4.0-10.5)
[2018-01-08 05:34] LABS: ALANINE AMINOTRANSFERASE 21 U/L (9-52); ALBUMIN 2.5 g/dL (3.5-5.0); ALKALINE PHOSPHATASE 56 U/L (38-126); ANION GAP 5 (5-19); ASPARTATE AMINO TRANSFERASE 9 U/L (14-36); BILIRUBIN,DIRECT 0.1 mg/dL (0.0-0.4); BILIRUBIN,TOTAL 0.1 mg/dL (0.2-1.3); BLOOD UREA NITROGEN 30 mg/dL (7-20); CALCIUM 9.5 mg/dL (8.4-10.2); CARBON DIOXIDE 38 mmol/L (22-30); CHLORIDE 100 mmol/L (98-107); GLUCOSE 238 mg/dL (75-110); PHOSPHORUS 3.4 mg/dL (2.5-4.5); SODIUM 142.6 mmol/L (137-145); TOTAL PROTEIN 5.1 g/dL (6.3-8.2)
[2018-01-08 05:38] LABS: ABSOLUTE LYMPHOCYTES# (MANUAL) 2.4 10^3/uL (0.5-4.7); ABSOLUTE MONOCYTES # (MANUAL) 1.6 10^3/uL (0.1-1.4); ABSOLUTE NEUTROPHILS# (MANUAL) 16.3 10^3/uL (1.7-8.2); BASOPHILS % (MANUAL) 0 % (0-2); EOSINOPHILS % (MANUAL) 0 % (0-6); LYMPHOCYTES % (MANUAL) 12 % (13-45); MONOCYTES % (MANUAL) 8 % (3-13); SEGMENTED NEUTROPHILS % (MAN) 80 % (42-78); TOTAL CELLS COUNTED 100
[2018-01-08 05:42] LABS: ANISOCYTOSIS 1+; BURR CELLS SLIGHT; OVALOCYTES 1+; PLATELET CLUMPS PRESENT; PLATELET COMMENT ADEQUATE; POIKILOCYTOSIS 1+; TARGET CELLS SLIGHT
[2018-01-08 05:43] LABS: PLATELET COUNT 324 10^3/uL (150-450)
[2018-01-08] MEDS: INSULIN LISPRO 100 UNIT/ML 3 ML VIAL SUBCUT PRN ×2 (06:11→18:33)
--- NOTE | 2018-01-08 07:16 | RADIOLOGY REPORT (SQ) ---
EXAM DESCRIPTION: CHEST SINGLE VIEW CLINICAL HISTORY: pna resp failure COMPARISON: 01/07/2018 FINDINGS: Single frontal view of the chest. Endotracheal tube with tip 5 cm above the romulo. NG tube with tip below the diaphragm. Right IJ central venous catheter tip in the high right atrium. At airspace opacities and likely small bilateral pleural effusions. Heart is not enlarged. Atherosclerotic calcification and tortuosity of the thoracic aorta. No pneumothorax. No new osseous abnormalities. Upper abdominal soft tissues are unremarkable. IMPRESSION: 1. Stable appearance of the chest. Electronically signed by: Kwabena Wren 01/08/2018 6:15 AM CDT
[2018-01-08] MEDS: IPRATROPIUM/ALBUTEROL 0.5-2.5 MG/3 ML AMPUL NEB SCH ×4 (08:34→20:07)
[2018-01-08] MEDS: CEFEPIME HCL 2 GM in DEXTROSE 5%-WATER 50 ML IV SCH ×2 (09:40→21:35)
[2018-01-08] MEDS: LACTOBACILLUS ACIDOPHILUS 250 MG TAB NG SCH ×2 (09:42→17:42)
[2018-01-08] MEDS: METOPROLOL SUCCINATE 25 MG TAB.SR.24H PO SCH (09:43)
[2018-01-08] MEDS: ROFLUMILAST 500 MCG TABLET NG SCH (09:43)
[2018-01-08] MEDS: FLUTICASONE NASAL SPRAY 50 MCG/SPRY 120 SPRAY/16 GM NASL SCH ×2 (09:43→21:39)
[2018-01-08] MEDS: INSULIN GLARGINE,HUM.REC.ANLOG 300 UNIT/3 ML INSULN.PEN SUBCUT SCH (09:44)
[2018-01-08] MEDS: ENOXAPARIN SODIUM INJ 40 MG/0.4 ML DISP.SYRIN SUBCUT SCH (09:44)
[2018-01-08] MEDS: DOCUSATE SODIUM 100 MG CAPSULE PO SCH ×2 (09:59→21:39)
[2018-01-08] MEDS: POLYETHYLENE GLYCOL 3350 POWDER 17 GM/1 PACKET NG SCH ×2 (09:59→21:37)
[2018-01-08] MEDS: VANCOMYCIN HCL 1,500 MG in DEXTROSE 5%-WATER 250 ML IV SCH (11:56)
[2018-01-08] MEDS: ASPIRIN 81 MG TABLET, CHEWABLE NG SCH (11:56)
--- NOTE | 2018-01-08 12:12 | PDOC PROGRESS REPORT ---
Subjective Progress Note for:: 01/08/18 Subjective:: Patient lying in bed comfortably she is intubated and on mechanical ventilation. She is not fighting the machine. Her blood pressure is on the lower side probably due to the propofol is discontinued now. Reason For Visit: COPD EXACERBATION, ACUTE ON CHRONIC RESP FAILURE, Physical Exam Vital Signs: Temp Pulse Resp BP Pulse Ox 99.7 F 62 9 L 104/47 L 96 01/07/18 21:55 01/08/18 08:34 01/08/18 10:30 01/08/18 10:27 01/08/18 10:30 Pulse Oximeter Continuous Start: 01/03/18 14: 49 Freq: Status: Complete Document 01/03/18 16:05 [facility] (Rec: 01/03/18 17:52 [facility] [email or web address]) Pulse Oximetry Assessment Oxygen Saturation (92-100) 94 Fraction of Inspired Oxygen (FIO2) 60 Equipment Usage Equipment in Use Continuous SpO2 Machine # N-7 Intake & Output 01/07/18 01/08/18 01/09/18 06:59 06:59 06:59 Intake Total 3669 3316 Output Total 3010 0475 520 Balance 789 -225 -520 Weight 81.3 kg General appearance: PRESENT: no acute distress Respiratory exam: PRESENT: decreased breath sounds - Bilaterally Cardiovascular exam: PRESENT: RRR. ABSENT: diastolic murmur, rubs, systolic murmur Results Laboratory Results: 01/08/18 05:07 01/08/18 05:07 01/08/18 01/08/18 01/08/18 05:07 05:07 05:07 WBC 20.4 H RBC 3.28 L Hgb 8.5 L Hct 27.3 L MCV 83 MCH 26.0 L MCHC 31.3 L RDW 17.4 H Plt Count 324 Seg Neutrophils % Not Reportable Lymphocytes % Not Reportable Monocytes % Not Reportable Eosinophils % Not Reportable Basophils % Not Reportable Absolute Neutrophils Not Reportable Absolute Lymphocytes Not Reportable Absolute Monocytes Not Reportable Absolute Eosinophils Not Reportable Absolute Basophils Not Reportable Carbonic Acid 1.33 HCO3/H2CO3 Ratio 24:1 ABG pH 7.49 H ABG pCO2 44.3 ABG pO2 86.2 ABG HCO3 32.6 H ABG O2 Saturation 97.1 ABG Base Excess 8.4 FiO2 40% Sodium 142.6 Potassium 4.0 Chloride 100 Carbon Dioxide 38 H Anion Gap 5 BUN 30 H Creatinine 0.79 Est GFR ( Amer) > 60 Est GFR (Non-Af Amer) > 60 Glucose 238 H Calcium 9.5 Phosphorus 3.4 Magnesium 2.4 H Total Bilirubin 0.1 L AST 9 L ALT 21 Alkaline Phosphatase 56 Total Protein 5.1 L Albumin 2.5 L 01/06/18 10:00 Bronchial Washings AFB Smear Concentration - Final 01/06/18 10:00 Bronchial Washings Acid Fast Bacilli Smear - Final 01/06/18 10:00 Bronchial Washings Gram Stain - Final 01/06/18 10:00 Bronchial Washings Bronchial Washings Culture - Final Corynebacterium Striatum C.albicans/C.dubliniensis Normal Raven Absent 01/04/18 18:45 Sputum Gram Stain - Final 01/04/18 18:45 Sputum Sputum Culture - Final C.albicans/C.dubliniensis Normal Raven 01/01/18 01/02/18 01/03/18 05:24 04:36 05:12 Creatine Kinase CK-MB (CK-2) Troponin I NT-Pro-B Natriuret Pep 9160 H 09936 H 5270 H 01/04/18 01/04/18 01/05/18 18:38 18:38 00:40 Creatine Kinase < 20 L < 20 L CK-MB (CK-2) 0.31 Troponin I 0.032 NT-Pro-B Natriuret Pep 01/05/18 01/05/18 01/05/18 00:40 06:30 06:30 Creatine Kinase < 20 L CK-MB (CK-2) 0.26 0.24 Troponin I 0.044 0.048 NT-Pro-B Natriuret Pep 2590 H Impressions: Chest/Abdomen CTA 01/05/18 08:00 IMPRESSION: No CT angio evidence of acute pulmonary emboli. Near complete collapse left lower lobe, progressive compared to the prior studies. Findings worrisome for pneumonia. Chest X-Ray 01/08/18 06:00 IMPRESSION: 1. Stable appearance of the chest. Assessment & Plan - Diagnosis (1) Acute and chronic respiratory failure Qualifiers: Respiratory failure complication: hypoxia and hypercapnia Qualified Code(s) : J96.21 - Acute and chronic respiratory failure with hypoxia; J96.22 - Acute and chronic respiratory failure with hypercapnia; J96.22 - Acute and chronic respiratory failure with hypercapnia; J96.22 - Acute and chronic respiratory failure with hypercapnia Is this a current diagnosis for this admission?: Yes Plan: Patient is on mechanical ventilation. (2) Left lower lobe pneumonia Is this a current diagnosis for this admission?: Yes Plan: Patient patient is a residential resident, she shows an antibiotic during the last 3 months and her chest x-ray shows left lower lobe infiltrate so patient was advised to be treated as a case of the care associated pneumonia. (3) COPD with exacerbation Is this a current diagnosis for this admission?: Yes Plan: Patient is on mechanical ventilation and scheduled DuoNeb. (4) Diabetes 1.5, managed as type 2 Is this a current diagnosis for this admission?: Yes Plan: On long insulin and sliding scale. (5) Hyperlipidemia Is this a current diagnosis for this admission?: Yes Plan: Continue her home medication (6) Hypertension Qualifiers: Hypertension type: essential hypertension Qualified Code(s): I10 - Essential (primary) hypertension Is this a current diagnosis for this admission?: Yes Plan: Continue home medication (7) Acute on chronic diastolic CHF (congestive heart failure) Is this a current diagnosis for this admission?: Yes Plan: Close to follow her daily weights.
[2018-01-08] MEDS: NORMAL SALINE INJ/PF 0.9% 10 ML SDV IV PRN (15:01)
[2018-01-08] MEDS: LEVOFLOXACIN 750 MG TABLET NG SCH (17:43)
[2018-01-08] MEDS: ATORVASTATIN CALCIUM 10 MG TABLET NG SCH (21:36)
[2018-01-08] MEDS: MONTELUKAST SODIUM 10 MG TABLET NG SCH (21:36)
[2018-01-09] MEDS: INSULIN LISPRO 100 UNIT/ML 3 ML VIAL SUBCUT PRN ×2 (00:51→06:56)
[2018-01-09] MEDS: PROPOFOL 100 ML IV PRN (03:04)
[2018-01-09] MEDS: METHYLPREDNISOLONE INJ 40 MG/1 ML SDV IV SCH ×3 (05:37→21:45)
[2018-01-09 05:51] LABS: ARTERIAL BLOOD BASE EXCESS 7.3 mmol/L; ARTERIAL BLOOD H2CO3 1.22 mmol/L (1.05-1.35); ARTERIAL BLOOD O2 SATURATION 97.4 % (94-98); ARTERIAL BLOOD PCO2 40.4 mmHg (35-45); ARTERIAL BLOOD PO2 88.7 mmHg (80-100); ARTERIAL BLOOD TOTAL CO2 32.3 mmol/L (21-25)
[2018-01-09 05:53] LABS: ABSOLUTE BASOPHILS # (AUTO) 0.1 10^3/uL (0.0-0.2); ABSOLUTE LYMPHOCYTES (AUTO) 2.8 10^3/uL (0.5-4.7); ABSOLUTE NEUT (AUTO) 12.8 10^3/uL (1.7-8.2); BASOPHILS % (AUTO) 0.3 % (0-2); HEMATOCRIT 26.5 % (36.0-47.0); HEMOGLOBIN 8.4 g/dL (12.0-15.5); LYMPHOCYTES % (AUTO) 16.9 % (13-45); MEAN CORPUSCULAR HEMOGLOBIN 26.2 pg (27.0-33.4); MEAN CORPUSCULAR HGB CONC 31.6 g/dL (32.0-36.0); MEAN CORPUSCULAR VOLUME 83 fl (80-97); MONOCYTES % (AUTO) 5.8 % (3-13); PLATELET COUNT 245 10^3/uL (150-450); RED BLOOD COUNT 3.19 10^6/uL (3.72-5.28); RED CELL DISTRIBUTION WIDTH 17.7 % (11.5-14.0); TOTAL CELLS COUNTED % (AUTO) 100 %; WHITE BLOOD COUNT 16.6 10^3/uL (4.0-10.5)
[2018-01-09 05:55] LABS: ARTERIAL BLOOD FIO2 35%
[2018-01-09 06:17] LABS: BLOOD UREA NITROGEN 25 mg/dL (7-20); CALCIUM 9.7 mg/dL (8.4-10.2); GLUCOSE 251 mg/dL (75-110)
[2018-01-09 06:22] LABS: CARBON DIOXIDE 37 mmol/L (22-30); CHLORIDE 103 mmol/L (98-107); SODIUM 142.2 mmol/L (137-145)
[2018-01-09 06:24] LABS: ANION GAP 4 (5-19)
--- NOTE | 2018-01-09 07:04 | RADIOLOGY REPORT (SQ) ---
EXAM DESCRIPTION: CHEST SINGLE VIEW CLINICAL HISTORY: resp failure/pna COMPARISON: 01/08/2018 FINDINGS: Single frontal view of the chest. Endotracheal tube with tip 5 cm above the romulo. NG tube with tip below the diaphragm. Right IJ central venous catheter tip in the high right atrium. Bibasilar airspace opacities and likely small bilateral pleural effusions. Heart is not enlarged. Atherosclerotic calcification and tortuosity of the thoracic aorta. No pneumothorax. No new osseous abnormalities. Upper abdominal soft tissues are unremarkable. IMPRESSION: 1. Stable appearance of the chest. Electronically signed by: Kwabena Wren 01/09/2018 6:02 AM CDT
[2018-01-09] MEDS ORDERED: DEXAMETHASONE SOD PHOSPHATE INJ 4 MG/1 ML VIAL IV ONE (07:40)
[2018-01-09] MEDS: IPRATROPIUM/ALBUTEROL 0.5-2.5 MG/3 ML AMPUL NEB SCH ×4 (08:21→19:36)
[2018-01-09] MEDS: ROFLUMILAST 500 MCG TABLET NG SCH (09:05)
[2018-01-09] MEDS: METOPROLOL SUCCINATE 25 MG TAB.SR.24H PO SCH (09:05)
[2018-01-09] MEDS: LACTOBACILLUS ACIDOPHILUS 250 MG TAB NG SCH (09:05)
[2018-01-09] MEDS: CEFEPIME HCL 2 GM in DEXTROSE 5%-WATER 50 ML IV SCH ×2 (09:06→21:42)
[2018-01-09] MEDS: 1/2 NORMAL SALINE 1,000 ML IV PRN (09:09)
[2018-01-09] MEDS: ENOXAPARIN SODIUM INJ 40 MG/0.4 ML DISP.SYRIN SUBCUT SCH (09:10)
[2018-01-09] MEDS: FLUTICASONE NASAL SPRAY 50 MCG/SPRY 120 SPRAY/16 GM NASL SCH ×2 (09:10→21:50)
[2018-01-09] MEDS: INSULIN GLARGINE,HUM.REC.ANLOG 300 UNIT/3 ML INSULN.PEN SUBCUT SCH (09:11)
[2018-01-09] MEDS: DOCUSATE SODIUM 100 MG CAPSULE PO SCH ×2 (09:14→21:43)
[2018-01-09] MEDS: POLYETHYLENE GLYCOL 3350 POWDER 17 GM/1 PACKET NG SCH (09:14)
[2018-01-09] MEDS: VANCOMYCIN HCL 1,500 MG in DEXTROSE 5%-WATER 250 ML IV SCH (12:54)
[2018-01-09] MEDS: ASPIRIN 81 MG TABLET, CHEWABLE NG SCH (12:57)
--- NOTE | 2018-01-09 14:08 | PDOC PROGRESS REPORT ---
Subjective Progress Note for:: 01/09/18 Subjective:: Ms. Royal patient has been admitted for shortness of breath and acute on chronic respiratory failure. Patient failed to respond to BiPAP and later intubated. Her CT scan of the chest revealed significant left lower lobe infiltrate for which she has been on ceftriaxone and vancomycin but I switched to ceftriaxone to cefepime because patient might have healthcare associated pneumonia since she has risk factor for that namely being a retirement resident recent admission to hospital and antibiotics during the last 3 months. Today seen patient resting. She is awake alert. She passed a weaning trial and ready for extubation. Reason For Visit: COPD EXACERBATION, ACUTE ON CHRONIC RESP FAILURE, Physical Exam Vital Signs: Temp Pulse Resp BP Pulse Ox 98.4 F 90 14 139/60 H 98 01/09/18 06:00 01/09/18 12:35 01/09/18 12:35 01/09/18 12:35 01/09/18 12:35 Pulse Oximeter Continuous Start: 01/03/18 14: 49 Freq: Status: Complete Document 01/03/18 16:05 [facility] (Rec: 01/03/18 17:52 [facility] [email or web address]) Pulse Oximetry Assessment Oxygen Saturation (92-100) 94 Fraction of Inspired Oxygen (FIO2) 60 Equipment Usage Equipment in Use Continuous SpO2 Machine # N-[id number] Intake & Output 01/08/18 01/09/18 01/10/18 06:59 06:59 06:59 Intake Total 3316 3388 Output Total 3765 2330 1290 Balance -449 1058 -1290 Weight 81.3 kg 80.6 kg General appearance: PRESENT: mild distress Head exam: PRESENT: atraumatic, normocephalic Respiratory exam: PRESENT: rhonchi - Bilaterally Cardiovascular exam: PRESENT: RRR. ABSENT: diastolic murmur, rubs, systolic murmur Neurological exam: PRESENT: alert, awake Results Laboratory Results: 01/09/18 05:33 01/09/18 05:33 01/09/18 01/09/18 01/09/18 05:33 05:33 05:33 WBC 16.6 H RBC 3.19 L Hgb 8.4 L Hct 26.5 L MCV 83 MCH 26.2 L MCHC 31.6 L RDW 17.7 H Plt Count 245 Seg Neutrophils % 77.0 Lymphocytes % 16.9 Monocytes % 5.8 Eosinophils % 0.0 Basophils % 0.3 Absolute Neutrophils 12.8 H Absolute Lymphocytes 2.8 Absolute Monocytes 1.0 Absolute Eosinophils 0.0 Absolute Basophils 0.1 Carbonic Acid 1.22 HCO3/H2CO3 Ratio 25:1 ABG pH 7.50 H ABG pCO2 40.4 ABG pO2 88.7 ABG HCO3 31.0 H ABG O2 Saturation 97.4 ABG Base Excess 7.3 FiO2 35% Sodium 142.2 Potassium 4.0 Chloride 103 Carbon Dioxide 37 H Anion Gap 4 L BUN 25 H Creatinine 0.70 Est GFR ( Amer) > 60 Est GFR (Non-Af Amer) > 60 Glucose 251 H Calcium 9.7 Phosphorus 3.0 Magnesium 2.5 H 01/06/18 10:00 Bronchial Washings Chlamydia pneumoniae (PCR) - Final 01/01/18 01/02/18 01/03/18 05:24 04:36 05:12 Creatine Kinase CK-MB (CK-2) Troponin I NT-Pro-B Natriuret Pep 9160 H 00384 H 5270 H 01/04/18 01/04/18 01/05/18 18:38 18:38 00:40 Creatine Kinase < 20 L < 20 L CK-MB (CK-2) 0.31 Troponin I 0.032 NT-Pro-B Natriuret Pep 01/05/18 01/05/18 01/05/18 00:40 06:30 06:30 Creatine Kinase < 20 L CK-MB (CK-2) 0.26 0.24 Troponin I 0.044 0.048 NT-Pro-B Natriuret Pep 2590 H Impressions: Chest/Abdomen CTA 01/05/18 08:00 IMPRESSION: No CT angio evidence of acute pulmonary emboli. Near complete collapse left lower lobe, progressive compared to the prior studies. Findings worrisome for pneumonia. Chest X-Ray 01/09/18 06:00 IMPRESSION: 1. Stable appearance of the chest. Assessment & Plan - Diagnosis (1) Acute and chronic respiratory failure Qualifiers: Respiratory failure complication: hypoxia and hypercapnia Qualified Code(s) : J96.21 - Acute and chronic respiratory failure with hypoxia; J96.22 - Acute and chronic respiratory failure with hypercapnia; J96.22 - Acute and chronic respiratory failure with hypercapnia; J96.22 - Acute and chronic respiratory failure with hypercapnia Is this a current diagnosis for this admission?: Yes Plan: Patient is on mechanical ventilation. (2) Left lower lobe pneumonia Is this a current diagnosis for this admission?: Yes Plan: Patient patient is a retirement resident, she shows an antibiotic during the last 3 months and her chest x-ray shows left lower lobe infiltrate so patient was advised to be treated as a case of the care associated pneumonia. (3) COPD with exacerbation Is this a current diagnosis for this admission?: Yes Plan: Patient is on mechanical ventilation and scheduled DuoNeb. (4) Diabetes 1.5, managed as type 2 Is this a current diagnosis for this admission?: Yes Plan: On long insulin and sliding scale. (5) Hyperlipidemia Is this a current diagnosis for this admission?: Yes Plan: Continue her home medication (6) Hypertension Qualifiers: Hypertension type: essential hypertension Qualified Code(s): I10 - Essential (primary) hypertension Is this a current diagnosis for this admission?: Yes Plan: Continue home medication (7) Acute on chronic diastolic CHF (congestive heart failure) Is this a current diagnosis for this admission?: Yes Plan: Close to follow her daily weights.
--- NOTE | 2018-01-09 15:54 | PDOC PROGRESS REPORT ---
Subjective Progress Note for:: 01/07/18 Subjective:: extubate Reason For Visit: COPD EXACERBATION, ACUTE ON CHRONIC RESP FAILURE, Physical Exam Vital Signs: Temp Pulse Resp BP Pulse Ox 98.4 F 63 16 109/50 L 99 01/07/18 07:51 01/07/18 07:51 01/07/18 07:51 01/07/18 07:51 01/07/18 07:51 Pulse Oximeter Continuous Start: 01/03/18 14: 49 Freq: Status: Complete Document 01/03/18 16:05 [facility] (Rec: 01/03/18 17:52 [facility] [email or web address]) Pulse Oximetry Assessment Oxygen Saturation (92-100) 94 Fraction of Inspired Oxygen (FIO2) 60 Equipment Usage Equipment in Use Continuous SpO2 Machine # [id number] Intake & Output 01/06/18 01/07/18 01/08/18 06:59 06:59 06:59 Intake Total 2676 3669 Output Total 1050 3010 80 Balance 1626 659 -80 Weight 81.1 kg General appearance: PRESENT: no acute distress, disheveled, obese. ABSENT: cooperative Head exam: PRESENT: atraumatic, normocephalic Eye exam: PRESENT: conjunctiva pale. ABSENT: EOMI, nystagmus, periorbital swelling, scleral icterus Mouth exam: PRESENT: dry mucosa, neck supple, tongue midline, other - ET tube in place Neck exam: ABSENT: carotid bruit, JVD, lymphadenopathy, thyromegaly, tracheal deviation, tracheostomy Respiratory exam: PRESENT: decreased breath sounds, prolonged expiratory phas, rales, rhonchi, unlabored. ABSENT: retraction, stridor, tachypnea Cardiovascular exam: PRESENT: RRR, +S1, +S2 Pulses: PRESENT: normal radial pulses GI/Abdominal exam: PRESENT: diminished bowel sounds, soft Gentrourinary exam: PRESENT: indwelling catheter Extremities exam: ABSENT: clubbing, joint swelling Musculoskeletal exam: ABSENT: deformity, dislocation Neurological exam: ABSENT: awake, oriented to person Skin exam: PRESENT: dry, warm Results Laboratory Results: 01/07/18 04:52 01/07/18 04:52 01/06/18 01/06/18 01/06/18 10:00 14:40 16:10 WBC RBC Hgb Hct MCV MCH MCHC RDW Plt Count Carbonic Acid HCO3/H2CO3 Ratio ABG pH ABG pCO2 ABG pO2 ABG HCO3 ABG O2 Saturation ABG Base Excess FiO2 Sodium Potassium Chloride Carbon Dioxide Anion Gap BUN Creatinine Est GFR ( Amer) Est GFR (Non-Af Amer) Glucose Calcium Phosphorus Magnesium Total Bilirubin AST ALT Alkaline Phosphatase Total Protein Albumin Urine Color YELLOW Urine Appearance CLEAR Urine pH 5.0 Ur Specific [place] 1.020 Urine Protein NEGATIVE Urine Glucose (UA) 50 H Urine Ketones NEGATIVE Urine Blood NEGATIVE Urine Nitrite NEGATIVE Ur Leukocyte Esterase NEGATIVE Urine WBC (Auto) 7 Urine RBC (Auto) 5 Fluid Type BRONCHIAL WASH Fluid Source Fluid Color Fluid Appearance TURBID Fluid Viscosity HIGHLY VISCOUS Fluid WBC 3500 Fluid RBC 35471 Stool Occult Blood POSITIVE 01/07/18 01/07/18 01/07/18 04:52 04:52 04:52 WBC 17.8 H RBC 3.21 L Hgb 8.3 L Hct 26.5 L MCV 83 MCH 25.9 L MCHC 31.3 L RDW 17.3 H Plt Count 327 Carbonic Acid 1.41 H HCO3/H2CO3 Ratio 24:1 ABG pH 7.49 H ABG pCO2 46.8 H ABG pO2 101.2 H ABG HCO3 34.6 H ABG O2 Saturation 97.9 ABG Base Excess 10.2 FiO2 40% Sodium 140.7 Potassium 4.1 Chloride 99 Carbon Dioxide 35 H Anion Gap 7 BUN 32 H Creatinine 0.88 Est GFR ( Amer) > 60 Est GFR (Non-Af Amer) > 60 Glucose 227 H Calcium 9.4 Phosphorus 3.8 Magnesium 2.3 Total Bilirubin < 0.1 L AST 9 L ALT 20 Alkaline Phosphatase 58 Total Protein 5.4 L Albumin 2.4 L Urine Color Urine Appearance Urine pH Ur Specific [place] Urine Protein Urine Glucose (UA) Urine Ketones Urine Blood Urine Nitrite Ur Leukocyte Esterase Urine WBC (Auto) Urine RBC (Auto) Fluid Type Fluid Source Fluid Color Fluid Appearance Fluid Viscosity Fluid WBC Fluid RBC Stool Occult Blood 01/04/18 18:45 Catheterized Urine Urine Culture - Final C.albicans/C.dubliniensis 01/04/18 18:45 Sputum Gram Stain - Final 01/01/18 01/02/18 01/03/18 05:24 04:36 05:12 Creatine Kinase CK-MB (CK-2) Troponin I NT-Pro-B Natriuret Pep 9160 H 29048 H 5270 H 01/04/18 01/04/18 01/05/18 18:38 18:38 00:40 Creatine Kinase < 20 L < 20 L CK-MB (CK-2) 0.31 Troponin I 0.032 NT-Pro-B Natriuret Pep 01/05/18 01/05/18 01/05/18 00:40 06:30 06:30 Creatine Kinase < 20 L CK-MB (CK-2) 0.26 0.24 Troponin I 0.044 0.048 NT-Pro-B Natriuret Pep 2590 H Impressions: Chest/Abdomen CTA 01/05/18 08:00 IMPRESSION: No CT angio evidence of acute pulmonary emboli. Near complete collapse left lower lobe, progressive compared to the prior studies. Findings worrisome for pneumonia. Chest X-Ray 01/07/18 06:00 IMPRESSION: 1. Improved aeration the lung bases bilaterally with persistent bibasilar opacities and likely small bilateral pleural effusions. Assessment & Plan - Diagnosis (1) Acute and chronic respiratory failure Qualifiers: Respiratory failure complication: hypoxia and hypercapnia Qualified Code(s) : J96.21 - Acute and chronic respiratory failure with hypoxia; J96.22 - Acute and chronic respiratory failure with hypercapnia; J96.22 - Acute and chronic respiratory failure with hypercapnia; J96.22 - Acute and chronic respiratory failure with hypercapnia Is this a current diagnosis for this admission?: Yes Plan: Stable persistent metabolic alkalosis (2) COPD (chronic obstructive pulmonary disease) Qualifiers: Emphysema type: unspecified Is this a current diagnosis for this admission?: Yes Plan: Generic Name Dose Route Start Last Admin Trade Name Freq PRN Reason Stop Dose Admin Levalbuterol HCl 0.63 mg 01/01/18 10:45 Xopenex Neb 0.63 Mg/3 Ml Ampul NEB 01/31/18 10:44 [id number] PRN SHORTNESS OF BREATH Albuterol/Ipratropium 3 ml 01/01/18 16:00 01/05/18 12:27 Duoneb 3 Ml Ampul NEB 01/31/18 15:59 3 ml [id number] (3) Hypertension Qualifiers: Hypertension type: essential hypertension Qualified Code(s): I10 - Essential (primary) hypertension Is this a current diagnosis for this admission?: Yes (4) Left lower lobe pneumonia Is this a current diagnosis for this admission?: Yes Plan: Improving - Time Total Critical Time (Minutes): 40
--- NOTE | 2018-01-09 15:59 | PDOC PROGRESS REPORT ---
Subjective Progress Note for:: 01/08/18 Subjective:: Intubated, sedated, but arousable Reason For Visit: COPD EXACERBATION, ACUTE ON CHRONIC RESP FAILURE, Physical Exam Vital Signs: Temp Pulse Resp BP Pulse Ox 98.4 F 71 16 101/69 100 01/09/18 06:00 01/09/18 07:16 01/09/18 06:00 01/09/18 06:00 01/09/18 06:00 Pulse Oximeter Continuous Start: 01/03/18 14: 49 Freq: Status: Complete Document 01/03/18 16:05 [facility] (Rec: 01/03/18 17:52 [facility] [email or web address]) Pulse Oximetry Assessment Oxygen Saturation (92-100) 94 Fraction of Inspired Oxygen (FIO2) 60 Equipment Usage Equipment in Use Continuous SpO2 Machine # N-7 Intake & Output 01/08/18 01/09/18 01/10/18 06:59 06:59 06:59 Intake Total 3316 3388 Output Total 3765 2330 Balance -449 1058 Weight 81.3 kg 80.6 kg General appearance: PRESENT: no acute distress, obese. ABSENT: disheveled Head exam: PRESENT: atraumatic, normocephalic Eye exam: PRESENT: conjunctiva pale, EOMI. ABSENT: nystagmus, periorbital swelling, scleral icterus Mouth exam: PRESENT: dry mucosa, neck supple, tongue midline, other - ET tube in place Neck exam: ABSENT: carotid bruit, JVD, lymphadenopathy, thyromegaly, tracheal deviation, tracheostomy Respiratory exam: PRESENT: decreased breath sounds, prolonged expiratory phas, rales, rhonchi, unlabored. ABSENT: retraction, stridor, tachypnea Cardiovascular exam: PRESENT: RRR, +S1, +S2 Pulses: PRESENT: normal radial pulses GI/Abdominal exam: PRESENT: diminished bowel sounds, soft Extremities exam: PRESENT: full ROM. ABSENT: clubbing, joint swelling Musculoskeletal exam: PRESENT: full ROM. ABSENT: deformity, dislocation Neurological exam: PRESENT: awake Skin exam: PRESENT: dry, warm Results Laboratory Results: 01/09/18 05:33 01/09/18 05:33 01/09/18 01/09/18 01/09/18 05:33 05:33 05:33 WBC 16.6 H RBC 3.19 L Hgb 8.4 L Hct 26.5 L MCV 83 MCH 26.2 L MCHC 31.6 L RDW 17.7 H Plt Count 245 Seg Neutrophils % 77.0 Lymphocytes % 16.9 Monocytes % 5.8 Eosinophils % 0.0 Basophils % 0.3 Absolute Neutrophils 12.8 H Absolute Lymphocytes 2.8 Absolute Monocytes 1.0 Absolute Eosinophils 0.0 Absolute Basophils 0.1 Carbonic Acid 1.22 HCO3/H2CO3 Ratio 25:1 ABG pH 7.50 H ABG pCO2 40.4 ABG pO2 88.7 ABG HCO3 31.0 H ABG O2 Saturation 97.4 ABG Base Excess 7.3 FiO2 35% Sodium 142.2 Potassium 4.0 Chloride 103 Carbon Dioxide 37 H Anion Gap 4 L BUN 25 H Creatinine 0.70 Est GFR ( Amer) > 60 Est GFR (Non-Af Amer) > 60 Glucose 251 H Calcium 9.7 Phosphorus 3.0 Magnesium 2.5 H 01/06/18 10:00 Bronchial Washings Chlamydia pneumoniae (PCR) - Final 01/01/18 01/02/18 01/03/18 05:24 04:36 05:12 Creatine Kinase CK-MB (CK-2) Troponin I NT-Pro-B Natriuret Pep 9160 H 37401 H 5270 H 01/04/18 01/04/18 01/05/18 18:38 18:38 00:40 Creatine Kinase < 20 L < 20 L CK-MB (CK-2) 0.31 Troponin I 0.032 NT-Pro-B Natriuret Pep 01/05/18 01/05/18 01/05/18 00:40 06:30 06:30 Creatine Kinase < 20 L CK-MB (CK-2) 0.26 0.24 Troponin I 0.044 0.048 NT-Pro-B Natriuret Pep 2590 H Impressions: Chest/Abdomen CTA 01/05/18 08:00 IMPRESSION: No CT angio evidence of acute pulmonary emboli. Near complete collapse left lower lobe, progressive compared to the prior studies. Findings worrisome for pneumonia. Chest X-Ray 01/09/18 06:00 IMPRESSION: 1. Stable appearance of the chest. Assessment & Plan - Diagnosis (1) Acute and chronic respiratory failure Qualifiers: Respiratory failure complication: hypoxia and hypercapnia Qualified Code(s) : J96.21 - Acute and chronic respiratory failure with hypoxia; J96.22 - Acute and chronic respiratory failure with hypercapnia; J96.22 - Acute and chronic respiratory failure with hypercapnia; J96.22 - Acute and chronic respiratory failure with hypercapnia Is this a current diagnosis for this admission?: Yes Plan: Improving (2) COPD (chronic obstructive pulmonary disease) Qualifiers: Emphysema type: unspecified Is this a current diagnosis for this admission?: Yes Plan: Generic Name Dose Route Start Last Admin Trade Name Freq PRN Reason Stop Dose Admin Levalbuterol HCl 0.63 mg 01/01/18 10:45 Xopenex Neb 0.63 Mg/3 Ml Ampul NEB 01/31/18 10:44 [id number] PRN SHORTNESS OF BREATH Albuterol/Ipratropium 3 ml 01/01/18 16:00 01/05/18 12:27 Duoneb 3 Ml Ampul NEB 01/31/18 15:59 3 ml [id number] ABDIEL (3) Hypertension Qualifiers: Hypertension type: essential hypertension Qualified Code(s): I10 - Essential (primary) hypertension Is this a current diagnosis for this admission?: Yes (4) Left lower lobe pneumonia Is this a current diagnosis for this admission?: Yes Plan: Improving - Time Total Critical Time (Minutes): 45
--- NOTE | 2018-01-09 16:02 | PDOC PROGRESS REPORT ---
Subjective Progress Note for:: 01/09/18 Subjective:: Intubated, sedated and awake Reason For Visit: COPD EXACERBATION, ACUTE ON CHRONIC RESP FAILURE, Physical Exam Vital Signs: Temp Pulse Resp BP Pulse Ox 98.4 F 71 16 101/69 100 01/09/18 06:00 01/09/18 07:16 01/09/18 06:00 01/09/18 06:00 01/09/18 06:00 Pulse Oximeter Continuous Start: 01/03/18 14: 49 Freq: Status: Complete Document 01/03/18 16:05 [facility] (Rec: 01/03/18 17:52 [facility] [email or web address]) Pulse Oximetry Assessment Oxygen Saturation (92-100) 94 Fraction of Inspired Oxygen (FIO2) 60 Equipment Usage Equipment in Use Continuous SpO2 Machine # N-7 Intake & Output 01/08/18 01/09/18 01/10/18 06:59 06:59 06:59 Intake Total 3316 3388 Output Total 3765 2330 Balance -449 1058 Weight 81.3 kg 80.6 kg General appearance: PRESENT: no acute distress, cooperative, obese. ABSENT: disheveled Head exam: PRESENT: atraumatic, normocephalic Eye exam: PRESENT: conjunctiva pale, EOMI. ABSENT: nystagmus, periorbital swelling, scleral icterus Mouth exam: PRESENT: dry mucosa, neck supple, tongue midline, other - ET tube in place Neck exam: ABSENT: carotid bruit, JVD, lymphadenopathy, thyromegaly, tracheal deviation, tracheostomy Respiratory exam: PRESENT: decreased breath sounds, prolonged expiratory phas, rales, rhonchi, unlabored. ABSENT: retraction, stridor, tachypnea Cardiovascular exam: PRESENT: RRR, +S1, +S2. ABSENT: tachycardia Pulses: PRESENT: normal radial pulses GI/Abdominal exam: PRESENT: diminished bowel sounds, soft Extremities exam: ABSENT: clubbing, joint swelling Musculoskeletal exam: ABSENT: deformity, dislocation Neurological exam: PRESENT: awake, oriented to person Psychiatric exam: PRESENT: flat affect Skin exam: PRESENT: dry, warm Results Laboratory Results: 01/09/18 05:33 01/09/18 05:33 01/09/18 01/09/18 01/09/18 05:33 05:33 05:33 WBC 16.6 H RBC 3.19 L Hgb 8.4 L Hct 26.5 L MCV 83 MCH 26.2 L MCHC 31.6 L RDW 17.7 H Plt Count 245 Seg Neutrophils % 77.0 Lymphocytes % 16.9 Monocytes % 5.8 Eosinophils % 0.0 Basophils % 0.3 Absolute Neutrophils 12.8 H Absolute Lymphocytes 2.8 Absolute Monocytes 1.0 Absolute Eosinophils 0.0 Absolute Basophils 0.1 Carbonic Acid 1.22 HCO3/H2CO3 Ratio 25:1 ABG pH 7.50 H ABG pCO2 40.4 ABG pO2 88.7 ABG HCO3 31.0 H ABG O2 Saturation 97.4 ABG Base Excess 7.3 FiO2 35% Sodium 142.2 Potassium 4.0 Chloride 103 Carbon Dioxide 37 H Anion Gap 4 L BUN 25 H Creatinine 0.70 Est GFR ( Amer) > 60 Est GFR (Non-Af Amer) > 60 Glucose 251 H Calcium 9.7 Phosphorus 3.0 Magnesium 2.5 H 01/06/18 10:00 Bronchial Washings Chlamydia pneumoniae (PCR) - Final 01/01/18 01/02/18 01/03/18 05:24 04:36 05:12 Creatine Kinase CK-MB (CK-2) Troponin I NT-Pro-B Natriuret Pep 9160 H 54213 H 5270 H 01/04/18 01/04/18 01/05/18 18:38 18:38 00:40 Creatine Kinase < 20 L < 20 L CK-MB (CK-2) 0.31 Troponin I 0.032 NT-Pro-B Natriuret Pep 01/05/18 01/05/18 01/05/18 00:40 06:30 06:30 Creatine Kinase < 20 L CK-MB (CK-2) 0.26 0.24 Troponin I 0.044 0.048 NT-Pro-B Natriuret Pep 2590 H Impressions: Chest/Abdomen CTA 01/05/18 08:00 IMPRESSION: No CT angio evidence of acute pulmonary emboli. Near complete collapse left lower lobe, progressive compared to the prior studies. Findings worrisome for pneumonia. Chest X-Ray 01/09/18 06:00 IMPRESSION: 1. Stable appearance of the chest. Assessment & Plan - Diagnosis (1) Acute and chronic respiratory failure Qualifiers: Respiratory failure complication: hypoxia and hypercapnia Qualified Code(s) : J96.21 - Acute and chronic respiratory failure with hypoxia; J96.22 - Acute and chronic respiratory failure with hypercapnia; J96.22 - Acute and chronic respiratory failure with hypercapnia; J96.22 - Acute and chronic respiratory failure with hypercapnia Is this a current diagnosis for this admission?: Yes Plan: Airway pressures, FiO2, respiratory rate, minute ventilation all suggest successful extubation will proceed with extubation (2) COPD (chronic obstructive pulmonary disease) Qualifiers: Emphysema type: unspecified Is this a current diagnosis for this admission?: Yes Plan: Generic Name Dose Route Start Last Admin Trade Name Freq PRN Reason Stop Dose Admin Levalbuterol HCl 0.63 mg 01/01/18 10:45 Xopenex Neb 0.63 Mg/3 Ml Ampul NEB 01/31/18 10:44 [id number] PRN SHORTNESS OF BREATH Albuterol/Ipratropium 3 ml 01/01/18 16:00 01/05/18 12:27 Duoneb 3 Ml Ampul NEB 01/31/18 15:59 3 ml [id number] ABDIEL (3) Hypertension Qualifiers: Hypertension type: essential hypertension Qualified Code(s): I10 - Essential (primary) hypertension Is this a current diagnosis for this admission?: Yes (4) Left lower lobe pneumonia Is this a current diagnosis for this admission?: Yes Plan: Improving - Time Total Critical Time (Minutes): 55
[2018-01-09] MEDS: LACTOBACILLUS ACIDOPHILUS 250 MG TAB PO SCH (17:56)
[2018-01-09] MEDS ORDERED: LEVOFLOXACIN 750 MG TABLET PO SCH (18:00)
[2018-01-09] MEDS: MONTELUKAST SODIUM 10 MG TABLET PO SCH (21:43)
[2018-01-09] MEDS: ATORVASTATIN CALCIUM 10 MG TABLET PO SCH (21:43)
[2018-01-09] MEDS: POLYETHYLENE GLYCOL 3350 POWDER 17 GM/1 PACKET PO SCH (21:50)
[2018-01-10 05:27] LABS: ARTERIAL BLOOD BASE EXCESS 7.1 mmol/L; ARTERIAL BLOOD H2CO3 1.51 mmol/L (1.05-1.35); ARTERIAL BLOOD HCO3 32.4 mmol/L (20-26); ARTERIAL BLOOD O2 SATURATION 96.9 % (94-98); ARTERIAL BLOOD PCO2 50.2 mmHg (35-45); ARTERIAL BLOOD PH 7.43 (7.35-7.45); ARTERIAL BLOOD PO2 89.5 mmHg (80-100)
[2018-01-10 05:28] LABS: ARTERIAL BLOOD FIO2 40%
[2018-01-10 05:32] LABS: ABSOLUTE BASOPHILS # (AUTO) 0.1 10^3/uL (0.0-0.2); ABSOLUTE LYMPHOCYTES (AUTO) 6.4 10^3/uL (0.5-4.7); ABSOLUTE MONOCYTES (AUTO) 1.3 10^3/uL (0.1-1.4); ABSOLUTE NEUT (AUTO) 10.7 10^3/uL (1.7-8.2); BASOPHILS % (AUTO) 0.5 % (0-2); EOSINOPHILS % (AUTO) 0.1 % (0-6); HEMATOCRIT 27.3 % (36.0-47.0); HEMOGLOBIN 8.6 g/dL (12.0-15.5); LYMPHOCYTES % (AUTO) 34.4 % (13-45); MEAN CORPUSCULAR HEMOGLOBIN 26.3 pg (27.0-33.4); MEAN CORPUSCULAR HGB CONC 31.4 g/dL (32.0-36.0); MEAN CORPUSCULAR VOLUME 84 fl (80-97); MONOCYTES % (AUTO) 7.1 % (3-13); PLATELET COUNT 236 10^3/uL (150-450); RED BLOOD COUNT 3.25 10^6/uL (3.72-5.28); RED CELL DISTRIBUTION WIDTH 17.9 % (11.5-14.0); SEGMENTED NEUTROPHILS % (AUTO) 57.9 % (42-78); TOTAL CELLS COUNTED % (AUTO) 100 %; WHITE BLOOD COUNT 18.5 10^3/uL (4.0-10.5)
[2018-01-10 05:35] LABS: BLOOD UREA NITROGEN 22 mg/dL (7-20); CALCIUM 9.9 mg/dL (8.4-10.2); CARBON DIOXIDE 36 mmol/L (22-30); CHLORIDE 105 mmol/L (98-107); GLUCOSE 169 mg/dL (75-110); POTASSIUM 3.4 mmol/L (3.6-5.0)
[2018-01-10] MEDS: METHYLPREDNISOLONE INJ 40 MG/1 ML SDV IV SCH ×3 (05:54→21:35)
[2018-01-10] MEDS: INSULIN LISPRO 100 UNIT/ML 3 ML VIAL SUBCUT PRN ×3 (05:54→21:51)
[2018-01-10] MEDS: 1/2 NORMAL SALINE 1,000 ML IV PRN (06:03)
[2018-01-10 06:55] LABS: ANION GAP 4 (5-19)
[2018-01-10] MEDS: IPRATROPIUM/ALBUTEROL 0.5-2.5 MG/3 ML AMPUL NEB SCH ×4 (08:14→20:27)
--- NOTE | 2018-01-10 08:42 | RADIOLOGY REPORT (SQ) ---
EXAM DESCRIPTION: CHEST SINGLE VIEW COMPLETED DATE/TIME: 01/10/2018 6:09 am REASON FOR STUDY: pna/resp fail COMPARISON: 01/09/2018 EXAM PARAMETERS: NUMBER OF VIEWS: One view. TECHNIQUE: Single frontal radiographic view of the chest acquired. RADIATION DOSE: NA LIMITATIONS: None. FINDINGS: LUNGS AND PLEURA: Persistent bibasilar mild airspace disease and small pleural effusions. No pneumothorax. MEDIASTINUM AND HILAR STRUCTURES: No masses. Contour normal. HEART AND VASCULAR STRUCTURES: Heart normal in size. Normal vasculature. BONES: No acute findings. HARDWARE: Interval removal of endotracheal and nasogastric tubes. Right internal jugular central ve nous catheter, unchanged finding. OTHER: No other significant finding. IMPRESSION: 1 Interval removal of endotracheal and nasogastric tube since the prior study dated 01/09. 2. Persistent mild air space disease and small bilateral pleural effusions. TECHNICAL DOCUMENTATION: JOB ID: [id number] [employer]- All Rights Reserved Reading location - IP/workstation name: [email or web address]
[2018-01-10] MEDS: DOCUSATE SODIUM 100 MG CAPSULE PO SCH ×2 (11:39→21:36)
[2018-01-10] MEDS: ASPIRIN 81 MG TABLET, CHEWABLE PO SCH (11:39)
[2018-01-10] MEDS: ROFLUMILAST 500 MCG TABLET PO SCH (11:39)
[2018-01-10] MEDS: LACTOBACILLUS ACIDOPHILUS 250 MG TAB PO SCH ×2 (11:40→16:09)
[2018-01-10] MEDS: METOPROLOL SUCCINATE 25 MG TAB.SR.24H PO SCH (11:40)
[2018-01-10] MEDS: INSULIN GLARGINE,HUM.REC.ANLOG 300 UNIT/3 ML INSULN.PEN SUBCUT SCH (11:41)
[2018-01-10] MEDS: ENOXAPARIN SODIUM INJ 40 MG/0.4 ML DISP.SYRIN SUBCUT SCH (11:41)
[2018-01-10] MEDS: CEFEPIME HCL 2 GM in DEXTROSE 5%-WATER 50 ML IV SCH ×2 (11:42→21:34)
[2018-01-10] MEDS: FLUTICASONE NASAL SPRAY 50 MCG/SPRY 120 SPRAY/16 GM NASL SCH ×2 (11:43→21:36)
[2018-01-10] MEDS: POLYETHYLENE GLYCOL 3350 POWDER 17 GM/1 PACKET PO SCH ×2 (11:43→21:38)
--- NOTE | 2018-01-10 15:45 | PDOC PROGRESS REPORT ---
Subjective Progress Note for:: 01/10/18 Subjective:: Lethargic but easily arousable Reason For Visit: COPD EXACERBATION, ACUTE ON CHRONIC RESP FAILURE, Physical Exam Vital Signs: Temp Pulse Resp BP Pulse Ox 98.4 F 71 18 130/69 H 100 01/10/18 08:00 01/10/18 08:17 01/10/18 08:17 01/10/18 08:00 01/10/18 08:17 Pulse Oximeter Continuous Start: 01/03/18 14: 49 Freq: Status: Complete Document 01/03/18 16:05 [facility] (Rec: 01/03/18 17:52 [facility] [email or web address]) Pulse Oximetry Assessment Oxygen Saturation (92-100) 94 Fraction of Inspired Oxygen (FIO2) 60 Equipment Usage Equipment in Use Continuous SpO2 Machine # [id number]-7 Intake & Output 01/09/18 01/10/18 01/11/18 06:59 06:59 06:59 Intake Total 3388 1874 50 Output Total 2330 3105 375 Balance 1058 1231 -325 Weight 80.6 kg 79.7 kg General appearance: PRESENT: no acute distress, cooperative, disheveled, obese Head exam: PRESENT: atraumatic, normocephalic Eye exam: PRESENT: conjunctiva pale, EOMI. ABSENT: nystagmus, periorbital swelling, scleral icterus Mouth exam: PRESENT: dry mucosa, neck supple, tongue midline Neck exam: ABSENT: carotid bruit, JVD, lymphadenopathy, thyromegaly, tracheal deviation, tracheostomy Respiratory exam: PRESENT: decreased breath sounds, prolonged expiratory phas, rales, rhonchi, symmetrical, unlabored. ABSENT: retraction, stridor, tachypnea Cardiovascular exam: PRESENT: RRR, +S1, +S2 Pulses: PRESENT: normal radial pulses GI/Abdominal exam: PRESENT: diminished bowel sounds, soft Gentrourinary exam: ABSENT: testicular tenderness Extremities exam: ABSENT: calf tenderness, clubbing Musculoskeletal exam: ABSENT: deformity, dislocation Neurological exam: PRESENT: awake Psychiatric exam: PRESENT: flat affect Skin exam: PRESENT: dry, warm Results Laboratory Results: 01/10/18 05:05 01/10/18 05:05 01/10/18 01/10/18 01/10/18 05:05 05:05 05:05 WBC 18.5 H RBC 3.25 L Hgb 8.6 L Hct 27.3 L MCV 84 MCH 26.3 L MCHC 31.4 L RDW 17.9 H Plt Count 236 Seg Neutrophils % 57.9 Lymphocytes % 34.4 Monocytes % 7.1 Eosinophils % 0.1 Basophils % 0.5 Absolute Neutrophils 10.7 H Absolute Lymphocytes 6.4 H Absolute Monocytes 1.3 Absolute Eosinophils 0.0 Absolute Basophils 0.1 Carbonic Acid 1.51 H HCO3/H2CO3 Ratio 21:1 ABG pH 7.43 ABG pCO2 50.2 H ABG pO2 89.5 ABG HCO3 32.4 H ABG O2 Saturation 96.9 ABG Base Excess 7.1 FiO2 40% Sodium 145.0 Potassium 3.4 L Chloride 105 Carbon Dioxide 36 H Anion Gap 4 L BUN 22 H Creatinine 0.48 L Est GFR ( Amer) > 60 Est GFR (Non-Af Amer) > 60 Glucose 169 H Calcium 9.9 01/06/18 10:00 Bronchial Washings Fungal Smear - Final 01/06/18 10:00 Bronchial Washings Fungal Smear - Final 01/01/18 01/02/18 01/03/18 05:24 04:36 05:12 Creatine Kinase CK-MB (CK-2) Troponin I NT-Pro-B Natriuret Pep 9160 H 38559 H 5270 H 01/04/18 01/04/18 01/05/18 18:38 18:38 00:40 Creatine Kinase < 20 L < 20 L CK-MB (CK-2) 0.31 Troponin I 0.032 NT-Pro-B Natriuret Pep 01/05/18 01/05/18 01/05/18 00:40 06:30 06:30 Creatine Kinase < 20 L CK-MB (CK-2) 0.26 0.24 Troponin I 0.044 0.048 NT-Pro-B Natriuret Pep 2590 H Impressions: Chest/Abdomen CTA 01/05/18 08:00 IMPRESSION: No CT angio evidence of acute pulmonary emboli. Near complete collapse left lower lobe, progressive compared to the prior studies. Findings worrisome for pneumonia. Assessment & Plan - Diagnosis (1) Acute and chronic respiratory failure Qualifiers: Respiratory failure complication: hypoxia and hypercapnia Qualified Code(s) : J96.21 - Acute and chronic respiratory failure with hypoxia; J96.22 - Acute and chronic respiratory failure with hypercapnia; J96.22 - Acute and chronic respiratory failure with hypercapnia; J96.22 - Acute and chronic respiratory failure with hypercapnia Is this a current diagnosis for this admission?: Yes Plan: 24 hours status post extubation pH normalizing with retention of PCO2 patient lethargic but at this time easily arousable strongly encouraged to wear BiPAP postprandial and when sleeping (2) COPD (chronic obstructive pulmonary disease) Qualifiers: Emphysema type: unspecified Is this a current diagnosis for this admission?: Yes Plan: Generic Name Dose Route Start Last Admin Trade Name Freq PRN Reason Stop Dose Admin Levalbuterol HCl 0.63 mg 01/01/18 10:45 Xopenex Neb 0.63 Mg/3 Ml Ampul NEB 01/31/18 10:44 [id number] PRN SHORTNESS OF BREATH Albuterol/Ipratropium 3 ml 01/01/18 16:00 01/05/18 12:27 Duoneb 3 Ml Ampul NEB 01/31/18 15:59 3 ml [id number] ABDIEL (3) Hypertension Qualifiers: Hypertension type: essential hypertension Qualified Code(s): I10 - Essential (primary) hypertension Is this a current diagnosis for this admission?: Yes (4) Left lower lobe pneumonia Is this a current diagnosis for this admission?: Yes Plan: Radiographically unchanged WBC is elevated will follow closely - Time Total Critical Time (Minutes): 45
--- NOTE | 2018-01-10 18:21 | PDOC PROGRESS REPORT ---
Subjective Progress Note for:: 01/10/18 Subjective:: Patient denies any complaints. She is able to tell that she is at [facility]. She is also able to tell why she is in the hospital for. Review of system All organ systems evaluated and negative except as in subjective All significant laboratories and diagnostics have been reviewed Reason For Visit: COPD EXACERBATION, ACUTE ON CHRONIC RESP FAILURE, Physical Exam Vital Signs: Temp Pulse Resp BP Pulse Ox 98.4 F 71 18 130/69 H 100 01/10/18 08:00 01/10/18 08:17 01/10/18 08:17 01/10/18 08:00 01/10/18 08:17 Pulse Oximeter Continuous Start: 01/03/18 14: 49 Freq: Status: Complete Document 01/03/18 16:05 [facility] (Rec: 01/03/18 17:52 [facility] [email or web address]) Pulse Oximetry Assessment Oxygen Saturation (92-100) 94 Fraction of Inspired Oxygen (FIO2) 60 Equipment Usage Equipment in Use Continuous SpO2 Machine # N-7 Intake & Output 01/09/18 01/10/18 01/11/18 06:59 06:59 06:59 Intake Total 3388 1874 50 Output Total 2330 3105 375 Balance 0310 -1633 -694 Weight 80.6 kg 79.7 kg General appearance: PRESENT: no acute distress, cooperative, obese Head exam: PRESENT: atraumatic, normocephalic Eye exam: PRESENT: conjunctiva pink, EOMI, PERRLA Ear exam: PRESENT: normal external ear exam Mouth exam: PRESENT: moist Neck exam: PRESENT: full ROM. ABSENT: JVD, lymphadenopathy, tenderness Respiratory exam: PRESENT: clear to auscultation gee Cardiovascular exam: PRESENT: RRR. ABSENT: diastolic murmur, systolic murmur Vascular exam: PRESENT: normal capillary refill GI/Abdominal exam: PRESENT: normal bowel sounds, soft. ABSENT: tenderness Extremities exam: PRESENT: full ROM. ABSENT: pedal edema Musculoskeletal exam: PRESENT: ambulatory Neurological exam: PRESENT: alert, awake, oriented to person, oriented to place , oriented to time, oriented to situation, CN II-XII grossly intact Psychiatric exam: PRESENT: appropriate affect, normal mood Skin exam: PRESENT: intact, normal color Results Laboratory Results: 01/10/18 05:05 01/10/18 05:05 01/10/18 01/10/18 01/10/18 05:05 05:05 05:05 WBC 18.5 H RBC 3.25 L Hgb 8.6 L Hct 27.3 L MCV 84 MCH 26.3 L MCHC 31.4 L RDW 17.9 H Plt Count 236 Seg Neutrophils % 57.9 Lymphocytes % 34.4 Monocytes % 7.1 Eosinophils % 0.1 Basophils % 0.5 Absolute Neutrophils 10.7 H Absolute Lymphocytes 6.4 H Absolute Monocytes 1.3 Absolute Eosinophils 0.0 Absolute Basophils 0.1 Carbonic Acid 1.51 H HCO3/H2CO3 Ratio 21:1 ABG pH 7.43 ABG pCO2 50.2 H ABG pO2 89.5 ABG HCO3 32.4 H ABG O2 Saturation 96.9 ABG Base Excess 7.1 FiO2 40% Sodium 145.0 Potassium 3.4 L Chloride 105 Carbon Dioxide 36 H Anion Gap 4 L BUN 22 H Creatinine 0.48 L Est GFR ( Amer) > 60 Est GFR (Non-Af Amer) > 60 Glucose 169 H Calcium 9.9 01/06/18 10:00 Bronchial Washings Fungal Smear - Final 01/06/18 10:00 Bronchial Washings Fungal Smear - Final 01/01/18 01/02/18 01/03/18 05:24 04:36 05:12 Creatine Kinase CK-MB (CK-2) Troponin I NT-Pro-B Natriuret Pep 9160 H 28001 H 5270 H 01/04/18 01/04/18 01/05/18 18:38 18:38 00:40 Creatine Kinase < 20 L < 20 L CK-MB (CK-2) 0.31 Troponin I 0.032 NT-Pro-B Natriuret Pep 01/05/18 01/05/18 01/05/18 00:40 06:30 06:30 Creatine Kinase < 20 L CK-MB (CK-2) 0.26 0.24 Troponin I 0.044 0.048 NT-Pro-B Natriuret Pep 2590 H Impressions: Chest/Abdomen CTA 01/05/18 08:00 IMPRESSION: No CT angio evidence of acute pulmonary emboli. Near complete collapse left lower lobe, progressive compared to the prior studies. Findings worrisome for pneumonia. Assessment & Plan - Diagnosis (1) Acute on chronic diastolic CHF (congestive heart failure) Is this a current diagnosis for this admission?: Yes Plan: Acute component resolved (2) Pulmonary hypertension Is this a current diagnosis for this admission?: Yes Plan: Likely due to diastolic congestive heart failure however I am also contemplating pulmonary issues aggravating the whole situation. Improved (3) COPD (chronic obstructive pulmonary disease) Qualifiers: Emphysema type: unspecified Is this a current diagnosis for this admission?: Yes Plan: Change duo nebs to every 6 hours as needed. Add Advair (4) Acute and chronic respiratory failure Qualifiers: Respiratory failure complication: hypoxia and hypercapnia Qualified Code(s) : J96.21 - Acute and chronic respiratory failure with hypoxia; J96.22 - Acute and chronic respiratory failure with hypercapnia; J96.22 - Acute and chronic respiratory failure with hypercapnia; J96.22 - Acute and chronic respiratory failure with hypercapnia Is this a current diagnosis for this admission?: Yes Plan: Patient of ventilatory support. Oxygenating well on 3 L of O2 by nasal cannula (5) Hypertension Qualifiers: Hypertension type: essential hypertension Qualified Code(s): I10 - Essential (primary) hypertension Is this a current diagnosis for this admission?: Yes Plan: Continue Toprol-XL (6) Left lower lobe pneumonia Qualifiers: Pneumonia type: due to unspecified organism Qualified Code(s): J18.1 - Lobar pneumonia, unspecified organism Is this a current diagnosis for this admission?: Yes Plan: Continue cefepime and follow-up chest x-ray - Time Time Spent with patient: 15-24 minutes Medications reviewed and adjusted accordingly: Yes Anticipated discharge: SNF Within: within 72 hours - Inpatient Certification Based on my medical assessment, after consideration of the patient's comorbidities, presenting symptoms, or acuity I expect that the services needed warrant INPATIENT care.: Yes I certify that my determination is in accordance with my understanding of Medicare's requirements for reasonable and necessary INPATIENT services [42 CFR 412.3e].: Yes Medical Necessity: Need Close Monitoring Due to Risk of Patient Decompensation, Need For Continuous Telemetry Monitoring, Need for Nebulizer Therapy and Monitoring of Response
[2018-01-10] MEDS: ACETAMINOPHEN 325 MG TABLET PO PRN (20:30)
[2018-01-10] MEDS: ATORVASTATIN CALCIUM 10 MG TABLET PO SCH (21:36)
[2018-01-10] MEDS: MONTELUKAST SODIUM 10 MG TABLET PO SCH (21:37)
[2018-01-10] MEDS: FLUTICASONE/SALMETEROL DISKUS 250-50 MCG/DOSE IH SCH (21:44)
[2018-01-11] MEDS: METHYLPREDNISOLONE INJ 40 MG/1 ML SDV IV SCH (05:47)
[2018-01-11] MEDS: INSULIN LISPRO 100 UNIT/ML 3 ML VIAL SUBCUT PRN ×3 (05:47→16:31)
[2018-01-11 06:00] LABS: ABSOLUTE LYMPHOCYTES (AUTO) 2.6 10^3/uL (0.5-4.7); ABSOLUTE MONOCYTES (AUTO) 0.8 10^3/uL (0.1-1.4); ABSOLUTE NEUT (AUTO) 8.6 10^3/uL (1.7-8.2); BASOPHILS % (AUTO) 0.3 % (0-2); HEMATOCRIT 26.3 % (36.0-47.0); HEMOGLOBIN 8.3 g/dL (12.0-15.5); LYMPHOCYTES % (AUTO) 21.5 % (13-45); MEAN CORPUSCULAR HEMOGLOBIN 26.3 pg (27.0-33.4); MEAN CORPUSCULAR HGB CONC 31.4 g/dL (32.0-36.0); MEAN CORPUSCULAR VOLUME 84 fl (80-97); MONOCYTES % (AUTO) 6.4 % (3-13); PLATELET COUNT 219 10^3/uL (150-450); RED BLOOD COUNT 3.14 10^6/uL (3.72-5.28); RED CELL DISTRIBUTION WIDTH 17.3 % (11.5-14.0); SEGMENTED NEUTROPHILS % (AUTO) 71.8 % (42-78); TOTAL CELLS COUNTED % (AUTO) 100 %; WHITE BLOOD COUNT 11.9 10^3/uL (4.0-10.5)
[2018-01-11 06:11] LABS: BLOOD UREA NITROGEN 21 mg/dL (7-20); CALCIUM 9.5 mg/dL (8.4-10.2); GLUCOSE 215 mg/dL (75-110); POTASSIUM 4.3 mmol/L (3.6-5.0)
[2018-01-11 06:16] LABS: CARBON DIOXIDE 37 mmol/L (22-30); CHLORIDE 103 mmol/L (98-107); SODIUM 144.2 mmol/L (137-145)
[2018-01-11 06:23] LABS: ANION GAP 5 (5-19)
[2018-01-11] MEDS: IPRATROPIUM/ALBUTEROL 0.5-2.5 MG/3 ML AMPUL NEB SCH (07:59)
[2018-01-11] MEDS: METOPROLOL SUCCINATE 25 MG TAB.SR.24H PO SCH (09:39)
[2018-01-11] MEDS: DOCUSATE SODIUM 100 MG CAPSULE PO SCH ×2 (09:39→21:09)
[2018-01-11] MEDS: ROFLUMILAST 500 MCG TABLET PO SCH (09:40)
[2018-01-11] MEDS: LACTOBACILLUS ACIDOPHILUS 250 MG TAB PO SCH ×2 (09:40→17:32)
[2018-01-11] MEDS: CEFEPIME HCL 2 GM in DEXTROSE 5%-WATER 50 ML IV SCH (09:41)
[2018-01-11] MEDS: FLUTICASONE/SALMETEROL DISKUS 250-50 MCG/DOSE IH SCH ×2 (09:42→21:09)
[2018-01-11] MEDS: FLUTICASONE NASAL SPRAY 50 MCG/SPRY 120 SPRAY/16 GM NASL SCH ×2 (09:42→21:07)
[2018-01-11] MEDS: INSULIN GLARGINE,HUM.REC.ANLOG 300 UNIT/3 ML INSULN.PEN SUBCUT SCH (09:43)
[2018-01-11] MEDS: ENOXAPARIN SODIUM INJ 40 MG/0.4 ML DISP.SYRIN SUBCUT SCH (09:43)
[2018-01-11] MEDS: POLYETHYLENE GLYCOL 3350 POWDER 17 GM/1 PACKET PO SCH ×2 (11:32→21:09)
[2018-01-11] MEDS: ASPIRIN 81 MG TABLET, CHEWABLE PO SCH (11:34)
[2018-01-11] MEDS ORDERED: IPRATROPIUM/ALBUTEROL 0.5-2.5 MG/3 ML AMPUL NEB PRN (13:27)
--- NOTE | 2018-01-11 13:29 | PDOC PROGRESS REPORT ---
Subjective Progress Note for:: 01/11/18 Subjective:: Patient denies any complaints except for being hungry Review of system All organ systems evaluated and negative except as in subjective All significant laboratories and diagnostics have been reviewed Reason For Visit: COPD EXACERBATION, ACUTE ON CHRONIC RESP FAILURE, Physical Exam Vital Signs: Temp Pulse Resp BP Pulse Ox 98.1 F 50 L 11 L 140/67 H 100 01/11/18 03:53 01/10/18 20:25 01/11/18 06:00 01/11/18 05:04 01/11/18 06:00 Pulse Oximeter Continuous Start: 01/03/18 14: 49 Freq: Status: Complete Document 01/03/18 16:05 [facility] (Rec: 01/03/18 17:52 [facility] [email or web address]) Pulse Oximetry Assessment Oxygen Saturation (92-100) 94 Fraction of Inspired Oxygen (FIO2) 60 Equipment Usage Equipment in Use Continuous SpO2 Machine # N-[id number] Intake & Output 01/10/18 01/11/18 01/12/18 06:59 06:59 06:59 Intake Total 1874 1121 Output Total 3105 1915 Balance -1231 -794 Weight 79.7 kg 79.2 kg General appearance: PRESENT: no acute distress, cooperative, obese Head exam: PRESENT: atraumatic, normocephalic Eye exam: PRESENT: conjunctiva pink, EOMI, PERRLA Neck exam: PRESENT: full ROM. ABSENT: JVD, lymphadenopathy, tenderness, thyromegaly Respiratory exam: PRESENT: rhonchi Cardiovascular exam: PRESENT: RRR. ABSENT: diastolic murmur, systolic murmur Vascular exam: PRESENT: normal capillary refill GI/Abdominal exam: PRESENT: normal bowel sounds, soft. ABSENT: tenderness Extremities exam: PRESENT: full ROM, +1 edema Musculoskeletal exam: PRESENT: ambulatory Neurological exam: PRESENT: alert, awake, oriented to person, oriented to place , oriented to time, oriented to situation, CN II-XII grossly intact Psychiatric exam: PRESENT: appropriate affect, normal mood Skin exam: PRESENT: normal color Results Laboratory Results: 01/11/18 05:35 01/11/18 05:35 01/10/18 01/11/18 01/11/18 05:05 05:35 05:35 WBC 11.9 H RBC 3.14 L Hgb 8.3 L Hct 26.3 L MCV 84 MCH 26.3 L MCHC 31.4 L RDW 17.3 H Plt Count 219 Seg Neutrophils % 71.8 Lymphocytes % 21.5 Monocytes % 6.4 Eosinophils % 0.0 Basophils % 0.3 Absolute Neutrophils 8.6 H Absolute Lymphocytes 2.6 Absolute Monocytes 0.8 Absolute Eosinophils 0.0 Absolute Basophils 0.0 Sodium 144.2 Potassium 4.3 Chloride 103 Carbon Dioxide 37 H Anion Gap 5 BUN 21 H Creatinine 0.62 Est GFR ( Amer) > 60 Est GFR (Non-Af Amer) > 60 Glucose 215 H Calcium 9.5 Magnesium 2.5 H 01/01/18 01/02/18 01/03/18 05:24 04:36 05:12 Creatine Kinase CK-MB (CK-2) Troponin I NT-Pro-B Natriuret Pep 9160 H 66253 H 5270 H 01/04/18 01/04/18 01/05/18 18:38 18:38 00:40 Creatine Kinase < 20 L < 20 L CK-MB (CK-2) 0.31 Troponin I 0.032 NT-Pro-B Natriuret Pep 01/05/18 01/05/18 01/05/18 00:40 06:30 06:30 Creatine Kinase < 20 L CK-MB (CK-2) 0.26 0.24 Troponin I 0.044 0.048 NT-Pro-B Natriuret Pep 2590 H Impressions: Chest/Abdomen CTA 01/05/18 08:00 IMPRESSION: No CT angio evidence of acute pulmonary emboli. Near complete collapse left lower lobe, progressive compared to the prior studies. Findings worrisome for pneumonia. Chest X-Ray 01/10/18 06:00 IMPRESSION: 1 Interval removal of endotracheal and nasogastric tube since the prior study dated 01/09/2018. 2. Persistent mild air space disease and small bilateral pleural effusions. Assessment & Plan - Diagnosis (1) Acute on chronic diastolic CHF (congestive heart failure) Is this a current diagnosis for this admission?: Yes Plan: Acute component resolved. To continue Toprol XL and add Lasix oral (2) Pulmonary hypertension Is this a current diagnosis for this admission?: Yes Plan: Likely due to diastolic congestive heart failure however I am also contemplating pulmonary issues aggravating the whole situation. Improved. To add Lasix IV (3) COPD (chronic obstructive pulmonary disease) Qualifiers: Emphysema type: unspecified Is this a current diagnosis for this admission?: Yes Plan: Duo nebs to every 6 hours as needed. Continue Advair, discontinue IV steroids and change to oral, add mucinex. (4) Acute and chronic respiratory failure Qualifiers: Respiratory failure complication: hypoxia and hypercapnia Qualified Code(s) : J96.21 - Acute and chronic respiratory failure with hypoxia; J96.22 - Acute and chronic respiratory failure with hypercapnia; J96.22 - Acute and chronic respiratory failure with hypercapnia; J96.22 - Acute and chronic respiratory failure with hypercapnia Is this a current diagnosis for this admission?: Yes Plan: Oxygenating well on 3 L of O2 by nasal cannula (5) Hypertension Qualifiers: Hypertension type: essential hypertension Qualified Code(s): I10 - Essential (primary) hypertension Is this a current diagnosis for this admission?: Yes Plan: Continue Toprol-XL (6) Left lower lobe pneumonia Qualifiers: Pneumonia type: due to unspecified organism Qualified Code(s): J18.1 - Lobar pneumonia, unspecified organism Is this a current diagnosis for this admission?: Yes Plan: Change to Levaquin - Time Time Spent with patient: 15-24 minutes Medications reviewed and adjusted accordingly: Yes Anticipated discharge: SNF Within: within 72 hours - Inpatient Certification Based on my medical assessment, after consideration of the patient's comorbidities, presenting symptoms, or acuity I expect that the services needed warrant INPATIENT care.: Yes I certify that my determination is in accordance with my understanding of Medicare's requirements for reasonable and necessary INPATIENT services [42 CFR 412.3e].: Yes Medical Necessity: Significant Comorbidiites Make Outpatient Treatment Too Risky , Need Close Monitoring Due to Risk of Patient Decompensation
[2018-01-11] MEDS: NORMAL SALINE INJ/PF 0.9% 10 ML SDV IV PRN (14:14)
[2018-01-11] MEDS ORDERED: FUROSEMIDE 20 MG TABLET PO ONE (15:00)
[2018-01-11] MEDS ORDERED: LEVOFLOXACIN 750 MG TABLET PO SCH (18:00)
--- NOTE | 2018-01-11 18:26 | PDOC PROGRESS REPORT ---
Subjective Progress Note for:: 01/11/18 Subjective:: Awake alert oriented Reason For Visit: COPD EXACERBATION, ACUTE ON CHRONIC RESP FAILURE, Physical Exam Vital Signs: Temp Pulse Resp BP Pulse Ox 98.4 F 60 16 112/48 L 99 01/11/18 08:00 01/11/18 08:01 01/11/18 08:01 01/11/18 08:00 01/11/18 08:01 Pulse Oximeter Continuous Start: 01/03/18 14: 49 Freq: Status: Complete Document 01/03/18 16:05 [facility] (Rec: 01/03/18 17:52 [facility] [email or web address]) Pulse Oximetry Assessment Oxygen Saturation (92-100) 94 Fraction of Inspired Oxygen (FIO2) 60 Equipment Usage Equipment in Use Continuous SpO2 Machine # N-7 Intake & Output 01/10/18 01/11/18 01/12/18 06:59 06:59 06:59 Intake Total 1874 1121 Output Total 3105 1915 Balance -1231 -794 Weight 79.7 kg 79.2 kg General appearance: PRESENT: no acute distress, cooperative. ABSENT: disheveled Head exam: PRESENT: atraumatic, normocephalic Eye exam: PRESENT: conjunctiva pale, EOMI. ABSENT: nystagmus, periorbital swelling, scleral icterus Mouth exam: PRESENT: moist, neck supple, tongue midline Neck exam: ABSENT: carotid bruit, JVD, lymphadenopathy, thyromegaly, tracheal deviation, tracheostomy Respiratory exam: PRESENT: decreased breath sounds, prolonged expiratory phas, rales, rhonchi, symmetrical, unlabored. ABSENT: retraction, stridor, tachypnea Cardiovascular exam: PRESENT: RRR, +S1, +S2 Pulses: PRESENT: normal radial pulses GI/Abdominal exam: PRESENT: diminished bowel sounds, soft Extremities exam: ABSENT: clubbing, joint swelling Musculoskeletal exam: ABSENT: deformity, dislocation Neurological exam: PRESENT: alert, awake Psychiatric exam: PRESENT: normal mood Skin exam: PRESENT: dry, other Results Laboratory Results: 01/11/18 05:35 01/11/18 05:35 01/10/18 01/11/18 01/11/18 05:05 05:35 05:35 WBC 11.9 H RBC 3.14 L Hgb 8.3 L Hct 26.3 L MCV 84 MCH 26.3 L MCHC 31.4 L RDW 17.3 H Plt Count 219 Seg Neutrophils % 71.8 Lymphocytes % 21.5 Monocytes % 6.4 Eosinophils % 0.0 Basophils % 0.3 Absolute Neutrophils 8.6 H Absolute Lymphocytes 2.6 Absolute Monocytes 0.8 Absolute Eosinophils 0.0 Absolute Basophils 0.0 Sodium 144.2 Potassium 4.3 Chloride 103 Carbon Dioxide 37 H Anion Gap 5 BUN 21 H Creatinine 0.62 Est GFR ( Amer) > 60 Est GFR (Non-Af Amer) > 60 Glucose 215 H Calcium 9.5 Magnesium 2.5 H 01/01/18 01/02/18 01/03/18 05:24 04:36 05:12 Creatine Kinase CK-MB (CK-2) Troponin I NT-Pro-B Natriuret Pep 9160 H 33564 H 5270 H 01/04/18 01/04/18 01/05/18 18:38 18:38 00:40 Creatine Kinase < 20 L < 20 L CK-MB (CK-2) 0.31 Troponin I 0.032 NT-Pro-B Natriuret Pep 01/05/18 01/05/18 01/05/18 00:40 06:30 06:30 Creatine Kinase < 20 L CK-MB (CK-2) 0.26 0.24 Troponin I 0.044 0.048 NT-Pro-B Natriuret Pep 2590 H Impressions: Chest/Abdomen CTA 01/05/18 08:00 IMPRESSION: No CT angio evidence of acute pulmonary emboli. Near complete collapse left lower lobe, progressive compared to the prior studies. Findings worrisome for pneumonia. Chest X-Ray 01/10/18 06:00 IMPRESSION: 1 Interval removal of endotracheal and nasogastric tube since the prior study dated 01/09/2018. 2. Persistent mild air space disease and small bilateral pleural effusions. Assessment & Plan - Diagnosis (1) Acute and chronic respiratory failure Qualifiers: Respiratory failure complication: hypoxia and hypercapnia Qualified Code(s) : J96.21 - Acute and chronic respiratory failure with hypoxia; J96.22 - Acute and chronic respiratory failure with hypercapnia; J96.22 - Acute and chronic respiratory failure with hypercapnia; J96.22 - Acute and chronic respiratory failure with hypercapnia Is this a current diagnosis for this admission?: Yes Plan: Continues to improve (2) COPD (chronic obstructive pulmonary disease) Qualifiers: Emphysema type: unspecified Is this a current diagnosis for this admission?: Yes Plan: Generic Name Dose Route Start Last Admin Trade Name Freq PRN Reason Stop Dose Admin Levalbuterol HCl 0.63 mg 01/01/18 10:45 Xopenex Neb 0.63 Mg/3 Ml Ampul NEB 01/31/18 10:44 [id number] PRN SHORTNESS OF BREATH Albuterol/Ipratropium 3 ml 01/01/18 16:00 01/05/18 12:27 Duoneb 3 Ml Ampul NEB 01/31/18 15:59 3 ml [id number] ABDIEL (3) Hypertension Qualifiers: Hypertension type: essential hypertension Qualified Code(s): I10 - Essential (primary) hypertension Is this a current diagnosis for this admission?: Yes (4) Left lower lobe pneumonia Qualifiers: Pneumonia type: due to unspecified organism Qualified Code(s): J18.1 - Lobar pneumonia, unspecified organism Is this a current diagnosis for this admission?: Yes Plan: Radiographically unchanged WBC is elevated will follow closely - Time Total Critical Time (Minutes): 35
[2018-01-11 20:12] LABS: ARTERIAL BLOOD BASE EXCESS 10.7 mmol/L; ARTERIAL BLOOD H2CO3 1.54 mmol/L (1.05-1.35); ARTERIAL BLOOD HCO3 35.7 mmol/L (20-26); ARTERIAL BLOOD PCO2 51.3 mmHg (35-45); ARTERIAL BLOOD PH 7.46 (7.35-7.45); ARTERIAL BLOOD PO2 71.8 mmHg (80-100); ARTERIAL BLOOD TOTAL CO2 37.3 mmol/L (21-25)
[2018-01-11 20:17] LABS: ARTERIAL BLOOD FIO2 2L
[2018-01-11 20:24] LABS: ALANINE AMINOTRANSFERASE 22 U/L (9-52); ALBUMIN 2.4 g/dL (3.5-5.0); ALKALINE PHOSPHATASE 56 U/L (38-126); ANION GAP 5 (5-19); ASPARTATE AMINO TRANSFERASE 10 U/L (14-36); BILIRUBIN,DIRECT 0.2 mg/dL (0.0-0.4); BILIRUBIN,TOTAL 0.2 mg/dL (0.2-1.3); BLOOD UREA NITROGEN 22 mg/dL (7-20); CALCIUM 9.5 mg/dL (8.4-10.2); CARBON DIOXIDE 37 mmol/L (22-30); CHLORIDE 101 mmol/L (98-107); GLUCOSE 178 mg/dL (75-110); POTASSIUM 3.8 mmol/L (3.6-5.0); SODIUM 143.3 mmol/L (137-145); TOTAL PROTEIN 5.2 g/dL (6.3-8.2)
[2018-01-11] MEDS: ACETAMINOPHEN 325 MG TABLET PO PRN (21:05)
[2018-01-11] MEDS: ATORVASTATIN CALCIUM 10 MG TABLET PO SCH (21:06)
[2018-01-11] MEDS: MONTELUKAST SODIUM 10 MG TABLET PO SCH (21:09)
[2018-01-11] MEDS: GUAIFENESIN 600 MG TABLET.SA PO SCH (21:09)
[2018-01-12 06:02] LABS: ABSOLUTE EOSINOPHILS # (AUTO) 0.1 10^3/uL (0.0-0.6); ABSOLUTE LYMPHOCYTES (AUTO) 6.7 10^3/uL (0.5-4.7); ABSOLUTE MONOCYTES (AUTO) 1.2 10^3/uL (0.1-1.4); ABSOLUTE NEUT (AUTO) 7.3 10^3/uL (1.7-8.2); BASOPHILS % (AUTO) 0.1 % (0-2); EOSINOPHILS % (AUTO) 0.5 % (0-6); HEMATOCRIT 27.7 % (36.0-47.0); HEMOGLOBIN 8.6 g/dL (12.0-15.5); LYMPHOCYTES % (AUTO) 43.9 % (13-45); MEAN CORPUSCULAR HEMOGLOBIN 26.1 pg (27.0-33.4); MEAN CORPUSCULAR HGB CONC 31.1 g/dL (32.0-36.0); MEAN CORPUSCULAR VOLUME 84 fl (80-97); MONOCYTES % (AUTO) 8.1 % (3-13); PLATELET COUNT 241 10^3/uL (150-450); RED BLOOD COUNT 3.31 10^6/uL (3.72-5.28); RED CELL DISTRIBUTION WIDTH 17.2 % (11.5-14.0); SEGMENTED NEUTROPHILS % (AUTO) 47.4 % (42-78); TOTAL CELLS COUNTED % (AUTO) 100 %; WHITE BLOOD COUNT 15.3 10^3/uL (4.0-10.5)
[2018-01-12 06:29] LABS: ANION GAP 5 (5-19); BLOOD UREA NITROGEN 20 mg/dL (7-20); CALCIUM 9.2 mg/dL (8.4-10.2); CARBON DIOXIDE 36 mmol/L (22-30); CHLORIDE 101 mmol/L (98-107); GLUCOSE 159 mg/dL (75-110); POTASSIUM 3.8 mmol/L (3.6-5.0); SODIUM 142.1 mmol/L (137-145)
--- NOTE | 2018-01-12 07:29 | RADIOLOGY REPORT (SQ) ---
EXAM DESCRIPTION: CHEST SINGLE VIEW CLINICAL HISTORY: 82 years Female, pna COMPARISON: 2 days prior. NUMBER OF VIEWS/TECHNIQUE: 1/AP FINDINGS: Moderate bibasilar opacity, normal cardiac silhouette, atherosclerosis, and right jugular central line tip at the right atrium; consider 7.6 -cm retraction. No pneumothorax. No acute bone defect. IMPRESSION: No significant change.
[2018-01-12] MEDS ORDERED: POTASSIUM CHLORIDE 10 MEQ TABLET.SA PO ONE (08:30)
[2018-01-12] MEDS: FLUTICASONE NASAL SPRAY 50 MCG/SPRY 120 SPRAY/16 GM NASL SCH ×2 (09:14→21:19)
[2018-01-12] MEDS: FLUTICASONE/SALMETEROL DISKUS 250-50 MCG/DOSE IH SCH ×2 (09:14→21:19)
[2018-01-12] MEDS: LACTOBACILLUS ACIDOPHILUS 250 MG TAB PO SCH ×2 (09:15→17:33)
[2018-01-12] MEDS: GUAIFENESIN 600 MG TABLET.SA PO SCH ×2 (09:15→21:18)
[2018-01-12] MEDS: FUROSEMIDE 20 MG TABLET PO SCH (09:15)
[2018-01-12] MEDS: ROFLUMILAST 500 MCG TABLET PO SCH (09:16)
[2018-01-12] MEDS: METOPROLOL SUCCINATE 25 MG TAB.SR.24H PO SCH (09:16)
[2018-01-12] MEDS: DOCUSATE SODIUM 100 MG CAPSULE PO SCH ×2 (09:17→21:18)
[2018-01-12] MEDS: ENOXAPARIN SODIUM INJ 40 MG/0.4 ML DISP.SYRIN SUBCUT SCH (09:17)
[2018-01-12] MEDS: POLYETHYLENE GLYCOL 3350 POWDER 17 GM/1 PACKET PO SCH ×2 (09:18→21:20)
[2018-01-12] MEDS: INSULIN GLARGINE,HUM.REC.ANLOG 300 UNIT/3 ML INSULN.PEN SUBCUT SCH (09:27)
[2018-01-12] MEDS ORDERED: PREDNISONE 20 MG TABLET PO SCH (10:00)
--- NOTE | 2018-01-12 11:31 | PDOC PROGRESS REPORT ---
Subjective Progress Note for:: 01/12/18 Subjective:: Awake alert oriented Reason For Visit: COPD EXACERBATION, ACUTE ON CHRONIC RESP FAILURE, Physical Exam Vital Signs: Temp Pulse Resp BP Pulse Ox 99.3 F 68 12 120/60 100 01/11/18 23:45 01/12/18 07:38 01/12/18 06:00 01/12/18 05:41 01/12/18 06:00 Pulse Oximeter Continuous Start: 01/03/18 14: 49 Freq: Status: Complete Document 01/03/18 16:05 [facility] (Rec: 01/03/18 17:52 [facility] [email or web address]) Pulse Oximetry Assessment Oxygen Saturation (92-100) 94 Fraction of Inspired Oxygen (FIO2) 60 Equipment Usage Equipment in Use Continuous SpO2 Machine # N-[id number] Intake & Output 01/11/18 01/12/18 01/13/18 06:59 06:59 06:59 Intake Total 1121 701 Output Total 0666 1985 Balance -794 -1284 Weight 79.2 kg 79.2 kg General appearance: PRESENT: no acute distress, cooperative, disheveled Head exam: PRESENT: atraumatic, normocephalic Eye exam: PRESENT: conjunctiva pale, EOMI. ABSENT: nystagmus, periorbital swelling, scleral icterus Mouth exam: PRESENT: moist, neck supple, tongue midline Neck exam: ABSENT: carotid bruit, JVD, lymphadenopathy, thyromegaly, tracheal deviation, tracheostomy Respiratory exam: PRESENT: decreased breath sounds, prolonged expiratory phas, rales, rhonchi, unlabored. ABSENT: retraction, stridor, tachypnea Cardiovascular exam: PRESENT: RRR, +S1, +S2 Pulses: PRESENT: normal radial pulses GI/Abdominal exam: PRESENT: diminished bowel sounds, soft Gentrourinary exam: PRESENT: indwelling catheter Extremities exam: ABSENT: calf tenderness, clubbing, joint swelling Musculoskeletal exam: PRESENT: deformity, dislocation Neurological exam: PRESENT: alert, awake Psychiatric exam: PRESENT: normal mood Skin exam: PRESENT: dry, warm Results Laboratory Results: 01/12/18 05:35 01/12/18 05:35 01/11/18 01/11/18 01/12/18 20:04 20:04 05:35 WBC RBC Hgb Hct MCV MCH MCHC RDW Plt Count Seg Neutrophils % Lymphocytes % Monocytes % Eosinophils % Basophils % Absolute Neutrophils Absolute Lymphocytes Absolute Monocytes Absolute Eosinophils Absolute Basophils Carbonic Acid 1.54 H HCO3/H2CO3 Ratio 23:1 ABG pH 7.46 H ABG pCO2 51.3 H ABG pO2 71.8 L ABG HCO3 35.7 H ABG O2 Saturation 95.0 ABG Base Excess 10.7 FiO2 2L Sodium 143.3 142.1 Potassium 3.8 3.8 Chloride 101 101 Carbon Dioxide 37 H 36 H Anion Gap 5 5 BUN 22 H 20 Creatinine 0.54 0.61 Est GFR ( Amer) > 60 > 60 Est GFR (Non-Af Amer) > 60 > 60 Glucose 178 H 159 H Calcium 9.5 9.2 Magnesium 2.1 Total Bilirubin 0.2 AST 10 L ALT 22 Alkaline Phosphatase 56 Total Protein 5.2 L Albumin 2.4 L 01/12/18 05:35 WBC 15.3 H RBC 3.31 L Hgb 8.6 L Hct 27.7 L MCV 84 MCH 26.1 L MCHC 31.1 L RDW 17.2 H Plt Count 241 Seg Neutrophils % 47.4 Lymphocytes % 43.9 Monocytes % 8.1 Eosinophils % 0.5 Basophils % 0.1 Absolute Neutrophils 7.3 Absolute Lymphocytes 6.7 H Absolute Monocytes 1.2 Absolute Eosinophils 0.1 Absolute Basophils 0.0 Carbonic Acid HCO3/H2CO3 Ratio ABG pH ABG pCO2 ABG pO2 ABG HCO3 ABG O2 Saturation ABG Base Excess FiO2 Sodium Potassium Chloride Carbon Dioxide Anion Gap BUN Creatinine Est GFR ( Amer) Est GFR (Non-Af Amer) Glucose Calcium Magnesium Total Bilirubin AST ALT Alkaline Phosphatase Total Protein Albumin 01/01/18 01/02/18 01/03/18 05:24 04:36 05:12 Creatine Kinase CK-MB (CK-2) Troponin I NT-Pro-B Natriuret Pep 9160 H 39080 H 5270 H 01/04/18 01/04/18 01/05/18 18:38 18:38 00:40 Creatine Kinase < 20 L < 20 L CK-MB (CK-2) 0.31 Troponin I 0.032 NT-Pro-B Natriuret Pep 01/05/18 01/05/18 01/05/18 00:40 06:30 06:30 Creatine Kinase < 20 L CK-MB (CK-2) 0.26 0.24 Troponin I 0.044 0.048 NT-Pro-B Natriuret Pep 2590 H Impressions: Chest/Abdomen CTA 01/05/18 08:00 IMPRESSION: No CT angio evidence of acute pulmonary emboli. Near complete collapse left lower lobe, progressive compared to the prior studies. Findings worrisome for pneumonia. Chest X-Ray 01/12/18 06:00 IMPRESSION: No significant change. Assessment & Plan - Diagnosis (1) Acute and chronic respiratory failure Qualifiers: Respiratory failure complication: hypoxia and hypercapnia Qualified Code(s) : J96.21 - Acute and chronic respiratory failure with hypoxia; J96.22 - Acute and chronic respiratory failure with hypercapnia; J96.22 - Acute and chronic respiratory failure with hypercapnia; J96.22 - Acute and chronic respiratory failure with hypercapnia Is this a current diagnosis for this admission?: Yes Plan: Continues to improve (2) COPD (chronic obstructive pulmonary disease) Qualifiers: Emphysema type: unspecified Is this a current diagnosis for this admission?: Yes Plan: Generic Name Dose Route Start Last Admin Trade Name Freq PRN Reason Stop Dose Admin Levalbuterol HCl 0.63 mg 01/01/18 10:45 Xopenex Neb 0.63 Mg/3 Ml Ampul NEB 01/31/18 10:44 [id number] PRN SHORTNESS OF BREATH Albuterol/Ipratropium 3 ml 01/01/18 16:00 01/05/18 12:27 Duoneb 3 Ml Ampul NEB 01/31/18 15:59 3 ml [id number] ABDIEL (3) Hypertension Qualifiers: Hypertension type: essential hypertension Qualified Code(s): I10 - Essential (primary) hypertension Is this a current diagnosis for this admission?: Yes (4) Left lower lobe pneumonia Qualifiers: Pneumonia type: due to unspecified organism Qualified Code(s): J18.1 - Lobar pneumonia, unspecified organism Is this a current diagnosis for this admission?: Yes Plan: Radiographically unchanged WBC is elevated will follow closely - Time Total Critical Time (Minutes): 40
[2018-01-12] MEDS: ASPIRIN 81 MG TABLET, CHEWABLE PO SCH (12:00)
--- NOTE | 2018-01-12 17:18 | PDOC PROGRESS REPORT ---
Subjective Progress Note for:: 01/12/18 Subjective:: Patient denies any complaints. Nurse reported short run of V. tach which was asymptomatic last night Review of system All organ systems evaluated and negative except as in subjective All significant laboratories and diagnostics have been reviewed Reason For Visit: COPD EXACERBATION, ACUTE ON CHRONIC RESP FAILURE, Physical Exam Vital Signs: Temp Pulse Resp BP Pulse Ox 99.3 F 74 12 120/60 100 01/11/18 23:45 01/11/18 21:36 01/12/18 06:00 01/12/18 05:41 01/12/18 06:00 Pulse Oximeter Continuous Start: 01/03/18 14: 49 Freq: Status: Complete Document 01/03/18 16:05 [facility] (Rec: 01/03/18 17:52 [facility] [email or web address]) Pulse Oximetry Assessment Oxygen Saturation (92-100) 94 Fraction of Inspired Oxygen (FIO2) 60 Equipment Usage Equipment in Use Continuous SpO2 Machine # N-[id number] Intake & Output 01/10/18 01/11/18 01/12/18 06:59 06:59 06:59 Intake Total 1874 1121 701 Output Total 3105 1590 [facility] Balance -1231 -794 -1284 Weight 79.7 kg 79.2 kg 79.2 kg General appearance: PRESENT: no acute distress, cooperative, obese Head exam: PRESENT: atraumatic, normocephalic Eye exam: PRESENT: conjunctiva pink, EOMI, PERRLA Ear exam: PRESENT: normal external ear exam Mouth exam: PRESENT: moist Neck exam: PRESENT: full ROM. ABSENT: JVD, lymphadenopathy, tenderness Respiratory exam: PRESENT: rhonchi Cardiovascular exam: PRESENT: RRR. ABSENT: diastolic murmur, systolic murmur Vascular exam: PRESENT: normal capillary refill GI/Abdominal exam: PRESENT: normal bowel sounds, soft. ABSENT: tenderness Extremities exam: PRESENT: full ROM, pedal edema Musculoskeletal exam: PRESENT: ambulatory Neurological exam: PRESENT: alert, awake, oriented to person, oriented to place , oriented to time, oriented to situation, CN II-XII grossly intact Psychiatric exam: PRESENT: appropriate affect, normal mood Skin exam: PRESENT: normal color Results Laboratory Results: 01/12/18 05:35 01/12/18 05:35 01/11/18 01/11/18 01/12/18 20:04 20:04 05:35 WBC RBC Hgb Hct MCV MCH MCHC RDW Plt Count Seg Neutrophils % Lymphocytes % Monocytes % Eosinophils % Basophils % Absolute Neutrophils Absolute Lymphocytes Absolute Monocytes Absolute Eosinophils Absolute Basophils Carbonic Acid 1.54 H HCO3/H2CO3 Ratio 23:1 ABG pH 7.46 H ABG pCO2 51.3 H ABG pO2 71.8 L ABG HCO3 35.7 H ABG O2 Saturation 95.0 ABG Base Excess 10.7 FiO2 2L Sodium 143.3 142.1 Potassium 3.8 3.8 Chloride 101 101 Carbon Dioxide 37 H 36 H Anion Gap 5 5 BUN 22 H 20 Creatinine 0.54 0.61 Est GFR ( Amer) > 60 > 60 Est GFR (Non-Af Amer) > 60 > 60 Glucose 178 H 159 H Calcium 9.5 9.2 Magnesium 2.1 Total Bilirubin 0.2 AST 10 L ALT 22 Alkaline Phosphatase 56 Total Protein 5.2 L Albumin 2.4 L 01/12/18 05:35 WBC 15.3 H RBC 3.31 L Hgb 8.6 L Hct 27.7 L MCV 84 MCH 26.1 L MCHC 31.1 L RDW 17.2 H Plt Count 241 Seg Neutrophils % 47.4 Lymphocytes % 43.9 Monocytes % 8.1 Eosinophils % 0.5 Basophils % 0.1 Absolute Neutrophils 7.3 Absolute Lymphocytes 6.7 H Absolute Monocytes 1.2 Absolute Eosinophils 0.1 Absolute Basophils 0.0 Carbonic Acid HCO3/H2CO3 Ratio ABG pH ABG pCO2 ABG pO2 ABG HCO3 ABG O2 Saturation ABG Base Excess FiO2 Sodium Potassium Chloride Carbon Dioxide Anion Gap BUN Creatinine Est GFR ( Amer) Est GFR (Non-Af Amer) Glucose Calcium Magnesium Total Bilirubin AST ALT Alkaline Phosphatase Total Protein Albumin 01/01/18 01/02/18 01/03/18 05:24 04:36 05:12 Creatine Kinase CK-MB (CK-2) Troponin I NT-Pro-B Natriuret Pep 9160 H 46493 H 5270 H 01/04/18 01/04/18 01/05/18 18:38 18:38 00:40 Creatine Kinase < 20 L < 20 L CK-MB (CK-2) 0.31 Troponin I 0.032 NT-Pro-B Natriuret Pep 04/18/18 04/18/18 04/18/18 00:40 06:30 06:30 Creatine Kinase < 20 L CK-MB (CK-2) 0.26 0.24 Troponin I 0.044 0.048 NT-Pro-B Natriuret Pep 2590 H Impressions: Chest/Abdomen CTA 01/05/18 08:00 IMPRESSION: No CT angio evidence of acute pulmonary emboli. Near complete collapse left lower lobe, progressive compared to the prior studies. Findings worrisome for pneumonia. Assessment & Plan - Diagnosis (1) Acute on chronic diastolic CHF (congestive heart failure) Is this a current diagnosis for this admission?: Yes Plan: Acute component resolved. To continue Toprol XL and Lasix oral (2) Pulmonary hypertension Is this a current diagnosis for this admission?: Yes Plan: Likely due to diastolic congestive heart failure however I am also contemplating pulmonary issues aggravating the whole situation. Improved. (3) COPD (chronic obstructive pulmonary disease) Qualifiers: Emphysema type: unspecified Is this a current diagnosis for this admission?: Yes Plan: Duo nebs to every 6 hours as needed. Continue Advair and mucinex (4) Acute and chronic respiratory failure Qualifiers: Respiratory failure complication: hypoxia and hypercapnia Qualified Code(s) : J96.21 - Acute and chronic respiratory failure with hypoxia; J96.22 - Acute and chronic respiratory failure with hypercapnia; J96.22 - Acute and chronic respiratory failure with hypercapnia; J96.22 - Acute and chronic respiratory failure with hypercapnia Is this a current diagnosis for this admission?: Yes Plan: Oxygenating well on 3 L of O2 by nasal cannula (5) Hypertension Qualifiers: Hypertension type: essential hypertension Qualified Code(s): I10 - Essential (primary) hypertension Is this a current diagnosis for this admission?: Yes Plan: Continue Toprol-XL (6) Left lower lobe pneumonia Qualifiers: Pneumonia type: due to unspecified organism Qualified Code(s): J18.1 - Lobar pneumonia, unspecified organism Is this a current diagnosis for this admission?: Yes Plan: Continue Levaquin for now but leukocytes are going on. Will order blood culture since patient does have a central line. (7) V tach Is this a current diagnosis for this admission?: Yes Plan: Consult Dr. Dupont and placido rodriguez - Time Time Spent with patient: 15-24 minutes Medications reviewed and adjusted accordingly: Yes Anticipated discharge: SNF Within: within 72 hours - Inpatient Certification Based on my medical assessment, after consideration of the patient's comorbidities, presenting symptoms, or acuity I expect that the services needed warrant INPATIENT care.: Yes I certify that my determination is in accordance with my understanding of Medicare's requirements for reasonable and necessary INPATIENT services [42 CFR 412.3e].: Yes Medical Necessity: Need Close Monitoring Due to Risk of Patient Decompensation, Need For Continuous Telemetry Monitoring
[2018-01-12] MEDS: INSULIN LISPRO 100 UNIT/ML 3 ML VIAL SUBCUT PRN (18:14)
--- NOTE | 2018-01-12 20:55 | PDOC CONSULTATION ---
Consultation Consult Date: 01/12/18 Attending physician:: GARDENIA LAUGHLIN Consult reason:: Wide-complex tachycardia History of Present Illness Admission Date/PCP: 12/30/17 17:06 HANNAH MARX DO Patient complains of: Shortness of breath History of Present Illness: DANIEL [facility]ARLAND [facility] 82 [facility]5 days of increasing shortness of breath she was subsequently admitted to the floor however she progressive decline is currently intubated and sedated in the ICU she has had a history of COPD in the past a cough apparently was productive of yellow phlegm she was somewhat ambulatory prior to these events but by the time she reached the emergency room she was not ambulatory at all. Patient was intubated for respiratory failure. Patient was extubated earlier today and subsequently was noted to have a short run of wide-complex tachycardia. Patient was noted to be asymptomatic. Currently patient stable and can answer to direct questions. On questioning patient denied any chest pain. She has noted some shortness of breath. Patient has been noted to be intermittently confused by the nurses but otherwise noted to be feisty at times. Patient is able to follow commands. Past Medical History Cardiac Medical History: Reports: Congestive Heart Failure, Myocardial Infarction - X2, Hyperlipidema, Hypertension Pulmonary Medical History: Reports: Chronic Obstructive Pulmonary Disease (COPD) Denies: Tuberculosis Neurological Medical History: Denies: Seizures Endocrine Medical History: Reports: Diabetes Mellitus Type 1, Diabetes Mellitus Type 2 Psychiatric Medical History: Denies: Depression Past Surgical History Past Surgical History: Reports: Cardiac Catheterization, Section, Cholecystectomy, Hysterectomy Denies: Pacemaker Social History Information Source: [facility] Records Smoking Status: Former Smoker Frequency of Alcohol Use: None Hx Recreational Drug Use: No Drugs: None Hx Prescription Drug Abuse: No Family History Family History: Other - Patient unable to provide family history Parental Family History Reviewed: Yes Children Family History Reviewed: Yes Sibling(s) Family History Reviewed.: Yes Medication/Allergy Home Medications: Acetaminophen [Tylenol 325 mg Tablet] 650 mg PO Q4HP PRN 12/30/17 Aspirin [Aspirin EC] 81 mg PO DAILY 12/30/17 Atorvastatin Calcium [Lipitor 10 mg Tablet] 10 mg PO QHS 12/30/17 Docusate Sodium [Colace 100 mg Capsule] 100 mg PO Q12 12/30/17 Glipizide [Glucotrol 5 mg Tablet] 5 mg PO Q12 12/30/17 Metoprolol Succinate [Toprol Xl 25 mg Tab.sr] 25 mg PO DAILY 12/30/17 Polyethylene Glycol 3350 [Miralax Powder 17 gm/Packet] 1 packet PO Q12 12/30/17 Allergies/Adverse Reactions: Sulfa (Sulfonamide Antibiotics) Allergy (Verified 10/29/17 03:44) Review of Systems ROS unobtainable: Due to mental status Physical Exam Vital Signs: Temp Pulse Resp BP Pulse Ox 100.0 F 66 14 114/70 100 01/12/18 20:00 01/12/18 12:00 01/12/18 18:30 01/12/18 12:04 01/12/18 18:30 Pulse Oximeter Continuous Start: 01/03/18 14: 49 Freq: Status: Complete Document 01/03/18 16:05 [facility] (Rec: 01/03/18 17:52 [facility] [email or web address]) Pulse Oximetry Assessment Oxygen Saturation (92-100) 94 Fraction of Inspired Oxygen (FIO2) 60 Equipment Usage Equipment in Use Continuous SpO2 Machine # N-[id number] Intake & Output 01/11/18 01/12/18 01/13/18 06:59 06:59 06:59 Intake Total 1121 701 700 Output Total 8044 4834 1589 Balance -794 -0517 -839 Weight 79.2 kg 79.2 kg Exam: GENERAL: well-nourished and in no acute distress. Alert and oriented x1 HEAD: Atraumatic, normocephalic. EYES: Pupils equal round and reactive to light, extraocular movements intact, sclera anicteric, conjunctiva are normal. ENT: TMs normal, nares patent, oropharynx clear without exudates. Moist mucous membranes. No oral ulcerations or bleeding gums noted NECK: supple without lymphadenopathy. Trachea is central. No cervical or axillary lymphadenopathy noted. Carotids are 2+, JVD WNL LUNGS: Respiration seems nonlabored, no significant accessory muscle action noted. Bibasilar fine crackles and few scattered wheezes rales or rhonchi noted. No significant dullness noted on percussion. CHEST: Palpation of the chest wall shows no significant chest wall tenderness. 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 ABDOMEN: Soft, no significant tenderness appreciated, normoactive bowel sounds. No guarding, no rebound. No rigidity noted . No masses appreciated. EXTREMITIES: Pedal pulses are 1-2+, no calf tenderness noted. No clubbing or cyanosis. 1+ pedal edema noted NEUROLOGICAL: Focused neurological exam showed no significant neurologic deficit. Normal speech, no focal weakness appreciated. PSYCH: Normal mood, normal affect. Judgment and insight not checked. Patient noted to be pleasantly confused. SKIN: No significant ecchymosis, skin is noted to be warm. MUSCULOSKELETAL EXAM: No significant acute joint swelling noted. Generalized weakness noted Results Laboratory Results: 01/12/18 05:35 01/12/18 05:35 01/12/18 01/12/18 05:35 05:35 WBC 15.3 H RBC 3.31 L Hgb 8.6 L Hct 27.7 L MCV 84 MCH 26.1 L MCHC 31.1 L RDW 17.2 H Plt Count 241 Seg Neutrophils % 47.4 Lymphocytes % 43.9 Monocytes % 8.1 Eosinophils % 0.5 Basophils % 0.1 Absolute Neutrophils 7.3 Absolute Lymphocytes 6.7 H Absolute Monocytes 1.2 Absolute Eosinophils 0.1 Absolute Basophils 0.0 Sodium 142.1 Potassium 3.8 Chloride 101 Carbon Dioxide 36 H Anion Gap 5 BUN 20 Creatinine 0.61 Est GFR ( Amer) > 60 Est GFR (Non-Af Amer) > 60 Glucose 159 H Calcium 9.2 Magnesium 2.1 01/01/18 01/02/18 01/03/18 05:24 04:36 05:12 Creatine Kinase CK-MB (CK-2) Troponin I NT-Pro-B Natriuret Pep 9160 H 69351 H 5270 H 01/04/18 01/04/18 01/05/18 18:38 18:38 00:40 Creatine Kinase < 20 L < 20 L CK-MB (CK-2) 0.31 Troponin I 0.032 NT-Pro-B Natriuret Pep 01/05/18 01/05/18 01/05/18 00:40 06:30 06:30 Creatine Kinase < 20 L CK-MB (CK-2) 0.26 0.24 Troponin I 0.044 0.048 NT-Pro-B Natriuret Pep 2590 H EKG Comments: Shows sinus rhythm with occasional APCs and VPCs. Impressions: Chest/Abdomen CTA 01/05/18 08:00 IMPRESSION: No CT angio evidence of acute pulmonary emboli. Near complete collapse left lower lobe, progressive compared to the prior studies. Findings worrisome for pneumonia. Chest X-Ray 01/12/18 06:00 IMPRESSION: No significant change. Assessment & Plan - Diagnosis (1) Ventricular tachycardia (paroxysmal) Is this a current diagnosis for this admission?: Yes (2) Wide-complex tachycardia Is this a current diagnosis for this admission?: Yes (3) CHF (congestive heart failure) Qualifiers: Heart failure chronicity: unspecified Is this a current diagnosis for this admission?: Yes (4) Respiratory failure, acute and chronic Qualifiers: Respiratory failure complication: unspecified whether with hypoxia or hypercapnia Qualified Code(s): J96.20 - Acute and chronic respiratory failure , unspecified whether with hypoxia or hypercapnia Is this a current diagnosis for this admission?: Yes (5) Diabetes Qualifiers: Diabetes mellitus type: type 2 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 She was noted to be asymptomatic during the wide-complex tachycardia. Half Way to be mostly ventricular tachycardia. However patient was asymptomatic and the run was nonsustained. At this point will obtain a 2D echo if none has been obtained recently. Make sure electrolytes are within normal limit. Initial inclination will be to treat patient with beta-blockers if there are no contraindications. We will continue to follow patient. Ventricular tachycardia/wide-complex tachycardia: Difficult to determine the etiology as to whether it is to ventricular tachycardia or aberrant conduction from his supraventricular tachycardia. Since patient has history of prior myocardial infarction and also CHF, ventricular tachycardia is more likely. Have ordered a 2D echocardiogram for risk stratification. At this point will recommend only beta-galindo therapy and management of underlying metabolic factors. Overall patient is quite debilitated and would not be a candidate for any aggressive evaluation at this point. Congestive heart failure: Patient was noted to have elevated BNP and also respiratory failure. Exam findings tend to suggest presence of CHF. Agree with diuretic therapy. Further plans after 2D echocardiogram. Acute on chronic respiratory failure: Patient seems to have significant COPD. In addition she seems to have left lower lobe pneumonia. Continue with antibiotic therapy, oxygen supplementation and noninvasive ventilation as needed. Hypertension: Blood pressure seems relatively well controlled. Hyperlipidemia: Currently is stable. Continue with statin therapy. Left lower lobe pneumonia: Continue antibiotic therapy. Pulmonary following. Patient is quite debilitated and weak. Once patient more stable, and ischemia evaluation could be considered on outpatient could be considered for empiric optimization of therapy for underlying CAD and CHF. We will continue to follow patient. As usual I thank hospitalist very much for the kind referral - Time Time Spent: 30 to 50 Minutes - CODE STATUS was discussed, patient remains full code. Multiple medical problems were addressed. More than 50% of the time spent coordinating care, discussing management plans with involved caregivers. Management plans discussed with involved personnels. Medical decision making was of moderate to high complexity, patient's has multiple comorbidities. Medications reviewed and adjusted accordingly: Yes
[2018-01-12] MEDS: MONTELUKAST SODIUM 10 MG TABLET PO SCH (21:19)
[2018-01-12] MEDS: ATORVASTATIN CALCIUM 10 MG TABLET PO SCH (21:19)
[2018-01-12] MEDS: ACETAMINOPHEN 325 MG TABLET PO PRN (23:48)
[2018-01-13] MEDS: NORMAL SALINE INJ/PF 0.9% 10 ML SDV IV PRN (05:25)
[2018-01-13 05:40] LABS: ABSOLUTE BASOPHILS # (AUTO) 0.1 10^3/uL (0.0-0.2); ABSOLUTE EOSINOPHILS # (AUTO) 0.1 10^3/uL (0.0-0.6); ABSOLUTE LYMPHOCYTES (AUTO) 8.5 10^3/uL (0.5-4.7); ABSOLUTE MONOCYTES (AUTO) 1.6 10^3/uL (0.1-1.4); ABSOLUTE NEUT (AUTO) 8.8 10^3/uL (1.7-8.2); BASOPHILS % (AUTO) 0.3 % (0-2); EOSINOPHILS % (AUTO) 0.7 % (0-6); HEMATOCRIT 28.3 % (36.0-47.0); LYMPHOCYTES % (AUTO) 44.6 % (13-45); MEAN CORPUSCULAR HEMOGLOBIN 26.3 pg (27.0-33.4); MEAN CORPUSCULAR HGB CONC 31.6 g/dL (32.0-36.0); MEAN CORPUSCULAR VOLUME 83 fl (80-97); MONOCYTES % (AUTO) 8.4 % (3-13); PLATELET COUNT 238 10^3/uL (150-450); RED BLOOD COUNT 3.41 10^6/uL (3.72-5.28); RED CELL DISTRIBUTION WIDTH 17.3 % (11.5-14.0); TOTAL CELLS COUNTED % (AUTO) 100 %
[2018-01-13 05:59] LABS: BLOOD UREA NITROGEN 19 mg/dL (7-20); CALCIUM 9.2 mg/dL (8.4-10.2); GLUCOSE 151 mg/dL (75-110)
[2018-01-13 06:24] LABS: CARBON DIOXIDE 39 mmol/L (22-30); CHLORIDE 98 mmol/L (98-107); POTASSIUM 3.4 mmol/L (3.6-5.0); SODIUM 140.1 mmol/L (137-145)
[2018-01-13 06:28] LABS: ANION GAP 3 (5-19)
[2018-01-13] MEDS: ACETAMINOPHEN 325 MG TABLET PO PRN (06:31)
[2018-01-13 06:44] LABS: ARTERIAL BLOOD BASE EXCESS 8.7 mmol/L; ARTERIAL BLOOD H2CO3 1.56 mmol/L (1.05-1.35); ARTERIAL BLOOD HCO3 34.1 mmol/L (20-26); ARTERIAL BLOOD O2 SATURATION 87.4 % (94-98); ARTERIAL BLOOD PCO2 51.9 mmHg (35-45); ARTERIAL BLOOD PH 7.44 (7.35-7.45); ARTERIAL BLOOD PO2 52.2 mmHg (80-100); ARTERIAL BLOOD TOTAL CO2 35.7 mmol/L (21-25)
[2018-01-13 06:45] LABS: ARTERIAL BLOOD FIO2 1L
[2018-01-13] MEDS ORDERED: POTASSIUM CHLORIDE 10 MEQ TABLET.SA PO ONE (07:31)
[2018-01-13] MEDS: GUAIFENESIN 600 MG TABLET.SA PO SCH ×2 (10:16→22:24)
[2018-01-13] MEDS: DOCUSATE SODIUM 100 MG CAPSULE PO SCH ×2 (10:17→22:24)
[2018-01-13] MEDS: FLUTICASONE NASAL SPRAY 50 MCG/SPRY 120 SPRAY/16 GM NASL SCH ×2 (10:18→22:22)
[2018-01-13] MEDS: LACTOBACILLUS ACIDOPHILUS 250 MG TAB PO SCH ×2 (10:18→18:26)
[2018-01-13] MEDS: FLUTICASONE/SALMETEROL DISKUS 250-50 MCG/DOSE IH SCH ×2 (10:19→22:23)
[2018-01-13] MEDS: ENOXAPARIN SODIUM INJ 40 MG/0.4 ML DISP.SYRIN SUBCUT SCH (10:19)
[2018-01-13] MEDS: INSULIN GLARGINE,HUM.REC.ANLOG 300 UNIT/3 ML INSULN.PEN SUBCUT SCH (10:22)
[2018-01-13] MEDS: FUROSEMIDE 20 MG TABLET PO SCH (10:46)
[2018-01-13] MEDS: METOPROLOL SUCCINATE 25 MG TAB.SR.24H PO SCH (10:46)
--- NOTE | 2018-01-13 11:21 | RADIOLOGY REPORT (SQ) ---
EXAM DESCRIPTION: CHEST SINGLE VIEW COMPLETED DATE/TIME: 01/13/2018 11:09 am REASON FOR STUDY: Resp Failure COMPARISON: 01/12/2018 EXAM PARAMETERS: NUMBER OF VIEWS: One view. TECHNIQUE: Single frontal radiographic view of the chest acquired. RADIATION DOSE: NA LIMITATIONS: None. FINDINGS: LUNGS AND PLEURA: The previously described bibasilar densities are again identified and ap pear essentially unchanged. The appearance is consistent with small bilateral pleural effusions with associated atelectasis or infiltrate in the lung bases. MEDIASTINUM AND HILAR STRUCTURES: There is prominence of both hilar regions consistent with adenopath y which was described on a previous chest CT scan dated 01/05/2018 HEART AND VASCULAR STRUCTURES: Cardiac silhouette is partially obscured but appears unchanged. BONES: No acute findings. HARDWARE: Central line is unchanged in position. OTHER: No other significant finding. IMPRESSION: No significant interval change. Findings as noted above TECHNICAL DOCUMENTATION: JOB ID: [id number] [employer]- All Rights Reserved Reading location - IP/workstation name: [email or web address]
--- NOTE | 2018-01-13 11:39 | PDOC PROGRESS REPORT ---
Subjective Progress Note for:: 01/13/18 Subjective:: Awake alert oriented Reason For Visit: COPD EXACERBATION, ACUTE ON CHRONIC RESP FAILURE, Physical Exam Vital Signs: Temp Pulse Resp BP Pulse Ox 99.3 F 73 18 101/42 L 97 01/13/18 08:14 01/13/18 08:14 01/13/18 08:14 01/13/18 08:14 01/13/18 08:14 Pulse Oximeter Continuous Start: 01/03/18 14: 49 Freq: Status: Complete Document 01/03/18 16:05 [facility] (Rec: 01/03/18 17:52 [facility] [email or web address]) Pulse Oximetry Assessment Oxygen Saturation (92-100) 94 Fraction of Inspired Oxygen (FIO2) 60 Equipment Usage Equipment in Use Continuous SpO2 Machine # N-[id number] Intake & Output 01/12/18 01/13/18 01/14/18 06:59 06:59 06:59 Intake Total 701 810 Output Total 1985 1700 Balance -1284 -890 Weight 79.2 kg 80.1 kg General appearance: PRESENT: no acute distress, cooperative, obese Head exam: PRESENT: atraumatic, normocephalic Eye exam: PRESENT: conjunctiva pale, EOMI. ABSENT: periorbital swelling, scleral icterus Mouth exam: PRESENT: moist, neck supple, tongue midline Neck exam: ABSENT: carotid bruit, JVD, lymphadenopathy, thyromegaly, tracheal deviation, tracheostomy Respiratory exam: PRESENT: decreased breath sounds, prolonged expiratory phas, rhonchi, unlabored. ABSENT: retraction, stridor, tachypnea Cardiovascular exam: PRESENT: RRR, +S1, +S2 Pulses: PRESENT: normal radial pulses GI/Abdominal exam: PRESENT: diminished bowel sounds, soft Extremities exam: ABSENT: calf tenderness, clubbing, joint swelling Musculoskeletal exam: ABSENT: deformity, dislocation Neurological exam: PRESENT: awake Skin exam: PRESENT: dry, warm Results Laboratory Results: 01/13/18 05:20 01/13/18 05:20 01/13/18 01/13/18 01/13/18 05:20 05:20 06:25 WBC 19.0 H RBC 3.41 L Hgb 9.0 L Hct 28.3 L MCV 83 MCH 26.3 L MCHC 31.6 L RDW 17.3 H Plt Count 238 Seg Neutrophils % 46.0 Lymphocytes % 44.6 Monocytes % 8.4 Eosinophils % 0.7 Basophils % 0.3 Absolute Neutrophils 8.8 H Absolute Lymphocytes 8.5 H Absolute Monocytes 1.6 H Absolute Eosinophils 0.1 Absolute Basophils 0.1 Carbonic Acid 1.56 H HCO3/H2CO3 Ratio 21:1 ABG pH 7.44 ABG pCO2 51.9 H ABG pO2 52.2 L ABG HCO3 34.1 H ABG O2 Saturation 87.4 L ABG Base Excess 8.7 FiO2 1L Sodium 140.1 Potassium 3.4 L Chloride 98 Carbon Dioxide 39 H Anion Gap 3 L BUN 19 Creatinine 0.66 Est GFR ( Amer) > 60 Est GFR (Non-Af Amer) > 60 Glucose 151 H Calcium 9.2 Magnesium 2.0 01/06/18 10:00 Bronchial Washings Fungal Smear - Final 01/06/18 10:00 Bronchial Washings Fungal Smear - Final 01/01/18 01/02/18 01/03/18 05:24 04:36 05:12 Creatine Kinase CK-MB (CK-2) Troponin I NT-Pro-B Natriuret Pep 9160 H 10001 H 5270 H 01/04/18 01/04/18 01/05/18 18:38 18:38 00:40 Creatine Kinase < 20 L < 20 L CK-MB (CK-2) 0.31 Troponin I 0.032 NT-Pro-B Natriuret Pep 01/05/18 01/05/18 01/05/18 00:40 06:30 06:30 Creatine Kinase < 20 L CK-MB (CK-2) 0.26 0.24 Troponin I 0.044 0.048 NT-Pro-B Natriuret Pep 2590 H Impressions: Chest/Abdomen CTA 01/05/18 08:00 IMPRESSION: No CT angio evidence of acute pulmonary emboli. Near complete collapse left lower lobe, progressive compared to the prior studies. Findings worrisome for pneumonia. Chest X-Ray 01/13/18 06:00 IMPRESSION: No significant interval change. Findings as noted above Assessment & Plan - Diagnosis (1) Acute and chronic respiratory failure Qualifiers: Respiratory failure complication: hypoxia and hypercapnia Qualified Code(s) : J96.21 - Acute and chronic respiratory failure with hypoxia; J96.22 - Acute and chronic respiratory failure with hypercapnia; J96.22 - Acute and chronic respiratory failure with hypercapnia; J96.22 - Acute and chronic respiratory failure with hypercapnia Is this a current diagnosis for this admission?: Yes Plan: improving (2) COPD (chronic obstructive pulmonary disease) Qualifiers: Emphysema type: unspecified Is this a current diagnosis for this admission?: Yes Plan: Generic Name Dose Route Start Last Admin Trade Name Freq PRN Reason Stop Dose Admin Levalbuterol HCl 0.63 mg 01/01/18 10:45 Xopenex Neb 0.63 Mg/3 Ml Ampul NEB 01/31/18 10:44 [id number] PRN SHORTNESS OF BREATH Albuterol/Ipratropium 3 ml 01/01/18 16:00 01/05/18 12:27 Duoneb 3 Ml Ampul NEB 01/31/18 15:59 3 ml [id number] ABDIEL (3) Hypertension Qualifiers: Hypertension type: essential hypertension Qualified Code(s): I10 - Essential (primary) hypertension Is this a current diagnosis for this admission?: Yes (4) Left lower lobe pneumonia Qualifiers: Pneumonia type: due to unspecified organism Qualified Code(s): J18.1 - Lobar pneumonia, unspecified organism Is this a current diagnosis for this admission?: Yes Plan: Radiographically unchanged WBC is elevated will follow closely
--- NOTE | 2018-01-13 13:12 | XCELERA REPORT ---
[address] [address] Transthoracic Echocardiogram Report Name: DANIEL MCFARLAND Age: 82 yrs Gender: Female : 1935 Patient Status: Inpatient Patient Location: [address] [place] [address] Study Date: 01/13/2018 09:51 AM Height: 63 in Weight: 174 lb BSA: 1.8 m2 Procedure: A complete two-dimensional transthoracic echocardiogram was performed (2D, M-mode, spectral and color flow Doppler). The study was technically adequate with some images being suboptimal in quality. Reason For Study: Ventricular tachycardia Ordering Physician: ASA GERMAN Performed By: Allyn Mejia Interpretation Summary The left ventricular ejection fraction is normal. There is moderate concentric left ventricular hypertrophy. The left ventricle is grossly normal size. Doppler measurements suggest pseudonormalized left ventricular relaxation, which is associated with grade II/IV or mild to moderate diastolic dysfunction Wall motion cannot be accurately commented on, but no definite regional wall motion abnormalities noted. The right ventricle is mildly dilated. The right ventricular systolic function is normal. The right atrium is normal in size The left atrium is mildly dilated. There is a trace to mild amount of mitral regurgitation There is no mitral valve stenosis. There is no aortic valve stenosis No aortic regurgitation is present. There is a mild amount of tricuspid regurgitation There is moderate pulmonary hypertension by echo Right ventricular systolic pressure is estimated to be elevated at 50- 60mmHg. The aortic root is not well visualized but is probably normal size. The inferior vena cava was not well visualized There is no pericardial effusion. MMode/2D Measurements & Calculations RVDd: 3.4 cm LVIDd: 3.7 cm FS: 31.4 % Ao root diam: 2.5 cm IVSd: 1.4 cm LVIDs: 2.5 cm EDV(Teich): 57.6 ml LVPWd: 1.4 cm ESV(Teich): 22.9 ml Ao root area: 5.1 cm2 EF(Teich): 60.2 % LA dimension: 3.9 cm Doppler Measurements & Calculations MV E max katelynn: MV P1/2t max katelynn: Ao V2 max: LV V1 max P.0 cm/sec 76.8 cm/sec 168.5 cm/sec 6.7 mmHg MV A max katelynn: MV P1/2t: 93.4 msec Ao max PG: LV V1 max: 116.8 cm/sec 11.4 mmHg 129.4 cm/sec MV E/A: 0.68 MVA(P1/2t): 2.4 cm2 MV dec slope: 240.7 cm/sec2 PA V2 max: PI end-d katelynn: TR max katelynn: 113.0 cm/sec 104.2 cm/sec 351.1 cm/sec PA max PG: TR max P.1 mmHg 49.3 mmHg Left Ventricle The left ventricle is grossly normal size. There is moderate concentric left ventricular hypertrophy. The left ventricular ejection fraction is normal. Doppler measurements suggest pseudonormalized left ventricular relaxation, which is associated with grade II/IV or mild to moderate diastolic dysfunction. Wall motion cannot be accurately commented on, but no definite regional wall motion abnormalities noted. Right Ventricle The right ventricle is mildly dilated. There is normal right ventricular wall thickness. The right ventricular systolic function is normal. Atria The right atrium is normal in size. The left atrium is mildly dilated. Interarterial septum not well visualized and not well dopplered. Cannot comment on ASD/PFO presence. Mitral Valve The mitral valve leaflets are sclerotic, but show no functional abnormalities. There is no mitral valve stenosis. There is a trace to mild amount of mitral regurgitation. Aortic Valve The aortic valve is mildly calcified. There is no aortic valve stenosis. No aortic regurgitation is present. Tricuspid Valve The tricuspid valve is not well visualized, but is grossly normal. There is no tricuspid stenosis. There is a mild amount of tricuspid regurgitation. There is moderate pulmonary hypertension by echo. Right ventricular systolic pressure is estimated to be elevated at 50-60mmHg. Pulmonic Valve The pulmonic valve is not well visualized. Great Vessels The aortic root is not well visualized but is probably normal size. The inferior vena cava was not well visualized. Effusions There is no pericardial effusion. : ASA GERMAN > Asa German
[2018-01-13] MEDS: OXYCODONE-ACETAMINOPHEN 5-325 MG TABLET PO PRN ×2 (14:48→22:35)
[2018-01-13] MEDS: POLYETHYLENE GLYCOL 3350 POWDER 17 GM/1 PACKET PO SCH ×2 (14:49→22:23)
[2018-01-13] MEDS: ROFLUMILAST 500 MCG TABLET PO SCH (14:49)
[2018-01-13] MEDS: ASPIRIN 81 MG TABLET, CHEWABLE PO SCH (14:56)
[2018-01-13] MEDS ORDERED: VANCOMYCIN HCL 0 MG in DEXTROSE 5%-WATER 250 ML IV NR (17:00)
--- NOTE | 2018-01-13 17:01 | PDOC PROGRESS REPORT ---
Subjective Progress Note for:: 01/13/18 Subjective:: Patient complains of pain to her right ankle. Otherwise no other complaints Review of systems All organ systems evaluated and negative except as in subjective All significant laboratories and diagnostics have been reviewed Reason For Visit: COPD EXACERBATION, ACUTE ON CHRONIC RESP FAILURE, Physical Exam Vital Signs: Temp Pulse Resp BP Pulse Ox 100.0 F 78 8 L 127/60 H 100 01/12/18 20:00 01/13/18 01:53 01/13/18 00:45 01/12/18 23:49 01/13/18 00:54 Pulse Oximeter Continuous Start: 01/03/18 14: 49 Freq: Status: Complete Document 01/03/18 16:05 [facility] (Rec: 01/03/18 17:52 [facility] [email or web address]) Pulse Oximetry Assessment Oxygen Saturation (92-100) 94 Fraction of Inspired Oxygen (FIO2) 60 Equipment Usage Equipment in Use Continuous SpO2 Machine # N-[id number] Intake & Output 01/12/18 01/13/18 01/14/18 06:59 06:59 06:59 Intake Total 701 810 Output Total 7950 1700 Balance -1284 -890 Weight 79.2 kg 80.1 kg General appearance: PRESENT: no acute distress, cooperative, morbidly obese Head exam: PRESENT: atraumatic, normocephalic Eye exam: PRESENT: conjunctiva pink, EOMI, PERRLA Ear exam: PRESENT: normal external ear exam Mouth exam: PRESENT: moist Neck exam: PRESENT: full ROM. ABSENT: JVD, lymphadenopathy, tenderness Respiratory exam: PRESENT: rhonchi Cardiovascular exam: PRESENT: RRR. ABSENT: diastolic murmur, systolic murmur Vascular exam: PRESENT: normal capillary refill GI/Abdominal exam: PRESENT: normal bowel sounds, soft. ABSENT: tenderness Extremities exam: PRESENT: full ROM, +1 edema Musculoskeletal exam: PRESENT: other - There is tenderness localized to the right lateral malleolus. Overlying hyper keratotic skin noted. ABSENT: ambulatory Neurological exam: PRESENT: alert, awake, oriented to person, oriented to place , oriented to time, oriented to situation, CN II-XII grossly intact Psychiatric exam: PRESENT: appropriate affect, normal mood Skin exam: PRESENT: normal color Results Laboratory Results: 01/13/18 05:20 01/13/18 05:20 04/01/13/18 01/13/18 05:20 05:20 06:25 WBC 19.0 H RBC 3.41 L Hgb 9.0 L Hct 28.3 L MCV 83 MCH 26.3 L MCHC 31.6 L RDW 17.3 H Plt Count 238 Seg Neutrophils % 46.0 Lymphocytes % 44.6 Monocytes % 8.4 Eosinophils % 0.7 Basophils % 0.3 Absolute Neutrophils 8.8 H Absolute Lymphocytes 8.5 H Absolute Monocytes 1.6 H Absolute Eosinophils 0.1 Absolute Basophils 0.1 Carbonic Acid 1.56 H HCO3/H2CO3 Ratio 21:1 ABG pH 7.44 ABG pCO2 51.9 H ABG pO2 52.2 L ABG HCO3 34.1 H ABG O2 Saturation 87.4 L ABG Base Excess 8.7 FiO2 1L Sodium 140.1 Potassium 3.4 L Chloride 98 Carbon Dioxide 39 H Anion Gap 3 L BUN 19 Creatinine 0.66 Est GFR ( Amer) > 60 Est GFR (Non-Af Amer) > 60 Glucose 151 H Calcium 9.2 Magnesium 2.0 01/01/18 01/02/18 01/03/18 05:24 04:36 05:12 Creatine Kinase CK-MB (CK-2) Troponin I NT-Pro-B Natriuret Pep 9160 H 77897 H 5270 H 01/04/18 01/04/18 01/05/18 18:38 18:38 00:40 Creatine Kinase < 20 L < 20 L CK-MB (CK-2) 0.31 Troponin I 0.032 NT-Pro-B Natriuret Pep 01/05/18 01/05/18 01/05/18 00:40 06:30 06:30 Creatine Kinase < 20 L CK-MB (CK-2) 0.26 0.24 Troponin I 0.044 0.048 NT-Pro-B Natriuret Pep 2590 H Impressions: Chest/Abdomen CTA 01/05/18 08:00 IMPRESSION: No CT angio evidence of acute pulmonary emboli. Near complete collapse left lower lobe, progressive compared to the prior studies. Findings worrisome for pneumonia. Chest X-Ray 01/12/18 06:00 IMPRESSION: No significant change. Assessment & Plan - Diagnosis (1) Acute on chronic diastolic CHF (congestive heart failure) Is this a current diagnosis for this admission?: Yes Plan: Acute component resolved. To continue Toprol XL and Lasix oral (2) Pulmonary hypertension Is this a current diagnosis for this admission?: Yes Plan: Likely due to diastolic congestive heart failure however I am also contemplating pulmonary issues aggravating the whole situation. Improved. Continue Lasix p.o. (3) COPD (chronic obstructive pulmonary disease) Qualifiers: Emphysema type: unspecified Is this a current diagnosis for this admission?: Yes Plan: Duo nebs to every 6 hours as needed. Continue Advair and mucinex (4) Acute and chronic respiratory failure Qualifiers: Respiratory failure complication: hypoxia and hypercapnia Qualified Code(s) : J96.21 - Acute and chronic respiratory failure with hypoxia; J96.22 - Acute and chronic respiratory failure with hypercapnia; J96.22 - Acute and chronic respiratory failure with hypercapnia; J96.22 - Acute and chronic respiratory failure with hypercapnia Is this a current diagnosis for this admission?: Yes Plan: Oxygenating well on 3 L of O2 by nasal cannula (5) Hypertension Qualifiers: Hypertension type: essential hypertension Qualified Code(s): I10 - Essential (primary) hypertension Is this a current diagnosis for this admission?: Yes Plan: Continue Toprol-XL (6) Left lower lobe pneumonia Qualifiers: Pneumonia type: due to unspecified organism Qualified Code(s): J18.1 - Lobar pneumonia, unspecified organism Is this a current diagnosis for this admission?: Yes Plan: To place patient on meropenem and vancomycin (7) V tach Is this a current diagnosis for this admission?: Yes Plan: Dr. Dupont following outpatient (8) Right ankle pain Qualifiers: Chronicity: acute Qualified Code(s): M25.571 - Pain in right ankle and joints of right foot Is this a current diagnosis for this admission?: Yes Plan: Order uric acid level. Provide pain management. Also will order Aquaphor since there is hyperkeratosis in that area and friction against the bed can cause significant pain (9) Leukocytosis Qualifiers: Leukocytosis type: unspecified Qualified Code(s): D72.829 - Elevated white blood cell count, unspecified Is this a current diagnosis for this admission?: Yes Plan: Order blood culture, remove central line. Chest x-ray shows pleural effusion persistent bilateral infiltrates therefore will place patient on meropenem and vancomycin. We will follow up response (10) Anemia Qualifiers: Anemia type: unspecified type Qualified Code(s): D64.9 - Anemia, unspecified Is this a current diagnosis for this admission?: Yes Plan: Likely due to chronic disease. Stable - Time Time Spent with patient: 15-24 minutes Medications reviewed and adjusted accordingly: Yes Anticipated discharge: SNF Within: Other - Unable to determine at this time since ongoing unresolved issues. - Inpatient Certification Based on my medical assessment, after consideration of the patient's comorbidities, presenting symptoms, or acuity I expect that the services needed warrant INPATIENT care.: Yes I certify that my determination is in accordance with my understanding of Medicare's requirements for reasonable and necessary INPATIENT services [42 CFR 412.3e].: Yes Medical Necessity: Significant Comorbidiites Make Outpatient Treatment Too Risky , Need Close Monitoring Due to Risk of Patient Decompensation, Need for IV Antibiotics
[2018-01-13] MEDS ORDERED: LEVOFLOXACIN 750 MG TABLET PO SCH (18:00)
[2018-01-13] MEDS: PANTOT AC/MIN OIL/PET HY-PHL OINT 50 GM TOP SCH (18:25)
[2018-01-13] MEDS ORDERED: NORMAL SALINE 500 ML IV ONE (18:30)
--- NOTE | 2018-01-13 19:27 | PDOC PROGRESS REPORT ---
Subjective Progress Note for:: 01/13/18 Subjective:: Patient seems to be doing better with gradual improvement. Pt is denying any chest arm or neck discomfort. Patient denying any PND, orthopnea. Patient denied any sustained palpitations, dizziness, syncope, near syncope. Patient denying any fever chills. Patient denying any other significant discomfort. Patient has noted some leg discomfort. Patient is maintaining sinus rhythm. No recurrence of wide-complex tachycardia noted. Review of systems: Rest review of systems negative. Medications: Medications have been reviewed. Reason For Visit: COPD EXACERBATION, ACUTE ON CHRONIC RESP FAILURE, Physical Exam Vital Signs: Temp Pulse Resp BP Pulse Ox 99.3 F 95 20 94/55 L 94 01/13/18 11:39 01/13/18 14:00 01/13/18 11:39 01/13/18 11:39 01/13/18 11:39 Pulse Oximeter Continuous Start: 01/03/18 14: 49 Freq: Status: Complete Document 01/03/18 16:05 [facility] (Rec: 01/03/18 17:52 [facility] [email or web address]) Pulse Oximetry Assessment Oxygen Saturation (92-100) 94 Fraction of Inspired Oxygen (FIO2) 60 Equipment Usage Equipment in Use Continuous SpO2 Machine # N-[id number] Intake & Output 01/12/18 01/13/18 01/14/18 06:59 06:59 06:59 Intake Total 701 810 500 Output Total 1985 1700 Balance -1284 -890 500 Weight 79.2 kg 80.1 kg Exam: GENERAL: well-nourished and in no acute distress. Alert and oriented x2 HEAD: Atraumatic, normocephalic. EYES: Pupils equal round and reactive to light, extraocular movements intact, sclera anicteric, conjunctiva are normal. ENT: TMs normal, nares patent, oropharynx clear without exudates. Moist mucous membranes. No oral ulcerations or bleeding gums noted NECK: supple without lymphadenopathy. Trachea is central. No cervical or axillary lymphadenopathy noted. Carotids are 2+, JVD WNL LUNGS: Respiration seems nonlabored, no significant accessory muscle action noted. Bibasilar fine crackles and scattered wheezes rales or rhonchi noted. No significant dullness noted on percussion. CHEST: Palpation of the chest wall shows no significant chest wall tenderness. HEART: [place] [employer], No PSH, 1/6 DEBBIE aortic area, 1/6 schulz systolic murmur mitral area, no rubs, no gallops. ABDOMEN: Soft, no significant tenderness appreciated, normoactive bowel sounds. No guarding, no rebound. No rigidity noted . No masses appreciated. EXTREMITIES: Pedal pulses are 1-2+, no calf tenderness noted. No clubbing or cyanosis. negative pedal edema noted NEUROLOGICAL: Focused neurological exam showed no significant neurologic deficit. Normal speech, no focal weakness appreciated. PSYCH: Normal mood, normal affect. Judgment and insight not checked . SKIN: No significant ecchymosis, skin is noted to be warm. MUSCULOSKELETAL EXAM: No significant acute joint swelling noted. Results Laboratory Results: 01/13/18 05:20 01/13/18 05:20 01/13/18 01/13/18 01/13/18 05:20 05:20 06:25 WBC 19.0 H RBC 3.41 L Hgb 9.0 L Hct 28.3 L MCV 83 MCH 26.3 L MCHC 31.6 L RDW 17.3 H Plt Count 238 Seg Neutrophils % 46.0 Lymphocytes % 44.6 Monocytes % 8.4 Eosinophils % 0.7 Basophils % 0.3 Absolute Neutrophils 8.8 H Absolute Lymphocytes 8.5 H Absolute Monocytes 1.6 H Absolute Eosinophils 0.1 Absolute Basophils 0.1 Carbonic Acid 1.56 H HCO3/H2CO3 Ratio 21:1 ABG pH 7.44 ABG pCO2 51.9 H ABG pO2 52.2 L ABG HCO3 34.1 H ABG O2 Saturation 87.4 L ABG Base Excess 8.7 FiO2 1L Sodium 140.1 Potassium 3.4 L Chloride 98 Carbon Dioxide 39 H Anion Gap 3 L BUN 19 Creatinine 0.66 Est GFR ( Amer) > 60 Est GFR (Non-Af Amer) > 60 Glucose 151 H Calcium 9.2 Magnesium 2.0 01/06/18 10:00 Bronchial Washings Fungal Smear - Final 01/06/18 10:00 Bronchial Washings Fungal Smear - Final 01/01/18 01/02/18 01/03/18 05:24 04:36 05:12 Creatine Kinase CK-MB (CK-2) Troponin I NT-Pro-B Natriuret Pep 9160 H 68078 H 5270 H 01/04/18 01/04/18 01/05/18 18:38 18:38 00:40 Creatine Kinase < 20 L < 20 L CK-MB (CK-2) 0.31 Troponin I 0.032 NT-Pro-B Natriuret Pep 01/05/18 01/05/18 01/05/18 00:40 06:30 06:30 Creatine Kinase < 20 L CK-MB (CK-2) 0.26 0.24 Troponin I 0.044 0.048 NT-Pro-B Natriuret Pep 2590 H EKG Comments: Shows sinus rhythm without any sustained tachycardia or bradycardia. Impressions: Chest/Abdomen CTA 01/05/18 08:00 IMPRESSION: No CT angio evidence of acute pulmonary emboli. Near complete collapse left lower lobe, progressive compared to the prior studies. Findings worrisome for pneumonia. Chest X-Ray 01/13/18 06:00 IMPRESSION: No significant interval change. Findings as noted above Assessment & Plan - Diagnosis (1) Ventricular tachycardia (paroxysmal) Is this a current diagnosis for this admission?: Yes (2) Wide-complex tachycardia Is this a current diagnosis for this admission?: Yes (3) CHF (congestive heart failure) Qualifiers: Heart failure chronicity: unspecified Is this a current diagnosis for this admission?: Yes (4) Respiratory failure, acute and chronic Qualifiers: Respiratory failure complication: unspecified whether with hypoxia or hypercapnia Qualified Code(s): J96.20 - Acute and chronic respiratory failure , unspecified whether with hypoxia or hypercapnia Is this a current diagnosis for this admission?: Yes (5) Diabetes Qualifiers: Diabetes mellitus type: type 2 Diabetes mellitus long term care pharmacist insulin use: unspecified long term care pharmacist insulin use status Diabetes mellitus complication status : with unspecified complications Qualified Code(s): E11.8 - Type 2 diabetes mellitus with unspecified complications Is this a current diagnosis for this admission?: Yes (6) Hypertension Qualifiers: Hypertension type: essential hypertension Qualified Code(s): I10 - Essential (primary) hypertension Is this a current diagnosis for this admission?: Yes (7) Dyslipidemia Is this a current diagnosis for this admission?: Yes (8) Left lower lobe pneumonia Qualifiers: Pneumonia type: due to unspecified organism Qualified Code(s): J18.1 - Lobar pneumonia, unspecified organism Is this a current diagnosis for this admission?: Yes - Notes Notes: 2D echocardiogram results were reviewed. It showed LVEF to be relatively well- preserved but RVEF seems mildly reduced. Patient also noted to have significant pulmonary hypertension. Believe cardiac dysrhythmia is secondary to pulmonary problems. Will continue to follow. Optimize therapy for both underlying pulmonary and cardiac status. Maintain electrolytes within normal limits all rhythm strips were reviewed. Ventricular tachycardia/wide-complex tachycardia: Difficult to determine the etiology as to whether it is to ventricular tachycardia or aberrant conduction from supraventricular tachycardia. Since patient has history of prior myocardial infarction and also CHF, ventricular tachycardia is more likely. Have ordered a 2D echocardiogram for risk stratification. At this point will recommend only beta-galindo therapy and management of underlying metabolic factors. Overall patient is quite debilitated and would not be a candidate for any aggressive evaluation at this point. Congestive heart failure: Patient was noted to have elevated BNP and also respiratory failure. Exam findings tend to suggest presence of CHF. Agree with diuretic therapy. Acute on chronic respiratory failure: Patient seems to have significant COPD. In addition she seems to have left lower lobe pneumonia. Continue with antibiotic therapy, oxygen supplementation and noninvasive ventilation as needed. Hypertension: Blood pressure seems relatively well controlled. Hyperlipidemia: Currently is stable. Continue with statin therapy. Left lower lobe pneumonia: Continue antibiotic therapy. Pulmonary following. Patient is quite debilitated and weak. Once patient more stable, and ischemia evaluation could be considered on outpatient could be considered for empiric optimization of therapy for underlying CAD and CHF. We will continue to follow patient. As usual I thank hospitalist very much for the kind referral - Time Time with patient: Greater than 35 minutes - More than 50% of the time spent coordinating care, discussing management plans with involved caregivers. Management plans discussed with involved personnels. Medical decision making was of moderate to high complexity, patient's has multiple comorbidities. Medications reviewed and adjusted accordingly: Yes
[2018-01-13] MEDS: ATORVASTATIN CALCIUM 10 MG TABLET PO SCH (22:24)
[2018-01-13] MEDS: VANCOMYCIN HCL 1,000 MG in DEXTROSE 5%-WATER 250 ML IV SCH (22:24)
[2018-01-13] MEDS: MONTELUKAST SODIUM 10 MG TABLET PO SCH (22:24)
[2018-01-13] MEDS: MEROPENEM 500 MG in NORMAL SALINE 50 ML IV SCH (23:34)
[2018-01-14] MEDS: MEROPENEM 500 MG in NORMAL SALINE 50 ML IV SCH ×3 (06:43→22:23)
[2018-01-14 09:01] LABS: ABSOLUTE EOSINOPHILS # (AUTO) 0.1 10^3/uL (0.0-0.6); ABSOLUTE LYMPHOCYTES (AUTO) 5.9 10^3/uL (0.5-4.7); ABSOLUTE MONOCYTES (AUTO) 1.2 10^3/uL (0.1-1.4); ABSOLUTE NEUT (AUTO) 8.2 10^3/uL (1.7-8.2); BASOPHILS % (AUTO) 0.2 % (0-2); EOSINOPHILS % (AUTO) 0.6 % (0-6); HEMATOCRIT 28.4 % (36.0-47.0); HEMOGLOBIN 8.9 g/dL (12.0-15.5); MEAN CORPUSCULAR HEMOGLOBIN 26.1 pg (27.0-33.4); MEAN CORPUSCULAR HGB CONC 31.4 g/dL (32.0-36.0); MEAN CORPUSCULAR VOLUME 83 fl (80-97); MONOCYTES % (AUTO) 7.8 % (3-13); PLATELET COUNT 252 10^3/uL (150-450); RED BLOOD COUNT 3.41 10^6/uL (3.72-5.28); RED CELL DISTRIBUTION WIDTH 17.2 % (11.5-14.0); SEGMENTED NEUTROPHILS % (AUTO) 53.4 % (42-78); TOTAL CELLS COUNTED % (AUTO) 100 %; WHITE BLOOD COUNT 15.4 10^3/uL (4.0-10.5)
[2018-01-14 09:14] LABS: BLOOD UREA NITROGEN 18 mg/dL (7-20); CALCIUM 9.3 mg/dL (8.4-10.2); CHLORIDE 100 mmol/L (98-107); GLUCOSE 142 mg/dL (75-110); POTASSIUM 4.6 mmol/L (3.6-5.0)
[2018-01-14 09:29] LABS: ANION GAP 5 (5-19); CARBON DIOXIDE 36 mmol/L (22-30); SODIUM 141.1 mmol/L (137-145)
[2018-01-14] MEDS: DOCUSATE SODIUM 100 MG CAPSULE PO SCH ×2 (10:56→21:12)
[2018-01-14] MEDS: FLUTICASONE NASAL SPRAY 50 MCG/SPRY 120 SPRAY/16 GM NASL SCH ×2 (10:57→21:13)
[2018-01-14] MEDS: POTASSIUM CHLORIDE 10 MEQ TABLET.SA PO SCH (10:57)
[2018-01-14] MEDS: LACTOBACILLUS ACIDOPHILUS 250 MG TAB PO SCH ×2 (10:57→18:11)
[2018-01-14] MEDS: FLUTICASONE/SALMETEROL DISKUS 250-50 MCG/DOSE IH SCH ×2 (10:57→21:13)
[2018-01-14] MEDS: INSULIN GLARGINE,HUM.REC.ANLOG 300 UNIT/3 ML INSULN.PEN SUBCUT SCH (10:58)
[2018-01-14] MEDS: PANTOT AC/MIN OIL/PET HY-PHL OINT 50 GM TOP SCH ×2 (10:58→18:12)
[2018-01-14] MEDS: ROFLUMILAST 500 MCG TABLET PO SCH (10:58)
[2018-01-14] MEDS: ENOXAPARIN SODIUM INJ 40 MG/0.4 ML DISP.SYRIN SUBCUT SCH (11:03)
[2018-01-14] MEDS: GUAIFENESIN 600 MG TABLET.SA PO SCH ×2 (11:03→21:12)
[2018-01-14] MEDS: POLYETHYLENE GLYCOL 3350 POWDER 17 GM/1 PACKET PO SCH ×2 (11:04→21:11)
[2018-01-14] MEDS: ASPIRIN 81 MG TABLET, CHEWABLE PO SCH (11:05)
--- NOTE | 2018-01-14 18:09 | PDOC PROGRESS REPORT ---
Subjective Progress Note for:: 01/14/18 Subjective:: Patient is me today that she is feeling fine and she would just like to watch television so she wishes that I would hurry up. sHe is feeling extremely weak. No fevers or chills. No cough as far she can tell. No chest pain. She thinks she is sleeping relatively well. Reason For Visit: COPD EXACERBATION, ACUTE ON CHRONIC RESP FAILURE, Physical Exam Vital Signs: Temp Pulse Resp BP Pulse Ox 99.5 F 84 18 102/44 L 98 01/14/18 15:22 01/14/18 15:22 01/14/18 15:22 01/14/18 15:22 01/14/18 15:22 Pulse Oximeter Continuous Start: 01/03/18 14: 49 Freq: Status: Complete Document 01/03/18 16:05 [facility] (Rec: 01/03/18 17:52 [facility] [email or web address]) Pulse Oximetry Assessment Oxygen Saturation (92-100) 94 Fraction of Inspired Oxygen (FIO2) 60 Equipment Usage Equipment in Use Continuous SpO2 Machine # [id number] Intake & Output 01/13/18 01/14/18 01/15/18 06:59 06:59 06:59 Intake Total 810 1360 0 Output Total 1700 510 600 Balance -890 850 -600 Weight 80.1 kg 81.2 kg General appearance: PRESENT: no acute distress, cooperative Head exam: PRESENT: atraumatic, normocephalic Eye exam: PRESENT: EOMI. ABSENT: scleral icterus Mouth exam: PRESENT: moist Neck exam: PRESENT: lymphadenopathy Respiratory exam: PRESENT: rales, rhonchi, unlabored. ABSENT: wheezes Cardiovascular exam: PRESENT: RRR, systolic murmur Pulses: PRESENT: normal radial pulses GI/Abdominal exam: PRESENT: normal bowel sounds, soft. ABSENT: distended, mass , tenderness Rectal exam: PRESENT: deferred Extremities exam: ABSENT: calf tenderness, pedal edema Neurological exam: PRESENT: alert, awake, oriented to person, oriented to place. ABSENT: oriented to situation Psychiatric exam: PRESENT: appropriate affect. ABSENT: anxious Results Laboratory Results: 01/14/18 08:25 01/14/18 08:25 01/14/18 01/14/18 08:25 08:25 WBC 15.4 H RBC 3.41 L Hgb 8.9 L Hct 28.4 L MCV 83 MCH 26.1 L MCHC 31.4 L RDW 17.2 H Plt Count 252 Seg Neutrophils % 53.4 Lymphocytes % 38.0 Monocytes % 7.8 Eosinophils % 0.6 Basophils % 0.2 Absolute Neutrophils 8.2 Absolute Lymphocytes 5.9 H Absolute Monocytes 1.2 Absolute Eosinophils 0.1 Absolute Basophils 0.0 Sodium 141.1 Potassium 4.6 Chloride 100 Carbon Dioxide 36 H Anion Gap 5 BUN 18 Creatinine 0.53 Est GFR ( Amer) > 60 Est GFR (Non-Af Amer) > 60 Glucose 142 H Uric Acid 4.0 Calcium 9.3 01/01/18 01/02/18 01/03/18 05:24 04:36 05:12 Creatine Kinase CK-MB (CK-2) Troponin I NT-Pro-B Natriuret Pep 9160 H 09954 H 5270 H 01/04/18 01/04/18 01/05/18 18:38 18:38 00:40 Creatine Kinase < 20 L < 20 L CK-MB (CK-2) 0.31 Troponin I 0.032 NT-Pro-B Natriuret Pep 01/05/18 01/05/18 01/05/18 00:40 06:30 06:30 Creatine Kinase < 20 L CK-MB (CK-2) 0.26 0.24 Troponin I 0.044 0.048 NT-Pro-B Natriuret Pep 2590 H Impressions: Chest/Abdomen CTA 01/05/18 08:00 IMPRESSION: No CT angio evidence of acute pulmonary emboli. Near complete collapse left lower lobe, progressive compared to the prior studies. Findings worrisome for pneumonia. Chest X-Ray 01/13/18 06:00 IMPRESSION: No significant interval change. Findings as noted above Assessment & Plan - Diagnosis (1) Acute and chronic respiratory failure Qualifiers: Respiratory failure complication: hypoxia and hypercapnia Qualified Code(s) : J96.21 - Acute and chronic respiratory failure with hypoxia; J96.22 - Acute and chronic respiratory failure with hypercapnia; J96.22 - Acute and chronic respiratory failure with hypercapnia; J96.22 - Acute and chronic respiratory failure with hypercapnia Is this a current diagnosis for this admission?: Yes Plan: Secondary to pneumonia along with underlying COPD and now with exacerbation, underlying heart failure now with exacerbation. Overall improving. Continue to treat underlying problems that are outlined below. (2) Acute on chronic diastolic CHF (congestive heart failure) Is this a current diagnosis for this admission?: Yes Plan: Improving. Continue her metoprolol succinate and her oral Lasix. Etiology following. Appreciate their assistance. (3) Anemia Qualifiers: Anemia type: unspecified type Qualified Code(s): D64.9 - Anemia, unspecified Is this a current diagnosis for this admission?: Yes Plan: No signs of active bleeding. Likely anemia of chronic disease and can be managed as an outpatient. Emo globin stable. (4) COPD (chronic obstructive pulmonary disease) Qualifiers: Emphysema type: unspecified Is this a current diagnosis for this admission?: Yes Plan: Continue Advair and Mucinex. Continue duo nebs as ordered. Is improving. (5) Hypertension Qualifiers: Hypertension type: essential hypertension Qualified Code(s): I10 - Essential (primary) hypertension Is this a current diagnosis for this admission?: Yes Plan: Patient is tolerating her Toprol-XL. Yesterday she was very hypotensive this resolved with fluid bolusing. Today she is hemodynamically stable. (6) Left lower lobe pneumonia Qualifiers: Pneumonia type: due to unspecified organism Qualified Code(s): J18.1 - Lobar pneumonia, unspecified organism Is this a current diagnosis for this admission?: Yes Plan: Secondary to acute respiratory failure and severity of illness patient is on meropenem and vancomycin until cultures return. (7) Right ankle pain Qualifiers: Chronicity: acute Qualified Code(s): M25.571 - Pain in right ankle and joints of right foot Is this a current diagnosis for this admission?: Yes Plan: This is improved with measures instituted by hospitalist yesterday. Continue current care. (8) Ventricular tachycardia (paroxysmal) Is this a current diagnosis for this admission?: Yes Plan: Patient has a history of paroxysmal V. tach. She is followed as an outpatient by Dr. Dupont who is following her here in the hospital. She is on telemetry. - Time Time Spent with patient: 25-34 minutes Medications reviewed and adjusted accordingly: Yes - Inpatient Certification Based on my medical assessment, after consideration of the patient's comorbidities, presenting symptoms, or acuity I expect that the services needed warrant INPATIENT care.: Yes I certify that my determination is in accordance with my understanding of Medicare's requirements for reasonable and necessary INPATIENT services [42 CFR 412.3e].: Yes Medical Necessity: Need Close Monitoring Due to Risk of Patient Decompensation, Need For Continuous Telemetry Monitoring, Need for Nebulizer Therapy and Monitoring of Response, Need for IV Antibiotics, Risk of Complication if Not Cared For in Hospital
[2018-01-14] MEDS: ACETAMINOPHEN 325 MG TABLET PO PRN (18:11)
[2018-01-14] MEDS ORDERED: RISPERIDONE 0.25 MG TABLET PO ONE (21:00)
[2018-01-14] MEDS: VANCOMYCIN HCL 1,000 MG in DEXTROSE 5%-WATER 250 ML IV SCH (21:10)
[2018-01-14] MEDS: MONTELUKAST SODIUM 10 MG TABLET PO SCH (21:12)
[2018-01-14] MEDS: ATORVASTATIN CALCIUM 10 MG TABLET PO SCH (21:12)
[2018-01-15] MEDS: MEROPENEM 500 MG in NORMAL SALINE 50 ML IV SCH ×3 (05:10→22:42)
[2018-01-15 08:16] LABS: HEMATOCRIT 26.9 % (36.0-47.0); HEMOGLOBIN 8.5 g/dL (12.0-15.5); MEAN CORPUSCULAR HEMOGLOBIN 26.3 pg (27.0-33.4); MEAN CORPUSCULAR HGB CONC 31.5 g/dL (32.0-36.0); MEAN CORPUSCULAR VOLUME 84 fl (80-97); PLATELET COUNT 270 10^3/uL (150-450); RED BLOOD COUNT 3.22 10^6/uL (3.72-5.28); RED CELL DISTRIBUTION WIDTH 17.6 % (11.5-14.0); WHITE BLOOD COUNT 14.1 10^3/uL (4.0-10.5)
[2018-01-15 08:38] LABS: BLOOD UREA NITROGEN 15 mg/dL (7-20); CALCIUM 9.7 mg/dL (8.4-10.2); GLUCOSE 164 mg/dL (75-110); POTASSIUM 4.6 mmol/L (3.6-5.0)
[2018-01-15 08:43] LABS: CHLORIDE 98 mmol/L (98-107); SODIUM 140.8 mmol/L (137-145)
[2018-01-15 08:45] LABS: CARBON DIOXIDE 39 mmol/L (22-30)
[2018-01-15 08:46] LABS: ANION GAP 4 (5-19)
[2018-01-15] MEDS: POTASSIUM CHLORIDE 10 MEQ TABLET.SA PO SCH (09:58)
[2018-01-15] MEDS: LACTOBACILLUS ACIDOPHILUS 250 MG TAB PO SCH ×2 (09:58→19:09)
[2018-01-15] MEDS: DOCUSATE SODIUM 100 MG CAPSULE PO SCH ×2 (09:58→22:42)
[2018-01-15] MEDS: ENOXAPARIN SODIUM INJ 40 MG/0.4 ML DISP.SYRIN SUBCUT SCH (09:59)
[2018-01-15] MEDS: GUAIFENESIN 600 MG TABLET.SA PO SCH ×2 (09:59→22:43)
[2018-01-15] MEDS: FLUTICASONE NASAL SPRAY 50 MCG/SPRY 120 SPRAY/16 GM NASL SCH ×2 (10:00→22:43)
[2018-01-15] MEDS: FLUTICASONE/SALMETEROL DISKUS 250-50 MCG/DOSE IH SCH ×2 (10:00→22:43)
[2018-01-15] MEDS: POLYETHYLENE GLYCOL 3350 POWDER 17 GM/1 PACKET PO SCH ×2 (10:00→22:43)
[2018-01-15] MEDS: PANTOT AC/MIN OIL/PET HY-PHL OINT 50 GM TOP SCH ×2 (10:01→19:09)
[2018-01-15] MEDS: ROFLUMILAST 500 MCG TABLET PO SCH (10:01)
[2018-01-15] MEDS: INSULIN GLARGINE,HUM.REC.ANLOG 300 UNIT/3 ML INSULN.PEN SUBCUT SCH (10:01)
[2018-01-15] MEDS: INSULIN LISPRO 100 UNIT/ML 3 ML VIAL SUBCUT PRN ×2 (10:02→13:20)
[2018-01-15] MEDS: ASPIRIN 81 MG TABLET, CHEWABLE PO SCH (13:19)
[2018-01-15 14:13] LABS: APPEARANCE,URINE TURBID; BILIRUBIN,URINE NEGATIVE (NEGATIVE); COLOR,URINE YELLOW; GLUCOSE, URINE 50 mg/dL (NEGATIVE); KETONES,URINE NEGATIVE (NEGATIVE); LEUKOCYTE ESTERASE,URINE LARGE (NEGATIVE); NITRITE,URINE NEGATIVE (NEGATIVE); PROTEIN,URINE 100 mg/dL (NEGATIVE); URINE SPECIFIC GRAVITY 1.017; UROBILINOGEN,URINE NEGATIVE mg/dL (<2.0)
[2018-01-15] MEDS: FLUCONAZOLE 200 MG/NS RTU 100 MG in CONTAINER,EMPTY 1 EACH IV SCH (16:09)
--- NOTE | 2018-01-15 16:25 | PDOC PROGRESS REPORT ---
Subjective Progress Note for:: 01/15/18 Subjective:: Patient is more awake today. She tells me that she is breathing fine. She feels pretty good today. Her appetite she states is fair but she would like to try to eat a little bit. She is not having any acute pain including no chest pain or palpitations. No fevers or chills. No bleeding. Reason For Visit: COPD EXACERBATION, ACUTE ON CHRONIC RESP FAILURE, Physical Exam Vital Signs: Temp Pulse Resp BP Pulse Ox 99.8 F 98 17 101/51 L 95 01/15/18 11:25 01/15/18 14:00 01/15/18 11:25 01/15/18 11:25 01/15/18 11:25 Pulse Oximeter Continuous Start: 01/03/18 14: 49 Freq: Status: Complete Document 01/03/18 16:05 [facility] (Rec: 01/03/18 17:52 [facility] [email or web address]) Pulse Oximetry Assessment Oxygen Saturation (92-100) 94 Fraction of Inspired Oxygen (FIO2) 60 Equipment Usage Equipment in Use Continuous SpO2 Machine # [id number] Intake & Output 01/14/18 01/15/18 01/16/18 06:59 06:59 06:59 Intake Total 1360 540 Output Total 510 1450 Balance 850 -910 Weight 81.2 kg 78.6 kg General appearance: PRESENT: no acute distress, cooperative, obese Head exam: PRESENT: atraumatic, normocephalic Eye exam: PRESENT: EOMI Mouth exam: PRESENT: tongue midline Neck exam: ABSENT: lymphadenopathy, tenderness Respiratory exam: PRESENT: clear to auscultation gee, unlabored. ABSENT: rales , rhonchi, wheezes Cardiovascular exam: PRESENT: irregular rhythm. ABSENT: systolic murmur, tachycardia Pulses: PRESENT: normal radial pulses GI/Abdominal exam: PRESENT: normal bowel sounds, soft. ABSENT: distended, guarding, tenderness Rectal exam: PRESENT: deferred Gentrourinary exam: PRESENT: indwelling catheter, other - Urine is somewhat cloudy in Cheng bag Extremities exam: ABSENT: pedal edema Neurological exam: PRESENT: alert, awake, oriented to person, oriented to place , oriented to situation, CN II-XII grossly intact Psychiatric exam: PRESENT: appropriate affect. ABSENT: anxious Skin exam: PRESENT: other - She has a significant stage I with very small areas of stage II breakdown over her sacrum I viewed today. Wound care has been started and dressing is in place. Results Laboratory Results: 01/15/18 07:45 01/15/18 07:45 01/15/18 01/15/18 01/15/18 07:45 07:45 13:15 WBC 14.1 H RBC 3.22 L Hgb 8.5 L Hct 26.9 L MCV 84 MCH 26.3 L MCHC 31.5 L RDW 17.6 H Plt Count 270 Sodium 140.8 Potassium 4.6 Chloride 98 Carbon Dioxide 39 H Anion Gap 4 L BUN 15 Creatinine 0.59 Est GFR ( Amer) > 60 Est GFR (Non-Af Amer) > 60 Glucose 164 H Calcium 9.7 Urine Color YELLOW Urine Appearance TURBID Urine pH 7.0 Ur Specific [place] 1.017 Urine Protein 100 H Urine Glucose (UA) 50 H Urine Ketones NEGATIVE Urine Blood SMALL H Urine Nitrite NEGATIVE Ur Leukocyte Esterase LARGE H Urine WBC (Auto) >182 Urine RBC (Auto) 89 01/01/18 01/02/18 01/03/18 05:24 04:36 05:12 Creatine Kinase CK-MB (CK-2) Troponin I NT-Pro-B Natriuret Pep 9160 H 06207 H 5270 H 01/04/18 01/04/18 01/05/18 18:38 18:38 00:40 Creatine Kinase < 20 L < 20 L CK-MB (CK-2) 0.31 Troponin I 0.032 NT-Pro-B Natriuret Pep 01/05/18 01/05/18 01/05/18 00:40 06:30 06:30 Creatine Kinase < 20 L CK-MB (CK-2) 0.26 0.24 Troponin I 0.044 0.048 NT-Pro-B Natriuret Pep 2590 H Impressions: Chest/Abdomen CTA 01/05/18 08:00 IMPRESSION: No CT angio evidence of acute pulmonary emboli. Near complete collapse left lower lobe, progressive compared to the prior studies. Findings worrisome for pneumonia. Chest X-Ray 01/13/18 06:00 IMPRESSION: No significant interval change. Findings as noted above Assessment & Plan - Diagnosis (1) Leukocytosis Qualifiers: Leukocytosis type: unspecified Qualified Code(s): D72.829 - Elevated white blood cell count, unspecified Is this a current diagnosis for this admission?: Yes Plan: Patient's white blood cell count has come down since she was started on the meropenem and vancomycin a few days ago. There is no culture data indicating a staph infection so have discontinued the vancomycin. Cultures are not yet final and so I will continue meropenem for now. She is growing yeast in several places and so I started her on fluconazole 100 mg IV daily for the possibility of fungal infection causing leukocytosis. I have also started her on topical statin for significant fungal infection in the groin and under the pannus and over the genitals. Ulcer discontinued her Cheng catheter. Sputum culture and urinalysis have been ordered. (2) Acute on chronic diastolic CHF (congestive heart failure) Is this a current diagnosis for this admission?: Yes Plan: Acute opponent resolving. Continue current care. (3) Anemia Qualifiers: Anemia type: unspecified type Qualified Code(s): D64.9 - Anemia, unspecified Is this a current diagnosis for this admission?: Yes Plan: Hemoglobin remains stable. No sign of active bleeding. We will continue to monitor though not every day. (4) COPD (chronic obstructive pulmonary disease) Qualifiers: Emphysema type: unspecified Is this a current diagnosis for this admission?: Yes Plan: Much improved, continue current medication plan. (5) Hypertension Qualifiers: Hypertension type: essential hypertension Qualified Code(s): I10 - Essential (primary) hypertension Is this a current diagnosis for this admission?: Yes Plan: Blood pressure has been stable. We will continue current care. Monitor closely. We will continue telemetry. (6) Left lower lobe pneumonia Qualifiers: Pneumonia type: due to unspecified organism Qualified Code(s): J18.1 - Lobar pneumonia, unspecified organism Is this a current diagnosis for this admission?: Yes Plan: Seen on imaging. Unclear etiology. We will continue meropenem and fluconazole for now. (7) Right ankle pain Qualifiers: Chronicity: acute Qualified Code(s): M25.571 - Pain in right ankle and joints of right foot Is this a current diagnosis for this admission?: Yes Plan: Resolved. (8) Ventricular tachycardia (paroxysmal) Is this a current diagnosis for this admission?: Yes Plan: Has been stable. Followed by cardiology as an outpatient. Continue to galindo. Will check potassium and magnesium tomorrow. - Time Time Spent with patient: 25-34 minutes - Had a conversation with patient's son over the phone, medical update, answered his questions. Medications reviewed and adjusted accordingly: Yes Anticipated discharge: SNF - Inpatient Certification Based on my medical assessment, after consideration of the patient's comorbidities, presenting symptoms, or acuity I expect that the services needed warrant INPATIENT care.: Yes I certify that my determination is in accordance with my understanding of Medicare's requirements for reasonable and necessary INPATIENT services [42 CFR 412.3e].: Yes Medical Necessity: Significant Comorbidiites Make Outpatient Treatment Too Risky , Need Close Monitoring Due to Risk of Patient Decompensation, Risk of Complication if Not Cared For in Hospital
--- NOTE | 2018-01-15 18:03 | PDOC PROGRESS REPORT ---
Subjective Progress Note for:: 01/14/18 Subjective:: Patient seems to be doing better with gradual improvement. Pt is denying any chest arm or neck discomfort. Patient denying any PND, orthopnea. Patient denied any sustained palpitations, dizziness, syncope, near syncope. Patient denying any fever chills. Patient denying any other significant discomfort. Patient has noted some leg discomfort. Patient is maintaining sinus rhythm. No recurrence of wide-complex tachycardia noted. Review of systems: Rest review of systems negative. Medications: Medications have been reviewed. Reason For Visit: COPD EXACERBATION, ACUTE ON CHRONIC RESP FAILURE, Physical Exam Vital Signs: Temp Pulse Resp BP Pulse Ox 98.2 F 82 20 93/44 L 94 01/14/18 20:14 01/14/18 20:14 01/14/18 20:14 01/14/18 20:14 01/14/18 20:14 Pulse Oximeter Continuous Start: 01/03/18 14: 49 Freq: Status: Complete Document 01/03/18 16:05 [facility] (Rec: 01/03/18 17:52 [facility] [email or web address]) Pulse Oximetry Assessment Oxygen Saturation (92-100) 94 Fraction of Inspired Oxygen (FIO2) 60 Equipment Usage Equipment in Use Continuous SpO2 Machine # N-[id number] Intake & Output 01/13/18 01/14/18 01/15/18 06:59 06:59 06:59 Intake Total 810 1360 0 Output Total 1700 510 600 Balance -890 850 -600 Weight 80.1 kg 81.2 kg Exam: GENERAL: well-nourished and in no acute distress. Alert and oriented x2 HEAD: Atraumatic, normocephalic. EYES: Pupils equal round and reactive to light, extraocular movements intact, sclera anicteric, conjunctiva are normal. ENT: TMs normal, nares patent, oropharynx clear without exudates. Moist mucous membranes. No oral ulcerations or bleeding gums noted NECK: supple without lymphadenopathy. Trachea is central. No cervical or axillary lymphadenopathy noted. Carotids are 2+, JVD WNL LUNGS: Respiration seems nonlabored, no significant accessory muscle action noted. Few bibasilar fine crackles are noted. No wheezes rales or rhonchi noted. No significant dullness noted on percussion. CHEST: Palpation of the chest wall shows no significant chest wall tenderness. 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 ABDOMEN: Soft, no significant tenderness appreciated, normoactive bowel sounds. No guarding, no rebound. No rigidity noted . No masses appreciated. EXTREMITIES: Pedal pulses are 1-2+, no calf tenderness noted. No clubbing or cyanosis. Trace to 1+ pedal edema noted NEUROLOGICAL: Focused neurological exam showed no significant neurologic deficit. Normal speech, no focal weakness appreciated. PSYCH: Normal mood, normal affect. Judgment and insight not checked, but possibly impaired. SKIN: No significant ecchymosis, skin is noted to be warm. MUSCULOSKELETAL EXAM: No significant acute joint swelling noted. Results Laboratory Results: 01/14/18 08:25 01/14/18 08:25 01/14/18 01/14/18 08:25 08:25 WBC 15.4 H RBC 3.41 L Hgb 8.9 L Hct 28.4 L MCV 83 MCH 26.1 L MCHC 31.4 L RDW 17.2 H Plt Count 252 Seg Neutrophils % 53.4 Lymphocytes % 38.0 Monocytes % 7.8 Eosinophils % 0.6 Basophils % 0.2 Absolute Neutrophils 8.2 Absolute Lymphocytes 5.9 H Absolute Monocytes 1.2 Absolute Eosinophils 0.1 Absolute Basophils 0.0 Sodium 141.1 Potassium 4.6 Chloride 100 Carbon Dioxide 36 H Anion Gap 5 BUN 18 Creatinine 0.53 Est GFR ( Amer) > 60 Est GFR (Non-Af Amer) > 60 Glucose 142 H Uric Acid 4.0 Calcium 9.3 01/01/18 01/02/18 01/03/18 05:24 04:36 05:12 Creatine Kinase CK-MB (CK-2) Troponin I NT-Pro-B Natriuret Pep 9160 H 67659 H 5270 H 01/04/18 01/04/18 01/05/18 18:38 18:38 00:40 Creatine Kinase < 20 L < 20 L CK-MB (CK-2) 0.31 Troponin I 0.032 NT-Pro-B Natriuret Pep 01/05/18 01/05/18 01/05/18 00:40 06:30 06:30 Creatine Kinase < 20 L CK-MB (CK-2) 0.26 0.24 Troponin I 0.044 0.048 NT-Pro-B Natriuret Pep 2590 H Impressions: Chest/Abdomen CTA 01/05/18 08:00 IMPRESSION: No CT angio evidence of acute pulmonary emboli. Near complete collapse left lower lobe, progressive compared to the prior studies. Findings worrisome for pneumonia. Chest X-Ray 01/13/18 06:00 IMPRESSION: No significant interval change. Findings as noted above Assessment & Plan - Diagnosis (1) Ventricular tachycardia (paroxysmal) Is this a current diagnosis for this admission?: Yes (2) Wide-complex tachycardia Is this a current diagnosis for this admission?: Yes (3) CHF (congestive heart failure) Qualifiers: Heart failure chronicity: unspecified Is this a current diagnosis for this admission?: Yes (4) Respiratory failure, acute and chronic Qualifiers: Respiratory failure complication: unspecified whether with hypoxia or hypercapnia Qualified Code(s): J96.20 - Acute and chronic respiratory failure , unspecified whether with hypoxia or hypercapnia Is this a current diagnosis for this admission?: Yes (5) Diabetes Qualifiers: Diabetes mellitus type: type 2 Diabetes mellitus correction insulin 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: 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 insulin 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 Diabetes mellitus complication status : with unspecified complications Qualified Code(s): E11.8 - Type 2 diabetes mellitus with unspecified complications Is this a current diagnosis for this admission?: Yes (6) Hypertension Qualifiers: Hypertension type: essential hypertension Qualified Code(s): I10 - Essential (primary) hypertension Is this a current diagnosis for this admission?: Yes (7) Dyslipidemia Is this a current diagnosis for this admission?: Yes (8) Left lower lobe pneumonia Qualifiers: Pneumonia type: due to unspecified organism Qualified Code(s): J18.1 - Lobar pneumonia, unspecified organism Is this a current diagnosis for this admission?: Yes - Notes Notes: 2D echocardiogram results were reviewed. It showed LVEF to be relatively well- preserved but RVEF seems mildly reduced. Patient also noted to have significant pulmonary hypertension. Believe cardiac dysrhythmia is secondary to pulmonary problems. Will continue to follow. Optimize therapy for both underlying pulmonary and cardiac status. Maintain electrolytes within normal limits all rhythm strips were reviewed. Ventricular tachycardia/wide-complex tachycardia: Difficult to determine the etiology as to whether it is to ventricular tachycardia or aberrant conduction from supraventricular tachycardia. Since patient has history of prior myocardial infarction and also CHF, ventricular tachycardia is more likely. 2D echocardiogram shows relatively well-preserved LVEF but RVEF seems reduced. At this point will recommend only beta-galindo therapy and management of underlying metabolic factors. Overall patient is quite debilitated and would not be a candidate for any aggressive evaluation at this point. Congestive heart failure: Patient was noted to have elevated BNP and also respiratory failure. Exam findings tend to suggest presence of CHF. Agree with diuretic therapy. Acute on chronic respiratory failure: Patient seems to have significant COPD. In addition she seems to have left lower lobe pneumonia. Continue with antibiotic therapy, oxygen supplementation and noninvasive ventilation as needed. Hypertension: Blood pressure seems relatively well controlled. Hyperlipidemia: Currently is stable. Continue with statin therapy. Left lower lobe pneumonia: Continue antibiotic therapy. Pulmonary following. Patient is quite debilitated and weak. Patient also noted to be now intermittently confused. We will continue to follow patient. - Time Time with patient: 15-25 minutes - CODE STATUS was discussed, patient remains full code. Multiple medical problems were addressed. More than 50% of the time spent coordinating care, discussing management plans with involved caregivers. Management plans discussed with involved personnels. Medical decision making was of moderate to high complexity, patient's has multiple comorbidities. Medications reviewed and adjusted accordingly: Yes
--- NOTE | 2018-01-15 18:13 | PDOC PROGRESS REPORT ---
Subjective Progress Note for:: 01/15/18 Subjective:: Patient was noted to be confused and agitated last night but this morning seems better and more,. Pt is denying any chest arm or neck discomfort. Patient denying any PND, orthopnea. Patient denied any sustained palpitations, dizziness, syncope, near syncope. Patient denying any fever chills. Patient denying any other significant discomfort. Patient has noted some leg discomfort. Patient is maintaining sinus rhythm. No recurrence of wide-complex tachycardia noted. Review of systems: Rest review of systems negative. Medications: Medications have been reviewed. Reason For Visit: COPD EXACERBATION, ACUTE ON CHRONIC RESP FAILURE, Physical Exam Vital Signs: Temp Pulse Resp BP Pulse Ox 99.4 F 46 L 17 108/49 L 99 01/15/18 16:29 01/15/18 16:29 01/15/18 16:29 01/15/18 16:29 01/15/18 16:29 Pulse Oximeter Continuous Start: 01/03/18 14: 49 Freq: Status: Complete Document 01/03/18 16:05 [facility] (Rec: 01/03/18 17:52 [facility] [email or web address]) Pulse Oximetry Assessment Oxygen Saturation (92-100) 94 Fraction of Inspired Oxygen (FIO2) 60 Equipment Usage Equipment in Use Continuous SpO2 Machine # N-[id number] Intake & Output 01/14/18 01/15/18 01/16/18 06:59 06:59 06:59 Intake Total 1360 540 Output Total 510 1450 400 Balance 850 -910 -400 Weight 81.2 kg 78.6 kg Exam: GENERAL: well-nourished and in no acute distress. Alert and oriented x2 HEAD: Atraumatic, normocephalic. EYES: Pupils equal round and reactive to light, extraocular movements intact, sclera anicteric, conjunctiva are normal. ENT: TMs normal, nares patent, oropharynx clear without exudates. Moist mucous membranes. No oral ulcerations or bleeding gums noted NECK: supple without lymphadenopathy. Trachea is central. No cervical or axillary lymphadenopathy noted. Carotids are 2+, JVD WNL LUNGS: Respiration seems nonlabored, no significant accessory muscle action noted. Few bibasilar fine crackles are noted. No wheezes rales or rhonchi noted. No significant dullness noted on percussion. CHEST: Palpation of the chest wall shows no significant chest wall tenderness. 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 ABDOMEN: Soft, no significant tenderness appreciated, normoactive bowel sounds. No guarding, no rebound. No rigidity noted . No masses appreciated. EXTREMITIES: Pedal pulses are 1-2+, no calf tenderness noted. No clubbing or cyanosis. Trace to 1+ pedal edema noted NEUROLOGICAL: Focused neurological exam showed no significant neurologic deficit. Normal speech, no focal weakness appreciated. PSYCH: Normal mood, normal affect. Judgment and insight not checked, but possibly impaired. SKIN: No significant ecchymosis, skin is noted to be warm. MUSCULOSKELETAL EXAM: No significant acute joint swelling noted. Results Laboratory Results: 01/15/18 07:45 01/15/18 07:45 01/15/18 01/15/18 01/15/18 07:45 07:45 13:15 WBC 14.1 H RBC 3.22 L Hgb 8.5 L Hct 26.9 L MCV 84 MCH 26.3 L MCHC 31.5 L RDW 17.6 H Plt Count 270 Sodium 140.8 Potassium 4.6 Chloride 98 Carbon Dioxide 39 H Anion Gap 4 L BUN 15 Creatinine 0.59 Est GFR ( Amer) > 60 Est GFR (Non-Af Amer) > 60 Glucose 164 H Calcium 9.7 Urine Color YELLOW Urine Appearance TURBID Urine pH 7.0 Ur Specific [place] 1.017 Urine Protein 100 H Urine Glucose (UA) 50 H Urine Ketones NEGATIVE Urine Blood SMALL H Urine Nitrite NEGATIVE Ur Leukocyte Esterase LARGE H Urine WBC (Auto) >182 Urine RBC (Auto) 89 01/01/18 01/02/18 01/03/18 05:24 04:36 05:12 Creatine Kinase CK-MB (CK-2) Troponin I NT-Pro-B Natriuret Pep 9160 H 14897 H 5270 H 01/04/18 01/04/18 01/05/18 18:38 18:38 00:40 Creatine Kinase < 20 L < 20 L CK-MB (CK-2) 0.31 Troponin I 0.032 NT-Pro-B Natriuret Pep 01/05/18 01/05/18 01/05/18 00:40 06:30 06:30 Creatine Kinase < 20 L CK-MB (CK-2) 0.26 0.24 Troponin I 0.044 0.048 NT-Pro-B Natriuret Pep 2590 H EKG Comments: Telemetry strips shows sinus rhythm without any sustained tachycardia or bradycardia. Impressions: Chest/Abdomen CTA 01/05/18 08:00 IMPRESSION: No CT angio evidence of acute pulmonary emboli. Near complete collapse left lower lobe, progressive compared to the prior studies. Findings worrisome for pneumonia. Chest X-Ray 01/13/18 06:00 IMPRESSION: No significant interval change. Findings as noted above Assessment & Plan - Diagnosis (1) Ventricular tachycardia (paroxysmal) Is this a current diagnosis for this admission?: Yes (2) Wide-complex tachycardia Is this a current diagnosis for this admission?: Yes (3) CHF (congestive heart failure) Qualifiers: Heart failure chronicity: unspecified Is this a current diagnosis for this admission?: Yes (4) Respiratory failure, acute and chronic Qualifiers: Respiratory failure complication: unspecified whether with hypoxia or hypercapnia Qualified Code(s): J96.20 - Acute and chronic respiratory failure , unspecified whether with hypoxia or hypercapnia Is this a current diagnosis for this admission?: Yes (5) Diabetes Qualifiers: Diabetes mellitus type: type 2 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 use: unspecified longterm insulin use status Diabetes mellitus complication status : with unspecified complications Qualified Code(s): E11.8 - Type 2 diabetes mellitus with unspecified complications Is this a current diagnosis for this admission?: Yes (6) Hypertension Qualifiers: Hypertension type: essential hypertension Qualified Code(s): I10 - Essential (primary) hypertension Is this a current diagnosis for this admission?: Yes (7) Dyslipidemia Is this a current diagnosis for this admission?: Yes (8) Left lower lobe pneumonia Qualifiers: Pneumonia type: due to unspecified organism Qualified Code(s): J18.1 - Lobar pneumonia, unspecified organism Is this a current diagnosis for this admission?: Yes - Notes Notes: Ventricular tachycardia/wide-complex tachycardia: There has been no recurrences. However it has been difficult to decide whether patient really had ventricular tachycardia or supraventricular tachycardia with aberrant conduction. Anyway there has been no recurrences. At this point will follow patient on as needed basis. Congestive heart failure: Patient was noted to have elevated BNP and also respiratory failure. Exam findings tend to suggest presence of CHF. Agree with diuretic therapy. Acute on chronic respiratory failure: Patient seems to have significant COPD. In addition she seems to have left lower lobe pneumonia. Continue with antibiotic therapy, oxygen supplementation and noninvasive ventilation as needed. Hypertension: Blood pressure seems relatively well controlled. Hyperlipidemia: Currently is stable. Continue with statin therapy. Left lower lobe pneumonia: Continue antibiotic therapy. Pulmonary following. Patient is quite debilitated and weak. Patient also noted to be now intermittently confused and also agitated. Will follow patient on as needed basis. Please call me if further help is needed. - Time Time with patient: 15-25 minutes
[2018-01-15] MEDS: NYSTATIN CREAM 15 GM TP SCH (19:09)
[2018-01-15] MEDS: MONTELUKAST SODIUM 10 MG TABLET PO SCH (22:42)
[2018-01-15] MEDS: ATORVASTATIN CALCIUM 10 MG TABLET PO SCH (22:42)
[2018-01-16] MEDS: MEROPENEM 500 MG in NORMAL SALINE 50 ML IV SCH ×3 (06:11→22:47)
[2018-01-16 09:21] LABS: BLOOD UREA NITROGEN 13 mg/dL (7-20); CALCIUM 9.7 mg/dL (8.4-10.2); GLUCOSE 132 mg/dL (75-110)
[2018-01-16 09:28] LABS: ANION GAP 5 (5-19); CARBON DIOXIDE 35 mmol/L (22-30); CHLORIDE 100 mmol/L (98-107); POTASSIUM 4.7 mmol/L (3.6-5.0); SODIUM 140.3 mmol/L (137-145)
[2018-01-16] MEDS: FLUTICASONE/SALMETEROL DISKUS 250-50 MCG/DOSE IH SCH ×2 (11:19→22:41)
[2018-01-16] MEDS: PANTOT AC/MIN OIL/PET HY-PHL OINT 50 GM TOP SCH ×2 (11:19→17:14)
[2018-01-16] MEDS: LACTOBACILLUS ACIDOPHILUS 250 MG TAB PO SCH ×2 (11:19→17:09)
[2018-01-16] MEDS: ROFLUMILAST 500 MCG TABLET PO SCH (11:19)
[2018-01-16] MEDS: FLUTICASONE NASAL SPRAY 50 MCG/SPRY 120 SPRAY/16 GM NASL SCH ×2 (11:20→22:41)
[2018-01-16] MEDS: POLYETHYLENE GLYCOL 3350 POWDER 17 GM/1 PACKET PO SCH ×2 (11:20→22:48)
[2018-01-16] MEDS: DOCUSATE SODIUM 100 MG CAPSULE PO SCH ×2 (11:20→22:41)
[2018-01-16] MEDS: GUAIFENESIN 600 MG TABLET.SA PO SCH ×2 (11:20→22:41)
[2018-01-16] MEDS: ASPIRIN 81 MG TABLET, CHEWABLE PO SCH (11:20)
[2018-01-16] MEDS: ENOXAPARIN SODIUM INJ 40 MG/0.4 ML DISP.SYRIN SUBCUT SCH (11:21)
[2018-01-16] MEDS: INSULIN GLARGINE,HUM.REC.ANLOG 300 UNIT/3 ML INSULN.PEN SUBCUT SCH (11:21)
[2018-01-16] MEDS: NYSTATIN CREAM 15 GM TP SCH ×2 (11:21→17:11)
[2018-01-16 13:59] LABS: HEMATOCRIT 27.6 % (36.0-47.0); HEMOGLOBIN 8.8 g/dL (12.0-15.5); MEAN CORPUSCULAR HEMOGLOBIN 26.6 pg (27.0-33.4); MEAN CORPUSCULAR HGB CONC 31.7 g/dL (32.0-36.0); MEAN CORPUSCULAR VOLUME 84 fl (80-97); PLATELET COUNT 280 10^3/uL (150-450); RED BLOOD COUNT 3.29 10^6/uL (3.72-5.28); RED CELL DISTRIBUTION WIDTH 17.5 % (11.5-14.0); WHITE BLOOD COUNT 12.7 10^3/uL (4.0-10.5)
[2018-01-16] MEDS: FLUCONAZOLE 200 MG/NS RTU 100 MG in CONTAINER,EMPTY 1 EACH IV SCH (14:02)
--- NOTE | 2018-01-16 16:54 | PDOC PROGRESS REPORT ---
Subjective Progress Note for:: 01/16/18 Subjective:: Patient feels really good today. No breathing problems. Dry cough no sputum production. No fevers or chills. She is having some significant discomfort in her groin related to fungal infection. She is eating and drinking better. Her energy level is improving as well. Reason For Visit: COPD EXACERBATION, ACUTE ON CHRONIC RESP FAILURE, Physical Exam Vital Signs: Temp Pulse Resp BP Pulse Ox 98.9 F 79 20 151/74 H 98 01/16/18 11:30 01/16/18 11:30 01/16/18 11:30 01/16/18 11:30 01/16/18 11:30 Pulse Oximeter Continuous Start: 01/03/18 14: 49 Freq: Status: Complete Document 01/03/18 16:05 [facility] (Rec: 01/03/18 17:52 [facility] [email or web address]) Pulse Oximetry Assessment Oxygen Saturation (92-100) 94 Fraction of Inspired Oxygen (FIO2) 60 Equipment Usage Equipment in Use Continuous SpO2 Machine # N-[id number] Intake & Output 01/15/18 01/16/18 01/17/18 06:59 06:59 06:59 Intake Total 540 560 237 Output Total 1450 400 Balance -910 160 237 Weight 78.6 kg 79.3 kg General appearance: PRESENT: no acute distress, cooperative, morbidly obese Eye exam: PRESENT: EOMI Mouth exam: PRESENT: neck supple, tongue midline Respiratory exam: PRESENT: rales, unlabored. ABSENT: rhonchi, wheezes Cardiovascular exam: PRESENT: irregular rhythm. ABSENT: systolic murmur GI/Abdominal exam: PRESENT: normal bowel sounds, soft. ABSENT: distended, tenderness Neurological exam: PRESENT: alert, awake, oriented to person, oriented to place , oriented to situation, CN II-XII grossly intact Psychiatric exam: PRESENT: appropriate affect. ABSENT: anxious Skin exam: PRESENT: other - Bright red rash in the groin, over the labia, into the perineum Results Laboratory Results: 01/16/18 08:38 01/16/18 08:38 01/16/18 01/16/18 08:38 08:38 WBC 12.7 H RBC 3.29 L Hgb 8.8 L Hct 27.6 L MCV 84 MCH 26.6 L MCHC 31.7 L RDW 17.5 H Plt Count 280 Sodium 140.3 Potassium 4.7 Chloride 100 Carbon Dioxide 35 H Anion Gap 5 BUN 13 Creatinine 0.59 Est GFR ( Amer) > 60 Est GFR (Non-Af Amer) > 60 Glucose 132 H Calcium 9.7 Magnesium 2.1 01/01/18 01/02/18 01/03/18 05:24 04:36 05:12 Creatine Kinase CK-MB (CK-2) Troponin I NT-Pro-B Natriuret Pep 9160 H 22571 H 5270 H 01/04/18 01/04/18 01/05/18 18:38 18:38 00:40 Creatine Kinase < 20 L < 20 L CK-MB (CK-2) 0.31 Troponin I 0.032 NT-Pro-B Natriuret Pep 01/05/18 01/05/18 01/05/18 00:40 06:30 06:30 Creatine Kinase < 20 L CK-MB (CK-2) 0.26 0.24 Troponin I 0.044 0.048 NT-Pro-B Natriuret Pep 2590 H Impressions: Chest/Abdomen CTA 01/05/18 08:00 IMPRESSION: No CT angio evidence of acute pulmonary emboli. Near complete collapse left lower lobe, progressive compared to the prior studies. Findings worrisome for pneumonia. Chest X-Ray 01/13/18 06:00 IMPRESSION: No significant interval change. Findings as noted above Assessment & Plan - Diagnosis (1) Leukocytosis Qualifiers: Leukocytosis type: unspecified Qualified Code(s): D72.829 - Elevated white blood cell count, unspecified Is this a current diagnosis for this admission?: Yes Plan: Improving with current fluconazole and meropenem. At this point it is hard to know whether the Parris species and corynebacterium are infecting pathogens or overgrowth or contamination. As she has Parris in the lungs urine and on the skin I am going to continue with the fluconazole. I have asked the lab to perform susceptibility testing on the corynebacterium striatum as there are multidrug-resistant species that can be infecting pathogens especially in a patient who was ventilated. Will continue current care for now. White blood cell count is improving. Patient is feeling better. (2) Acute on chronic diastolic CHF (congestive heart failure) Is this a current diagnosis for this admission?: Yes Plan: Stable, continue current plan (3) Anemia Qualifiers: Anemia type: unspecified type Qualified Code(s): D64.9 - Anemia, unspecified Is this a current diagnosis for this admission?: Yes Plan: Stable. No active bleeding. (4) COPD (chronic obstructive pulmonary disease) Qualifiers: Emphysema type: unspecified Is this a current diagnosis for this admission?: Yes Plan: Stable, no medication changes to be made today. (5) Hypertension Qualifiers: Hypertension type: essential hypertension Qualified Code(s): I10 - Essential (primary) hypertension Is this a current diagnosis for this admission?: Yes Plan: Blood pressure little bit elevated today. We will continue her metoprolol and reevaluate tomorrow. She is not on any other antihypertensives as an outpatient as far as I can tell by chart review. (6) Left lower lobe pneumonia Qualifiers: Pneumonia type: due to unspecified organism Qualified Code(s): J18.1 - Lobar pneumonia, unspecified organism Is this a current diagnosis for this admission?: Yes Plan: Please see leukocytosis above for thoughts related to treatment for pneumonia. Continue meropenem and fluconazole for now. (7) Ventricular tachycardia (paroxysmal) Is this a current diagnosis for this admission?: Yes Plan: This is a chronic problem for which she is followed by cardiology as an outpatient. Calcium is 4.7 and mag is 2.1 today. We will continue telemetry. - Time Time Spent with patient: 25-34 minutes Medications reviewed and adjusted accordingly: Yes Anticipated discharge: SNF - Inpatient Certification Based on my medical assessment, after consideration of the patient's comorbidities, presenting symptoms, or acuity I expect that the services needed warrant INPATIENT care.: Yes I certify that my determination is in accordance with my understanding of Medicare's requirements for reasonable and necessary INPATIENT services [42 CFR 412.3e].: Yes Medical Necessity: Need Close Monitoring Due to Risk of Patient Decompensation, Need for IV Antibiotics
[2018-01-16] MEDS: MONTELUKAST SODIUM 10 MG TABLET PO SCH (22:41)
[2018-01-16] MEDS: ATORVASTATIN CALCIUM 10 MG TABLET PO SCH (22:41)
[2018-01-17] MEDS: MEROPENEM 500 MG in NORMAL SALINE 50 ML IV SCH ×3 (05:20→21:24)
[2018-01-17] MEDS: GUAIFENESIN 600 MG TABLET.SA PO SCH ×2 (10:25→21:25)
[2018-01-17] MEDS: LACTOBACILLUS ACIDOPHILUS 250 MG TAB PO SCH ×2 (10:25→17:18)
[2018-01-17] MEDS: ROFLUMILAST 500 MCG TABLET PO SCH (10:26)
[2018-01-17] MEDS: DOCUSATE SODIUM 100 MG CAPSULE PO SCH ×2 (10:26→21:25)
[2018-01-17] MEDS: ENOXAPARIN SODIUM INJ 40 MG/0.4 ML DISP.SYRIN SUBCUT SCH (10:27)
[2018-01-17] MEDS: FLUTICASONE NASAL SPRAY 50 MCG/SPRY 120 SPRAY/16 GM NASL SCH ×2 (10:27→21:24)
[2018-01-17] MEDS: INSULIN GLARGINE,HUM.REC.ANLOG 300 UNIT/3 ML INSULN.PEN SUBCUT SCH (10:28)
[2018-01-17] MEDS: PANTOT AC/MIN OIL/PET HY-PHL OINT 50 GM TOP SCH ×2 (10:29→17:20)
[2018-01-17] MEDS: FLUTICASONE/SALMETEROL DISKUS 250-50 MCG/DOSE IH SCH ×2 (10:29→21:24)
[2018-01-17] MEDS: NYSTATIN CREAM 15 GM TP SCH ×2 (10:29→17:20)
[2018-01-17] MEDS: POLYETHYLENE GLYCOL 3350 POWDER 17 GM/1 PACKET PO SCH ×2 (10:30→21:30)
--- NOTE | 2018-01-17 12:08 | PDOC PROGRESS REPORT ---
Subjective Progress Note for:: 01/17/18 Subjective:: Awake alert oriented Reason For Visit: COPD EXACERBATION, ACUTE ON CHRONIC RESP FAILURE, Physical Exam Vital Signs: Temp Pulse Resp BP Pulse Ox 98.9 F 90 18 134/66 H 95 01/17/18 07:34 01/17/18 07:34 01/17/18 07:34 01/17/18 07:34 01/17/18 09:26 Pulse Oximeter Continuous Start: 01/03/18 14: 49 Freq: Status: Complete Document 01/03/18 16:05 [facility] (Rec: 01/03/18 17:52 [facility] [email or web address]) Pulse Oximetry Assessment Oxygen Saturation (92-100) 94 Fraction of Inspired Oxygen (FIO2) 60 Equipment Usage Equipment in Use Continuous SpO2 Machine # N-7 Intake & Output 01/16/18 01/17/18 01/18/18 06:59 06:59 06:59 Intake Total 560 1817 Output Total 400 Balance 160 1817 Weight 79.3 kg 80.5 kg General appearance: PRESENT: no acute distress, cooperative, obese Head exam: PRESENT: atraumatic, normocephalic Eye exam: PRESENT: conjunctiva pale, EOMI. ABSENT: nystagmus, periorbital swelling, scleral icterus Mouth exam: PRESENT: dry mucosa, neck supple Neck exam: ABSENT: carotid bruit, JVD, lymphadenopathy, thyromegaly, tracheal deviation, tracheostomy Respiratory exam: PRESENT: decreased breath sounds, prolonged expiratory phas, rales, rhonchi, unlabored. ABSENT: retraction, stridor, symmetrical, tachypnea Cardiovascular exam: PRESENT: RRR, +S1, +S2 Pulses: PRESENT: normal radial pulses GI/Abdominal exam: PRESENT: normal bowel sounds, soft Extremities exam: ABSENT: calf tenderness, clubbing, joint swelling Musculoskeletal exam: ABSENT: deformity, dislocation Neurological exam: PRESENT: awake Psychiatric exam: PRESENT: flat affect Skin exam: PRESENT: dry, warm Results Laboratory Results: 01/16/18 08:38 01/16/18 08:38 01/16/18 08:38 WBC 12.7 H RBC 3.29 L Hgb 8.8 L Hct 27.6 L MCV 84 MCH 26.6 L MCHC 31.7 L RDW 17.5 H Plt Count 280 01/01/18 01/02/18 01/03/18 05:24 04:36 05:12 Creatine Kinase CK-MB (CK-2) Troponin I NT-Pro-B Natriuret Pep 9160 H 11817 H 5270 H 01/04/18 01/04/18 01/05/18 18:38 18:38 00:40 Creatine Kinase < 20 L < 20 L CK-MB (CK-2) 0.31 Troponin I 0.032 NT-Pro-B Natriuret Pep 01/05/18 01/05/18 01/05/18 00:40 06:30 06:30 Creatine Kinase < 20 L CK-MB (CK-2) 0.26 0.24 Troponin I 0.044 0.048 NT-Pro-B Natriuret Pep 2590 H Impressions: Chest/Abdomen CTA 01/05/18 08:00 IMPRESSION: No CT angio evidence of acute pulmonary emboli. Near complete collapse left lower lobe, progressive compared to the prior studies. Findings worrisome for pneumonia. Chest X-Ray 01/13/18 06:00 IMPRESSION: No significant interval change. Findings as noted above Assessment & Plan - Diagnosis (1) Acute and chronic respiratory failure Qualifiers: Respiratory failure complication: hypoxia and hypercapnia Qualified Code(s) : J96.21 - Acute and chronic respiratory failure with hypoxia; J96.22 - Acute and chronic respiratory failure with hypercapnia; J96.22 - Acute and chronic respiratory failure with hypercapnia; J96.22 - Acute and chronic respiratory failure with hypercapnia Is this a current diagnosis for this admission?: Yes Plan: improving (2) COPD (chronic obstructive pulmonary disease) Qualifiers: Emphysema type: unspecified Is this a current diagnosis for this admission?: Yes Plan: Generic Name Dose Route Start Last Admin Trade Name Freq PRN Reason Stop Dose Admin Levalbuterol HCl 0.63 mg 01/01/18 10:45 Xopenex Neb 0.63 Mg/3 Ml Ampul NEB 01/31/18 10:44 [id number] PRN SHORTNESS OF BREATH Albuterol/Ipratropium 3 ml 01/01/18 16:00 01/05/18 12:27 Duoneb 3 Ml Ampul NEB 01/31/18 15:59 3 ml [id number] ABDIEL (3) Hypertension Qualifiers: Hypertension type: essential hypertension Qualified Code(s): I10 - Essential (primary) hypertension Is this a current diagnosis for this admission?: Yes (4) Left lower lobe pneumonia Qualifiers: Pneumonia type: due to unspecified organism Qualified Code(s): J18.1 - Lobar pneumonia, unspecified organism Is this a current diagnosis for this admission?: Yes Plan: Radiographically unchanged WBC is elevated will follow closely
[2018-01-17] MEDS: ASPIRIN 81 MG TABLET, CHEWABLE PO SCH (12:30)
[2018-01-17] MEDS: FLUCONAZOLE 200 MG/NS RTU 100 MG in CONTAINER,EMPTY 1 EACH IV SCH (14:06)
--- NOTE | 2018-01-17 17:02 | PDOC PROGRESS REPORT ---
Subjective Progress Note for:: 01/17/18 Subjective:: Patient states her breathing is doing well, back to normal, no chest pain. No cough or sputum production. No fevers or chills. Appetite is good. Abdominal pain. No dysuria. She thinks her fungal infection in her groin is improving. There is no pain present. Reason For Visit: COPD EXACERBATION, ACUTE ON CHRONIC RESP FAILURE, Physical Exam Vital Signs: Temp Pulse Resp BP Pulse Ox 99.3 F 87 20 131/69 H 98 01/17/18 11:55 01/17/18 11:55 01/17/18 11:55 01/17/18 11:55 01/17/18 11:55 Pulse Oximeter Continuous Start: 01/03/18 14: 49 Freq: Status: Complete Document 01/03/18 16:05 [facility] (Rec: 01/03/18 17:52 [facility] [email or web address]) Pulse Oximetry Assessment Oxygen Saturation (92-100) 94 Fraction of Inspired Oxygen (FIO2) 60 Equipment Usage Equipment in Use Continuous SpO2 Machine # N-7 Intake & Output 01/16/18 01/17/18 01/18/18 06:59 06:59 06:59 Intake Total 560 1817 Output Total 400 Balance 160 1817 Weight 79.3 kg 80.5 kg General appearance: PRESENT: no acute distress, morbidly obese Head exam: PRESENT: atraumatic, normocephalic Eye exam: PRESENT: EOMI Mouth exam: PRESENT: neck supple, tongue midline Respiratory exam: PRESENT: rales, unlabored. ABSENT: rhonchi, wheezes Cardiovascular exam: PRESENT: RRR. ABSENT: systolic murmur GI/Abdominal exam: PRESENT: normal bowel sounds, soft. ABSENT: distended, firm , tenderness Gentrourinary exam: PRESENT: other - Cheng catheter has been removed. Patient is now on a diaper Neurological exam: PRESENT: alert, awake, oriented to person, oriented to place , oriented to situation, CN II-XII grossly intact Psychiatric exam: PRESENT: appropriate affect. ABSENT: anxious Skin exam: PRESENT: other - Erythema in the groin and over the labia, improving Results Laboratory Results: 01/16/18 08:38 01/16/18 08:38 01/01/18 01/02/18 01/03/18 05:24 04:36 05:12 Creatine Kinase CK-MB (CK-2) Troponin I NT-Pro-B Natriuret Pep 9160 H 79091 H 5270 H 01/04/18 01/04/18 01/05/18 18:38 18:38 00:40 Creatine Kinase < 20 L < 20 L CK-MB (CK-2) 0.31 Troponin I 0.032 NT-Pro-B Natriuret Pep 01/05/18 01/05/18 01/05/18 00:40 06:30 06:30 Creatine Kinase < 20 L CK-MB (CK-2) 0.26 0.24 Troponin I 0.044 0.048 NT-Pro-B Natriuret Pep 2590 H Impressions: Chest/Abdomen CTA 01/05/18 08:00 IMPRESSION: No CT angio evidence of acute pulmonary emboli. Near complete collapse left lower lobe, progressive compared to the prior studies. Findings worrisome for pneumonia. Chest X-Ray 01/13/18 06:00 IMPRESSION: No significant interval change. Findings as noted above Assessment & Plan - Diagnosis (1) Leukocytosis Qualifiers: Leukocytosis type: unspecified Qualified Code(s): D72.829 - Elevated white blood cell count, unspecified Is this a current diagnosis for this admission?: Yes Plan: Improving with current antibiotics meropenem. Also fluconazole added due to Parris in multiple sites. Awaiting callback from ID doctor. (2) Acute on chronic diastolic CHF (congestive heart failure) Is this a current diagnosis for this admission?: Yes Plan: Back to her baseline. No changes to be made today. Continue current cardiac meds. (3) Anemia Qualifiers: Anemia type: unspecified type Qualified Code(s): D64.9 - Anemia, unspecified Is this a current diagnosis for this admission?: Yes Plan: Stable, no evidence of acute bleeding. Monitor. (4) COPD (chronic obstructive pulmonary disease) Qualifiers: Emphysema type: unspecified Is this a current diagnosis for this admission?: Yes Plan: To her baseline, no changes to be made today. (5) Hypertension Qualifiers: Hypertension type: essential hypertension Qualified Code(s): I10 - Essential (primary) hypertension Is this a current diagnosis for this admission?: Yes Plan: We will continue metoprolol. (6) Left lower lobe pneumonia Qualifiers: Pneumonia type: due to unspecified organism Qualified Code(s): J18.1 - Lobar pneumonia, unspecified organism Is this a current diagnosis for this admission?: Yes Plan: I have requested consult with the ID consult service to assure that the antifungal and antibiotic are appropriate and necessary given all of the other clinical findings. Her sputum and urine cultures are growing Parris albicans. This may not be an infecting pathogen and so will await ID assistance. She is also growing corynebacterium striatum from a bronchial washing and I have a call into the infectious diseases service to see if the meropenem is indicated at this point.. (7) Ventricular tachycardia (paroxysmal) Is this a current diagnosis for this admission?: Yes Plan: Stable, continue telemetry, will need to continue with outpatient cardiac care - Time Time Spent with patient: 25-34 minutes Medications reviewed and adjusted accordingly: Yes - Inpatient Certification Based on my medical assessment, after consideration of the patient's comorbidities, presenting symptoms, or acuity I expect that the services needed warrant INPATIENT care.: Yes I certify that my determination is in accordance with my understanding of Medicare's requirements for reasonable and necessary INPATIENT services [42 CFR 412.3e].: Yes Medical Necessity: Significant Comorbidiites Make Outpatient Treatment Too Risky , Need for IV Antibiotics
--- NOTE | 2018-01-17 18:06 | Progress Note ---
Provider Note Provider Note: ID Consult Note Asked to review patient's chart by Pharmacy. Pt not seen or examined. Reviewed notes, CT images, imaging reports, labs, provider notes. Ms. Royal is a 82 year old woman with pmh including COPD and CHF who [facility]. She presented on 12/30/17 to [place] with c/o SOB and productive cough with purulent secretions. She had acute on chronic respiratory failure that required intubation and mechanical ventilation. Imaging studies included bibasilar airspace opacities on CXR on presentation. CTA chest on 01/05/18 showed no PE; it showed a dense LLL consolidation. Microbiologic studies for her pneumonia included BCx with no growth on 12/30. Repeat BCx on 01/12 showed no growth as well. She received azithromycin from around 12/31-01/03, Rocephin from 12/30-01/06, and Levaquin from 01/04-01/11. Gram stain of sputum on 01/04/18 (3+ polys, few epithelial cells) showed rare GPCs in pairs and rare yeast; culture grew C. albicans and normal respiratory yousif. Antimicrobial therapy included cefepime from 01/07-01/14, overlapping with Levaquin. On 01/06, bronchoscopy was performed. Gram stain of bronchial washings revealed rare GPRs and 1+ yeast with growth of Corynebacterium striatum and C albicans and a notable lack of normal respiratory yousif on culture. She received vancomycin from 01/07-01/09. She was successfully extubated on 01/09 or 01/10. Blood cultures were repeated on 01/12 and remained negative. Vancomycin was ordered again on 01/13-01/14. Meropenem was ordered on 01/13 and continues to present. Fluconazole was ordered on 01/15 and continues to present given the isolation of Parris species from multiple sites (respiratory and urine). According to most recent notes, pt is feeling well, denies breathing problems, has cough with no sputum production, has no fever or chills, and has unlabored respirations on exam. Impression/Recommendations 1. Pneumonia - The patient did not have a urine Strep pneumo antigen or respiratory culture sent on admission. Her sputum gram stain 5 days into admission showed rare GPCs in pairs, which may be suggestive of Strep pneumo as the underlying pathogen and perhaps a lack of growth due to the 5 days of antibiotic exposure at that point. Regardless, over the course of her hospitalization, she has received broad spectrum antibiotics (Rocephin, cefepime, Levaquin, meropenem) for almost 3 weeks at this point if my review of her MAR is correct. Most patients with HAP or VAP are recommended to receive treatment for about 7 days. She has probably received enough antibiotic therapy at this point. She was extubated a week ago. She is reported to be doing well with no complaints of dyspnea, fever or chills, no labored breathing. - I am not sure what additional benefit meropenem is effecting. Consider discontinuing meropenem and continuing to provide supportive care for her COPD and CHF. 2. Respiratory colonization with Corynebacterium striatum and Parris species - Parris species are very rare causes of pneumonia, to the point where it has been questioned whether primary Parris pneumonia actually exists at all. Parris species are frequently found in tracheal aspirate specimens, even in healthy patients, and the growth of yeast will be selected by broad spectrum antibiotic therapy, as appears to be the case here. Although Corynebacterium striatum has been reported as an opportunistic respiratory infections patients who are immunocompromised or have structural lung disease, the number of cases reported in the literature is small, and the ability to distinguish between colonization (non-diphtheriae Corynebacterium species are common members of the skin and nasopharyngeal microbiota) and pathogen is quite difficult. Without systemic azole therapy or real treatment aimed at the Corynebacterium species, the patient had respiratory improvement and was successfully extubated. Finding these organisms does not seem to correlate well clinically with the patient's course and underscores the likelihood that they are contaminants or colonists. 3. Urinary colonization with Parris species - Empiric fluconazole while awaiting BCx in a critically ill patient with broad spectrum antibiotic therapy and Parris cultured from multiple sites makes sense until invasive candidiasis or candidemia can be excluded. With BCx negative x 4 days, candidemia is unlikely. For most patients, the appropriate intervention for asymptomatic candiduria is to remove or replace the urinary catheter, which was done. No further therapy indicated. 4. Candidal intertrigo - fluconazole could be continued for this indication if she failed to improve with topical therapy or has severe/extensive findings, but topical antifungals are usually first line, along with keeping the skin folds dry 5. Leukocytosis - multifactorial. during her hospital stay she has periodically received methylprednisolone, although not in the last few days. steroids can lead to demargination. physiologic stress and catecholamine release will also lead to leukocytosis. infection is a cause of leukocytosis but not the only cause, and at this point, any residual leukocytosis I doubt is related directly to an uncontrolled typical bacterial infection. Cas Randall MD [facility] pager [phone]
[2018-01-17] MEDS: MONTELUKAST SODIUM 10 MG TABLET PO SCH (21:25)
[2018-01-17] MEDS: ATORVASTATIN CALCIUM 10 MG TABLET PO SCH (21:25)
[2018-01-18] MEDS: MEROPENEM 500 MG in NORMAL SALINE 50 ML IV SCH (05:09)
[2018-01-18 06:22] LABS: HEMATOCRIT 28.7 % (36.0-47.0); HEMOGLOBIN 9.2 g/dL (12.0-15.5); MEAN CORPUSCULAR HEMOGLOBIN 26.4 pg (27.0-33.4); MEAN CORPUSCULAR HGB CONC 32.1 g/dL (32.0-36.0); MEAN CORPUSCULAR VOLUME 83 fl (80-97); PLATELET COUNT 323 10^3/uL (150-450); RED BLOOD COUNT 3.47 10^6/uL (3.72-5.28); RED CELL DISTRIBUTION WIDTH 17.4 % (11.5-14.0); WHITE BLOOD COUNT 10.7 10^3/uL (4.0-10.5)
[2018-01-18 06:48] LABS: ANION GAP 7 (5-19); BLOOD UREA NITROGEN 13 mg/dL (7-20); CALCIUM 9.7 mg/dL (8.4-10.2); CARBON DIOXIDE 34 mmol/L (22-30); CHLORIDE 99 mmol/L (98-107); GLUCOSE 106 mg/dL (75-110); POTASSIUM 4.2 mmol/L (3.6-5.0); SODIUM 140.2 mmol/L (137-145)
[2018-01-18] MEDS: DOCUSATE SODIUM 100 MG CAPSULE PO SCH ×2 (09:32→21:07)
[2018-01-18] MEDS: LACTOBACILLUS ACIDOPHILUS 250 MG TAB PO SCH ×2 (09:32→17:26)
[2018-01-18] MEDS: POLYETHYLENE GLYCOL 3350 POWDER 17 GM/1 PACKET PO SCH ×2 (09:32→21:06)
[2018-01-18] MEDS: GUAIFENESIN 600 MG TABLET.SA PO SCH ×2 (09:32→21:07)
[2018-01-18] MEDS: ROFLUMILAST 500 MCG TABLET PO SCH (09:33)
[2018-01-18] MEDS: FLUTICASONE NASAL SPRAY 50 MCG/SPRY 120 SPRAY/16 GM NASL SCH ×2 (09:33→21:09)
[2018-01-18] MEDS: FLUTICASONE/SALMETEROL DISKUS 250-50 MCG/DOSE IH SCH ×2 (09:33→21:08)
[2018-01-18] MEDS: PANTOT AC/MIN OIL/PET HY-PHL OINT 50 GM TOP SCH ×2 (09:34→17:26)
[2018-01-18] MEDS: ENOXAPARIN SODIUM INJ 40 MG/0.4 ML DISP.SYRIN SUBCUT SCH (09:34)
[2018-01-18] MEDS: INSULIN GLARGINE,HUM.REC.ANLOG 300 UNIT/3 ML INSULN.PEN SUBCUT SCH (09:35)
[2018-01-18] MEDS: NYSTATIN CREAM 15 GM TP SCH ×2 (09:49→17:26)
[2018-01-18] MEDS: ASPIRIN 81 MG TABLET, CHEWABLE PO SCH (13:28)
[2018-01-18] MEDS: FLUCONAZOLE 200 MG/NS RTU 100 MG in CONTAINER,EMPTY 1 EACH IV SCH (13:29)
--- NOTE | 2018-01-18 14:06 | PDOC PROGRESS REPORT ---
Subjective Progress Note for:: 01/18/18 Subjective:: Awake alert Reason For Visit: COPD EXACERBATION, ACUTE ON CHRONIC RESP FAILURE, Physical Exam Vital Signs: Temp Pulse Resp BP Pulse Ox 98.7 F 85 16 104/72 95 01/18/18 11:26 01/18/18 12:48 01/18/18 12:48 01/18/18 11:26 01/18/18 12:48 Pulse Oximeter Continuous Start: 01/03/18 14: 49 Freq: Status: Complete Document 01/03/18 16:05 [facility] (Rec: 01/03/18 17:52 [facility] [email or web address]) Pulse Oximetry Assessment Oxygen Saturation (92-100) 94 Fraction of Inspired Oxygen (FIO2) 60 Equipment Usage Equipment in Use Continuous SpO2 Machine # N-7 Intake & Output 01/17/18 01/18/18 01/19/18 06:59 06:59 06:59 Intake Total 1817 600 Balance 1817 600 Weight 80.5 kg 79.9 kg General appearance: PRESENT: no acute distress, cooperative, disheveled, obese Head exam: PRESENT: atraumatic, normocephalic Eye exam: PRESENT: conjunctiva pale, EOMI. ABSENT: nystagmus, periorbital swelling, scleral icterus Mouth exam: PRESENT: moist, neck supple, tongue midline Neck exam: ABSENT: carotid bruit, JVD, lymphadenopathy, thyromegaly, tracheal deviation, tracheostomy Respiratory exam: PRESENT: decreased breath sounds, prolonged expiratory phas, rhonchi, unlabored. ABSENT: retraction, stridor, tachypnea Cardiovascular exam: PRESENT: RRR, +S1, +S2 Pulses: PRESENT: normal radial pulses GI/Abdominal exam: PRESENT: diminished bowel sounds, soft Extremities exam: ABSENT: calf tenderness, clubbing, joint swelling Musculoskeletal exam: ABSENT: deformity, dislocation Neurological exam: PRESENT: awake Psychiatric exam: PRESENT: flat affect Skin exam: PRESENT: dry, warm Results Laboratory Results: 01/18/18 05:57 01/18/18 05:57 01/18/18 01/18/18 05:57 05:57 WBC 10.7 H RBC 3.47 L Hgb 9.2 L Hct 28.7 L MCV 83 MCH 26.4 L MCHC 32.1 RDW 17.4 H Plt Count 323 Sodium 140.2 Potassium 4.2 Chloride 99 Carbon Dioxide 34 H Anion Gap 7 BUN 13 Creatinine 0.53 Est GFR ( Amer) > 60 Est GFR (Non-Af Amer) > 60 Glucose 106 Calcium 9.7 01/12/18 18:01 Blood Blood Culture - Final NO GROWTH IN 5 DAYS 01/12/18 17:15 Blood Blood Culture - Final NO GROWTH IN 5 DAYS 01/01/18 01/02/18 01/03/18 05:24 04:36 05:12 Creatine Kinase CK-MB (CK-2) Troponin I NT-Pro-B Natriuret Pep 9160 H 54246 H 5270 H 01/04/18 01/04/18 01/05/18 18:38 18:38 00:40 Creatine Kinase < 20 L < 20 L CK-MB (CK-2) 0.31 Troponin I 0.032 NT-Pro-B Natriuret Pep 01/05/18 01/05/18 01/05/18 00:40 06:30 06:30 Creatine Kinase < 20 L CK-MB (CK-2) 0.26 0.24 Troponin I 0.044 0.048 NT-Pro-B Natriuret Pep 2590 H Impressions: Chest/Abdomen CTA 01/05/18 08:00 IMPRESSION: No CT angio evidence of acute pulmonary emboli. Near complete collapse left lower lobe, progressive compared to the prior studies. Findings worrisome for pneumonia. Chest X-Ray 01/13/18 06:00 IMPRESSION: No significant interval change. Findings as noted above Assessment & Plan - Diagnosis (1) Acute and chronic respiratory failure Qualifiers: Respiratory failure complication: hypoxia and hypercapnia Qualified Code(s) : J96.21 - Acute and chronic respiratory failure with hypoxia; J96.22 - Acute and chronic respiratory failure with hypercapnia; J96.22 - Acute and chronic respiratory failure with hypercapnia; J96.22 - Acute and chronic respiratory failure with hypercapnia Is this a current diagnosis for this admission?: Yes Plan: At or near her baseline (2) COPD (chronic obstructive pulmonary disease) Qualifiers: Emphysema type: unspecified Is this a current diagnosis for this admission?: Yes Plan: Continue current therapy as below Generic Name Dose Route Start Last Admin Trade Name Freq PRN Reason Stop Dose Admin Levalbuterol HCl 0.63 mg 01/01/18 10:45 Xopenex Neb 0.63 Mg/3 Ml Ampul NEB 01/31/18 10:44 [id number] PRN SHORTNESS OF BREATH Albuterol/Ipratropium 3 ml 01/01/18 16:00 01/05/18 12:27 Duoneb 3 Ml Ampul NEB 01/31/18 15:59 3 ml [id number] ABDIEL (3) Hypertension Qualifiers: Hypertension type: essential hypertension Qualified Code(s): I10 - Essential (primary) hypertension Is this a current diagnosis for this admission?: Yes (4) Left lower lobe pneumonia Qualifiers: Pneumonia type: due to unspecified organism Qualified Code(s): J18.1 - Lobar pneumonia, unspecified organism Is this a current diagnosis for this admission?: Yes
--- NOTE | 2018-01-18 20:46 | PDOC PROGRESS REPORT ---
Subjective Progress Note for:: 01/18/18 Subjective:: To better, no chest pain. She denies shortness of breath, no palpitations. No nausea or vomiting. Reason For Visit: COPD EXACERBATION, ACUTE ON CHRONIC RESP FAILURE, Physical Exam Vital Signs: Temp Pulse Resp BP Pulse Ox 98.7 F 88 16 148/72 H 95 01/18/18 11:26 01/18/18 15:45 01/18/18 15:45 01/18/18 15:45 01/18/18 12:48 Pulse Oximeter Continuous Start: 01/03/18 14: 49 Freq: Status: Complete Document 01/03/18 16:05 [facility] (Rec: 01/03/18 17:52 [facility] [email or web address]) Pulse Oximetry Assessment Oxygen Saturation (92-100) 94 Fraction of Inspired Oxygen (FIO2) 60 Equipment Usage Equipment in Use Continuous SpO2 Machine # N-7 Intake & Output 01/17/18 01/18/18 01/19/18 06:59 06:59 06:59 Intake Total 1817 600 200 Balance 1817 600 200 Weight 80.5 kg 79.9 kg General appearance: PRESENT: no acute distress, morbidly obese Head exam: PRESENT: atraumatic, normocephalic Eye exam: PRESENT: EOMI Mouth exam: PRESENT: neck supple, tongue midline Respiratory exam: PRESENT: rales, unlabored. ABSENT: rhonchi, wheezes Cardiovascular exam: PRESENT: RRR. ABSENT: systolic murmur GI/Abdominal exam: PRESENT: normal bowel sounds, soft. ABSENT: distended, firm , tenderness Gentrourinary exam: PRESENT: other - Cheng catheter has been removed. Patient is now on a diaper Neurological exam: PRESENT: alert, awake, oriented to person, oriented to place , oriented to situation, CN II-XII grossly intact Psychiatric exam: PRESENT: appropriate affect. ABSENT: anxious Skin exam: PRESENT: other - Erythema in the groin and over the labia, improving Results Laboratory Results: 01/18/18 05:57 01/18/18 05:57 01/18/18 01/18/18 05:57 05:57 WBC 10.7 H RBC 3.47 L Hgb 9.2 L Hct 28.7 L MCV 83 MCH 26.4 L MCHC 32.1 RDW 17.4 H Plt Count 323 Sodium 140.2 Potassium 4.2 Chloride 99 Carbon Dioxide 34 H Anion Gap 7 BUN 13 Creatinine 0.53 Est GFR ( Amer) > 60 Est GFR (Non-Af Amer) > 60 Glucose 106 Calcium 9.7 01/12/18 18:01 Blood Blood Culture - Final NO GROWTH IN 5 DAYS 01/12/18 17:15 Blood Blood Culture - Final NO GROWTH IN 5 DAYS 01/01/18 01/02/18 01/03/18 05:24 04:36 05:12 Creatine Kinase CK-MB (CK-2) Troponin I NT-Pro-B Natriuret Pep 9160 H 57896 H 5270 H 01/04/18 01/04/18 01/05/18 18:38 18:38 00:40 Creatine Kinase < 20 L < 20 L CK-MB (CK-2) 0.31 Troponin I 0.032 NT-Pro-B Natriuret Pep 01/05/18 01/05/18 01/05/18 00:40 06:30 06:30 Creatine Kinase < 20 L CK-MB (CK-2) 0.26 0.24 Troponin I 0.044 0.048 NT-Pro-B Natriuret Pep 2590 H Impressions: Chest/Abdomen CTA 01/05/18 08:00 IMPRESSION: No CT angio evidence of acute pulmonary emboli. Near complete collapse left lower lobe, progressive compared to the prior studies. Findings worrisome for pneumonia. Chest X-Ray 01/13/18 06:00 IMPRESSION: No significant interval change. Findings as noted above Assessment & Plan - Plan Summary Plan Summary: (1) Leukocytosis Qualifiers: Leukocytosis type: unspecified Qualified Code(s): D72.829 - Elevated white blood cell count, unspecified Is this a current diagnosis for this admission?: Yes Plan: Likely multifactorial. Will discontinue meropenem per ID recommendation. We will continue with fluconazole for now due to Parris in multiple sites. (2) Acute on chronic diastolic CHF (congestive heart failure) Is this a current diagnosis for this admission?: Yes Plan: Back to her baseline. No changes to be made today. Continue current cardiac meds. (3) Anemia Qualifiers: Anemia type: unspecified type Qualified Code(s): D64.9 - Anemia, unspecified Is this a current diagnosis for this admission?: Yes Plan: Stable, no evidence of acute bleeding. Monitor. (4) COPD (chronic obstructive pulmonary disease) Qualifiers: Biopsy unit probably go by; Emphysema type: unspecified Is this a current diagnosis for this admission?: Yes Plan: To her baseline, no changes to be made today. (5) Hypertension Qualifiers: Hypertension type: essential hypertension Qualified Code(s): I10 - Essential (primary) hypertension Is this a current diagnosis for this admission?: Yes Plan: We will continue metoprolol. (6) Left lower lobe pneumonia Qualifiers: Pneumonia type: due to unspecified organism Qualified Code(s): J18.1 - Lobar pneumonia, unspecified organism Is this a current diagnosis for this admission?: Yes Plan: ID recommendation appreciated and meropenem has been discontinued. We will continue to monitor. (7) Ventricular tachycardia (paroxysmal) Is this a current diagnosis for this admission?: Yes Plan: Stable, continue telemetry, will need to continue with outpatient cardiac care
[2018-01-18] MEDS: ATORVASTATIN CALCIUM 10 MG TABLET PO SCH (21:07)
[2018-01-18] MEDS: MONTELUKAST SODIUM 10 MG TABLET PO SCH (21:07)
[2018-01-19 06:41] LABS: ABSOLUTE BASOPHILS # (AUTO) 0.1 10^3/uL (0.0-0.2); ABSOLUTE EOSINOPHILS # (AUTO) 0.2 10^3/uL (0.0-0.6); ABSOLUTE LYMPHOCYTES (AUTO) 4.8 10^3/uL (0.5-4.7); ABSOLUTE MONOCYTES (AUTO) 0.8 10^3/uL (0.1-1.4); ABSOLUTE NEUT (AUTO) 4.3 10^3/uL (1.7-8.2); BASOPHILS % (AUTO) 0.6 % (0-2); EOSINOPHILS % (AUTO) 2.1 % (0-6); HEMOGLOBIN 9.4 g/dL (12.0-15.5); LYMPHOCYTES % (AUTO) 47.1 % (13-45); MEAN CORPUSCULAR HEMOGLOBIN 26.2 pg (27.0-33.4); MEAN CORPUSCULAR HGB CONC 31.4 g/dL (32.0-36.0); MEAN CORPUSCULAR VOLUME 83 fl (80-97); MONOCYTES % (AUTO) 8.1 % (3-13); PLATELET COUNT 313 10^3/uL (150-450); RED BLOOD COUNT 3.61 10^6/uL (3.72-5.28); RED CELL DISTRIBUTION WIDTH 17.5 % (11.5-14.0); SEGMENTED NEUTROPHILS % (AUTO) 42.1 % (42-78); TOTAL CELLS COUNTED % (AUTO) 100 %; WHITE BLOOD COUNT 10.2 10^3/uL (4.0-10.5)
[2018-01-19 06:49] LABS: ANION GAP 8 (5-19); BLOOD UREA NITROGEN 12 mg/dL (7-20); CALCIUM 9.8 mg/dL (8.4-10.2); CARBON DIOXIDE 34 mmol/L (22-30); CHLORIDE 100 mmol/L (98-107); GLUCOSE 101 mg/dL (75-110); POTASSIUM 3.9 mmol/L (3.6-5.0); SODIUM 141.6 mmol/L (137-145)
[2018-01-19] MEDS: DOCUSATE SODIUM 100 MG CAPSULE PO SCH ×2 (11:50→21:42)
[2018-01-19] MEDS: FLUTICASONE NASAL SPRAY 50 MCG/SPRY 120 SPRAY/16 GM NASL SCH ×2 (11:51→21:43)
[2018-01-19] MEDS: FLUTICASONE/SALMETEROL DISKUS 250-50 MCG/DOSE IH SCH ×2 (11:53→21:43)
[2018-01-19] MEDS: POLYETHYLENE GLYCOL 3350 POWDER 17 GM/1 PACKET PO SCH ×2 (11:54→21:43)
[2018-01-19] MEDS: LACTOBACILLUS ACIDOPHILUS 250 MG TAB PO SCH ×2 (11:55→17:42)
[2018-01-19] MEDS: GUAIFENESIN 600 MG TABLET.SA PO SCH ×2 (11:55→21:43)
[2018-01-19] MEDS: ROFLUMILAST 500 MCG TABLET PO SCH (11:57)
[2018-01-19] MEDS: ENOXAPARIN SODIUM INJ 40 MG/0.4 ML DISP.SYRIN SUBCUT SCH (11:58)
[2018-01-19] MEDS: ASPIRIN 81 MG TABLET, CHEWABLE PO SCH (12:10)
[2018-01-19] MEDS: INSULIN GLARGINE,HUM.REC.ANLOG 300 UNIT/3 ML INSULN.PEN SUBCUT SCH (15:32)
[2018-01-19] MEDS: NYSTATIN CREAM 15 GM TP SCH ×2 (15:39→17:41)
[2018-01-19] MEDS: FLUCONAZOLE 100 MG TABLET PO SCH (15:46)
--- NOTE | 2018-01-19 18:28 | PDOC PROGRESS REPORT ---
Subjective Progress Note for:: 01/19/18 Subjective:: Doing better, no chest pain. She denies shortness of breath, no palpitations. No nausea or vomiting. Reason For Visit: COPD EXACERBATION, ACUTE ON CHRONIC RESP FAILURE, Physical Exam Vital Signs: Temp Pulse Resp BP Pulse Ox 98.6 F 85 20 111/63 98 01/19/18 16:01 01/19/18 16:01 01/19/18 16:01 01/19/18 16:01 01/19/18 16:01 Pulse Oximeter Continuous Start: 01/03/18 14: 49 Freq: Status: Complete Document 01/03/18 16:05 [facility] (Rec: 01/03/18 17:52 [facility] [email or web address]) Pulse Oximetry Assessment Oxygen Saturation (92-100) 94 Fraction of Inspired Oxygen (FIO2) 60 Equipment Usage Equipment in Use Continuous SpO2 Machine # N-7 Intake & Output 01/18/18 01/19/18 01/20/18 06:59 06:59 06:59 Intake Total 600 250 200 Balance 600 250 200 Weight 79.9 kg 80.2 kg Results Laboratory Results: 01/19/18 06:06 01/19/18 06:06 01/19/18 01/19/18 06:06 06:06 WBC 10.2 RBC 3.61 L Hgb 9.4 L Hct 30.0 L MCV 83 MCH 26.2 L MCHC 31.4 L RDW 17.5 H Plt Count 313 Seg Neutrophils % 42.1 Lymphocytes % 47.1 H Monocytes % 8.1 Eosinophils % 2.1 Basophils % 0.6 Absolute Neutrophils 4.3 Absolute Lymphocytes 4.8 H Absolute Monocytes 0.8 Absolute Eosinophils 0.2 Absolute Basophils 0.1 Sodium 141.6 Potassium 3.9 Chloride 100 Carbon Dioxide 34 H Anion Gap 8 BUN 12 Creatinine 0.55 Est GFR ( Amer) > 60 Est GFR (Non-Af Amer) > 60 Glucose 101 Calcium 9.8 01/01/18 01/02/18 01/03/18 05:24 04:36 05:12 Creatine Kinase CK-MB (CK-2) Troponin I NT-Pro-B Natriuret Pep 9160 H 14648 H 5270 H 01/04/18 01/04/18 01/05/18 18:38 18:38 00:40 Creatine Kinase < 20 L < 20 L CK-MB (CK-2) 0.31 Troponin I 0.032 NT-Pro-B Natriuret Pep 01/05/18 01/05/18 01/05/18 00:40 06:30 06:30 Creatine Kinase < 20 L CK-MB (CK-2) 0.26 0.24 Troponin I 0.044 0.048 NT-Pro-B Natriuret Pep 2590 H Impressions: Chest/Abdomen CTA 01/05/18 08:00 IMPRESSION: No CT angio evidence of acute pulmonary emboli. Near complete collapse left lower lobe, progressive compared to the prior studies. Findings worrisome for pneumonia. Chest X-Ray 01/13/18 06:00 IMPRESSION: No significant interval change. Findings as noted above Assessment & Plan - Plan Summary Plan Summary: (1) Leukocytosis Qualifiers: Leukocytosis type: unspecified Qualified Code(s): D72.829 - Elevated white blood cell count, unspecified Is this a current diagnosis for this admission?: Yes Plan: Likely multifactorial. Meropenem discontinued per ID recommendation. We will continue with fluconazole for now due to Parris in multiple sites. (2) Acute on chronic diastolic CHF (congestive heart failure) Is this a current diagnosis for this admission?: Yes Plan: Back to her baseline. Continue current cardiac meds. (3) Anemia Qualifiers: Anemia type: unspecified type Qualified Code(s): D64.9 - Anemia, unspecified Is this a current diagnosis for this admission?: Yes Plan: Stable, no evidence of acute bleeding. Monitor. (4) COPD (chronic obstructive pulmonary disease) Qualifiers: Biopsy unit probably go by; Emphysema type: unspecified Is this a current diagnosis for this admission?: Yes Plan: She is feels she is getting to her baseline, continue management. (5) Hypertension Qualifiers: Hypertension type: essential hypertension Qualified Code(s): I10 - Essential (primary) hypertension Is this a current diagnosis for this admission?: Yes Plan: We will continue metoprolol. (6) Left lower lobe pneumonia Qualifiers: Pneumonia type: due to unspecified organism Qualified Code(s): J18.1 - Lobar pneumonia, unspecified organism Is this a current diagnosis for this admission?: Yes Plan: ID recommendation appreciated and meropenem has been discontinued. We will continue to monitor. (7) Ventricular tachycardia (paroxysmal) Is this a current diagnosis for this admission?: Yes Plan: Stable, continue telemetry, will need to continue with outpatient cardiac care Patient should be ready for discharge back to shelter facility with the next 1-2 days. Care management to begin working on this.
[2018-01-19] MEDS: PANTOT AC/MIN OIL/PET HY-PHL OINT 50 GM TOP SCH (19:34)
[2018-01-19] MEDS: MONTELUKAST SODIUM 10 MG TABLET PO SCH (21:42)
[2018-01-19] MEDS: ATORVASTATIN CALCIUM 10 MG TABLET PO SCH (21:43)
[2018-01-20] MEDS: POLYETHYLENE GLYCOL 3350 POWDER 17 GM/1 PACKET PO SCH ×2 (10:24→22:15)
[2018-01-20] MEDS: PANTOT AC/MIN OIL/PET HY-PHL OINT 50 GM TOP SCH ×2 (10:24→17:20)
[2018-01-20] MEDS: ROFLUMILAST 500 MCG TABLET PO SCH (10:24)
[2018-01-20] MEDS: GUAIFENESIN 600 MG TABLET.SA PO SCH ×2 (10:28→22:15)
[2018-01-20] MEDS: INSULIN GLARGINE,HUM.REC.ANLOG 300 UNIT/3 ML INSULN.PEN SUBCUT SCH (10:28)
[2018-01-20] MEDS: ENOXAPARIN SODIUM INJ 40 MG/0.4 ML DISP.SYRIN SUBCUT SCH (10:28)
[2018-01-20] MEDS: LACTOBACILLUS ACIDOPHILUS 250 MG TAB PO SCH ×2 (10:28→17:19)
[2018-01-20] MEDS: DOCUSATE SODIUM 100 MG CAPSULE PO SCH ×2 (10:28→22:15)
[2018-01-20] MEDS: NYSTATIN CREAM 15 GM TP SCH ×2 (10:29→17:20)
[2018-01-20] MEDS: FLUTICASONE/SALMETEROL DISKUS 250-50 MCG/DOSE IH SCH ×2 (10:29→22:15)
[2018-01-20] MEDS: FLUTICASONE NASAL SPRAY 50 MCG/SPRY 120 SPRAY/16 GM NASL SCH ×2 (10:29→22:15)
[2018-01-20] MEDS: ASPIRIN 81 MG TABLET, CHEWABLE PO SCH (11:38)
--- NOTE | 2018-01-20 12:09 | PDOC PROGRESS REPORT ---
Subjective Progress Note for:: 01/20/18 Subjective:: Awake alert Reason For Visit: COPD EXACERBATION, ACUTE ON CHRONIC RESP FAILURE, Physical Exam Vital Signs: Temp Pulse Resp BP Pulse Ox 98.1 F 71 12 123/58 L 98 01/20/18 08:35 01/20/18 08:35 01/20/18 08:35 01/20/18 08:35 01/20/18 08:35 Pulse Oximeter Continuous Start: 01/03/18 14: 49 Freq: Status: Complete Document 01/03/18 16:05 [facility] (Rec: 01/03/18 17:52 [facility] [email or web address]) Pulse Oximetry Assessment Oxygen Saturation (92-100) 94 Fraction of Inspired Oxygen (FIO2) 60 Equipment Usage Equipment in Use Continuous SpO2 Machine # N-7 Intake & Output 01/19/18 01/20/18 01/21/18 06:59 06:59 06:59 Intake Total 250 200 Balance 250 200 Weight 80.2 kg 79.7 kg General appearance: PRESENT: no acute distress, obese Head exam: PRESENT: atraumatic, normocephalic Eye exam: PRESENT: conjunctiva pale, EOMI. ABSENT: nystagmus, periorbital swelling, scleral icterus Mouth exam: PRESENT: dry mucosa, neck supple, tongue midline Neck exam: ABSENT: carotid bruit, JVD, lymphadenopathy, thyromegaly, tracheal deviation, tracheostomy Respiratory exam: PRESENT: decreased breath sounds, prolonged expiratory phas, rhonchi, unlabored. ABSENT: stridor, tachypnea Cardiovascular exam: PRESENT: irregular rhythm, +S1, +S2 Pulses: PRESENT: normal radial pulses GI/Abdominal exam: PRESENT: diminished bowel sounds, soft Extremities exam: ABSENT: calf tenderness, clubbing Musculoskeletal exam: ABSENT: deformity, dislocation Neurological exam: PRESENT: awake Skin exam: PRESENT: dry, warm Results Laboratory Results: 01/19/18 06:06 01/19/18 06:06 01/01/18 01/02/18 01/03/18 05:24 04:36 05:12 Creatine Kinase CK-MB (CK-2) Troponin I NT-Pro-B Natriuret Pep 9160 H 86154 H 5270 H 01/04/18 01/04/18 01/05/18 18:38 18:38 00:40 Creatine Kinase < 20 L < 20 L CK-MB (CK-2) 0.31 Troponin I 0.032 NT-Pro-B Natriuret Pep 01/05/18 01/05/18 01/05/18 00:40 06:30 06:30 Creatine Kinase < 20 L CK-MB (CK-2) 0.26 0.24 Troponin I 0.044 0.048 NT-Pro-B Natriuret Pep 2590 H Impressions: Chest/Abdomen CTA 01/05/18 08:00 IMPRESSION: No CT angio evidence of acute pulmonary emboli. Near complete collapse left lower lobe, progressive compared to the prior studies. Findings worrisome for pneumonia. Chest X-Ray 01/13/18 06:00 IMPRESSION: No significant interval change. Findings as noted above Assessment & Plan - Diagnosis (1) Acute and chronic respiratory failure Qualifiers: Respiratory failure complication: hypoxia and hypercapnia Qualified Code(s) : J96.21 - Acute and chronic respiratory failure with hypoxia; J96.22 - Acute and chronic respiratory failure with hypercapnia; J96.22 - Acute and chronic respiratory failure with hypercapnia; J96.22 - Acute and chronic respiratory failure with hypercapnia Is this a current diagnosis for this admission?: Yes Plan: At or near her baseline (2) COPD (chronic obstructive pulmonary disease) Qualifiers: Emphysema type: unspecified Is this a current diagnosis for this admission?: Yes Plan: Continue current therapy as below Generic Name Dose Route Start Last Admin Trade Name Freq PRN Reason Stop Dose Admin Levalbuterol HCl 0.63 mg 01/01/18 10:45 Xopenex Neb 0.63 Mg/3 Ml Ampul NEB 01/31/18 10:44 [id number] PRN SHORTNESS OF BREATH Albuterol/Ipratropium 3 ml 01/01/18 16:00 01/05/18 12:27 Duoneb 3 Ml Ampul NEB 01/31/18 15:59 3 ml [id number] ABDIEL (3) Hypertension Qualifiers: Hypertension type: essential hypertension Qualified Code(s): I10 - Essential (primary) hypertension Is this a current diagnosis for this admission?: Yes (4) Left lower lobe pneumonia Qualifiers: Pneumonia type: due to unspecified organism Qualified Code(s): J18.1 - Lobar pneumonia, unspecified organism Is this a current diagnosis for this admission?: Yes Plan: Radiographically unchanged WBC is elevated will follow closely
--- NOTE | 2018-01-20 12:11 | PDOC PROGRESS REPORT ---
Subjective Progress Note for:: 01/19/18 Subjective:: Awake alert Reason For Visit: COPD EXACERBATION, ACUTE ON CHRONIC RESP FAILURE, Physical Exam Vital Signs: Temp Pulse Resp BP Pulse Ox 97.5 F 75 14 111/58 L 97 01/19/18 04:18 01/19/18 07:00 01/19/18 04:18 01/19/18 04:18 01/19/18 04:18 Pulse Oximeter Continuous Start: 01/03/18 14: 49 Freq: Status: Complete Document 01/03/18 16:05 [facility] (Rec: 01/03/18 17:52 [facility] [email or web address]) Pulse Oximetry Assessment Oxygen Saturation (92-100) 94 Fraction of Inspired Oxygen (FIO2) 60 Equipment Usage Equipment in Use Continuous SpO2 Machine # N-7 Intake & Output 01/18/18 01/19/18 01/20/18 06:59 06:59 06:59 Intake Total 600 250 Balance 600 250 Weight 79.9 kg 80.2 kg Results Laboratory Results: 01/19/18 06:06 01/19/18 06:06 01/19/18 01/19/18 06:06 06:06 WBC 10.2 RBC 3.61 L Hgb 9.4 L Hct 30.0 L MCV 83 MCH 26.2 L MCHC 31.4 L RDW 17.5 H Plt Count 313 Seg Neutrophils % 42.1 Lymphocytes % 47.1 H Monocytes % 8.1 Eosinophils % 2.1 Basophils % 0.6 Absolute Neutrophils 4.3 Absolute Lymphocytes 4.8 H Absolute Monocytes 0.8 Absolute Eosinophils 0.2 Absolute Basophils 0.1 Sodium 141.6 Potassium 3.9 Chloride 100 Carbon Dioxide 34 H Anion Gap 8 BUN 12 Creatinine 0.55 Est GFR ( Amer) > 60 Est GFR (Non-Af Amer) > 60 Glucose 101 Calcium 9.8 01/01/18 01/02/18 01/03/18 05:24 04:36 05:12 Creatine Kinase CK-MB (CK-2) Troponin I NT-Pro-B Natriuret Pep 9160 H 63205 H 5270 H 01/04/18 01/04/18 01/05/18 18:38 18:38 00:40 Creatine Kinase < 20 L < 20 L CK-MB (CK-2) 0.31 Troponin I 0.032 NT-Pro-B Natriuret Pep 04/18/18 04/18/18 04/18/18 00:40 06:30 06:30 Creatine Kinase < 20 L CK-MB (CK-2) 0.26 0.24 Troponin I 0.044 0.048 NT-Pro-B Natriuret Pep 2590 H Impressions: Chest/Abdomen CTA 01/05/18 08:00 IMPRESSION: No CT angio evidence of acute pulmonary emboli. Near complete collapse left lower lobe, progressive compared to the prior studies. Findings worrisome for pneumonia. Chest X-Ray 01/13/18 06:00 IMPRESSION: No significant interval change. Findings as noted above Assessment & Plan - Diagnosis (1) Acute and chronic respiratory failure Qualifiers: Respiratory failure complication: hypoxia and hypercapnia Qualified Code(s) : J96.21 - Acute and chronic respiratory failure with hypoxia; J96.22 - Acute and chronic respiratory failure with hypercapnia; J96.22 - Acute and chronic respiratory failure with hypercapnia; J96.22 - Acute and chronic respiratory failure with hypercapnia Is this a current diagnosis for this admission?: Yes (2) COPD (chronic obstructive pulmonary disease) Qualifiers: Emphysema type: unspecified Is this a current diagnosis for this admission?: Yes (3) Hypertension Qualifiers: Hypertension type: essential hypertension Qualified Code(s): I10 - Essential (primary) hypertension Is this a current diagnosis for this admission?: Yes (4) Left lower lobe pneumonia Qualifiers: Pneumonia type: due to unspecified organism Qualified Code(s): J18.1 - Lobar pneumonia, unspecified organism Is this a current diagnosis for this admission?: Yes
[2018-01-20] MEDS: FLUCONAZOLE 100 MG TABLET PO SCH (13:31)
--- NOTE | 2018-01-20 16:36 | PDOC PROGRESS REPORT ---
Subjective Progress Note for:: 01/20/18 Subjective:: Doing better, no chest pain. Shortness of breath much better, no palpitations. No nausea or vomiting. No fever or chills. Patient is [facility] I received a call from care management later today saying patient should be able to go to jail facility by tomorrow. Reason For Visit: COPD EXACERBATION, ACUTE ON CHRONIC RESP FAILURE, Physical Exam Vital Signs: Temp Pulse Resp BP Pulse Ox 98.1 F 71 12 123/55 L 98 01/20/18 13:00 01/20/18 14:00 01/20/18 13:00 01/20/18 13:00 01/20/18 13:00 Pulse Oximeter Continuous Start: 01/03/18 14: 49 Freq: Status: Complete Document 01/03/18 16:05 [facility] (Rec: 01/03/18 17:52 [facility] [email or web address]) Pulse Oximetry Assessment Oxygen Saturation (92-100) 94 Fraction of Inspired Oxygen (FIO2) 60 Equipment Usage Equipment in Use Continuous SpO2 Machine # N-7 Intake & Output 01/19/18 01/20/18 01/21/18 06:59 06:59 06:59 Intake Total 250 200 Balance 250 200 Weight 80.2 kg 79.7 kg GEN: NAD, well-developed, well-nourished CV: RRR, NL S1S2 LUNGS: Occasional faint wheezing bilaterally ABDOMEN Soft, NT, +BS EXTERMITIES: No e/c/c NEURO: Alert, oriented to name, place, no acute weakness Results Laboratory Results: 01/19/18 06:06 01/19/18 06:06 01/01/18 01/02/18 01/03/18 05:24 04:36 05:12 Creatine Kinase CK-MB (CK-2) Troponin I NT-Pro-B Natriuret Pep 9160 H 02785 H 5270 H 01/04/18 01/04/18 01/05/18 18:38 18:38 00:40 Creatine Kinase < 20 L < 20 L CK-MB (CK-2) 0.31 Troponin I 0.032 NT-Pro-B Natriuret Pep 01/05/18 01/05/18 01/05/18 00:40 06:30 06:30 Creatine Kinase < 20 L CK-MB (CK-2) 0.26 0.24 Troponin I 0.044 0.048 NT-Pro-B Natriuret Pep 2590 H Impressions: Chest/Abdomen CTA 01/05/18 08:00 IMPRESSION: No CT angio evidence of acute pulmonary emboli. Near complete collapse left lower lobe, progressive compared to the prior studies. Findings worrisome for pneumonia. Chest X-Ray 01/13/18 06:00 IMPRESSION: No significant interval change. Findings as noted above Assessment & Plan - Plan Summary Plan Summary: (1) Leukocytosis Qualifiers: Leukocytosis type: unspecified Qualified Code(s): D72.829 - Elevated white blood cell count, unspecified Is this a current diagnosis for this admission?: Yes Plan: Likely multifactorial. Now resolved. Meropenem discontinued 01/18/18 per ID recommendation. We will discontinue fluconazole after today's dose for Parris in multiple sites as patient has completed at least 7 days. (2) Acute on chronic diastolic CHF (congestive heart failure) Is this a current diagnosis for this admission?: Yes Plan: Back to her baseline. Continue current cardiac meds. (3) Anemia Qualifiers: Anemia type: unspecified type Qualified Code(s): D64.9 - Anemia, unspecified Is this a current diagnosis for this admission?: Yes Plan: Stable, no evidence of acute bleeding. Monitor. (4) COPD (chronic obstructive pulmonary disease) Qualifiers: Biopsy unit probably go by; Emphysema type: unspecified Is this a current diagnosis for this admission?: Yes Plan: She is feels she is getting to her baseline, continue management. (5) Hypertension Qualifiers: Hypertension type: essential hypertension Qualified Code(s): I10 - Essential (primary) hypertension Is this a current diagnosis for this admission?: Yes Plan: We will continue metoprolol. (6) Left lower lobe pneumonia Qualifiers: Pneumonia type: due to unspecified organism Qualified Code(s): J18.1 - Lobar pneumonia, unspecified organism Is this a current diagnosis for this admission?: Yes Plan: ID recommendation appreciated and meropenem has been discontinued (see ' s note 01/17/18). We will continue to monitor. (7) Ventricular tachycardia (paroxysmal) Is this a current diagnosis for this admission?: Yes Plan: Stable, continue telemetry, will need to continue with outpatient cardiac care Again, patient is ready for discharge back to jail facility. Received a call from care management later today saying patient should be able to go to a jail facility by tomorrow.
[2018-01-20] MEDS: ATORVASTATIN CALCIUM 10 MG TABLET PO SCH (22:15)
[2018-01-20] MEDS: MONTELUKAST SODIUM 10 MG TABLET PO SCH (22:15)
[2018-01-21] MEDS: ENOXAPARIN SODIUM INJ 40 MG/0.4 ML DISP.SYRIN SUBCUT SCH (09:42)
[2018-01-21] MEDS: INSULIN GLARGINE,HUM.REC.ANLOG 300 UNIT/3 ML INSULN.PEN SUBCUT SCH (09:42)
[2018-01-21] MEDS: FLUTICASONE NASAL SPRAY 50 MCG/SPRY 120 SPRAY/16 GM NASL SCH (09:42)
[2018-01-21] MEDS: LACTOBACILLUS ACIDOPHILUS 250 MG TAB PO SCH (09:42)
[2018-01-21] MEDS: FLUTICASONE/SALMETEROL DISKUS 250-50 MCG/DOSE IH SCH (09:42)
[2018-01-21] MEDS: DOCUSATE SODIUM 100 MG CAPSULE PO SCH (09:42)
[2018-01-21] MEDS: GUAIFENESIN 600 MG TABLET.SA PO SCH (09:42)
[2018-01-21] MEDS: NYSTATIN CREAM 15 GM TP SCH (09:43)
[2018-01-21] MEDS: PANTOT AC/MIN OIL/PET HY-PHL OINT 50 GM TOP SCH (09:43)
[2018-01-21] MEDS: ROFLUMILAST 500 MCG TABLET PO SCH (09:43)
[2018-01-21] MEDS: POLYETHYLENE GLYCOL 3350 POWDER 17 GM/1 PACKET PO SCH (09:43)
[2018-01-21] MEDS: ASPIRIN 81 MG TABLET, CHEWABLE PO SCH (11:13)
[2018-01-21] MEDS: FLUCONAZOLE 100 MG TABLET PO SCH (13:36)
--- NOTE | 2018-01-21 13:36 | PDOC TRANSFER SUMMARY ---
General - Admit/Disc Date/PCP Admission Date/Primary Care Provider: 12/30/17 17:06 HANNAH MARX, Discharge Date: 01/21/18 - Discharge Diagnosis (1) Leukocytosis Is this a current diagnosis for this admission?: Yes Summary: Presented on 12/30/17 to [facility] with c/o SOB and productive cough with purulent secretions. She had acute on chronic respiratory failure that required intubation and mechanical ventilation. Imaging studies included bibasilar airspace opacities on CXR on presentation. CTA chest on 01/05/18 showed no PE; it showed a dense LLL consolidation. Microbiologic studies for her pneumonia included BCx with no growth on 12/30. Repeat BCx on 01/12 showed no growth as well. She received azithromycin from around 12/31-01/03, Rocephin from 12/30-01/06, and Levaquin from 01/04-01/11. Gram stain of sputum on 01/04/18 (3+ polys, few epithelial cells) showed rare GPCs in pairs and rare yeast; culture grew C. albicans and normal respiratory yousif. Antimicrobial therapy included cefepime from 01/07-01/14, overlapping with Levaquin. On 01/06, bronchoscopy was performed. Gram stain of bronchial washings revealed rare GPRs and 1+ yeast with growth of Corynebacterium striatum and C albicans and a notable lack of normal respiratory yousif on culture. She received vancomycin from 01/07-01/09. She was successfully extubated on 01/09 or 01/10. Blood cultures were repeated on 01/12 and remained negative. Vancomycin was ordered again on 01/13-01/14. Meropenem was ordered on 01/13 and continued for 1 week. Fluconazole was ordered on 01/15 and continued for 1 week given the isolation of Parris species from multiple sites (respiratory and urine). At time of discharge, patient was afebrile and hemodynamically stable. Her case was reviewed by ID at [facility]. (2) Acute on chronic diastolic CHF (congestive heart failure) Is this a current diagnosis for this admission?: Yes Summary: At baseline, continue medical management. (3) Hypertension Is this a current diagnosis for this admission?: Yes Summary: Excellent BP control at discharge. Avoid aggressive BP control in 82 year old to prevent falls. CTM at SNF> (4) Code status needs review Is this a current diagnosis for this admission?: Yes Summary: Patient is currently full code. Would encourage code status be reviewed by primary care physician. - Additional Information Resuscitation Status: Full Code Discharge Diet: As Tolerated Discharge Activity: Activity As Tolerated, Balance Activity w/Rest Home Medications: Acetaminophen [Tylenol 325 mg Tablet] 650 mg PO Q4HP PRN 12/30/17 Aspirin [Aspirin EC] 81 mg PO DAILY 12/30/17 Docusate Sodium [Colace 100 mg Capsule] 100 mg PO Q12 12/30/17 Metoprolol Succinate [Toprol Xl 25 mg Tab.sr] 25 mg PO DAILY 12/30/17 Polyethylene Glycol 3350 [Miralax Powder 17 gm/Packet] 1 packet PO Q12 12/30/17 History of Present Illness Admission Date/PCP: 12/30/17 17:06 HANNAH MARX DO History of Present Illness: DANIEL MCFARLAND is a 82 year old female who is a resident of [facility] presented to the ER after 4-5 days of increasing shortness of breath she was subsequently admitted to the floor however she progressive decline is currently intubated and sedated in the ICU she has had a history of COPD in the past a cough apparently was productive of yellow phlegm she was somewhat ambulatory prior to these events but by the time she reached the emergency room she was not ambulatory at all. Has had long hospitalization. Physical Exam Vital Signs: Temp Pulse Resp BP Pulse Ox 98.5 F 92 18 126/69 H 97 01/21/18 08:17 01/21/18 08:26 01/21/18 08:26 01/21/18 08:17 01/21/18 08:26 Pulse Oximeter Continuous Start: 01/03/18 14: 49 Freq: Status: Complete Document 01/03/18 16:05 [facility] (Rec: 01/03/18 17:52 [facility] [email or web address]) Pulse Oximetry Assessment Oxygen Saturation (92-100) 94 Fraction of Inspired Oxygen (FIO2) 60 Equipment Usage Equipment in Use Continuous SpO2 Machine # [id number] Intake & Output 01/20/18 01/21/18 01/22/18 06:59 06:59 06:59 Intake Total 200 40 Balance 200 40 Weight 79.7 kg 79.3 kg General appearance: PRESENT: no acute distress, well-developed, well-nourished, other - Pleasant, sitting up in bed Mouth exam: PRESENT: moist Respiratory exam: PRESENT: clear to auscultation gee, tachypnea - On supplemental O2 (2L), unlabored Cardiovascular exam: PRESENT: +S1, +S2 GI/Abdominal exam: PRESENT: soft. ABSENT: tenderness Neurological exam: PRESENT: alert, awake, CN II-XII grossly intact Psychiatric exam: PRESENT: appropriate affect Results Laboratory Results: 01/19/18 06:06 01/19/18 06:06 01/01/18 01/02/18 01/03/18 05:24 04:36 05:12 Creatine Kinase CK-MB (CK-2) Troponin I NT-Pro-B Natriuret Pep 9160 H 98756 H 5270 H 01/04/18 01/04/18 01/05/18 18:38 18:38 00:40 Creatine Kinase < 20 L < 20 L CK-MB (CK-2) 0.31 Troponin I 0.032 NT-Pro-B Natriuret Pep 01/05/18 01/05/18 01/05/18 00:40 06:30 06:30 Creatine Kinase < 20 L CK-MB (CK-2) 0.26 0.24 Troponin I 0.044 0.048 NT-Pro-B Natriuret Pep 2590 H Impressions: Chest/Abdomen CTA 01/05/18 08:00 IMPRESSION: No CT angio evidence of acute pulmonary emboli. Near complete collapse left lower lobe, progressive compared to the prior studies. Findings worrisome for pneumonia. Chest X-Ray 01/13/18 06:00 IMPRESSION: No significant interval change. Findings as noted above Transfer Plan - Time Spent with Patient Time spent with patient: Less than 30 Minutes Qualifiers - * PATIENT BEING DISCHARGED WITH ANY OF THE FOLLOWING DIAGNOSIS: No
[2018-01-21 16:53] VITALS: BP 119/59
--- NOTE | 2018-02-01 07:29 | PDOC H&P ---
History of Present Illness Admission Date/PCP: 12/30/17 17:06 HANNAH MARX DO Patient complains of: Shortness of breath and cough History of Present Illness: DANIEL MCFARLAND is a 82 year old female with a history of dementia, coronary artery disease, congestive heart failure, COPD, diabetes, CVA, hypertension, diverticular bleed and dementia. Patient presents from retirement after found by staff to have a rhonchorous cough, shortness of breath and generalized weakness. In the emergency room she denies chest pain, fever but is a poor historian unable to provide additional history. Chest x-ray reveals infiltrate with effusion and VBG reveals hypercapnia. She started on empiric antibiotics and BiPAP and referred to the hospitalist for admission. Past Medical History Cardiac Medical History: Reports: Congestive Heart Failure, Myocardial Infarction - X2, Hyperlipidema, Hypertension Pulmonary Medical History: Reports: Chronic Obstructive Pulmonary Disease (COPD) Denies: Tuberculosis Neurological Medical History: Denies: Seizures Endocrine Medical History: Reports: Diabetes Mellitus Type 1, Diabetes Mellitus Type 2 Psychiatric Medical History: Denies: Depression Past Surgical History Past Surgical History: Reports: Cardiac Catheterization, Section, Cholecystectomy, Hysterectomy Denies: Pacemaker Social History Smoking Status: Former Smoker Frequency of Alcohol Use: None Hx Recreational Drug Use: No Drugs: None Hx Prescription Drug Abuse: No - Advance Directive Resuscitation Status: Full Code Family History Family History: COPD, Other - Patient unable to provide family history Parental Family History Reviewed: Yes Children Family History Reviewed: Yes Sibling(s) Family History Reviewed.: Yes Medication/Allergy Home Medications: Acetaminophen [Tylenol 325 mg Tablet] 650 mg PO Q4HP PRN 12/30/17 Aspirin [Aspirin EC] 81 mg PO DAILY 12/30/17 Docusate Sodium [Colace 100 mg Capsule] 100 mg PO Q12 12/30/17 Metoprolol Succinate [Toprol Xl 25 mg Tab.sr] 25 mg PO DAILY 12/30/17 Polyethylene Glycol 3350 [Miralax Powder 17 gm/Packet] 1 packet PO Q12 12/30/17 Allergies/Adverse Reactions: Sulfa (Sulfonamide Antibiotics) Allergy (Verified 10/29/17 03:44) Review of Systems ROS unobtainable: Due to mental status Physical Exam Vital Signs: Temp Pulse Resp BP Pulse Ox 98.9 F 87 16 119/59 L 97 01/21/18 15:22 01/21/18 15:22 01/21/18 15:22 01/21/18 15:22 01/21/18 15:22 Pulse Oximeter Continuous Start: 01/03/18 14: 49 Freq: Status: Complete Document 01/03/18 16:05 [facility] (Rec: 01/03/18 17:52 [facility] [email or web address]) Pulse Oximetry Assessment Oxygen Saturation (92-100) 94 Fraction of Inspired Oxygen (FIO2) 60 Equipment Usage Equipment in Use Continuous SpO2 Machine # [id number] General appearance: PRESENT: cooperative, disheveled, mild distress Head exam: PRESENT: atraumatic, normocephalic Eye exam: PRESENT: conjunctiva pink, EOMI, PERRLA. ABSENT: scleral icterus Ear exam: PRESENT: normal external ear exam Mouth exam: PRESENT: moist, tongue midline Neck exam: ABSENT: carotid bruit, JVD, lymphadenopathy, thyromegaly Respiratory exam: PRESENT: accessory muscle use, crackles, retraction, rhonchi, tachypnea Cardiovascular exam: PRESENT: RRR. ABSENT: diastolic murmur, rubs, systolic murmur Pulses: PRESENT: normal dorsalis pedis pul Vascular exam: PRESENT: normal capillary refill GI/Abdominal exam: PRESENT: normal bowel sounds, soft. ABSENT: distended, guarding, mass, organolmegaly, rebound, tenderness Rectal exam: PRESENT: deferred Extremities exam: PRESENT: full ROM. ABSENT: calf tenderness, clubbing, pedal edema Neurological exam: PRESENT: alert, awake, oriented to person, oriented to place , CN II-XII grossly intact. ABSENT: motor sensory deficit Results Laboratory Results: 01/19/18 06:06 01/19/18 06:06 01/01/18 01/02/18 01/03/18 05:24 04:36 05:12 Creatine Kinase CK-MB (CK-2) Troponin I NT-Pro-B Natriuret Pep 9160 H 24133 H 5270 H 01/04/18 01/04/18 01/05/18 18:38 18:38 00:40 Creatine Kinase < 20 L < 20 L CK-MB (CK-2) 0.31 Troponin I 0.032 NT-Pro-B Natriuret Pep 04/18/18 04/18/18 04/18/18 00:40 06:30 06:30 Creatine Kinase < 20 L CK-MB (CK-2) 0.26 0.24 Troponin I 0.044 0.048 NT-Pro-B Natriuret Pep 2590 H Impressions: Chest/Abdomen CTA 01/05/18 08:00 IMPRESSION: No CT angio evidence of acute pulmonary emboli. Near complete collapse left lower lobe, progressive compared to the prior studies. Findings worrisome for pneumonia. Chest X-Ray 01/13/18 06:00 IMPRESSION: No significant interval change. Findings as noted above Assessment & Plan - Diagnosis (1) Acute on chronic diastolic CHF (congestive heart failure) Is this a current diagnosis for this admission?: Yes Plan: Decompensated secondary to bronchitis and pleural effusion. Trial BiPAP and loop diuretic. Consider ultrasound-guided thoracentesis, follow-up cardiac enzymes and chemistry. (2) Acute bronchitis Is this a current diagnosis for this admission?: Yes Plan: Albuterol and Atrovent, flutter valve and incentive spirometry (4) COPD with exacerbation Is this a current diagnosis for this admission?: Yes Plan: Supplemental oxygen, incentive spirometry, flutter valve - Time Time Spent: 50 to 70 Minutes - Inpatient Certification Medical Necessity: Need Close Monitoring Due to Risk of Patient Decompensation
== END 2018-01-21 17:00 | DRG 166 ==
LOC: ER 13:13 → EH 17:06 → 3S 19:55 → ICU 01-03 17:29 → 4S 01-13 01:20
PROVIDERS: ADMIT Family Medicine; ATTEND Family Medicine
PROC: 02HV33Z Insertion of Infusion Device into Superior Vena Cava, Percutaneous Approach (ICD-10-PCS; 2018-01-04)
PROC: 5A1955Z Respiratory Ventilation, Greater than 96 Consecutive Hours (ICD-10-PCS; 2018-01-04)
PROC: 0BH17EZ Insertion of Endotracheal Airway into Trachea, Via Natural or Artificial Opening (ICD-10-PCS; 2018-01-04)
PROC: 0B9M8ZX Drainage of Bilateral Lungs, Via Natural or Artificial Opening Endoscopic, Diagnostic (ICD-10-PCS; principal; 2018-01-06)
DX: J96.22 Acute and chronic respiratory failure with hypercapnia (principal); J18.9 Pneumonia, unspecified organism; I50.33 Acute on chronic diastolic (congestive) heart failure; G93.49 Other encephalopathy; I13.0 Hypertensive heart and chronic kidney disease with heart failure and stage 1 through stage 4 chronic kidney disease, or unspecified chronic kidney disease; J44.1 Chronic obstructive pulmonary disease with (acute) exacerbation; E87.3 Alkalosis; I47.2 Ventricular tachycardia; J96.21 Acute and chronic respiratory failure with hypoxia; E78.00 Pure hypercholesterolemia, unspecified; I11.0 Hypertensive heart disease with heart failure; I27.20 Pulmonary hypertension, unspecified; E11.22 Type 2 diabetes mellitus with diabetic chronic kidney disease; D64.9 Anemia, unspecified; N18.3 Chronic kidney disease, stage 3 (moderate); D72.829 Elevated white blood cell count, unspecified; B95.3 Streptococcus pneumoniae as the cause of diseases classified elsewhere; B96.89 Other specified bacterial agents as the cause of diseases classified elsewhere; E87.5 Hyperkalemia; M25.571 Pain in right ankle and joints of right foot; F03.90 Unspecified dementia, unspecified severity, without behavioral disturbance, psychotic disturbance, mood disturbance, and anxiety; E66.01 Morbid (severe) obesity due to excess calories; I25.2 Old myocardial infarction; Z87.891 Personal history of nicotine dependence; Z86.73 Personal history of transient ischemic attack (TIA), and cerebral infarction without residual deficits; Z79.84 Long term (current) use of oral hypoglycemic drugs; Z79.82 Long term (current) use of aspirin; Z79.899 Other long term (current) drug therapy; Z68.31 Body mass index [BMI] 31.0-31.9, adult
CPT/HCPCS: 31500; 36415; 36600; 71045; 71275; 80048; 80053; 81001; 82272; 82550; 82553; 82565; 82607; 82728; 82746; 82803; 82962; 83540; 83550; 83605; 83735; 83880; 84100; 84132; 84443; 84484; 84550; 85025; 85027; 85045; 85379; 85610; 85730; 87015; 87040; 87070; 87077; 87086; 87101; 87116; 87205; 87206; 87486; 89050; 93005; 93010; 93306; 94002; 94003; 94640; 94660; 94667; 94762; 94799; 96365; 99285; C1751; G8978-GP; G8979-GP; J0330; J0692; J0696; J1100; J1450; J1642; J1644; J1650; J1815; J1940; J1956; J2060; J2185; J2250; J2370; J2543; J2704; J2920; J3370; J3490; J7030; J7040; J7060; J7620; S0164

== ENCOUNTER → 2018-03-02 | Outpatient (CLI) | payer MEDICARE, MEDICAID ==
--- NOTE | 2018-03-02 17:02 | RADIOLOGY REPORT (SQ) ---
EXAM DESCRIPTION: CT CHEST WITH COMPLETED DATE/TIME: 03/02/2018 3:46 pm REASON FOR STUDY: OTHER NONSPECIFIC ABNORMAL FINDING OF LUNG FIELD R91.8 OTHER NONSPECIFIC ABNORMAL FINDING OF LUNG FIELD D72.829 ELEVATED WHITE BLOOD CELL COUNT, UNSPECIFIED COMPARISON: CT chest 11/23/2011, 02/18/2017, 10/31/2017, 11/08/2017, 01/05/2018 TECHNIQUE: CT scan of the chest performed using helical scanning technique with dynamic intravenous contrast injection. Images reviewed with lung, soft tissue and bone windows. Reconstructed coronal and sagittal MPR images reviewed. All images stored on PACS. All CT scanners at this facility use dose modulation, iterative reconstruction, and/or weight based d osing when appropriate to reduce radiation dose to as low as reasonably achievable (ALARA). [facility]: Dose Right [facility]: CareDose [facility]: Dose Right [facility]: Teradose 4D [facility]: 99tests CONTRAST TYPE AND DOSE: contrast/concentration: Isovue 370.00 mg/ml; Total Contrast Delivered: 80.0 ml; Total Saline Delivered: 55.0 ml RENAL FUNCTION: Creatinine 0.3 RADIATION DOSE: CT Rad equipment meets quality standard of care and radiation dose reduction techniq ues were employed. CTDIvol: 5.6 mGy. DLP: 207 mGy-cm. . LIMITATIONS: None. FINDINGS: LUNGS AND PLEURA: No acute infiltrates. No pleural effusion. No pneumothorax. Stable benign 5 to 6 mm smooth round nodule left upper lobe image 52, unchanged from 2012. Stable benign pleural thickening/ pleural nodule along the right minor fissure 10 mm in size axial im age 73, unchanged since 2012. There is stable calcification in the left lung base with 12 mm calcified benign nodule in the left po sterior costophrenic sulcus, and scattered less than 5 mm calcifications at both lung bases, stable c ompared to 2012. There is stable bronchiectasis in the right middle lobe. HILAR AND MEDIASTINAL STRUCTURES: Diffuse mediastinal adenopathy is present, with multiple enlarged p revascular, pre and paratracheal, AP window, precarinal, subcarinal, and bilateral hilar lymph nodes. The largest index lymph nodes are as follows: Precarinal lymph node 2.5 x 2 cm in size, unchanged from 10/31/2017 and 01/05/2018 Subcarinal lymph node 3.9 x 2.2 cm in size, unchanged from 10/31/2017 and 01/05/2018. HEART AND VASCULAR STRUCTURES: No aneurysm or dissection. No central pulmonary emboli. No pericardi al effusion. Calcified aortic valve, heavily calcified coronary arteries. HARDWARE: None in the chest. UPPER ABDOMEN: Small hiatal hernia. Post cholecystectomy THYROID AND OTHER SOFT TISSUES: Stable 2 cm cyst lower pole right lobe thyroid. Mild bilateral axill jett adenopathy is present, stable. BONES: No significant finding. OTHER: No other significant finding. IMPRESSION: No worrisome lung parenchymal findings. Lungs are stable compared to CT from 2012. Mediastinal and hilar adenopathy,, bilateral axillary adenopathy similar compared to 10/31/2017 and . This is worrisome for lymphoma TECHNICAL DOCUMENTATION: JOB ID: [id number] Quality ID # [id number]: Final reports with documentation of one or more dose reduction techniques (e.g., Au tomated exposure control, adjustment of the mA and/or kV according to patient size, use of iterative reconstruction technique) 2010 [employer]- All Rights Reserved Reading location - IP/workstation name: [facility]
== END ==
LOC: RAD 15:08
PROVIDERS: ATTEND Nurse Practitioner
DX: R91.8 Other nonspecific abnormal finding of lung field (principal)
CPT/HCPCS: 71260; 82565

== ENCOUNTER 2018-10-28 21:21 | Observation (INO) | payer MEDICARE, MEDICAID ==
[2018-10-28] MEDS ORDERED: RINGERS SOLUTION,LACTATED 1,000 ML IV ONE (21:27)
--- NOTE | 2018-10-28 21:37 | ER Document Report ---
ED General - General Stated Complaint: RESPIRATORY DISTRESS Time Seen by Provider: 10/28/18 21:24 Cannot obtain history due to: Dementia, Unstable vital signs, Other - Nonverbal Notes: Patient is an 83-year-old female who presents from [facility] with concerns of difficulty breathing. EMS reports when they got there the patient was noted to be profoundly hypotensive. Staff states that the patient was barely breathing. They were unable to determine how long this has been ongoing. No additional history can be obtained as the patient is nonverbal and EMS does not have any additional information. TRAVEL OUTSIDE OF THE [place] IN LAST 30 DAYS: No - Related Data Allergies/Adverse Reactions: Sulfa (Sulfonamide Antibiotics) Allergy (Verified 10/29/17 03:44) Past Medical History - General Information source: Emergency Med Personnel Cannot obtain history due to: Dementia, Unstable vital signs, Altered mental status - Social History Smoking Status: Unknown if Ever Smoked Frequency of alcohol use: None Drug Abuse: None Lives with: Shelter Family History: COPD, Other - Patient unable to provide family history - Past Medical History Cardiac Medical History: Reports: Hx Congestive Heart Failure, Hx Heart Attack - X2, Hx Hypercholesterolemia, Hx Hypertension Pulmonary Medical History: Reports: Hx COPD Denies: Hx Tuberculosis Neurological Medical History: Reports: Hx Cerebrovascular Accident. Denies: Hx Seizures Endocrine Medical History: Reports: Hx Diabetes Mellitus Type 1, Hx Diabetes Mellitus Type 2 Renal/ Medical History: Denies: Hx Peritoneal Dialysis Psychiatric Medical History: Denies: Hx Depression Past Surgical History: Reports: Hx Cardiac Catheterization, Hx Section, Hx Cholecystectomy, Hx Hysterectomy. Denies: Hx Pacemaker - Immunizations Hx Diphtheria, Pertussis, Tetanus Vaccination: - unknown Review of Systems - Review of Systems -: Yes ROS unobtainable due to patient's medical condition Physical Exam - Vital signs Vitals: Resp 14 10/28/18 21:27 Interpretation: Hypotensive Notes: PHYSICAL EXAMINATION: GENERAL: Obtunded, agonal respirations. Appears to be actively dying HEAD: Atraumatic, normocephalic. EYES: Pupils are sluggishly reactive bilaterally, sclera anicteric, conjunctiva are normal. ENT: nares patent, oropharynx clear without exudates. Extremely dry mucous membranes. NECK: supple without lymphadenopathy LUNGS: Rattling breath sounds bilaterally. HEART: Regular rate and rhythm without murmurs ABDOMEN: Soft, nontender, normoactive bowel sounds. No guarding, no rebound. No masses appreciated. EXTREMITIES:no pitting or edema. No cyanosis. NEUROLOGICAL: Moderate contractions in all 4 extremities. Minimal voluntary movement. Does not follow commands. PSYCH: Nonverbal SKIN: Cool to touch, peripheral cyanosis in the hands and feet Course - Re-evaluation Re-evalutation: 10/28/18 21:32 Patient presents actively dying. She is hypotensive 60 on 40, listless, does not respond, and has agonal respirations. This patient is 83 years of age, is bedbound, lives in a nursing facility, has a history of dementia, CHF, diabetes, and a multitude of additional chronic comorbidities. I immediately made an attempt to contact the son but the number listed in the chart both for the nursing facility and here at the hospital connected me to an individual who s tates this is not his number. Patient's grandson is at the bedside, does relate that he agrees that the patient should not receive full CODE STATUS although this is currently what is listed in the patient's paperwork. I do not feel comfortable pursuing an aggressive management at this time. I believe that it would be entirely futile to intubate the patient, placed central line and begin vasopressor agents. Although these measures may extend the patient's life I do not believe that she would survive to discharge given her condition at time of presentation. She has been placed on supplemental oxygen, IV fluids, basic laboratories and chest x-ray to be completed for data collection purposes second discussed with the family the gravity of the situation and completeness. 10/28/18 21:54 I had an extended conversation with the patient's son who after review of the patient's grave status, futility of possible interventions, has agreed to proceed with comfort measures only. We will discontinue all monitors, IV fluids, will discontinue labs and chest x-ray. Morphine, glycopyrrolate, [place] operidol comfort package has been initiated. Family will be at bedside. Will monitor and see if patient passes while here in the emergency department. Continue to reassess at regular intervals for comfort. 10/28/18 22:52 Patient has been reassessed. Appears comfortable. Multiple family members at the bedside. No concerns regarding patient's comfort. Will continue to reassess. 10/29/18 00:45 I have reassessed the patient on multiple occasions. At this point as the patient is still alive, I discussed with the hospitalist for admission for comfort measures. She has been accepted by Dr. Bradley. - Vital Signs Vital signs: Temp Pulse Resp BP Pulse Ox 24 H 64/44 L 98 10/29/18 02:00 10/28/18 21:28 10/29/18 02:00 - Laboratory Result Diagrams: 10/28/18 21:30 10/28/18 21:30 Critical Care Note - Critical Care Note Total time excluding time spent on procedures (mins): 40 Comments: Critical care time spent obtaining history from patient or surrogate, development of treatment plan with patient or surrogate, evaluation of patient's response to treatment, examination of patient, ordering and performing treatments and interventions, ordering and review of laboratory studies, re-eval uation of patient's condition, ordering and review of radiographic studies and review of old charts Discharge - Discharge Clinical Impression: Chronic respiratory failure with hypoxia Hypotension Qualifiers: Hypotension type: unspecified hypotension type Qualified Code(s): I95.9 - Hypotension, unspecified Altered mental status Qualifiers: Altered mental status type: unspecified Qualified Code(s): R41.82 - Altered mental status, unspecified Condition: Critical Disposition: ADMITTED INPATIENT Admitting Provider: Hospitalist Unit Admitted: Medical Floor
[2018-10-28] MEDS ORDERED: GLYCOPYRROLATE INJ 0.4 MG/2 ML VIAL IM ONE (21:50)
[2018-10-28] MEDS ORDERED: HALOPERIDOL LACTATE INJ 5 MG/1 ML VIAL IV ONE (21:55)
[2018-10-28] MEDS: MORPHINE SULFATE 10 MG/ML INJ IV PRN (22:00)
[2018-10-29] MEDS ORDERED: ONDANSETRON 4 MG TAB.RAPDIS PO PRN (01:12)
[2018-10-29] MEDS ORDERED: MAG HYDROX/AL HYDROX/SIMETH SUSP 30 ML UDCUP PO PRN (01:12)
[2018-10-29] MEDS ORDERED: MAGNESIUM HYDROXIDE SUSP 30 ML UDCUP PO PRN (01:12)
[2018-10-29] MEDS ORDERED: MORPHINE SULFATE 10 MG/5 ML ORAL SOLUTION UDCUP PO PRN (01:23)
[2018-10-29] MEDS ORDERED: LORAZEPAM 0.5 MG TABLET SL PRN (01:24)
[2018-10-29] MEDS ORDERED: HALOPERIDOL LACTATE ORAL SOLN 10 MG/5 ML UDCUP PO PRN (01:24)
[2018-10-29] MEDS ORDERED: ATROPINE SULFATE INJ 0.4 MG/1 ML VIAL IM PRN (01:24)
--- NOTE | 2018-10-29 03:20 | PDOC H&P ---
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 She is bedbound at the nursing facility and has numerous chronic medical problems. Her family has discussed extensively the resuscitation status desired with the emergency room physician and the patient's son (POA) has agreed and decided that his mother should be comfort measures only (DNR/DNI). Her overall decline has evidently been insidious but came to a point today when her blood pressure was low and her mental status was decreased to the point where she was essentially unresponsive. Patient's condition continued to be poor in the emergency room however it would appear that she is actively dying and thus she will be admitted to the hospital on observation status for comfort measures only. Past Medical History Past Medical History: Obtained from available records Cardiac Medical History: Reports: Congestive Heart Failure, Myocardial I nfarction - X2, Hyperlipidema, Hypertension Pulmonary Medical History: Reports: Chronic Obstructive Pulmonary Disease (COPD) Denies: Tuberculosis Neurological Medical History: Denies: Seizures Endocrine Medical History: Reports: Diabetes Mellitus Type 2 Psychiatric Medical History: Reports: Dementia Traumatic Medical History: Reports: None Infectious Medical History: Reports: None Past Surgical History Past Surgical History: Obtained from available records Past Surgical History: Reports: Cardiac Catheterization, Section, Cholecystectomy, Hysterectomy Social History Information Source: Relative, [facility] Records Lives with: [facility] Smoking Status: Former Smoker - [id number] Frequency of Alcohol Use: None Hx Recreational Drug Use: No Drugs: None Hx Prescription Drug Abuse: No - Advance Directive Resuscitation Status: Comfort Measures Only Surrogate healthcare decision maker:: Son Family History Family History: Patient is unable to provide medical history due to her poorly responsive mental status Parental Family History Reviewed: No Children Family History Reviewed: No Sibling(s) Family History Reviewed.: No Medication/Allergy Home Medications: Acetaminophen [Tylenol 325 mg Tablet] 650 mg PO Q4HP PRN 12/30/17 Aspirin [Aspirin EC] 81 mg PO DAILY 12/30/17 Docusate Sodium [Colace 100 mg Capsule] 100 mg PO Q12 12/30/17 Metoprolol Succinate [Toprol Xl 25 mg Tab.sr] 25 mg PO DAILY 12/30/17 Polyethylene Glycol 3350 [Miralax Powder 17 gm/Packet] 1 packet PO Q12 12/30/17 Atorvastatin Calcium 10 mg PO DAILY 03/02/18 Glipizide 5 mg PO DAILY 03/02/18 Allergies/Adverse Reactions: Sulfa (Sulfonamide Antibiotics) Allergy (Verified 10/29/17 03:44) Review of Systems ROS unobtainable: Due to mental status - Patient is hypotensive and poorly responsive and unable to contribute to her medical information. Physical Exam Vital Signs: Temp Pulse Resp BP Pulse Ox 25 H 64/44 L 97 10/29/18 00:00 10/28/18 21:28 10/29/18 00:00 Intake & Output 10/27/18 10/28/18 10/29/18 23:59 23:59 23:59 Intake Total 500 Balance 500 General appearance: PRESENT: no acute distress, other - Resting quietly Head exam: PRESENT: atraumatic, normocephalic Eye exam: PRESENT: conjunctiva pale. ABSENT: scleral icterus Ear exam: PRESENT: normal external ear exam. ABSENT: bleeding, drainage Mouth exam: PRESENT: dry mucosa, neck supple Neck exam: ABSENT: thyromegaly, tracheal deviation Respiratory exam: PRESENT: symmetrical, other - Irregular pattern Cardiovascular exam: PRESENT: RRR. ABSENT: clicks, gallop, rubs Pulses: ABSENT: normal radial pulses - Thready, normal dorsalis pedis pul - Thready Vascular exam: PRESENT: pallor - Mild general pallor. ABSENT: normal capillary refill - Delayed capillary refill approximately 3 seconds GI/Abdominal exam: PRESENT: normal bowel sounds, soft Rectal exam: PRESENT: deferred Extremities exam: ABSENT: joint swelling, pedal edema Musculoskeletal exam: ABSENT: deformity, dislocation Neurological exam: PRESENT: altered - Poorly responsive to any stimuli, other - Appears to be actively dying Psychiatric exam: PRESENT: other - Nonresponsive/unable to assess Skin exam: ABSENT: jaundice, urticaria Results Laboratory Results: 10/28/18 21:30 10/28/18 21:30 10/28/18 10/28/18 21:30 21:30 WBC Cancelled RBC Cancelled Hgb Cancelled Hct Cancelled MCV Cancelled MCH Cancelled MCHC Cancelled RDW Cancelled Plt Count Cancelled Seg Neutrophils % Cancelled Lymphocytes % Cancelled Monocytes % Cancelled Eosinophils % Cancelled Basophils % Cancelled Absolute Neutrophils Cancelled Absolute Lymphocytes Cancelled Absolute Monocytes Cancelled Absolute Eosinophils Cancelled Absolute Basophils Cancelled Sodium Cancelled Potassium Cancelled Chloride Cancelled Carbon Dioxide Cancelled Anion Gap Cancelled BUN Cancelled Creatinine Cancelled Est GFR ( Amer) Cancelled Est GFR (Non-Af Amer) Cancelled Glucose Cancelled Calcium Cancelled Total Bilirubin Cancelled AST Cancelled ALT Cancelled Alkaline Phosphatase Cancelled Total Protein Cancelled Albumin Cancelled 10/28/18 21:30 Troponin I Cancelled Assessment & Plan - Diagnosis (1) Comfort measures only status Is this a current diagnosis for this admission?: Yes Plan: Patient be allowed to dignified with comfort measures only. (2) Dementia Qualifiers: Dementia type: unspecified type Dementia behavioral disturbance: without behavioral disturbance Qualified Code(s): F03.90 - Unspecified dementia without behavioral disturbance Is this a current diagnosis for this admission?: Yes Plan: Patient is at end-stage with her dementia no longer able to eat or drink to sustain herself. She will be allowed to dignified with comfort measures only. (3) Acute and chronic respiratory failure with hypoxia Is this a current diagnosis for this admission?: Yes Plan: Patient will be allowed to a dignified with comfort measures only. (4) Hypotension Qualifiers: Hypotension type: unspecified hypotension type Qualified Code(s): I95.9 - Hypotension, unspecified Is this a current diagnosis for this admission?: Yes Plan: Patient will be allowed to dignified and comfort measures only. - Time Time Spent: 30 to 50 Minutes Critical Time spent with patient: Less than 15 minutes Medications reviewed and adjusted accordingly: Yes Anticipated discharge: Other - Inpatient Certification Based on my medical assessment, after consideration of the patient's comorbidities, presenting symptoms, or acuity I expect that the services needed warrant INPATIENT care.: No I certify that my determination is in accordance with my understanding of Medicare's requirements for reasonable and necessary INPATIENT services [42 CFR 412.3e].: No
[2018-10-29 04:37] VITALS: BP 65/28
[2018-10-29] MEDS: MORPHINE SULFATE 10 MG/ML INJ IV PRN (06:05)
--- NOTE | 2018-10-29 19:21 | Death Summary ---
Summary Date : 10/29/18 Time of :: 06:30 Autopsy: No Resuscitation Status: Comfort Measures Only Primary Care Provider: Tomeka Bhagat - Final Diagnosis (1) Comfort measures only status Is this a current diagnosis for this admission?: Yes (2) Dementia Is this a current diagnosis for this admission?: Yes (3) Acute and chronic respiratory failure with hypoxia Is this a current diagnosis for this admission?: Yes (4) Hypotension Is this a current diagnosis for this admission?: Yes Hospital Course:: DANIEL MCFARLAND is a 83 year old female who presented from a local nursing facility declining mental status and hypotension. She was bedbound at the nursing facility and had numerous chronic medical problems. Her family had discussed extensively the resuscitation status desired with the emergency room physician and the patient's son (JESUS) had agreed and decided that his mother should be comfort measures only (DNR/DNI). Her overall decline had evidently been insidious but came to a point today when her blood pressure was low and her mental status was decreased to the point where she was essentially unresponsive. Patient's condition continued to be poor in the emergency room however it appeared that she was actively dying and thus she was admitted to the hospital on observation status for comfort measures only. Over the course of the next few hours the patient's status gradually declined with her respirations great more irregular until at 6:30 AM on 10/29/2018 she was found to be pulseless and breathless by the nursing staff and was pronounced. Patient's body will be released to the home of the family's choice once arrangements have been finalized.
--- NOTE | 2018-10-29 20:07 | EKG REPORT ---
SEVERITY:- ABNORMAL ECG - SINUS RHYTHM RIGHT BUNDLE BRANCH BLOCK CONSIDER INFERIOR [place] AGE INDETERMINATE : Confirmed by: Asa Dupont 29-Oct-2018 20:06:55
== END 2018-10-29 09:25 | disposition expired ==
LOC: ER 21:21 → EH 10-29 01:51 → INTOOBSV 10-29 01:51 → 3N 10-29 03:25
PROVIDERS: ADMIT Emergency Medicine; ATTEND Emergency Medicine
DX: Z51.5 Encounter for palliative care (principal); F03.90 Unspecified dementia, unspecified severity, without behavioral disturbance, psychotic disturbance, mood disturbance, and anxiety; J96.21 Acute and chronic respiratory failure with hypoxia; I95.9 Hypotension, unspecified; I10 Essential (primary) hypertension; Z74.01 Bed confinement status; E78.5 Hyperlipidemia, unspecified; I25.2 Old myocardial infarction; Z87.891 Personal history of nicotine dependence; E11.9 Type 2 diabetes mellitus without complications; Z79.84 Long term (current) use of oral hypoglycemic drugs; Z79.82 Long term (current) use of aspirin; Z86.73 Personal history of transient ischemic attack (TIA), and cerebral infarction without residual deficits; Z66 Do not resuscitate
CPT/HCPCS: 93005; 99291; 93010; J2270 ×2; J7120